=== PATIENT | female | born 1945 | race Caucasian/White ===

== ENCOUNTER 2016-04-23 20:00 | Observation (INO) | payer OTHER ==
[~2016-04-23] VITALS: Ht 157.5 cm; Wt 63.6 kg
[~2016-04-23 20:00] MED LIST: ASPEC81 PO; DENO60SO SQ; LEVO25TA5 PO; LEVO50TA PO; LPT20 PO; NTRGSL/4 UT; PANT1TAB48 PO; QUET-205 PO; QUET1TAB32 PO; TPRSR25 PO; TRAV0.00 OPB; VENL150C PO
[2016-04-23 20:39] LABS: HEMATOCRIT 37.1 % (37-47); MEAN CELL VOLUME 87.9 fL (80-100); MEAN CORPUSCULAR HEMOGLOBIN 29.9 pg (25-34); MEAN PLATELET VOLUME 12.5 fL (7.4-10.4); PLATELET COUNT 166 K/uL (130-400); RED BLOOD COUNT 4.22 M/uL (4.2-5.4); WHITE BLOOD COUNT 10.56 K/uL (4.8-10.8)
--- NOTE | 2016-04-23 20:42 | DIAGNOSTIC IMAGING REPORT ---
CHEST ONE VIEW PORTABLE CLINICAL HISTORY: AMS dyspnea COMPARISON STUDY: 05/25/2015 FINDINGS: Mild stable cardia megaly. Stable air-filled esophagus with mild distention. Stable atelectatic change versus scarring left base. Prior left shoulder arthroplasty. IMPRESSION: Chronic and postoperative change. No acute process. Electronically signed by: Srinivasan Mike M.D. 04/23/2016 8:41 PM Dictated Date/Time: 04/23/2016 8:40 PM
[2016-04-23 20:43] LABS: URINE APPEARANCE CLOUDY (CLEAR); URINE BILIRUBIN NEG (NEG); URINE COLOR YELLOW; URINE EPITHELIAL CELL AUTO 0-5 /lpf (0-5); URINE NITRITE NEG (NEG); UROBILINOGEN NEG (NEG); ZZUR CULT IF INDIC CLEAN CATCH NO
--- NOTE | 2016-04-23 20:48 | EMERGENCY ROOM VISIT NOTE ---
History Report prepared by Tom: Jessica Hayes Under the Supervision of: Dr. Basilio Henson M.D. First contact with patient: 20:02 Stated Complaint: confusion History of Present Illness The patient is a 70 year old female who presents to the Emergency Room with complaints of an episode of confusion occurring STAMP MOUNTER. The patient estimates that it was around 6pm when her symptoms occurred. She is unsure how long symptoms lasted. She just suddenly became unsure of where she was or what she was doing. She remembers wondering what she should be doing next. She was confused about who was nearby. The patient states that this episode was unwitnessed by anyone, although, her sister was waiting for her downstairs. She reports having some nausea earlier today which is not unusual for her. She denies chest pain, abdominal pain, diarrhea, vomiting, swelling in her legs, rash, back pain, headache, and any alcohol consumption. She denies falling to the ground or hitting her head. The patient was brought to the ED by ambulance. She was at her PCP earlier today for a well visit and denies any recent changes in her medications. Source of History: patient Onset: STAMP MOUNTER Position: other (global) Quality: other (confusion) Timing: other (episode) Modifying Factors (Relieving): other (time) Associated Symptoms: + nausea, No abdominal pain, No back pain, No chest pain, No diarrhea, No headache, No rash, No vomiting Review of Systems See HPI for pertinent positives & negatives. A total of 10 systems reviewed and were otherwise negative. Past Medical & Surgical Medical Problems: (1) Amnesia, global, transient (2) Asthma (3) COPD (chronic obstructive pulmonary disease) (4) Fit denture (5) Genital herpes simplex (6) GERD (gastroesophageal reflux disease) (7) hiatal hernia repair (8) Hysterectomy (9) SVT (supraventricular tachycardia) Family History Cancer Diabetes mellitus Heart disease Hypertension Lung disease Social History Smoking Status: Never Smoker Alcohol Use: none Marital Status: single Housing Status: lives alone Occupation Status: disabled Current/Historical Medications Scheduled Aspirin (Aspirin EC Low Dose), 81 MG PO DAILY Atorvastatin (Atorvastatin Calcium), 20 MG PO PM Denosumab (Prolia), 60 MG SQ [id number] Levothyroxine Sodium (Synthroid), 50 MCG PO 5XWK Levothyroxine Sodium (Levothyroxine Sodium), 25 TAB PO 2XWK Metoprolol Succinate (Metoprolol Succinate ER), 25 MG PO QAM Pantoprazole (Protonix), 40 MG PO BID Quetiapine Fumarate (Seroquel), 300 MG PO HS Venlafaxine Hcl (Effexor Xr), 150 MG PO QAM Venlafaxine Hcl (Effexor Xr), 37.5 MG PO QAM Scheduled PRN Nitroglycerin (Nitrostat), 0.4 MG UT UD PRN for Chest Pain Allergies Coded Allergies: Latex (Unverified Allergy, Mild, OTHER, 04/23/16) Physical Exam Vital Signs Date Time Temp Pulse Resp B/P Pulse Ox O2 Delivery O2 Flow Rate FiO2 04/23/16 22:42 87 18 137/89 96 Room Air 04/23/16 20:56 73 18 116/72 98 Room Air 04/23/16 20:19 80 04/23/16 20:06 36.7 81 18 120/91 96 Room Air Physical Exam GENERAL: Patient is well appearing and in no acute distress. HEENT: No acute trauma, normocephalic atraumatic, mucous membranes moist, no nasal congestion, no scleral icterus. NECK: No stridor, no adenopathy, no meningismus, trachea is midline. LUNGS: No dyspnea. Clear to auscultation and equal bilaterally. No wheeze, no rhonchi. HEART: Regular rate and rhythm. No murmurs, rubs, gallops appreciated. ABDOMEN: Soft, nontender, bowel sounds positive, no masses appreciated, no peritonitis. BACK: No midline tenderness, no CVA tenderness EXTREMITIES: Normal motion all extremities, no cyanosis, no edema. NEUROLOGIC: Alert and oriented, no acute motor or sensory deficits, no focal weakness, cranial nerves grossly intact. SKIN: No rash, no jaundice, no diaphoresis. Medical Decision & Procedures ER Provider Diagnostic Interpretation: Radiology results and stated below per my review and radiologist interpretation: HEAD CT NONCONTRAST CT DOSE: 537.48 mGy.cm HISTORY: Mental status change AMS TECHNIQUE: Multiaxial CT images of the head were performed without the use of intravenous contrast. Comparison: 03/20/2014 Findings: The paranasal sinuses and mastoid air cells are clear. The calvarium and skull base are intact. The ventricles and sulci are within normal limits. There is no mass, hematoma, midline shift, or acute infarct. Impression: No acute intracranial abnormality. Electronically signed by: Srinivasan Mike M.D. 04/23/2016 8:48 PM Dictated Date/Time: 04/23/2016 8:48 PM CHEST ONE VIEW PORTABLE CLINICAL HISTORY: AMS dyspnea COMPARISON STUDY: 05/25/2015 FINDINGS: Mild stable cardia megaly. Stable air-filled esophagus with mild distention. Stable atelectatic change versus scarring left base. Prior left shoulder arthroplasty. IMPRESSION: Chronic and postoperative change. No acute process. Electronically signed by: Srinivasan Mike M.D. 04/23/2016 8:41 PM Dictated Date/Time: 04/23/2016 8:40 PM Laboratory Results 04/23/16 20:28 Red Blood Count 4.22, Mean Corpuscular Volume 87.9, Mean Corpuscular Hemoglobin 29.9, Mean Corpuscular Hemoglobin Concent 34.0, Mean Platelet Volume 12.5, Neutrophils (%) (Auto) 81.7, Lymphocytes (%) (Auto) 10.8, Monocytes (%) (Auto) 6.5, Eosinophils (%) (Auto) 0.7, Basophils (%) (Auto) 0.2, Neutrophils # (Auto) 8.63, Lymphocytes # (Auto) 1.14, Monocytes # (Auto) 0.69, Eosinophils # (Auto) 0.07, Basophils # (Auto) 0.02 04/23/16 20:28 Test 04/23/16 20:28 White Blood Count 10.56 K/uL (4.8-10.8) Red Blood Count 4.22 M/uL (4.2-5.4) Hemoglobin 12.6 g/dL (12.0-16.0) Hematocrit 37.1 % (37-47) Mean Corpuscular Volume 87.9 fL (80-100) Mean Corpuscular Hemoglobin 29.9 pg (25-34) Mean Corpuscular Hemoglobin Concent 34.0 g/dl (32-36) Platelet Count 166 K/uL (130-400) Mean Platelet Volume 12.5 fL (7.4-10.4) Neutrophils (%) (Auto) 81.7 % Lymphocytes (%) (Auto) 10.8 % Monocytes (%) (Auto) 6.5 % Eosinophils (%) (Auto) 0.7 % Basophils (%) (Auto) 0.2 % Neutrophils # (Auto) 8.63 K/uL (1.4-6.5) Lymphocytes # (Auto) 1.14 K/uL (1.2-3.4) Monocytes # (Auto) 0.69 K/uL (0.11-0.59) Eosinophils # (Auto) 0.07 K/uL (0-0.5) Basophils # (Auto) 0.02 K/uL (0-0.2) RDW Standard Deviation 45.2 fL (36.4-46.3) RDW Coefficient of Variation 14.0 % (11.5-14.5) Immature Granulocyte % (Auto) 0.1 % Immature Granulocyte # (Auto) 0.01 K/uL (0.00-0.02) Activated Partial Thromboplast Time 29.6 SECONDS (21.0-31.0) Partial Thromboplastin Ratio 1.1 Urine Color YELLOW Urine Appearance CLOUDY (CLEAR) Urine pH 5.0 (4.5-7.5) Urine Specific [place] 1.020 (1.000-1.030) Urine Protein NEG (NEG) Urine Glucose (UA) NEG (NEG) Urine Ketones TRACE (NEG) Urine Occult Blood NEG (NEG) Urine Nitrite NEG (NEG) Urine Bilirubin NEG (NEG) Urine Urobilinogen NEG (NEG) Urine Leukocyte Esterase NEG (NEG) Urine WBC (Auto) 1-5 /hpf (0-5) Urine RBC (Auto) 0-4 /hpf (0-4) Urine Hyaline Casts (Auto) 0 /lpf (0-5) Urine Epithelial Cells (Auto) 0-5 /lpf (0-5) Urine Bacteria (Auto) NEG (NEG) Urine Crystals URIC ACID (NONE PRSENT) Anion Gap 9.0 mmol/L (3-11) Est Creatinine Clear Calc Drug Dose 41.7 ml/min Estimated GFR () 58.9 Estimated GFR (Non- 50.8 BUN/Creatinine Ratio 24.7 (10-20) Calcium Level 9.0 mg/dl (8.5-10.1) Magnesium Level 2.1 mg/dl (1.8-2.4) Total Bilirubin 0.4 mg/dl (0.2-1) Direct Bilirubin < 0.1 mg/dl (0-0.2) Aspartate Amino Transf (AST/SGOT) 22 U/L (15-37) Alanine Aminotransferase (ALT/SGPT) 28 U/L (12-78) Alkaline Phosphatase 48 U/L (45-117) Troponin I < 0.015 ng/ml (0-0.045) Total Protein 7.1 gm/dl (6.4-8.2) Albumin 3.8 gm/dl (3.4-5.0) Lipase 156 U/L (73-393) Thyroid Stimulating Hormone (TSH) 1.080 uIu/ml (0.300-4.500) Medications Administered Medications (Trade) Dose Ordered Sig/Brent Route Start Time Stop Time Status Last Admin Dose Admin Lidocaine HCl (Viscous Lidocaine 2% Soln) 20 ml STK-MED ONCE .ROUTE 04/23/16 22:27 04/23/16 22:29 DC 04/23/16 22:40 20 ML Al Hydroxide/Mg Hydroxide (Maalox Susp) 30 ml STK-MED ONCE .ROUTE 04/23/16 22:27 04/23/16 22:29 DC 04/23/16 22:40 30 ML ECG Indication: altered mental status Rate (beats per minute): 66 Rhythm: normal sinus Findings: no acute ischemic change, no ectopy Change: Repeat ECG performed in the ED reveals NSR 69 no ectopy no ischemia. ED Course 2001: The patient was evaluated in room C11B. A complete history and physical exam was performed. 2212: The patient is complaining of chest pressure. A repeat ECG was ordered. 2213: GI Cocktail 24 ml PO 2222: I reassessed the patient at this time. She is feeling better and resting comfortably. I discussed the results and treatment plan with the patient. I answered all pertaining questions that she had. She expressed understanding and verbalized agreement. 2224: I spoke with Dr. Yao. We discussed the patients results and treatment plan. The patient will be evaluated by the [facility] for further management. Medical Decision Differential: Vaso-vagal, Intracerebral Event, Neurologic, Infectious, Volume Deficiency, Hypoglycemia, Electrolyte Abnormality, Cardiac Source, Toxicologic, amongst other pathologies entertained. 70 yr old female arrives for evaluation of altered mental status. Patient is somewhat vague but it appears there was an episode of confusion/loss of memory lasting possibly a half hour? She notes that she does remember being dizzy and diaphoretic after this. She is stable and in no distress now. Work-up benign. We were discussing going home when patient noted chest pressure. Repeat EKG unremarkable and symptoms gone shortly there-after. Was given GI Cocktail as she notes she has some reflux issues. With transient AMS and chest pressure in high risk patient who lives alone seems reasonable obs in hospital. Consults Time Called: 2220 Consulting Physician: Dr. Yao Returned Call: [phone] Yao. We discussed the patients results and treatment plan. The patient will be evaluated by the [facility] for further management. Impression Primary Impression: Chest pain Additional Impression: Altered mental status Scribe Attestation The scribe's documentation has been prepared under my direction and personally reviewed by me in its entirety. I confirm that the note above accurately reflects all work, treatment, procedures, and medical decision making performed by me. Departure Information Dispostion Being Evaluated By Hospitalist Referrals Yuko Casas M.D. (PCP) Problem Qualifiers Primary Impression: Chest pain Chest pain type: precordial pain Qualified Codes: R07.2 - Precordial pain Additional Impression: Altered mental status Altered mental status type: transient alteration of awareness Qualified Codes : R40.4 - Transient alteration of awareness
[2016-04-23 20:49] LABS: MANUAL MICROSCOPIC REQUIRED? NO; REVIEW REQ? YES
[2016-04-23 20:59] LABS: ALT/SGPT 28 U/L (12-78); BLOOD UREA NITROGEN 27 mg/dl (7-18); BUN/CREATININE RATIO 24.7 (10-20); CARBON DIOXIDE 26 mmol/L (21-32); CHLORIDE 106 mmol/L (98-107); GLUCOSE 108 mg/dl (70-99); SODIUM 141 mmol/L (136-145)
[2016-04-23 21:03] LABS: ALKALINE PHOSPHATASE 48 U/L (45-117); AST/SGOT 22 U/L (15-37)
[2016-04-23 21:05] LABS: BASO % 0.2 %; BASO ABS # 0.02 K/uL (0-0.2); COMPLETE YES; EOS % 0.7 %; IG% 0.1 %; LYMPH % 10.8 %; LYMPH ABS # 1.14 K/uL (1.2-3.4); MONO % 6.5 %; NEUT % 81.7 %
--- NOTE | 2016-04-23 21:14 | DIAGNOSTIC IMAGING REPORT ---
HEAD CT NONCONTRAST CT DOSE: 537.48 mGy.cm HISTORY: Mental status change AMS TECHNIQUE: Multiaxial CT images of the head were performed without the use of intravenous contrast. Comparison: 03/20/2014 Findings: The paranasal sinuses and mastoid air cells are clear. The calvarium and skull base are intact. The ventricles and sulci are within normal limits. There is no mass, hematoma, midline shift, or acute infarct. Impression: No acute intracranial abnormality. Electronically signed by: Srinivasan Mike M.D. 04/23/2016 8:48 PM Dictated Date/Time: 04/23/2016 8:48 PM
[2016-04-23] MEDS ORDERED: GI COCKTAIL PO STA (22:13)
[2016-04-23] MEDS ORDERED: ALUMINUM/MAGNESIUM SUSP 30 ML UDC ONE (22:27)
[2016-04-23] MEDS ORDERED: LIDOCAINE HCL 2% VISC SOLN 20 ML UDC ONE (22:27)
[2016-04-23 23:05] LABS: PARTIAL THROMBOPLASTIN RATIO 1.1
[2016-04-23] MEDS ORDERED: VENL1CAP92 PO (23:05)
[2016-04-23] MEDS ORDERED: QUET1TAB37 PO (23:05)
[2016-04-23] MEDS ORDERED: EFF/375 PO (23:05)
[2016-04-23 23:39] LABS: MAGNESIUM 2.1 mg/dl (1.8-2.4)
[2016-04-23] MEDS ORDERED: SODIUM CHLORIDE 0.45% 1000ML 1,000 ML IV ONE (23:45)
[2016-04-24] MEDS ORDERED: NITROGLYCERIN 0.4 MG SL PER TAB CHARGE SL PRN
[2016-04-24] MEDS ORDERED: ACETAMINOPHEN 325 MG TAB PO PRN
[2016-04-24] MEDS ORDERED: IV FLUIDS COMPLETED PRN (00:15)
--- NOTE | 2016-04-24 03:50 | HISTORY & PHYSICAL EXAMINATION ---
DATE OF ADMISSION: 04/23/2016 PATIENT'S PRIMARY CARE DOCTOR: Dr. Casas Hx obtained form px and records. CHIEF COMPLAINT: Confusion. HISTORY OF PRESENT ILLNESS: Medical history is significant for non-occlusive CAD, PSVT as per records, mood disorder, schizophrenia, COPD, past tobacco abuse, GERD/Mcintyre's dse sp surgery hypothyroidism, Recent confinement last in September 2014 for chest pain, possible non-ST elevation LA, nonocclusive CAD on cath. Last night, the patient got into her apartment elevator, felt fuzzy, does not remember subsequent events, transient confusion. No chest pain, no shortness of breath, no syncope. May have happened before. Denies bladder discomfort. No fever, no chills. No recent change in home meds. At the ER, patient had chest pain described as reflux symptoms resolved by GI cocktail. Patient is currently comfortable. admits to occasional choking w meals. MEDICAL HISTORY: As above. EGD July 2015 shows esophageal stenosis sp dilatation, Mcintyre's disease SURGERIES: She has had hysterectomy, tubal ligation, rotator cuff surgery HOME MEDICATIONS: Include; Prolia, Synthroid, levothyroxine, Nitrostat, Protonix, Seroquel, Effexor. ASA ALLERGIES: TO LATEX. FAMILY HISTORY: Hypertension, blood cancer, breast cancer, COPD and depression. PERSONAL AND SOCIAL HISTORY: past tobacco abuse, no chronic intake of alcoholic beverages. lives alone REVIEW OF SYSTEMS: As per HPI. All other ROS negative. PHYSICAL EXAMINATION: VITAL SIGNS: Blood pressure 120/91, pulse rate 80 RR 18, 36.6, T 37 O2 sats 98 on room air. GENERAL: Noted to be slightly anxious and restless, in no respiratory distress. occ. circuitous answers SKIN: Normal color. HEENT: [place] palpebral conjunctivae. Dry mucosa. NECK: No JVD. supple CHEST: Clear to auscultation. HEART: Regular rate and rhythm. ABDOMEN: Soft. EXTREMITIES: No edema, no tenderness. NEUROLOGIC: No gross focality. LABORATORIES: Hemoglobin was 12.6, hematocrit 37, white cell count 10, platelets 200 Sodium 141, potassium 4, chloride 101, CO2 26, BUN 27, creatinine 1.1, glucose 108. Troponin normal. Chest x-ray showed cardiomegaly, air-filled esophagus with mild distention. CT of head; no acute pathology. EKG; 65, NSR no ischemia UA showed trace ketones, WC 1-5. ASSESSMENT AND PLAN: 1. Transient confusion, vs transient global amnesia poss from mild dehydration as evidenced by mild ketonuria rule out TIA, seizures. 2. Chest pain from reflux as per px description resolved w/ GI cocktail given at the ER 3. hx non-occlusive CAD as per records 4. xh PSVT as per records 5. Mood disorder/schizophrenia as per records stable on medications as per px. 6. Chronic obstructive pulmonary disease, past tobacco abuse pulmo status at baseline 7. hx GERD sp surgery Occasional choking, prob esophageal dysfunction. PLAN: Observation. PCU. IVF MRI of head, EEG for transient amnesia craig Neurology consult. transient amnesia Further eval/management as per Neurology. PT/OT evaluation. Swallow eval RE episodic choking DVT prophylaxis, Lovenox subQ. Full code. MTDD
[2016-04-24 03:58] VITALS: BP 122/88; PULSE 80; TEMP 36.8; Ht 157.5 cm; Wt 63.6 kg
[2016-04-24 04:54] LABS: BASO % 0.3 %; BASO ABS # 0.02 K/uL (0-0.2); COMPLETE YES; EOS % 2.1 %; HEMATOCRIT 34.9 % (37-47); IG% 0.2 %; LYMPH % 32.6 %; LYMPH ABS # 2.13 K/uL (1.2-3.4); MEAN CELL VOLUME 84.7 fL (80-100); MEAN CORPUSCULAR HEMOGLOBIN 28.9 pg (25-34); MEAN CORPUSCULAR HGB CONC 34.1 g/dl (32-36); NEUT % 53.8 %; PLATELET COUNT 157 K/uL (130-400); RED BLOOD COUNT 4.12 M/uL (4.2-5.4); WHITE BLOOD COUNT 6.54 K/uL (4.8-10.8)
[2016-04-24 05:09] LABS: BLOOD UREA NITROGEN 25 mg/dl (7-18); BUN/CREATININE RATIO 30.3 (10-20); CALCIUM 8.8 mg/dl (8.5-10.1); CARBON DIOXIDE 26 mmol/L (21-32); CHLORIDE 109 mmol/L (98-107); CREATININE 0.83 mg/dl (0.60-1.20); GLUCOSE 89 mg/dl (70-99); POTASSIUM 3.7 mmol/L (3.5-5.1); SODIUM 143 mmol/L (136-145)
[2016-04-24] MEDS ORDERED: LEVOTHYROXINE 50 MCG TAB PO SCH (06:30)
--- NOTE | 2016-04-24 06:46 | DIAGNOSTIC IMAGING REPORT ---
MRI OF THE BRAIN WITHOUT CONTRAST CLINICAL HISTORY: Confusion and transient amnesia. COMPARISON STUDY: Head CT dated 04/23/2016 FINDINGS: Sagittal T1, axial diffusion, proton density and T2 weighted axial, coronal FLAIR, and axial T1-weighted images were acquired. No intra or extra-axial mass lesions are visualized Axial diffusion-weighted images reveal no evidence of acute or subacute infarction. There is no evidence of ventricular dilatation. Proton density T2-weighted and FLAIR images reveal foci of increased T2 signal within the white matter, subjacent to the insular cortices right greater than left, likely on a small vessel basis. There are no abnormal flow voids. IMPRESSION: 1. No acute intracranial findings 2. No evidence of acute or subacute infarction 3. No evidence of intracranial mass on this noncontrast study Electronically signed by: Efrain Cheung M.D. 04/24/2016 6:45 AM Dictated Date/Time: 04/24/2016 6:42 AM
[2016-04-24 08:22] VITALS: BP 130/90; PULSE 72; TEMP 36.8; O2SAT 98
[2016-04-24] MEDS ORDERED: INFLUENZA VIRUS QUAD VACCINE 0.5 ML SYR IM. ONE (08:30)
[2016-04-24] MEDS ORDERED: INFLUENZA ADMINISTRATION CHARGE ONE (08:30)
[2016-04-24] MEDS ORDERED: VENLAFAXINE HCL XR 150 MG CAPXR PO SCH (09:00)
[2016-04-24] MEDS ORDERED: PANTOprazole SOD 40 MG TAB PO SCH (09:00)
[2016-04-24] MEDS ORDERED: METOPROLOL SUCC 25MG EXT REL TAB PO SCH (09:00)
[2016-04-24] MEDS ORDERED: VENLAFAXINE HCL XR 37.5 MG CAPXR PO SCH (09:00)
[2016-04-24] MEDS ORDERED: ASPIRIN 81 MG ECTAB PO SCH (09:00)
[2016-04-24] MEDS ORDERED: ENOXAPARIN 40 MG/0.4 ML SYR SC SCH (09:00)
[2016-04-24] MEDS ORDERED: ALUMINUM/MAGNESIUM SUSP 30 ML UDC PO PRN (13:15)
--- NOTE | 2016-04-24 13:38 | ELECTROENCEPHALOGRAPH REPORT ---
CLINICAL DIAGNOSIS: Transient amnesia, question seizure. EEG DIAGNOSIS: Essentially normal during wakefulness and brief duration drowsiness. DESCRIPTION OF TRACING: This EEG was done as a bedside recording and is of good technical quality. A simultaneous video analysis of patient movement and behavior was also obtained. Photic stimulation was performed. Episodic drowsiness is recorded, but fully sustained drowsiness and light sleep were not seen. Under these conditions, there is evidence for normal appearing background rhythm in the alpha range of up to 10 Hz of maximum frequency and 30 microvolts of maximum amplitude. This is maximum posterior head regions and bilaterally symmetrical. Polymorphic mid frequency theta activity modest voltage is seen over all head regions without clear focal or regional predominance. Anterior head region maximum bilaterally symmetrical low voltage fast activity in the beta range is present. Photic stimulation provokes some modest driving response without a photomyogenic or photoparoxysmal component. Episodic drowsiness is seen during which the background rhythm disappears and is replaced by more rhythmic theta delta activity, but this is never sustained and fully developed sleep spindles and K complexes are not present. At no time during the waking or brief duration drowsy tracing is there evidence for potentially activity in the form of polyspike or spike wave bursts, focal sharp waves or focal spikes. INTERPRETATION: This EEG is essentially normal during wakefulness without evidence for focal or generalized encephalopathy and without evidence for potentially epileptogenic activity. MTDD
[2016-04-24 15:16] VITALS: O2SAT 98
[2016-04-24 15:43] VITALS: BP 122/84; PULSE 69; TEMP 36.5; O2SAT 98
--- NOTE | 2016-04-24 16:02 | Neurology Consultation ---
Neurology Consultation Date of Consultation: Apr 24, 2016. Attending Physician: Karolina Cotton MD Primary Care Physician: Yuko Casas M.D. Reason for Consultation: confusion transient amnesia History of Present Illness Source: patient Holli is a 70 year old female who has a PMH SVT, GERD, COPD, anxiety, depression. She states she was getting ready to walk to the [employer] with her sister that lives in the same department building as she does. She got on the elevator and things just didn't look right. She got off the elevator and after a few minutes realized she was going to meet her sister and they walked over to [employer]. Her sister said she sounded like she was drink. This went on for several minutes and then she was back to her baseline. She states this has happened many times in the past but it always resolves. She had no one sided numbness, weakness, tingling, CP, SOB, abdominal pain, N, V, vision changes. Past Medical/Surgical History Medical Problems: (1) Altered mental status Status: Acute (2) Chest pain Status: Acute (3) Epigastric abdominal pain Status: Acute (4) Hives Status: Acute Social History Smoking Status: Never smoker Marital Status: single Housing Status: lives alone Occupation Status: disabled Allergies Coded Allergies: Latex (Unverified Allergy, Mild, OTHER, 04/23/16) Current Inpatient Medications Current Inpatient Medications Medications (Trade) Dose Ordered Sig/Brent Route Start Time Stop Time Status Last Admin Dose Admin Enoxaparin Sodium (Lovenox Inj) 40 mg Q24H SC 04/24/16 09:00 05/24/16 08:59 04/24/16 09:55 40 MG Acetaminophen (Tylenol Tab) 650 mg Q4H PRN PO 04/24/16 00:00 05/24/16 00:00 Nitroglycerin (Nitrostat Tab) 0.4 mg UD PRN SL 04/24/16 00:00 05/24/16 00:00 Aspirin (Ecotrin Tab) 81 mg DAILY PO 04/24/16 09:00 05/24/16 08:59 04/24/16 09:24 81 MG Atorvastatin Calcium (Lipitor Tab) 20 mg PM PO 04/24/16 21:00 05/24/16 20:59 04/24/16 01:54 20 MG Levothyroxine Sodium (Synthroid Tab) 25 mcg SuSa@0630 PO 04/28/16 06:30 05/28/16 06:29 Levothyroxine Sodium (Synthroid Tab) 50 mcg MoTuWeThFr@0630 PO 04/24/16 06:30 05/24/16 06:29 04/24/16 05:50 50 MCG Metoprolol Succinate (Toprol Xl Tab) 25 mg QAM PO 04/24/16 09:00 05/24/16 08:59 04/24/16 09:24 25 MG Pantoprazole Sodium (Protonix Tab) 40 mg BID PO 04/24/16 09:00 05/24/16 08:59 04/24/16 09:23 40 MG Quetiapine Fumarate (seroQUEL TAB) 300 mg HS PO 04/24/16 21:00 05/24/16 20:59 04/24/16 01:54 300 MG Venlafaxine HCl (effeXOR EXTENDED REL CAP) 37.5 mg QAM PO 04/24/16 09:00 05/24/16 08:59 04/24/16 09:24 37.5 MG Venlafaxine HCl (effeXOR EXTENDED REL CAP) 150 mg QAM PO 04/24/16 09:00 05/24/16 08:59 04/24/16 09:24 150 MG Miscellaneous (Iv Fluids Completed) 1 ea PRN PRN N/A 04/24/16 00:15 04/24/17 00:14 Al Hydroxide/Mg Hydroxide (Maalox Susp) 15 ml Q6H PRN PO 04/24/16 13:15 05/24/16 13:14 Review of Systems Integumentary: No bleeding, No color change, No itch, No new/changing skin lesions, No problem reported, No rash Physical Exam Vital Signs (Past 24 Hrs): Date Time Temp Pulse Resp B/P Pulse Ox O2 Delivery O2 Flow Rate FiO2 04/24/16 15:16 72 18 130/90 98 04/24/16 12:00 Room Air 04/24/16 08:22 36.8 72 18 130/90 98 Room Air 04/24/16 08:00 Room Air 04/24/16 07:29 70 04/24/16 04:50 79 04/24/16 03:58 36.8 80 20 122/88 Room Air 04/24/16 00:32 89 18 133/81 98 Room Air 04/23/16 22:42 87 18 137/89 96 Room Air 04/23/16 20:56 73 18 116/72 98 Room Air 04/23/16 20:19 80 04/23/16 20:06 36.7 81 18 120/91 96 Room Air Physical Exam: Constitutional: appearance nourished, thin pale Ears, Nose, Mouth and Throat: mucous membranes moist, no injection and skin normal, eyes normal Cardiovascular: normal S-1 and S-2 and regular rate and rhythm Respiratory: clear to auscultation (CTA) and no rales, rhonchi or wheeze Musculoskeletal: no peripheral edema and good distal pulses Skin: no stigmata of neurocutaneous disease noted and normal and intact Eyes: extraocular muscles intact (EOMI) and pupils equal, round and reactive to light (PERRL), good vascular pulsations, disc flat NEUROLOGIC EXAMINATION: Mental status: Alert and interactive Oriented to full date and location Oriented to person Speech fluent with no evidence of aphasia Cranial Nerves smile and eye brow raise symmetric Reflexes: Deep tendon reflexes were symmetrical and graded 2/5. Plantar responses were flexor. Sensory: no sensory deficits Coordination: Romberg absent Gait/Stance: Posture normal. Gait normal: with steady with steps, base, turning, heel and toe walking and tandem gait. Motor: Negative for pronator drift of out stretched arms with eyes closed. Strength: Normal - 5/5 all extremities Laboratory Results Past 24 Hours: 04/24/16 04:44 Red Blood Count 4.12, Mean Corpuscular Volume 84.7, Mean Corpuscular Hemoglobin 28.9, Mean Corpuscular Hemoglobin Concent 34.1, Mean Platelet Volume 12.0, Neutrophils (%) (Auto) 53.8, Lymphocytes (%) (Auto) 32.6, Monocytes (%) (Auto) 11.0, Eosinophils (%) (Auto) 2.1, Basophils (%) (Auto) 0.3, Neutrophils # (Auto ) 3.52, Lymphocytes # (Auto) 2.13, Monocytes # (Auto) 0.72, Eosinophils # (Auto ) 0.14, Basophils # (Auto) 0.02 04/24/16 04:44 Test 04/23/16 20:28 04/24/16 04:44 Activated Partial Thromboplast Time 29.6 SECONDS (21.0-31.0) Partial Thromboplastin Ratio 1.1 Urine Color YELLOW Urine Appearance CLOUDY (CLEAR) Urine pH 5.0 (4.5-7.5) Urine Specific [place] 1.020 (1.000-1.030) Urine Protein NEG (NEG) Urine Glucose (UA) NEG (NEG) Urine Ketones TRACE (NEG) Urine Occult Blood NEG (NEG) Urine Nitrite NEG (NEG) Urine Bilirubin NEG (NEG) Urine Urobilinogen NEG (NEG) Urine Leukocyte Esterase NEG (NEG) Urine WBC (Auto) 1-5 /hpf (0-5) Urine RBC (Auto) 0-4 /hpf (0-4) Urine Hyaline Casts (Auto) 0 /lpf (0-5) Urine Epithelial Cells (Auto) 0-5 /lpf (0-5) Urine Bacteria (Auto) NEG (NEG) Urine Crystals URIC ACID (NONE PRSENT) Magnesium Level 2.1 mg/dl (1.8-2.4) Total Bilirubin 0.4 mg/dl (0.2-1) Direct Bilirubin < 0.1 mg/dl (0-0.2) Aspartate Amino Transf (AST/SGOT) 22 U/L (15-37) Alanine Aminotransferase (ALT/SGPT) 28 U/L (12-78) Alkaline Phosphatase 48 U/L (45-117) Total Protein 7.1 gm/dl (6.4-8.2) Albumin 3.8 gm/dl (3.4-5.0) Lipase 156 U/L (73-393) Thyroid Stimulating Hormone (TSH) 1.080 uIu/ml (0.300-4.500) White Blood Count 6.54 K/uL (4.8-10.8) Red Blood Count 4.12 M/uL (4.2-5.4) Hemoglobin 11.9 g/dL (12.0-16.0) Hematocrit 34.9 % (37-47) Mean Corpuscular Volume 84.7 fL (80-100) Mean Corpuscular Hemoglobin 28.9 pg (25-34) Mean Corpuscular Hemoglobin Concent 34.1 g/dl (32-36) Platelet Count 157 K/uL (130-400) Mean Platelet Volume 12.0 fL (7.4-10.4) Neutrophils (%) (Auto) 53.8 % Lymphocytes (%) (Auto) 32.6 % Monocytes (%) (Auto) 11.0 % Eosinophils (%) (Auto) 2.1 % Basophils (%) (Auto) 0.3 % Neutrophils # (Auto) 3.52 K/uL (1.4-6.5) Lymphocytes # (Auto) 2.13 K/uL (1.2-3.4) Monocytes # (Auto) 0.72 K/uL (0.11-0.59) Eosinophils # (Auto) 0.14 K/uL (0-0.5) Basophils # (Auto) 0.02 K/uL (0-0.2) RDW Standard Deviation 42.6 fL (36.4-46.3) RDW Coefficient of Variation 13.8 % (11.5-14.5) Immature Granulocyte % (Auto) 0.2 % Immature Granulocyte # (Auto) 0.01 K/uL (0.00-0.02) Prothrombin Time 11.0 SECONDS (9.0-12.0) Prothromb Time International Ratio 1.0 (0.9-1.1) Anion Gap 8.0 mmol/L (3-11) Est Creatinine Clear Calc Drug Dose 55.3 ml/min Estimated GFR () 82.8 Estimated GFR (Non- 71.4 BUN/Creatinine Ratio 30.3 (10-20) Calcium Level 8.8 mg/dl (8.5-10.1) Troponin I < 0.015 ng/ml (0-0.045) Imaging EEG -This EEG is essentially normal during wakefulness without evidence for focal or generalized encephalopathy and without evidence for potentially epileptogenic activity MRI brain with and without- No acute intracranial findings No evidence of acute or subacute infarction No evidence of intracranial mass on this noncontrast study CXR- Mild stable cardia megaly. Stable air-filled esophagus with mild distention. Stable atelectatic change versus scarring left base. Prior left shoulder arthroplasty. Impression 70 year old female with transient confusion -now back to baseline Plan 1. EEG no seizure activity 2. MRI with and without brain -no stroke or other acute symptoms 3. patient back to baseline 4. if symptoms continue would recommend out patient EEG 5. ok from neurology stand point to discharge neurology in 3-4 weeks Flavia Coker PAC schedule I have seen and discussed above patient with Dr Jerardo Madrid, neurology Patient seen and examined and above reviewed with Flavia Knutson and Dr French very brief period of amnesia with no sequelae on exxam mri and with negative eeg History suggests that she may have these occasionally and we may need to get outpatient eeg monitoring but for now would clear for discharge and follow up outpatient as needed if symptoms recur Jerardo Madrid MD
--- NOTE | 2016-04-24 16:11 | Discharge Instructions ---
Discharge Instructions Admission Reason for Admission: Confusion Discharge Discharge Diagnosis / Problem: Confusion Discharge Goals Goal(s): Improve disease control Activity Recommendations Activity Limitations: resume your previous activity . Instructions / Follow-Up Instructions / Follow-Up Please keep your scheduled follow up appointment with mental health this . Please follow up with Family Medicine Dr. Casas on May 01 at 10:50am. Current Hospital Diet Patient's current hospital diet: AHA Diet (Heart Healthy) Discharge Diet Recommended Diet: AHA Diet (Heart Healthy) Pending Studies Studies pending at discharge: no Medical Emergencies . Who to Call and When: Medical Emergencies: If at any time you feel your situation is an emergency, please call 911 immediately. . Non-Emergent Contact Non-Emergency issues call your: Primary Care Provider . . "Provider Documentation" section prepared by Karolina Suazo. VTE Core Measure Inpt VTE Proph given/why not?: Enoxaparin (Lovenox)SQ
[2016-04-24 16:14] VITALS: BP 122/84; PULSE 69; TEMP 36.5; O2SAT 98
[2016-04-24] MEDS ORDERED: QUETIAPINE FUMARATE 300 MG TAB PO SCH (21:00)
[2016-04-24] MEDS ORDERED: ATORVASTATIN 20 MG TAB PO SCH (21:00)
--- NOTE | 2016-04-24 21:34 | Discharge Summary ---
Discharge Summary Date of Service Apr 24, 2016. Discharge Summary Admission Date: Apr 23, 2016 at 23:26 Discharge Date: Apr 24, 2016 Discharge Disposition: Home Principal Diagnosis: Transient confusion Procedures: CT head No acute intracranial abnormality. MRI brain 1. No acute intracranial findings 2. No evidence of acute or subacute infarction 3. No evidence of intracranial mass on this noncontrast study EEG This EEG is essentially normal during wakefulness without evidence for focal or generalized encephalopathy and without evidence for potentially epileptogenic activity. Consultations: Neurology Medication Reconciliation Continued Medications: Aspirin (Aspirin EC Low Dose) 81 Mg Ectab 81 MG PO DAILY, #100 Atorvastatin (Atorvastatin Calcium) 20 Mg Tab 20 MG PO PM, #30 TAB Denosumab (Prolia) 60 Mg/Ml Ingrid 60 MG SQ [id number] Levothyroxine Sodium (Synthroid) 50 Mcg Tab 50 MCG PO 5XWK take daily saturday - saturday Levothyroxine Sodium (Levothyroxine Sodium) 25 Mcg Tab 25 TAB PO 2XWK, 3 Refills take on daily on saturdays and sundays Metoprolol Succinate (Metoprolol Succinate ER) 25 Mg Tabcr 25 MG PO QAM, #30 Nitroglycerin (Nitrostat) 0.4 Mg Tab 0.4 MG UT UD PRN for Chest Pain, BTL Pantoprazole (Protonix) 40 Mg Tab 40 MG PO BID, TAB TAKE ONE TWICE DAILY,30 MINUTES BEFORE A MEAL. DO NOT CRUSH OR CHEW. Quetiapine Fumarate (Seroquel) 300 Mg Tab 300 MG PO HS, TAB Venlafaxine Hcl (Effexor Xr) 150 Mg Cap 150 MG PO QAM, 2 Refills Venlafaxine Hcl (Effexor Xr) 37.5 Mg Cap 37.5 MG PO QAM Admission Information HPI (per Admitting provider): Medical history is significant for non-occlusive CAD, PSVT as per records, mood disorder, schizophrenia, COPD, past tobacco abuse, GERD/Mcintyre's dse sp surgery hypothyroidism, Recent confinement last in September 2014 for chest pain, possible non-ST elevation [place], nonocclusive CAD on cath. Last night, the patient got into her apartment elevator, felt fuzzy, does not remember subsequent events, transient confusion. No chest pain, no shortness of breath, no syncope. May have happened before. Denies bladder discomfort. No fever, no chills. No recent change in home meds. At the ER, patient had chest pain described as reflux symptoms resolved by GI cocktail. Patient is currently comfortable. admits to occasional choking w meals. Physical Exam (per Admitting): VITAL SIGNS: Blood pressure 120/91, pulse rate 80 RR 18, 36.6, T 37 O2 sats 98 on room air. GENERAL: Noted to be slightly anxious and restless, in no respiratory distress. occ. circuitous answers SKIN: Normal color. HEENT: [place] palpebral conjunctivae. Dry mucosa. NECK: No JVD. supple CHEST: Clear to auscultation. HEART: Regular rate and rhythm. ABDOMEN: Soft. EXTREMITIES: No edema, no tenderness. NEUROLOGIC: No gross focality. Hospital Course Patient was admitted to telemetry for episode of transient confusion. No events were noted on telemetry. CT head, MRI brain and EEG were all unremarkable. Neurology was consulted and did not recommend any further workup at this time. If symptoms recur, then patient may need outpatient EEG monitoring. Vitals, labs and EKG's were all normal as well. No changes were made to patient's medications. Patient deemed stable for discharge with Family Medicine and Psychiatry follow up. PE on discharge: General- awake; alert; NAD Eyes- EOMI; no scleral icterus Neck- no stridor; trachea midline Lungs- CTA bilaterally; no wheezes/crackles Heart- RRR; no m/r/g Abdomen- soft; NTND; nBS Back- no gross abnormalities Extremities- no c/c/e; no deformity Neuro- no gross focal deficits Skin- no appreciable rash or bruise . Total time spent on discharge = This includes examination of the patient, discharge planning, medication reconciliation, and communication with other providers. Discharge Instructions Discharge Instructions Admission Reason for Admission: Confusion Discharge Discharge Diagnosis / Problem: Confusion Discharge Goals Goal(s): Improve disease control Activity Recommendations Activity Limitations: resume your previous activity . Instructions / Follow-Up Instructions / Follow-Up Please keep your scheduled follow up appointment with mental health this . Please follow up with Family Medicine Dr. Casas on May 01 at 10:50am. Current Hospital Diet Patient's current hospital diet: AHA Diet (Heart Healthy) Discharge Diet Recommended Diet: AHA Diet (Heart Healthy) Pending Studies Studies pending at discharge: no Medical Emergencies . Who to Call and When: Medical Emergencies: If at any time you feel your situation is an emergency, please call 911 immediately. . Non-Emergent Contact Non-Emergency issues call your: Primary Care Provider . . "Provider Documentation" section prepared by Karolina Suazo. VTE Core Measure Inpt VTE Proph given/why not?: Enoxaparin (Lovenox)SQ Additional Copies To Yuko Casas M.D.
[2016-04-28] MEDS ORDERED: LEVOTHYROXINE 25 MCG TAB PO SCH (06:30)
== END 2016-04-24 16:28 | disposition home or self-care (01) ==
LOC: ENRESERVDT → ENRESERVTM → EDBD 20:00 → C.EDC 20:01 → C.EDINP 23:26 → C.MED 04-24 15:20
PROVIDERS: ADMIT Internal Medicine; ATTEND Internal Medicine
DX: R40.4 Transient alteration of awareness (principal); R07.2 Precordial pain; E86.0 Dehydration; J44.9 Chronic obstructive pulmonary disease, unspecified; I25.10 Atherosclerotic heart disease of native coronary artery without angina pectoris; F20.9 Schizophrenia, unspecified; K21.9 Gastro-esophageal reflux disease without esophagitis; Z83.3 Family history of diabetes mellitus; Z82.49 Family history of ischemic heart disease and other diseases of the circulatory system; Z83.6 Family history of other diseases of the respiratory system; Z79.82 Long term (current) use of aspirin; Z79.899 Other long term (current) drug therapy; Z80.3 Family history of malignant neoplasm of breast

== ENCOUNTER 2016-06-19 15:33 | Emergency (ER) | payer OTHER ==
[~2016-06-19] VITALS: Ht 157.5 cm; Wt 63.0 kg
[~2016-06-19 15:33] MED LIST changes: -QUET-205 PO; -QUET1TAB32 PO; +QUET1TAB37 PO; -TRAV0.00 OPB; +VENL1CAP92 PO
[2016-06-19 15:35] VITALS: TEMP 36.5; Ht 157.5 cm; Wt 63.0 kg
[2016-06-19] MEDS ORDERED: DIPHTHERIA/TETANUS/PERTUSSIS 0.5 ML SYR/VIAL IM. ONE (15:45)
--- NOTE | 2016-06-19 15:46 | EMERGENCY ROOM VISIT NOTE ---
ED Visit Note First contact with patient: 15:36 CHIEF COMPLAINT: Finger laceration HISTORY OF PRESENT ILLNESS: This 70-year-old female patient presents to the emergency department ambulatory after cutting the right first finger on a metal shelf at home approximately one hour ago. The bleeding has stopped. Denies weakness or numbness of the finger. The patient has full range of motion of the fingers. The patient denies any pain. The patient denies any other injuries. The patient's tetanus shot is not up to date. REVIEW OF SYSTEMS: A 6 system review of systems was completed with positives and pertinent negatives listed in the HPI. ALLERGIES: Latex MEDICATIONS: See nursing notes PMH: Hypertension, hyperlipidemia, hypothyroidism SOCIAL HISTORY: The patient lives locally PHYSICAL EXAM: Vital Signs: Reviewed Nurse's notes, vital signs stable. GENERAL : This is a 70-year-old female, in no acute distress, well developed, well nourished. SKIN: There is a 1 cm long laceration on the palmar aspect of the right first finger. The edges do not significantly gape apart with traction. There is no foreign material in the wound and it looks clean. There is no bleeding. No deep structures such as tendons, bones, or nerves are seen in the base of the wound. Extension and flexion of the finger is full and strong. Full range of motion of the wrist and other fingers. Capillary refill less than 2 seconds. Normal sensation to light and sharp touch. EMERGENCY DEPARTMENT COURSE: I examined the patient. The laceration was quite small but did bleed persistently. Therefore, the plan was to suture the wound. Using sterile technique the wound was cleaned with Betadine. 2 ml of 1% buffered lidocaine was used to infiltrate the wound to anesthetize the patient. The area was sterilely draped. Once the patient was numb, the wound was copiously irrigated under pressure with sterile saline. The wound was explored and there were no deep structures such as tendons, bone, or ligaments present. The laceration was repaired using 3 simple interrupted 5-0 nylon sutures. The patient tolerated the procedure well. The bleeding stopped. The area was cleaned with sterile saline and dressed with bacitracin ointment and bandage. The patient was given a tetanus booster. The patient was discharged home in good condition. DIAGNOSIS: Finger laceration DISCHARGE INSTRUCTIONS & TREATMENT: Keep wound clean and dry. Do not allow any crusting or dried blood to accumulate on sutures. If this occurs, use a 1:1 solution of hydrogen peroxide/water on a Q-tip to clean the wound. Use an antibiotic ointment for 3-4 days, then let wound dry. Suture removal in 7-10 days. Return sooner for any signs of infection (increasing redness, swelling, drainage). Ice and elevate for swelling and pain. Keep covered when in sun until sutures removed then SPF 50 or higher for one year. Vitamin E oil if desired two weeks after suture removal for reduction of scar. Problem List Medical Problems: (1) Asthma Status: Chronic (2) COPD (chronic obstructive pulmonary disease) Status: Chronic (3) Fit denture Status: Chronic (4) Genital herpes simplex Status: Chronic (5) GERD (gastroesophageal reflux disease) Status: Chronic (6) hiatal hernia repair Status: Resolved (7) Hysterectomy Status: Chronic (8) SVT (supraventricular tachycardia) Status: Resolved Current/Historical Medications Scheduled Aspirin (Aspirin Ec), 81 MG PO DAILY Atorvastatin (Lipitor), 20 MG PO QPM Denosumab (Prolia), 60 MG SQ [id number] Levothyroxine Sodium (Synthroid), 50 MCG PO 5XWK Levothyroxine Sodium (Levothyroxine Sodium), 25 TAB PO 2XWK Metoprolol Succinate (Toprol Xl), 25 MG PO QAM Pantoprazole (Protonix), 40 MG PO BID Quetiapine Fumarate (Seroquel), 300 MG PO HS Venlafaxine Hcl (Effexor Xr), 150 MG PO QAM Scheduled PRN Nitroglycerin (Nitrostat), 0.4 MG UT UD PRN for Chest Pain Allergies Coded Allergies: Latex (Unverified Allergy, Mild, OTHER, 06/19/16) Vital Signs Date Time Temp Pulse Resp B/P Pulse Ox O2 Delivery O2 Flow Rate FiO2 06/19/16 16:53 86 16 104/66 96 Room Air 06/19/16 15:35 36.5 73 16 119/77 95 Room Air Medications Administered Medications (Trade) Dose Ordered Sig/Brent Route Start Time Stop Time Status Last Admin Dose Admin Diphtheria/ Pertussis/Tetanus Vacc (Adacel Inj) 0.5 ml ONCE ONCE IM. 06/19/16 15:45 06/19/16 15:46 DC 06/19/16 15:56 0.5 ML Departure Information Impression Primary Impression: Laceration Dispostion Home / Self-Care Condition GOOD Referrals No Doctor, Assigned (PCP) Patient Instructions ED Laceration All, [facility] Additional Instructions Keep wound clean and dry. Do not allow any crusting or dried blood to accumulate on sutures. If this occurs, use a 1:1 solution of hydrogen peroxide/ water on a Q-tip to clean the wound. Use an antibiotic ointment for 3-4 days, then let wound dry. Suture removal in 7-10 days. Return sooner for any signs of infection (increasing redness, swelling, drainage). Ice and elevate for swelling and pain. Keep covered when in sun until sutures removed then SPF 50 or higher for one year. Vitamin E oil if desired two weeks after suture removal for reduction of scar.
[2016-06-19] MEDS ORDERED: METO25TA3 PO (16:09)
[2016-06-19] MEDS ORDERED: ASPI81TA28 PO (16:09)
[2016-06-19] MEDS ORDERED: ATOR-22 PO (16:09)
[2016-06-19] MEDS ORDERED: XYLOCAINE 1%/SOD BICARB 20 ML VIAL INFIL ONE (16:15)
[2016-06-19 16:53] VITALS: BP 104/66; PULSE 86; O2SAT 96
--- NOTE | 2016-06-20 19:52 | EMERGENCY ROOM VISIT NOTE ---
ED Visit Note First contact with patient: 15:36 I have personally evaluated and examined this patient. I agree with assessment and plan of Ava Rg PA-C.
== END 2016-06-19 16:57 | disposition home or self-care (01) ==
LOC: C.EDB 15:36 → C.EDD 16:57
DX: S61.210A Laceration without foreign body of right index finger without damage to nail, initial encounter (principal); I10 Essential (primary) hypertension; E03.9 Hypothyroidism, unspecified; E78.5 Hyperlipidemia, unspecified; K21.9 Gastro-esophageal reflux disease without esophagitis; J45.909 Unspecified asthma, uncomplicated; J44.9 Chronic obstructive pulmonary disease, unspecified; Z23 Encounter for immunization; Z79.82 Long term (current) use of aspirin; Z79.899 Other long term (current) drug therapy; W26.8XXA Contact with other sharp object(s), not elsewhere classified, initial encounter

== ENCOUNTER 2017-02-02 20:15 | Emergency (ER) | payer OTHER ==
[~2017-02-02] VITALS: Ht 157.5 cm; Wt 63.6 kg
[~2017-02-02 20:15] MED LIST changes: -ASPEC81 PO; +ASPI81TA28 PO; +ATOR-22 PO; -LPT20 PO; +METO25TA3 PO; -TPRSR25 PO; -VENL1CAP92 PO
[2017-02-02 20:21] VITALS: O2SAT 97; Ht 157.5 cm; Wt 63.6 kg
[2017-02-02] MEDS ORDERED: GABA-112 PO ×2 (20:41)
[2017-02-02 21:06] LABS: HEMATOCRIT 36.5 % (37-47); MEAN CELL VOLUME 87.1 fL (80-100); MEAN CORPUSCULAR HEMOGLOBIN 28.9 pg (25-34); MEAN CORPUSCULAR HGB CONC 33.2 g/dl (32-36); MEAN PLATELET VOLUME 13.1 fL (7.4-10.4); PLATELET COUNT 167 K/uL (130-400); RED BLOOD COUNT 4.19 M/uL (4.2-5.4); WHITE BLOOD COUNT 6.43 K/uL (4.8-10.8)
[2017-02-02 21:15] LABS: BUN/CREATININE RATIO 20.7 (10-20); CALCIUM 9.2 mg/dl (8.5-10.1); CREATININE 0.99 mg/dl (0.60-1.20); POTASSIUM 4.1 mmol/L (3.5-5.1)
--- NOTE | 2017-02-02 21:15 | EMERGENCY ROOM VISIT NOTE ---
History Report prepared by Tom: Louie Osborn Under the Supervision of: Dr. Smitha Mcgee D.O. First contact with patient: 20:34 Chief Complaint: STROKE SYMPTOMS Stated Complaint: SLURRED SPEECH Nursing Triage Summary: slurred speech. 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 She notes having speech issues for several weeks to possibly a year or so, though she is unsure for how long. She reports having some confusion from time to time. She states that her sister thought her speech was getting worse this afternoon, which prompted her ED visit today. She reports other family members telling her that her speech has been abnormal. She states that her speech has been "funny," describing that the first few letters of a word are not coming out correctly. She states that EMS could understand her and she is currently speaking without issues. She notes being on Seroquel, which may have been causing similar symptoms of abnormal speech. She was started on Gabapentin three weeks ago by her PCP, which she reports has helped with her leg pain and sleep. She denies abdominal pain, headache, blurry vision, or new leg pain. 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 Review of Systems See HPI for pertinent positives & negatives. A total of 10 systems reviewed and were otherwise negative. Past Medical & Surgical Medical Problems: (1) Amnesia, global, transient (2) Asthma (3) COPD (chronic obstructive pulmonary disease) (4) Fit denture (5) Genital herpes simplex (6) GERD (gastroesophageal reflux disease) (7) hiatal hernia repair (8) Hysterectomy (9) SVT (supraventricular tachycardia) Family History Cancer Diabetes mellitus Heart disease Hypertension Lung disease Social History Smoking Status: Never Smoker Alcohol Use: none Marital Status: single Housing Status: lives alone Occupation Status: disabled Current/Historical Medications Scheduled Aspirin (Aspirin Ec), 81 MG PO Q2D Atorvastatin (Lipitor), 20 MG PO QPM Denosumab (Prolia), 60 MG SQ [id number] Gabapentin (Neurontin), 100 MG PO BID17 Gabapentin (Neurontin), 200 MG PO HS Levothyroxine Sodium (Synthroid), 50 MCG PO 5XWK Levothyroxine Sodium (Levothyroxine Sodium), 25 TAB PO 2XWK Metoprolol Succinate (Toprol Xl), 25 MG PO QAM Pantoprazole (Protonix), 40 MG PO BID Quetiapine Fumarate (Seroquel), 300 MG PO HS Venlafaxine Hcl (Effexor Xr), 150 MG PO QAM Scheduled PRN Nitroglycerin (Nitrostat), 0.4 MG UT UD PRN for Chest Pain Allergies Coded Allergies: Amoxicillin (Unverified Allergy, Severe, HIVES, 02/02/17) Latex (Unverified Allergy, Mild, RASH, 02/02/17) Physical Exam Vital Signs Date Time Temp Pulse Resp B/P (MAP) Pulse Ox O2 Delivery O2 Flow Rate FiO2 02/02/17 22:06 36.6 75 18 105/70 96 Room Air 02/02/17 21:17 74 02/02/17 20:21 36.8 69 18 102/72 97 Room Air 02/02/17 20:21 36.8 69 18 102/72 97 Room Air 02/02/17 20:21 97 Room Air Physical Exam HEENT: Head - normocephalic and atraumatic. Pupils are equal, round, and reactive to light. Extraocular eye muscles are intact and sclera are anicteric. Ears - bilaterally patent canals with noninjected tympanic membranes and no evidence of hemotympanum. Nose - moist nasal mucosa without discharge. Mouth - moist buccal mucosa. Oropharynx is nonerythematous and there is no tonsillar exudate or edema noted. Neck: Supple; no JVD, nuchal rigidity, cervical lymphadenopathy, or auscultated bruits. Heart: Regular rate and rhythm. There is a normal S1 and S2 with no murmurs, clicks, or gallops appreciated. Lungs: Clear to auscultation bilaterally with no wheezes, rales, or rhonchi. Abdomen: Soft, completely nontender, nondistended, with good bowel sounds. There are no palpable pulsatile masses or hepatosplenomegaly. There is no guarding, rigidity, or rebound noted. Extremities: No evidence of cyanosis, clubbing, or edema. There are easily palpable peripheral pulses. Neuro:The patient is awake and alert, oriented to day, time, and place. Muscle strength is 5/5 in all 4 extremities. The patient has equal embroidery assistant strength and equal pedal push and pull. There are no cerebellar signs. Cranial nerves II- XII are intact. Medical Decision & Procedures ER Provider Diagnostic Interpretation: Radiology results as stated below per my review and the radiologist's interpretation: HEAD WITHOUT CONTRAST (CT) CLINICAL HISTORY: 71 years-old Female with slurred speech. Acute strokelike symptoms with slurred speech. TECHNIQUE: Multiple axial CT images of the head were obtained without contrast. A dose lowering technique was utilized adhering to the principles of ALARA. CT DOSE: 537.48 mGy.cm COMPARISON: CT head 04/23/2016, brain MRI 04/24/2016. FINDINGS: No acute intracranial hemorrhage, midline shift, intracranial mass, hydrocephalus, territorial ischemia or abnormal extra-axial collection. There is mild brain atrophy with minimal chronic microvascular ischemic changes. The calvarium is intact. The paranasal sinuses, mastoid air cells, and middle ear cavities are clear. Prior bilateral cataract repair. IMPRESSION: No acute intracranial abnormality. The above report was generated using voice recognition software. It may contain grammatical, syntax or spelling errors. Electronically signed by: Luis Carlos Oliva M.D. 02/02/2017 9:21 PM Dictated Date/Time: 02/02/2017 9:18 PM Laboratory Results 02/02/17 20:27 02/02/17 20:27 Test 02/02/17 20:27 Red Blood Count 4.19 M/uL (4.2-5.4) Mean Corpuscular Volume 87.1 fL (80-100) Mean Corpuscular Hemoglobin 28.9 pg (25-34) Mean Corpuscular Hemoglobin Concent 33.2 g/dl (32-36) RDW Standard Deviation 43.8 fL (36.4-46.3) RDW Coefficient of Variation 13.9 % (11.5-14.5) Mean Platelet Volume 13.1 fL (7.4-10.4) Anion Gap 7.0 mmol/L (3-11) Est Creatinine Clear Calc Drug Dose 45.7 ml/min Estimated GFR () 66.4 Estimated GFR (Non- 57.3 BUN/Creatinine Ratio 20.7 (10-20) Calcium Level 9.2 mg/dl (8.5-10.1) Total Bilirubin 0.3 mg/dl (0.2-1) Aspartate Amino Transf (AST/SGOT) 26 U/L (15-37) Alanine Aminotransferase (ALT/SGPT) 22 U/L (12-78) Alkaline Phosphatase 50 U/L (45-117) Total Protein 7.0 gm/dl (6.4-8.2) Albumin 3.9 gm/dl (3.4-5.0) Globulin 3.1 gm/dl (2.5-4.0) Albumin/Globulin Ratio 1.3 (0.9-2) Laboratory results per my review. ECG Indication: other (slurred speech) Rate (beats per minute): 67 Rhythm: normal sinus Findings: no acute ischemic change, no ectopy ED Course 2036: Patient was evaluated in room A10. A complete history and physical examination was performed. IV lock was established. Labs were drawn as above. The patient went for CT scan of the brain as described above. 2202: I reassessed the patient at this time. She is feeling better and resting comfortably. She had no return of her slurred speech. I discussed the results and treatment plan with the patient. I answered all pertaining questions that she had. She expressed understanding and verbalized agreement. The patient will be discharged home. Medical Decision The patient is a 71 year old female who presents to the ED with slurred speech. Differential diagnosis includes TIA, CVA, and medication side effects. Lab results show WBC normal; stable H&H; BUN 20; Creatine 0.9; Glucose 60; LFTS normal. This is a 71-year-old female patient has had intermittent episodes of slurred speech over the past couple of years. She explains that she had been told in the past that she has slurred speech but didn't really recognize until tonight. Once EMS arrived, her speech seemed to be normal. Her speech is normal here in the emergency department. The patient has no other TIA symptoms or neurological deficits. I've asked to follow up closely with her PCP if these episodes persist as her medications may need to be adjusted. Medication Reconcilliation Current Medication List: was personally reviewed by me Blood Pressure Screening Patient's blood pressure: Normal blood pressure Impression Primary Impression: Slurred speech Scribe Attestation The scribe's documentation has been prepared under my direction and personally reviewed by me in its entirety. I confirm that the note above accurately reflects all work, treatment, procedures, and medical decision making performed by me. Departure Information Dispostion Home / Self-Care Referrals Yuko Casas M.D. (PCP) Forms HOME CARE DOCUMENTATION FORM, IMPORTANT VISIT INFORMATION Patient Instructions My [facility] Additional Instructions You may be having a reaction to your meds. Pay close attention to your speech. If the problem continues, follow up with your PCP.
[2017-02-02 21:18] LABS: ALB/GLOB RATIO 1.3 (0.9-2)
--- NOTE | 2017-02-02 21:22 | DIAGNOSTIC IMAGING REPORT ---
HEAD WITHOUT CONTRAST (CT) CLINICAL HISTORY: 71 years-old Female with slurred speech. Acute strokelike symptoms with slurred speech. TECHNIQUE: Multiple axial CT images of the head were obtained without contrast. A dose lowering technique was utilized adhering to the principles of ALARA. CT DOSE: 537.48 mGy.cm COMPARISON: CT head 04/23/2016, brain MRI 04/24/2016. FINDINGS: No acute intracranial hemorrhage, midline shift, intracranial mass, hydrocephalus, territorial ischemia or abnormal extra-axial collection. There is mild brain atrophy with minimal chronic microvascular ischemic changes. The calvarium is intact. The paranasal sinuses, mastoid air cells, and middle ear cavities are clear. Prior bilateral cataract repair. IMPRESSION: No acute intracranial abnormality. The above report was generated using voice recognition software. It may contain grammatical, syntax or spelling errors. Electronically signed by: Luis Carlos Oliva M.D. 02/02/2017 9:21 PM Dictated Date/Time: 02/02/2017 9:18 PM
[2017-02-02 22:06] VITALS: BP 105/70; PULSE 75; TEMP 36.6; O2SAT 96
== END 2017-02-02 22:28 | disposition home or self-care (01) ==
LOC: EDBD 20:15 → C.EDA 20:19
DX: R47.81 Slurred speech (principal); J44.9 Chronic obstructive pulmonary disease, unspecified; K21.9 Gastro-esophageal reflux disease without esophagitis; Z79.82 Long term (current) use of aspirin; Z90.710 Acquired absence of both cervix and uterus; Z80.9 Family history of malignant neoplasm, unspecified; Z83.3 Family history of diabetes mellitus; Z82.49 Family history of ischemic heart disease and other diseases of the circulatory system

== ENCOUNTER 2017-09-30 18:04 | Inpatient (IN) | payer OTHER ==
[~2017-09-30] VITALS: Ht 160 cm; Wt 64.4 kg
[~2017-09-30 18:04] MED LIST changes: +GABA-112 PO; -METO25TA3 PO; +METO25TA4 PO; -PANT1TAB48 PO; -QUET1TAB37 PO; -VENL150C PO; +VENL150C71 PO
[2017-09-30 18:29] LABS: BASO % 0.5 %; BASO ABS # 0.03 K/uL (0-0.2); EOS % 4.4 %; EOS ABS # 0.27 K/uL (0-0.5); HEMATOCRIT 39.5 % (37-47); HEMOGLOBIN 13.3 g/dL (12.0-16.0); IG# 0.01 K/uL (0.00-0.02); LYMPH % 29.7 %; LYMPH ABS # 1.81 K/uL (1.2-3.4); MEAN CELL VOLUME 84.8 fL (80-100); MEAN CORPUSCULAR HEMOGLOBIN 28.5 pg (25-34); MEAN CORPUSCULAR HGB CONC 33.7 g/dl (32-36); MEAN PLATELET VOLUME 12.6 fL (7.4-10.4); MONO ABS # 0.67 K/uL (0.11-0.59); NEUT % 54.2 %; PLATELET COUNT 152 K/uL (130-400); RED CELL DISTRIBUTION WIDTH CV 14.5 % (11.5-14.5); RED CELL DISTRIBUTION WIDTH SD 44.9 fL (36.4-46.3); WHITE BLOOD COUNT 6.09 K/uL (4.8-10.8)
[2017-09-30] MEDS ORDERED: PANT1TAB3 PO (18:36)
[2017-09-30 18:50] LABS: ALKALINE PHOSPHATASE 49 U/L (45-117); ALT/SGPT 20 U/L (12-78); AST/SGOT 27 U/L (15-37); BLOOD UREA NITROGEN 14 mg/dl (7-18); CALCIUM 9.2 mg/dl (8.5-10.1); CARBON DIOXIDE 27 mmol/L (21-32); CKMB 2.3 ng/ml (0.5-3.6); CREATININE 1.05 mg/dl (0.60-1.20); GLUCOSE 82 mg/dl (70-99); LIPASE 150 U/L (73-393); SODIUM 137 mmol/L (136-145); TOTAL PROTEIN 7.8 gm/dl (6.4-8.2)
--- NOTE | 2017-09-30 19:01 | DIAGNOSTIC IMAGING REPORT ---
SINGLE VIEW CHEST CLINICAL HISTORY: Atypical chest pain. FINDINGS: An AP, portable, upright chest radiograph is compared to study dated 04/23/2016. Correlation is made with chest CT dated 09/08/2014. The examination is degraded by portable technique and patient rotation. The heart is mildly enlarged and there is atherosclerotic calcification of the thoracic aorta. The pulmonary vasculature is noncongested. There is elevation of the left hemidiaphragm with associated atelectasis. No airspace consolidation or large pleural effusion is identified. No pneumothorax is seen. The skeletal structures are osteopenic. A left shoulder arthroplasty is in place. The bony thorax is grossly intact. IMPRESSION: No acute cardiopulmonary abnormality. Electronically signed by: Wood Chance M.D. 09/30/2017 6:59 PM Dictated Date/Time: 09/30/2017 6:58 PM
--- NOTE | 2017-09-30 19:23 | DIAGNOSTIC IMAGING REPORT ---
ULTRASOUND RIGHT UPPER QUADRANT ABDOMEN CLINICAL HISTORY: Atypical chest pain. COMPARISON STUDY: Abdominal CT dated 09/16/2014. Abdominal ultrasound dated 04/26/2015. TECHNIQUE: Real-time, grayscale, and color flow sonography of the right upper quadrant of the abdomen was performed. Images are reviewed in the transverse and longitudinal planes. FINDINGS: Liver: The liver is top normal in size and normal in echotexture. There is no intrahepatic biliary ductal dilatation. The main portal vein is patent. Gallbladder: A 6 mm mobile gallstone is identified. The gallbladder is otherwise normal in appearance. There is no gallbladder wall thickening or pericholecystic fluid. A sonographic Gilmore's sign is reportedly absent. The common bile duct measures up to 0.4 cm in diameter. Pancreas: Not well visualized due to overlying bowel gas. Right kidney: Survey images of the right kidney demonstrate normal size and echotexture. There is no hydronephrosis. Ascites: None. IMPRESSION: Cholelithiasis without sonographic evidence of acute cholecystitis. Electronically signed by: Wood Chance M.D. 09/30/2017 7:21 PM Dictated Date/Time: 09/30/2017 7:19 PM
[2017-09-30] MEDS ORDERED: OPTIRAY 320 IV PRN (20:00)
[2017-09-30] MEDS ORDERED: RANI150T85 PO (20:15)
[2017-09-30] MEDS ORDERED: GABA-1218 PO (20:15)
[2017-09-30] MEDS ORDERED: CLR10 PO (20:15)
--- NOTE | 2017-09-30 20:17 | EMERGENCY ROOM VISIT NOTE ---
History Report prepared by Tom: Jacinda Stokes Under the Supervision of: Dr. Jerardo Perez M.D. First contact with patient: 18:07 Stated Complaint: ABDOMINAL/CHEST PAIN History of Present Illness The patient is a 72 year old female who presents to the Emergency Room with complaints of intermittent chest and upper abdominal pain that started about 2- 3 days ago. The patient states she currently is not experiencing pain or nausea , but when she does have pain, she rates it a 4 out of 10. She also notes she has had arm pain, but she does not think it is associated with her abdominal or chest pain. The patient also complains of severe nausea when she eats and drinks , regardless of what kind of food or drink, and she claims that has experienced similar episodes in the past. The patient reports she has taken her regular medications today, including an antibiotic she has been on since she had her a few teeth removed a week ago. She reports that she has not taken any medication to alleviate her nausea or pain. The patient denies any LOC, headache, fevers, chills, diaphoresis, visual changes, neck pain, breathing difficulties, vomiting , back pain, melena, hematochezia, urinary symptoms, numbness, weakness, lymphadenopathy, rash, or other complaints. The patient notes she has a history of a hysterectomy, a wrap surgery, a hiatal hernia, and gallstones. She denies having had a cholecystectomy. Source of History: patient Onset: 2-3 days ago Position: chest, abdomen Symptom Intensity: 4/10 Quality: other (pain) Timing: intermittent Associated Symptoms: + nausea Note: additional symptoms: arm pain Review of Systems See HPI for pertinent positives and negatives. A total of ten systems were reviewed and were otherwise negative. Past Medical & Surgical Medical Problems: (1) Acute coronary syndrome (2) Acute paranoia (3) Acute paranoia (4) Amnesia, global, transient (5) Anxiety (6) Anxiety (7) Anxiety (8) Anxiety (9) Anxiety (10) Asthma (11) Back strain (12) Chest pain (13) Cholelithiasis (14) Constipation (15) COPD (chronic obstructive pulmonary disease) (16) Depression (17) Fit denture (18) Gallstone (19) Gallstone (20) Genital herpes simplex (21) GERD (gastroesophageal reflux disease) (22) Groin pain (23) hiatal hernia repair (24) Hypokalemia (25) Hysterectomy (26) Ileus (27) Orthostasis (28) Orthostatic hypotension (29) Palpitations (30) Pill esophagitis (31) Status post cardiac catheterization (32) SVT (supraventricular tachycardia) (33) Tachycardia (34) Vertigo (35) Vertigo Surgical Problems: (1) S/P hysterectomy Social History Problems: (1) Headache Family History Cancer Diabetes mellitus Heart disease Hypertension Lung disease Social History Smoking Status: Never Smoker Alcohol Use: none Marital Status: single Housing Status: lives alone Occupation Status: disabled Current/Historical Medications Scheduled Aspirin (Aspirin Ec), 81 MG PO Q2D Atorvastatin (Lipitor), 20 MG PO QPM Bisacodyl (Dulcolax), 2 TAB PO UD Denosumab (Prolia), 60 MG SQ [id number] Docusate Sodium (Colace), 1 CAP PO BID Gabapentin (Neurontin), 200 MG PO BID Gabapentin (Neurontin), 300 MG PO TID Levothyroxine Sodium (Synthroid), 50 MCG PO 5XWK Levothyroxine Sodium (Levothyroxine Sodium), 25 MCG PO 2XWK Metoprolol Succinate (Toprol Xl), 25 MG PO QAM Pantoprazole (Protonix), 40 MG PO BID Quetiapine Fumarate (Seroquel), 300 MG PO HS Ranitidine (Zantac), 150 MG PO BID Venlafaxine Hcl (Effexor Xr), 150 MG PO QAM Scheduled PRN Loratadine (Claritin), 10 MG PO DAILY PRN for Allergy Symptoms Nitroglycerin (Nitrostat), 0.4 MG UT UD PRN for Chest Pain Allergies Coded Allergies: Amoxicillin (Unverified Allergy, Severe, HIVES, 02/02/17) Latex (Unverified Allergy, Mild, RASH, 02/02/17) Physical Exam Vital Signs Date Time Temp Pulse Resp B/P (MAP) Pulse Ox O2 Delivery O2 Flow Rate FiO2 10/01/17 00:14 66 138/81 98 Room Air 09/30/17 22:22 68 20 117/85 97 Room Air 09/30/17 20:16 64 09/30/17 20:07 73 16 116/81 99 Room Air 09/30/17 18:38 Room Air 09/30/17 18:12 37.0 68 18 103/74 95 Room Air Physical Exam GENERAL: Awake, alert, well-appearing, in no distress HENT: Normocephalic, atraumatic. Oropharynx unremarkable. EYES: Normal conjunctiva. Sclera non-icteric. NECK: Supple. No nuchal rigidity. FROM. No masses. RESPIRATORY: Clear to auscultation. No wheezes. No rales. Normal respiratory effort. CARDIAC: Normal rate. Normal rhythm. No murmurs. No rubs. Extremities warm and well perfused. Pulses equal. No JVD. GI: Soft, mildly-distended. No tenderness to palpation. No rebound or guarding. No masses. RECTAL: Deferred. MUSCULOSKELETAL: Atraumatic. Chest examination reveals no tenderness. The back is symmetrical on inspection without obvious abnormality. There is no CVA tenderness to palpation. No joint edema. LOWER EXTREMITIES: Calves are equal size bilaterally and non-tender. No edema. No discoloration. NEURO: Normal sensorium. No sensory or motor deficits noted. SKIN: No rash or jaundice noted. Medical Decision & Procedures ER Provider Diagnostic Interpretation: Radiology results as stated below per my review and radiologist interpretation: SINGLE VIEW CHEST CLINICAL HISTORY: Atypical chest pain. FINDINGS: An AP, portable, upright chest radiograph is compared to study dated 04/23/2016. Correlation is made with chest CT dated 09/08/2014. The examination is degraded by portable technique and patient rotation. The heart is mildly enlarged and there is atherosclerotic calcification of the thoracic aorta. The pulmonary vasculature is noncongested. There is elevation of the left hemidiaphragm with associated atelectasis. No airspace consolidation or large pleural effusion is identified. No pneumothorax is seen. The skeletal structures are osteopenic. A left shoulder arthroplasty is in place. The bony thorax is grossly intact. IMPRESSION: No acute cardiopulmonary abnormality. Electronically signed by: Wood Chance M.D. 09/30/2017 6:59 PM Dictated Date/Time: 09/30/2017 6:58 PM ULTRASOUND RIGHT UPPER QUADRANT ABDOMEN CLINICAL HISTORY: Atypical chest pain. COMPARISON STUDY: Abdominal CT dated 09/16/2014. Abdominal ultrasound dated 04/26/2015. TECHNIQUE: Real-time, grayscale, and color flow sonography of the right upper quadrant of the abdomen was performed. Images are reviewed in the transverse and longitudinal planes. FINDINGS: Liver: The liver is top normal in size and normal in echotexture. There is no intrahepatic biliary ductal dilatation. The main portal vein is patent. Gallbladder: A 6 mm mobile gallstone is identified. The gallbladder is otherwise normal in appearance. There is no gallbladder wall thickening or pericholecystic fluid. A sonographic Gilmore's sign is reportedly absent. The common bile duct measures up to 0.4 cm in diameter. Pancreas: Not well visualized due to overlying bowel gas. Right kidney: Survey images of the right kidney demonstrate normal size and echotexture. There is no hydronephrosis. Ascites: None. IMPRESSION: Cholelithiasis without sonographic evidence of acute cholecystitis. Electronically signed by: Wood Chance M.D. 09/30/2017 7:21 PM Dictated Date/Time: 09/30/2017 7:19 PM ABDOMEN AND PELVIS CT WITH IV AND ORAL CONTRAST CT DOSE: 333.67 mGy.cm HISTORY: upper abd pain TECHNIQUE: Multiaxial CT images of the abdomen and pelvis were performed following the use of intravenous and oral contrast. A dose lowering technique was utilized adhering to the principles of ALARA. COMPARISON STUDY: Abdominal ultrasound 09/30/2017. Abdomen and pelvis CT 09/16/2014. FINDINGS: There is again noted a moderate hiatus hernia and persistent elevation of the left hemidiaphragm. This remains unchanged. Trace right pleural effusion. No pneumoperitoneum. No pneumatosis. No suspicious lytic or blastic osseous lesions. The liver, gallbladder, spleen, and adrenal glands are unremarkable. Normal right kidney. Focal scarring within the left kidney. No hydronephrosis. There appears to be pancreas divisum. No retroperitoneal lymphadenopathy. The bladder is not well-distended but appears unremarkable. The uterus is surgically absent. Mild pelvic floor collapse. Large amount well-formed stool seen throughout the transverse colon. The remaining colon demonstrates a moderate amount of well-formed stool. The transverse colon is distended up to 6.6 cm. Multiple distended gas and fluid-filled loops of small bowel. A few of the distal ileal loops are decompressed. However, there is no clear transition point to suggest an obstruction. Therefore, these findings favor an ileus. A distal partial small bowel obstruction could also have a similar appearance but is considered less likely given the mildly distended colon. Normal appendix. IMPRESSION: 1. Multiple dilated loops of large and small bowel seen throughout the abdomen. There are few decompressed distal ileal loops. However, there is no clear transition point to suggest a definite obstruction. A partial small bowel obstruction could have a similar appearance but is considered less likely. These findings favor an ileus. 2. Moderate to large amount of well-formed stool seen throughout the colon. 3. Normal appendix. 4. Moderate hiatus hernia. 5. Trace right pleural effusion. Electronically signed by: Sunil Reyes M.D. 09/30/2017 10:58 PM Dictated Date/Time: 09/30/2017 10:48 PM Laboratory Results 09/30/17 17:55 Red Blood Count 4.66, Mean Corpuscular Volume 84.8, Mean Corpuscular Hemoglobin 28.5, Mean Corpuscular Hemoglobin Concent 33.7, Mean Platelet Volume 12.6, Neutrophils (%) (Auto) 54.2, Lymphocytes (%) (Auto) 29.7, Monocytes (%) (Auto) 11.0, Eosinophils (%) (Auto) 4.4, Basophils (%) (Auto) 0.5, Neutrophils # (Auto ) 3.30, Lymphocytes # (Auto) 1.81, Monocytes # (Auto) 0.67, Eosinophils # (Auto ) 0.27, Basophils # (Auto) 0.03 09/30/17 17:55 Test 09/30/17 17:55 09/30/17 18:20 White Blood Count 6.09 K/uL (4.8-10.8) Red Blood Count 4.66 M/uL (4.2-5.4) Hemoglobin 13.3 g/dL (12.0-16.0) Hematocrit 39.5 % (37-47) Mean Corpuscular Volume 84.8 fL (80-100) Mean Corpuscular Hemoglobin 28.5 pg (25-34) Mean Corpuscular Hemoglobin Concent 33.7 g/dl (32-36) Platelet Count 152 K/uL (130-400) Mean Platelet Volume 12.6 fL (7.4-10.4) Neutrophils (%) (Auto) 54.2 % Lymphocytes (%) (Auto) 29.7 % Monocytes (%) (Auto) 11.0 % Eosinophils (%) (Auto) 4.4 % Basophils (%) (Auto) 0.5 % Neutrophils # (Auto) 3.30 K/uL (1.4-6.5) Lymphocytes # (Auto) 1.81 K/uL (1.2-3.4) Monocytes # (Auto) 0.67 K/uL (0.11-0.59) Eosinophils # (Auto) 0.27 K/uL (0-0.5) Basophils # (Auto) 0.03 K/uL (0-0.2) RDW Standard Deviation 44.9 fL (36.4-46.3) RDW Coefficient of Variation 14.5 % (11.5-14.5) Immature Granulocyte % (Auto) 0.2 % Immature Granulocyte # (Auto) 0.01 K/uL (0.00-0.02) Anion Gap 6.0 mmol/L (3-11) Est Creatinine Clear Calc Drug Dose 43.2 ml/min Estimated GFR () 61.4 Estimated GFR (Non- 53.0 BUN/Creatinine Ratio 13.2 (10-20) Calcium Level 9.2 mg/dl (8.5-10.1) Total Bilirubin 0.6 mg/dl (0.2-1) Direct Bilirubin 0.2 mg/dl (0-0.2) Aspartate Amino Transf (AST/SGOT) 27 U/L (15-37) Alanine Aminotransferase (ALT/SGPT) 20 U/L (12-78) Alkaline Phosphatase 49 U/L (45-117) Total Creatine Kinase 106 U/L (26-192) Creatine Kinase MB 2.3 ng/ml (0.5-3.6) Creatine Kinase MB Ratio 2.2 (0-3.0) Troponin I < 0.015 ng/ml (0-0.045) Total Protein 7.8 gm/dl (6.4-8.2) Albumin 4.0 gm/dl (3.4-5.0) Amylase Level 54 U/L (25-115) Lipase 150 U/L (73-393) Urine Color YELLOW Urine Appearance CLEAR (CLEAR) Urine pH 5.5 (4.5-7.5) Urine Specific [place] 1.011 (1.000-1.030) Urine Protein NEG (NEG) Urine Glucose (UA) NEG (NEG) Urine Ketones NEG (NEG) Urine Occult Blood NEG (NEG) Urine Nitrite NEG (NEG) Urine Bilirubin NEG (NEG) Urine Urobilinogen NEG (NEG) Urine Leukocyte Esterase NEG (NEG) Laboratory results reviewed by me Medications Administered Medications (Trade) Dose Ordered Sig/Brent Route Start Time Stop Time Status Last Admin Dose Admin Sodium Chloride 1,000 ml @ 125 mls/hr Q8H STAT IV 10/01/17 00:27 10/01/17 01:59 DC 10/01/17 01:24 125 MLS/HR ECG Per My Interpretation Indication: abdominal pain, chest pain Rate (beats per minute): 65 Rhythm: normal sinus Findings: other (no ST elevations, no ST depressions, no PACs, no PVCs) ED Course 1810: The patient was evaluated in room C9. A complete history and physical exam was performed. 1933: I checked on the patient and updated her on her results. The patient reports no pain and is preparing for a CT. 0027: Sodium Chloride 1000 ml @ 125 mls/hr IV, Zofran Inj 4mg IV 0032: Upon reexamination, the patient was stable. I discussed the test results and treatment plan with Dr. Nichols. The patient will be evaluated for further management. Medical Decision Prior records/ancillary studies reviewed. Triage Nursing notes reviewed and agree them. The patient's history was concerning for abdominal pain. Differential diagnosis: Etiologies such as biliary pathology, obstruction, PUD, UTI, pancreatitis, mesenteric ischemia, aortic pathology, infections, inflammatory bowel disease, appendicitis, diverticulitis, cardiac sources, renal colic, as well as others were entertained. Physical examination findings: As above. ER treatment provided: Patient declined analgesia Saline hydration Zofran On reassessment the patient is doing relatively well. Diagnostics interpreted by me: ECG: Normal sinus. No ischemia. The labs revealed an unremarkable CBC, chemistry panel, cardiac markers and lipase. LFTs negative. Urinalysis negative. Imaging studies: Ultrasound imaging revealed a large gallstone. No signs of acute cholecystitis. CT scan of the abdomen pelvis reveals an ileus versus early partial bowel obstruction. The patient has what likely appears to be a moderate ileus. She is symptomatic. Given the findings I discussed further management in the hospital. Patient was in agreement. Consultation: A consultation was placed with the hospitalist. The case was discussed and diagnostics were reviewed. The patient was evaluated in the ER for further treatment. Medication Reconcilliation Current Medication List: was personally reviewed by me Blood Pressure Screening Patient's blood pressure: Normal blood pressure Blood pressure disposition: Did not require urgent referral Consults Time Called: 29 Consulting Physician: Dr. Magdalena Fernandez Returned Call: 31 Discussed the patient's case. The patient will be evaluated for further treatment and disposition. Impression Primary Impression: Ileus Additional Impression: Nausea Scribe Attestation The scribe's documentation has been prepared under my direction and personally reviewed by me in its entirety. I confirm that the note above accurately reflects all work, treatment, procedures, and medical decision making performed by me. Departure Information Dispostion Being Evaluated By Hospitalist Prescriptions Bisacodyl (DULCOLAX) 5 Mg Tab 2 TAB PO UD for 1 Day, #2 TAB Prov: Chandrakant Nichols MD 10/01/17 Docusate Sodium (COLACE) 100 Mg Cap 1 CAP PO BID for 15 Days, #30 CAP Prov: Chandrakant Nichols MD 10/01/17 Referrals Yuko Casas M.D. (PCP) Problem Qualifiers
[2017-09-30] MEDS ORDERED: GABA-112 PO (20:41)
--- NOTE | 2017-09-30 22:59 | DIAGNOSTIC IMAGING REPORT ---
ABDOMEN AND PELVIS CT WITH IV AND ORAL CONTRAST CT DOSE: 333.67 mGy.cm HISTORY: upper abd pain TECHNIQUE: Multiaxial CT images of the abdomen and pelvis were performed following the use of intravenous and oral contrast. A dose lowering technique was utilized adhering to the principles of ALARA. COMPARISON STUDY: Abdominal ultrasound 09/30/2017. Abdomen and pelvis CT 09/16/2014. FINDINGS: There is again noted a moderate hiatus hernia and persistent elevation of the left hemidiaphragm. This remains unchanged. Trace right pleural effusion. No pneumoperitoneum. No pneumatosis. No suspicious lytic or blastic osseous lesions. The liver, gallbladder, spleen, and adrenal glands are unremarkable. Normal right kidney. Focal scarring within the left kidney. No hydronephrosis. There appears to be pancreas divisum. No retroperitoneal lymphadenopathy. The bladder is not well-distended but appears unremarkable. The uterus is surgically absent. Mild pelvic floor collapse. Large amount well-formed stool seen throughout the transverse colon. The remaining colon demonstrates a moderate amount of well-formed stool. The transverse colon is distended up to 6.6 cm. Multiple distended gas and fluid-filled loops of small bowel. A few of the distal ileal loops are decompressed. However, there is no clear transition point to suggest an obstruction. Therefore, these findings favor an ileus. A distal partial small bowel obstruction could also have a similar appearance but is considered less likely given the mildly distended colon. Normal appendix. IMPRESSION: 1. Multiple dilated loops of large and small bowel seen throughout the abdomen. There are few decompressed distal ileal loops. However, there is no clear transition point to suggest a definite obstruction. A partial small bowel obstruction could have a similar appearance but is considered less likely. These findings favor an ileus. 2. Moderate to large amount of well-formed stool seen throughout the colon. 3. Normal appendix. 4. Moderate hiatus hernia. 5. Trace right pleural effusion. Electronically signed by: Sunil Reyes M.D. 09/30/2017 10:58 PM Dictated Date/Time: 09/30/2017 10:48 PM
[2017-09-30] MEDS ORDERED: QUET1TAB37 PO (23:05)
[2017-10-01] VITALS (7 sets, daily range): BP systolic 107–136; BP diastolic 63–88; PULSE 16–80; TEMP 36.4–36.8; O2SAT 94–97; Ht 160 cm; Wt 64.4 kg
[2017-10-01] MEDS ORDERED: ONDANSETRON INJ 2 MG/ML 2 ML VIAL IV STA (00:27)
[2017-10-01] MEDS ORDERED: SODIUM CHLORIDE 0.9% 1000ML 1,000 ML IV STA (00:27)
[2017-10-01] MEDS ORDERED: LACTULOSE SYRUP 20 GM/30 ML UDC PO STA (01:17)
[2017-10-01] MEDS ORDERED: BISA-16 PO (01:27)
[2017-10-01] MEDS ORDERED: DOCU-94 PO (01:27)
[2017-10-01] MEDS ORDERED: NITROGLYCERIN 0.4 MG SL PER TAB CHARGE UT PRN (01:30)
[2017-10-01] MEDS ORDERED: ONDANSETRON INJ 2 MG/ML 2 ML VIAL IV PRN (01:30)
[2017-10-01] MEDS ORDERED: LORATADINE 10 MG TAB PO PRN (01:30)
[2017-10-01] MEDS ORDERED: ALUMINUM/MAGNESIUM/SIMETH (MAALOX MAX) 30 ML UDC PO PRN (01:30)
[2017-10-01] MEDS ORDERED: BISACODYL 10 MG SUPP PR STA (01:32)
[2017-10-01] MEDS ORDERED: SOAP SUDS ENEMA PR STA (01:32)
[2017-10-01] MEDS ORDERED: POLYETHYLENE (MIRALAX) 17 GM PACK PO PRN (01:45)
[2017-10-01] MEDS: D5W AND NSS 1,000 ML IV SCH ×3 (02:03→23:25)
[2017-10-01] MEDS ORDERED: IV FLUIDS COMPLETED PRN (02:15)
[2017-10-01] MEDS: LEVOTHYROXINE 50 MCG TAB PO SCH (05:26)
[2017-10-01 07:32] LABS: CALCIUM 8.7 mg/dl (8.5-10.1); CREATININE 0.9 mg/dl (0.60-1.20); PHOSPHORUS 1.9 mg/dl (2.5-4.9); POTASSIUM 3.8 mmol/L (3.5-5.1)
--- NOTE | 2017-10-01 07:39 | HISTORY & PHYSICAL EXAMINATION ---
DATE OF ADMISSION: 10/01/2017 CHIEF COMPLAINT: Nausea. HISTORY OF PRESENT ILLNESS: This is 72-year-old female with past medical history significant for GERD; herpes simplex type 2 infection; bipolar; congenital hiatus hernia status post surgery; obsessive-compulsive disorder; senile osteoporosis; schizoaffective schizophrenia;oesophageal spasm; history of AK; hypothyroidism; hyperlipidemia; history of open angle glaucoma of both eyes; chronic kidney disease stage III; COPD mild; history of SVT; dry skin, dermatitis; presents with nausea. She states this has been going on for last 3 days. She is not able to eat anything because of the nausea . she does have chronic abdominal pain since last 2 years. She also complains of on and off few seconds of lower chest discomfort. Constipated . Today, she has small bowel movement after several days after taking Dulcolax. Normal bladder movements. Denies any fever, chills. Has some dry cough, runny nose, no headaches, no blurred vision, no dizziness, no headache, no sore throat .. Currently resting comfortably and hemodynamically stable. ALLERGIES: MORPHINE AND LATEX. PAST MEDICAL HISTORY: As mentioned above. PAST SURGICAL HISTORY: Colonoscopy with biopsy, EGD with biopsy, laparoscopic oesophagus gastric fundoplasty, ligation of oviducts, cataract surgery, repair of paraesophageal hernia, shoulder surgery, total abdominal hysterectomy with salpingo-oophorectomy. MEDICATIONS: The patient is on Zantac 150 mg p.o. b.i.d., Neurontin 100 mg b.i.d. and Neurontin 300 mg t.i.d., Toprol-XL 25 mg p.o. daily, vitamin D 5000 units p.o. daily, Prolia 60 mg as directed, Claritin 10 mg p.o. daily, levothyroxine 25 mg p.o. daily on Mondays.and50 mcg daily, Protonix 40 mg p.o. b.i.d., aspirin 81 mg p.o. daily, Lipitor 20 mg p.o. daily, nitroglycerin 0.4 mg sublingual p.r.n., Colace 100 mg p.o. b.i.d., Seroquel 300 mg p.o. daily, Dulcolax 10 mg p.o. daily. p.r.n., Effexor XR 150 mg p.o. daily. FAMILY HISTORY: Significant for father had CLL, CHF, stroke, hypertension, lung emphysema. Mother has thyroid disorder, breast cancer. Sister has breast cancer, diabetes. SOCIAL HISTORY: Former smoker, quit in 1983 apparently smoked 3 pack for about 20 years. No alcohol use, no drug use. , lives alone. REVIEW OF SYMPTOMS: As per HPI. Rest of review of symptoms negative. PHYSICAL EXAMINATION: GENERAL: Patient is of moderate build, not in distress. VITAL SIGNS: Temperature 37, pulse 56, respiratory rate 20, blood pressure 117/85, oxygen 97% room air. HEENT: No pallor, no icterus. Pupils equal, round, reactive. No pallor. NECK: No JVD, no neck masses, no carotid bruits. CARDIOVASCULAR: S1, S2, regular rate and rhythm, no murmur, no rub, no gallop. RESPIRATORY SYSTEM: Normal Ap diameter. No wheezing, no crackles. ABDOMEN: Soft, slightly distended, sluggish bowel sounds. Mild abdominal discomfort. No guarding, no rigidity. CENTRAL NERVOUS SYSTEM: Cranial nerves II-XII grossly intact. Nonfocal. EXTREMITIES: No edema, no erythema. LABORATORIES: Sodium 137, potassium 4, chloride 104, bicarbonate 27, BUN 14, creatinine 1.05. Serum glucose 82, calcium 9.2, total bilirubin 0.6, direct bilirubin 0.2, AST 27, ALT 20, alkaline phosphatase 49, total creatine kinase 106, CK-MB 2.3, troponin less than 0.015. Amylase 54, lipase 150. WBC 6.09, hemoglobin 13.3, hematocrit 39.5, platelets 152. Urinalysis negative. Gallbladder ultrasound shows cholelithiasis without evidence of acute cholecystitis. Chest x-ray: No acute cardiopulmonary findings. CT of the abdomen and pelvis shows multiple dilated loops of large and small bowel seen throughout the abdomen. There are few decompressed distal ileal loops, however there is no clear transition point. A partial small-bowel obstruction could have similar appearance, but considered less likely. These findings favors ileus.Moderate to large amount of well-formed stool is seen throughout the colon, normal appendix, moderate hiatus hernia, trace left pleural effusion. EKG shows normal sinus rhythm, rate of 65, no acute ST changes seen. ASSESSMENT AND PLAN: This 72-year-old female presents with nausea, abdominal pain, and found to have ileus. 1. Ileus vs possible partial bowel obstruction, history of abdominal surgeries in the past, possibly also from constipation. We will keep her nothing by mouth, IV fluids, IV antiemetics. Consult surgery in morning. 2. Constipation. We will do lactulose and Dulcolax now and also soap suds enema in morning and monitor .Patient had a large bowel movement after going to floor. will get KUB in am 3. Cholelithiasis. No cholecystitis in imaging studies.Will monitor 4. GERD Zantac and Protonix. 5. History of coronary artery disease The patient is on aspirin, metoprolol XL, statin. Troponin and EKG negative. We will monitor. 5. History of bipolar, obsessive compulsive disorder. Schizoaffective disorder. Continue home medications of Effexor XR and Seroquel. 6. Hypertension, in Toprol XL. We will monitor the blood pressure 7. Hypothyroidism. Continue Synthroid 8. Hyperlipidemia. Continue statin. 9. Deep venous thrombosis prophylaxis, Lovenox. DISPOSITION: Admit to medical floor. Expect discharge home and follow with family doctor. Level 1 full code. MTDD
[2017-10-01] MEDS: ENOXAPARIN 40 MG/0.4 ML SYR SQ SCH (09:00)
--- NOTE | 2017-10-01 09:08 | DIAGNOSTIC IMAGING REPORT ---
KUB CLINICAL HISTORY: Ileus. Constipation. FINDINGS: 2 AP supine abdominal radiographs are correlated with abdominal CT dated 09/30/2017. There is no radiographic evidence of bowel obstruction. The stomach is distended and filled with both stool and enteric contrast. Excreted IV contrast fills the bladder. No evidence of intraperitoneal free air is seen on these supine images. Pelvic phleboliths are observed. The skeletal structures are osteopenic. The bony pelvis appears intact. IMPRESSION: 1. There is no radiographic evidence of bowel obstruction. 2. The colon is distended and filled with both stool and enteric contrast. Electronically signed by: Wood Chance M.D. 10/01/2017 9:06 AM Dictated Date/Time: 10/01/2017 9:04 AM
[2017-10-01] MEDS: METOPROLOL SUCC 25MG EXT REL TAB PO SCH (09:25)
[2017-10-01] MEDS: RANITIDINE HCL 150 MG TAB PO SCH ×2 (09:26→20:28)
[2017-10-01] MEDS: GABAPENTIN 300 MG CAP PO SCH ×3 (09:26→20:27)
[2017-10-01] MEDS: VENLAFAXINE HCL XR 150 MG CAPXR PO SCH (09:26)
[2017-10-01] MEDS: ASPIRIN 81 MG ECTAB PO SCH (09:27)
[2017-10-01] MEDS: GABAPENTIN 100 MG CAP PO SCH ×2 (09:27→13:48)
[2017-10-01] MEDS: PANTOprazole SOD 40 MG TAB PO SCH ×2 (09:27→20:28)
--- NOTE | 2017-10-01 10:58 | Surgery Consultation ---
Consultation Date of Consultation: Oct 01, 2017. Attending Physician: Jerardo Nichole M.D. Reason for Consultation: Ileus vs partial SBO History of Present Illness Holli is a 72 year-old female who presented to emergency room with complaint of nausea for the past few days and inability to eat due to the nausea. Associated upper abdominal pain and chest pain. States she has chronic constipation and takes laxatives in order to have bowel movements. Bowel movements are not regular and usually has bowel movement every few days. Last bowel movement was Saturday after taking Dulcolax. No blood in stools or black/ tarry stools. She denies of any fever, chills, vomiting, shortness of breath, difficulty breathing, difficulty urinating, diarrhea. She had a CT scan of abdomen and pelvis which showed moderate formed stool in transverse colon with some colonic distention up to 6.6 cm. No true evidence of small bowel obstruction or transition point which favored Ileus. Labs showed no leukocytosis. Vitals stable. She was admitted to medical/surgical floor and started on Lactulose and soap suds enema. She has had bowel movements since coming up from the ER and after enema administration. She currently is not having any abdominal pain and is feeling much better. She also underwent abdominal ultrasound in the emergency room which showed a 6 mm gallstone however no evidence of cholecystitis. Past Medical/Surgical History Past Medical History: 1. GERD 2. herpes simplex type 2 infection 3. bipolar Disorder 4. congenital hiatus hernia status post surgery 5. obsessive-compulsive disorder 6. senile osteoporosis 7. schizoaffective schizophrenia 8. oesophageal spasm 9. NM 10. hypothyroidism 11. hyperlipidemia 12. open angle glaucoma of both eyes 13. chronic kidney disease stage III 14. COPD mild 15. SVT Past Surgical History: Hiatal hernia repair Shoulder replacement Hysterectomy Family History Cancer Diabetes mellitus Heart disease Hypertension Lung disease Social History Smoking Status: Never Smoker Marital Status: single Housing Status: lives alone Occupation Status: disabled Allergies Coded Allergies: Amoxicillin (Unverified Allergy, Severe, HIVES, 02/02/17) Latex (Unverified Allergy, Mild, RASH, 02/02/17) Home Medications Scheduled Aspirin (Aspirin Ec), 81 MG PO Q2D Atorvastatin (Lipitor), 20 MG PO QPM Bisacodyl (Dulcolax), 2 TAB PO UD Denosumab (Prolia), 60 MG SQ [id number] Docusate Sodium (Colace), 1 CAP PO BID Gabapentin (Neurontin), 200 MG PO BID Gabapentin (Neurontin), 300 MG PO TID Levothyroxine Sodium (Synthroid), 50 MCG PO 5XWK Levothyroxine Sodium (Levothyroxine Sodium), 25 MCG PO 2XWK Metoprolol Succinate (Toprol Xl), 25 MG PO QAM Pantoprazole (Protonix), 40 MG PO BID Quetiapine Fumarate (Seroquel), 300 MG PO HS Ranitidine (Zantac), 150 MG PO BID Venlafaxine Hcl (Effexor Xr), 150 MG PO QAM Scheduled PRN Loratadine (Claritin), 10 MG PO DAILY PRN for Allergy Symptoms Nitroglycerin (Nitrostat), 0.4 MG UT UD PRN for Chest Pain Current Inpatient Medications Current Inpatient Medications Medications (Trade) Dose Ordered Sig/Brent Route Start Time Stop Time Status Last Admin Dose Admin Ioversol (Optiray 320) 111 ml UD PRN IV 09/30/17 20:00 10/04/17 19:59 Enoxaparin Sodium (Lovenox Inj) 40 mg Q24H SQ 10/01/17 09:00 10/31/17 08:59 Acetaminophen (Tylenol Tab) 650 mg Q4H PRN PO 10/01/17 01:30 10/31/17 01:29 Al Hydrox/Mg Hydrox/Simethicone (Maalox Max Susp) 15 ml Q4H PRN PO 10/01/17 01:30 10/31/17 01:29 Polyethylene (Miralax Powder Packet) 17 gm DAILY PRN PO 10/01/17 01:45 10/31/17 01:44 Ondansetron HCl (Zofran Inj) 4 mg Q6H PRN IV 10/01/17 01:30 10/31/17 01:29 Aspirin (Ecotrin Tab) 81 mg Q2D PO 10/01/17 09:00 10/31/17 08:59 10/01/17 09:27 81 MG Atorvastatin Calcium (Lipitor Tab) 20 mg QPM PO 10/01/17 21:00 10/31/17 20:59 Gabapentin (Neurontin Cap) 200 mg 0900,1400 PO 10/01/17 09:00 10/31/17 08:59 10/01/17 09:27 200 MG Gabapentin (Neurontin Cap) 300 mg TID PO 10/01/17 09:00 10/31/17 08:59 10/01/17 09:26 300 MG Levothyroxine Sodium (Synthroid Tab) 25 mcg SuSa@0600 PO 10/05/17 06:00 11/04/17 05:59 Levothyroxine Sodium (Synthroid Tab) 50 mcg MoTuWeThFr@0600 PO 10/01/17 06:00 10/31/17 05:59 10/01/17 05:26 50 MCG Loratadine (Claritin Tab) 10 mg DAILY PRN PO 10/01/17 01:30 10/31/17 01:29 Metoprolol Succinate (Toprol Xl Tab) 25 mg QAM PO 10/01/17 09:00 10/31/17 08:59 10/01/17 09:25 25 MG Nitroglycerin (Nitrostat Tab) 0.4 mg UD PRN UT 10/01/17 01:30 10/31/17 01:29 Pantoprazole Sodium (Protonix Tab) 40 mg BID PO 10/01/17 09:00 10/31/17 08:59 10/01/17 09:27 40 MG Quetiapine Fumarate (seroQUEL TAB) 300 mg HS PO 10/01/17 21:00 10/31/17 20:59 Ranitidine HCl (zANTac TAB) 150 mg BID PO 10/01/17 09:00 10/31/17 08:59 10/01/17 09:26 150 MG Venlafaxine HCl (effeXOR EXTENDED REL CAP) 150 mg QAM PO 10/01/17 09:00 10/31/17 08:59 10/01/17 09:26 150 MG Dextrose/Sodium Chloride 1,000 ml @ 100 mls/hr Q10H IV 10/01/17 02:00 10/31/17 01:59 10/01/17 02:03 100 MLS/HR Miscellaneous (Iv Fluids Completed) 1 ea PRN PRN N/A 10/01/17 02:15 10/01/18 02:14 Review of Systems Constitutional: No fever, No chills, No sweats Respiratory: No cough, No shortness of breath Cardiovascular: + chest pain Abdomen: + pain, + nausea, + constipation, No vomiting, No diarrhea, No GI bleeding Genitourinary - Female: No dysuria Hematologic / Lymphatic: No abnormal bleeding/bruising Integumentary: No rash Physical Exam Date Time Temp Pulse Resp B/P (MAP) Pulse Ox O2 Delivery O2 Flow Rate FiO2 10/01/17 08:26 97 Room Air 10/01/17 08:10 97 Room Air 10/01/17 07:30 36.8 62 16 111/72 (85) 97 Room Air 10/01/17 01:45 36.4 80 18 136/88 Room Air 10/01/17 01:38 37.0 66 20 138/81 98 10/01/17 00:14 66 138/81 98 Room Air 09/30/17 22:22 68 20 117/85 97 Room Air 09/30/17 20:16 64 09/30/17 20:07 73 16 116/81 99 Room Air 09/30/17 18:38 Room Air 09/30/17 18:12 37.0 68 18 103/74 95 Room Air General Appearance: WD/WN, no apparent distress, + thin Head: normocephalic, atraumatic Eyes: sclerae normal ENT: hearing grossly normal Respiratory/Chest: no respiratory distress, no accessory muscle use Abdomen/GI: non tender, soft, no organomegaly, no pulsatile mass Neurologic/Psych: alert, normal mood/affect, oriented x 3 Skin: normal color, warm/dry, no rash Laboratory Results Last 24 Hours Test 09/30/17 17:55 09/30/17 18:20 10/01/17 02:14 10/01/17 06:52 White Blood Count 6.09 K/uL Red Blood Count 4.66 M/uL Hemoglobin 13.3 g/dL Hematocrit 39.5 % Mean Corpuscular Volume 84.8 fL Mean Corpuscular Hemoglobin 28.5 pg Mean Corpuscular Hemoglobin Concent 33.7 g/dl Platelet Count 152 K/uL Mean Platelet Volume 12.6 fL Neutrophils (%) (Auto) 54.2 % Lymphocytes (%) (Auto) 29.7 % Monocytes (%) (Auto) 11.0 % Eosinophils (%) (Auto) 4.4 % Basophils (%) (Auto) 0.5 % Neutrophils # (Auto) 3.30 K/uL Lymphocytes # (Auto) 1.81 K/uL Monocytes # (Auto) 0.67 K/uL Eosinophils # (Auto) 0.27 K/uL Basophils # (Auto) 0.03 K/uL RDW Standard Deviation 44.9 fL RDW Coefficient of Variation 14.5 % Immature Granulocyte % (Auto) 0.2 % Immature Granulocyte # (Auto) 0.01 K/uL Sodium Level 137 mmol/L 138 mmol/L Potassium Level 4.0 mmol/L 3.8 mmol/L Chloride Level 104 mmol/L 106 mmol/L Carbon Dioxide Level 27 mmol/L 28 mmol/L Anion Gap 6.0 mmol/L 4.0 mmol/L Blood Urea Nitrogen 14 mg/dl 14 mg/dl Creatinine 1.05 mg/dl 0.90 mg/dl Est Creatinine Clear Calc Drug Dose 43.2 ml/min 51.0 ml/min Estimated GFR () 61.4 74.0 Estimated GFR (Non- 53.0 63.9 BUN/Creatinine Ratio 13.2 15.4 Random Glucose 82 mg/dl 94 mg/dl Calcium Level 9.2 mg/dl 8.7 mg/dl Total Bilirubin 0.6 mg/dl Direct Bilirubin 0.2 mg/dl Aspartate Amino Transf (AST/SGOT) 27 U/L Alanine Aminotransferase (ALT/SGPT) 20 U/L Alkaline Phosphatase 49 U/L Total Creatine Kinase 106 U/L Creatine Kinase MB 2.3 ng/ml Creatine Kinase MB Ratio 2.2 Troponin I < 0.015 ng/ml Total Protein 7.8 gm/dl Albumin 4.0 gm/dl Amylase Level 54 U/L Lipase 150 U/L Urine Color YELLOW Urine Appearance CLEAR Urine pH 5.5 Urine Specific [place] 1.011 Urine Protein NEG Urine Glucose (UA) NEG Urine Ketones NEG Urine Occult Blood NEG Urine Nitrite NEG Urine Bilirubin NEG Urine Urobilinogen NEG Urine Leukocyte Esterase NEG Prothrombin Time 10.5 SECONDS Prothromb Time International Ratio 1.0 Phosphorus Level 1.9 mg/dl Magnesium Level 2.2 mg/dl ABDOMEN AND PELVIS CT WITH IV AND ORAL CONTRAST CT DOSE: 333.67 mGy.cm HISTORY: upper abd pain TECHNIQUE: Multiaxial CT images of the abdomen and pelvis were performed following the use of intravenous and oral contrast. A dose lowering technique was utilized adhering to the principles of ALA. COMPARISON STUDY: Abdominal ultrasound 09/30/2017. Abdomen and pelvis CT 09/16/2014. FINDINGS: There is again noted a moderate hiatus hernia and persistent elevation of the left hemidiaphragm. This remains unchanged. Trace right pleural effusion. No pneumoperitoneum. No pneumatosis. No suspicious lytic or blastic osseous lesions. The liver, gallbladder, spleen, and adrenal glands are unremarkable. Normal right kidney. Focal scarring within the left kidney. No hydronephrosis. There appears to be pancreas divisum. No retroperitoneal lymphadenopathy. The bladder is not well-distended but appears unremarkable. The uterus is surgically absent. Mild pelvic floor collapse. Large amount well-formed stool seen throughout the transverse colon. The remaining colon demonstrates a moderate amount of well-formed stool. The transverse colon is distended up to 6.6 cm. Multiple distended gas and fluid-filled loops of small bowel. A few of the distal ileal loops are decompressed. However, there is no clear transition point to suggest an obstruction. Therefore, these findings favor an ileus. A distal partial small bowel obstruction could also have a similar appearance but is considered less likely given the mildly distended colon. Normal appendix. IMPRESSION: 1. Multiple dilated loops of large and small bowel seen throughout the abdomen. There are few decompressed distal ileal loops. However, there is no clear transition point to suggest a definite obstruction. A partial small bowel obstruction could have a similar appearance but is considered less likely. These findings favor an ileus. 2. Moderate to large amount of well-formed stool seen throughout the colon. 3. Normal appendix. 4. Moderate hiatus hernia. 5. Trace right pleural effusion. ULTRASOUND RIGHT UPPER QUADRANT ABDOMEN CLINICAL HISTORY: Atypical chest pain. COMPARISON STUDY: Abdominal CT dated 09/16/2014. Abdominal ultrasound dated 04/26/2015. TECHNIQUE: Real-time, grayscale, and color flow sonography of the right upper quadrant of the abdomen was performed. Images are reviewed in the transverse and longitudinal planes. FINDINGS: Liver: The liver is top normal in size and normal in echotexture. There is no intrahepatic biliary ductal dilatation. The main portal vein is patent. Gallbladder: A 6 mm mobile gallstone is identified. The gallbladder is otherwise normal in appearance. There is no gallbladder wall thickening or pericholecystic fluid. A sonographic Gilmore's sign is reportedly absent. The common bile duct measures up to 0.4 cm in diameter. Pancreas: Not well visualized due to overlying bowel gas. Right kidney: Survey images of the right kidney demonstrate normal size and echotexture. There is no hydronephrosis. Ascites: None. IMPRESSION: Cholelithiasis without sonographic evidence of acute cholecystitis. Assessment & Plan Chronic Constipation, large stool burden in Colon with mild Colonic distention with associated nausea favoring Ileus - vitals stable, afebrile, no leukocytosis - CT scan showing no evidence of transition point for SBO - KUB this am showing no evidence of SBO, moderate stool and contrast in colon - + bowel function, no abdominal pain or distention Asymptomatic Cholelithiasis -small 6 mm gallstone seen on US Plan: May start on full liquids and advance as tolerated Continue good bowel regimen as there is still moderate colonic stool burden - May require daily Miralax on top of Colace BID and Dulcolax for home regimen - Recommend high fiber diet (even fiber supplement), avoid foods that constipate, daily walking and exercise Avoid narcotics No surgical intervention. In regards to cholelithiasis, patient currently asymptomatic and there is no indication for cholecystectomy at this time. She may follow up with us as an outpatient if she were to start to have any symptoms or if nausea persists. Our services signing off, please call with questions or concerns Dr. Robin has seen and examined patient, agrees with above
[2017-10-01] MEDS ORDERED: BISACODYL 5 MG TABEC PO SCH (12:00)
[2017-10-01] MEDS: DOCUSATE SODIUM 100 MG CAP PO SCH (20:26)
[2017-10-01] MEDS: QUETIAPINE FUMARATE 300 MG TAB PO SCH (20:27)
[2017-10-01] MEDS: ATORVASTATIN 20 MG TAB PO SCH (20:27)
--- NOTE | 2017-10-01 20:27 | Progress Note ---
Medicine Progress Note Date & Time of Visit: Oct 01, 2017 at 17:10 . Subjective CC: Follow-up visit for abdominal pain. HPI: Abdominal pain improved. No N/V. Passing some liquid stools. ROS: General- no fever, no chills Resp- no cough; no shortness of breath Cardiac- no chest pain, no edema GI- as noted above in HPI - no dysuria, no difficulty voiding . Objective Last 8 Hrs Date Time Temp Pulse Resp B/P (MAP) Pulse Ox O2 Delivery O2 Flow Rate FiO2 10/01/17 15:12 97 Room Air 10/01/17 15:04 36.6 63 17 123/74 (90) Room Air Physical Exam: General- no distress Lungs- clear to auscultation; no respiratory distress Cardiovascular- RRR; no murmur or gallop appreciated; no JVD; no pretibial edema Abdomen- + bowel sounds, slightly distended, soft, nontender Extremities- no cyanosis; no calf tenderness Neuro- alert, oriented Skin- warm & dry . Laboratory Results: Last 24 Hours Test 10/01/17 02:14 10/01/17 06:52 Prothrombin Time 10.5 SECONDS Prothromb Time International Ratio 1.0 Sodium Level 138 mmol/L Potassium Level 3.8 mmol/L Chloride Level 106 mmol/L Carbon Dioxide Level 28 mmol/L Anion Gap 4.0 mmol/L Blood Urea Nitrogen 14 mg/dl Creatinine 0.90 mg/dl Est Creatinine Clear Calc Drug Dose 51.0 ml/min Estimated GFR () 74.0 Estimated GFR (Non- 63.9 BUN/Creatinine Ratio 15.4 Random Glucose 94 mg/dl Calcium Level 8.7 mg/dl Phosphorus Level 1.9 mg/dl Magnesium Level 2.2 mg/dl Assessment & Plan ABDOMINAL PAIN CT demonstrated extensive colonic stool without evidence of obstruction. KUB today shows persistent distention of colon with stool. Continue bowel regimen. CHOLELITHIASIS Ultrasound demonstrated cholelithiasis without evidence of obstruction or cholecystitis. Seen in consultation by General Surgery. No need for surgical intervention. CAD No anginal symptoms. Continue aspirin, metoprolol, statin. GERD Continue ranitidine and pantoprazole. HYPOTHYROIDISM Continue levothyroxine. VTE PROPHYLAXIS SQ enoxaparin. Ambulate. DISPOSITION Expected discharge to home. Internal Medicine follow-up with Dr. Yuko Mainali. . Current Inpatient Medications: Current Inpatient Medications Medications (Trade) Dose Ordered Sig/Brent Route Start Time Stop Time Status Last Admin Dose Admin Ioversol (Optiray 320) 111 ml UD PRN IV 09/30/17 20:00 10/04/17 19:59 Enoxaparin Sodium (Lovenox Inj) 40 mg Q24H SQ 10/01/17 09:00 10/31/17 08:59 Acetaminophen (Tylenol Tab) 650 mg Q4H PRN PO 10/01/17 01:30 10/31/17 01:29 Al Hydrox/Mg Hydrox/Simethicone (Maalox Max Susp) 15 ml Q4H PRN PO 10/01/17 01:30 10/31/17 01:29 Ondansetron HCl (Zofran Inj) 4 mg Q6H PRN IV 10/01/17 01:30 10/31/17 01:29 Aspirin (Ecotrin Tab) 81 mg Q2D PO 10/01/17 09:00 10/31/17 08:59 10/01/17 09:27 81 MG Atorvastatin Calcium (Lipitor Tab) 20 mg QPM PO 10/01/17 21:00 10/31/17 20:59 Gabapentin (Neurontin Cap) 200 mg 0900,1400 PO 10/01/17 09:00 10/31/17 08:59 10/01/17 13:48 200 MG Gabapentin (Neurontin Cap) 300 mg TID PO 10/01/17 09:00 10/31/17 08:59 10/01/17 13:48 300 MG Levothyroxine Sodium (Synthroid Tab) 25 mcg SuSa@0600 PO 10/05/17 06:00 11/04/17 05:59 Levothyroxine Sodium (Synthroid Tab) 50 mcg MoTuWeThFr@0600 PO 10/01/17 06:00 10/31/17 05:59 10/01/17 05:26 50 MCG Loratadine (Claritin Tab) 10 mg DAILY PRN PO 10/01/17 01:30 10/31/17 01:29 Metoprolol Succinate (Toprol Xl Tab) 25 mg QAM PO 10/01/17 09:00 10/31/17 08:59 10/01/17 09:25 25 MG Nitroglycerin (Nitrostat Tab) 0.4 mg UD PRN UT 10/01/17 01:30 10/31/17 01:29 Pantoprazole Sodium (Protonix Tab) 40 mg BID PO 10/01/17 09:00 10/31/17 08:59 10/01/17 09:27 40 MG Quetiapine Fumarate (seroQUEL TAB) 300 mg HS PO 10/01/17 21:00 10/31/17 20:59 Ranitidine HCl (zANTac TAB) 150 mg BID PO 10/01/17 09:00 10/31/17 08:59 10/01/17 09:26 150 MG Venlafaxine HCl (effeXOR EXTENDED REL CAP) 150 mg QAM PO 10/01/17 09:00 10/31/17 08:59 10/01/17 09:26 150 MG Dextrose/Sodium Chloride 1,000 ml @ 100 mls/hr Q10H IV 10/01/17 02:00 10/31/17 01:59 10/01/17 12:11 100 MLS/HR Miscellaneous (Iv Fluids Completed) 1 ea PRN PRN N/A 10/01/17 02:15 10/01/18 02:14 Polyethylene (Miralax Powder Packet) 17 gm DAILY PO 10/02/17 09:00 10/31/17 01:44 Docusate Sodium (coLACE CAP) 100 mg BID PO 10/01/17 21:00 10/31/17 20:59
[2017-10-02] VITALS (8 sets, daily range): BP systolic 89–124; BP diastolic 57–76; PULSE 70–83; TEMP 36.4–36.6; O2SAT 94–96
[2017-10-02] MEDS: LEVOTHYROXINE 50 MCG TAB PO SCH (05:15)
[2017-10-02 06:02] LABS: BASO % 0.5 %; BASO ABS # 0.02 K/uL (0-0.2); EOS % 4.7 %; HEMATOCRIT 35.6 % (37-47); HEMOGLOBIN 11.7 g/dL (12.0-16.0); LYMPH % 42.4 %; LYMPH ABS # 1.82 K/uL (1.2-3.4); MEAN CELL VOLUME 85.8 fL (80-100); MEAN CORPUSCULAR HEMOGLOBIN 28.2 pg (25-34); MEAN CORPUSCULAR HGB CONC 32.9 g/dl (32-36); MEAN PLATELET VOLUME 12.3 fL (7.4-10.4); MONO % 14.2 %; MONO ABS # 0.61 K/uL (0.11-0.59); NEUT % 38.2 %; NEUT ABS # 1.64 K/uL (1.4-6.5); PLATELET COUNT 132 K/uL (130-400); RED CELL DISTRIBUTION WIDTH CV 14.7 % (11.5-14.5); RED CELL DISTRIBUTION WIDTH SD 46.2 fL (36.4-46.3); WHITE BLOOD COUNT 4.29 K/uL (4.8-10.8)
[2017-10-02 06:49] LABS: CALCIUM 8.2 mg/dl (8.5-10.1); CREATININE 0.78 mg/dl (0.60-1.20)
[2017-10-02] MEDS: METOPROLOL SUCC 25MG EXT REL TAB PO SCH (08:43)
[2017-10-02] MEDS: RANITIDINE HCL 150 MG TAB PO SCH ×2 (08:44→21:01)
[2017-10-02] MEDS: GABAPENTIN 100 MG CAP PO SCH ×2 (08:44→13:57)
[2017-10-02] MEDS: VENLAFAXINE HCL XR 150 MG CAPXR PO SCH (08:44)
[2017-10-02] MEDS: PANTOprazole SOD 40 MG TAB PO SCH ×2 (08:44→21:00)
[2017-10-02] MEDS: GABAPENTIN 300 MG CAP PO SCH ×3 (08:45→21:02)
[2017-10-02] MEDS: ENOXAPARIN 40 MG/0.4 ML SYR SQ SCH (08:48)
[2017-10-02] MEDS: DOCUSATE SODIUM 100 MG CAP PO SCH ×2 (08:50→21:00)
[2017-10-02] MEDS ORDERED: POLYETHYLENE (MIRALAX) 17 GM PACK PO SCH (09:00)
[2017-10-02] MEDS: D5W AND NSS 1,000 ML IV SCH (09:39)
[2017-10-02] MEDS ORDERED: POLYETHYLENE (MIRALAX) 17 GM PACK PO ONE ×2 (14:00→16:00)
[2017-10-02] MEDS ORDERED: BISACODYL 5 MG TABEC PO ONE (18:30)
[2017-10-02] MEDS: ATORVASTATIN 20 MG TAB PO SCH (21:00)
[2017-10-02] MEDS: QUETIAPINE FUMARATE 300 MG TAB PO SCH (21:01)
--- NOTE | 2017-10-02 21:47 | Progress Note ---
Medicine Progress Note Date & Time of Visit: Oct 02, 2017 at 12:05 . Subjective CC: Follow-up visit for abdominal pain. HPI: Abdominal pain improved. No N/V. Passed some liquid stools yesterday, but none today.. ROS: General- no fever, no chills Resp- no cough; no shortness of breath Cardiac- no chest pain, no edema GI- as noted above in HPI - no dysuria, no difficulty voiding . Objective Last 8 Hrs Date Time Temp Pulse Resp B/P (MAP) Pulse Ox O2 Delivery O2 Flow Rate FiO2 10/02/17 15:58 95 Room Air 10/02/17 15:10 36.4 70 18 124/76 (92) 95 Room Air Physical Exam: General- no distress Lungs- clear to auscultation; no respiratory distress Cardiovascular- RRR; no murmur or gallop appreciated; no JVD; no pretibial edema Abdomen- + bowel sounds, moderately distended, soft, nontender Extremities- no cyanosis; no calf tenderness Neuro- alert, oriented Skin- warm & dry . Laboratory Results: Last 24 Hours Test 10/02/17 05:19 White Blood Count 4.29 K/uL Red Blood Count 4.15 M/uL Hemoglobin 11.7 g/dL Hematocrit 35.6 % Mean Corpuscular Volume 85.8 fL Mean Corpuscular Hemoglobin 28.2 pg Mean Corpuscular Hemoglobin Concent 32.9 g/dl Platelet Count 132 K/uL Mean Platelet Volume 12.3 fL Neutrophils (%) (Auto) 38.2 % Lymphocytes (%) (Auto) 42.4 % Monocytes (%) (Auto) 14.2 % Eosinophils (%) (Auto) 4.7 % Basophils (%) (Auto) 0.5 % Neutrophils # (Auto) 1.64 K/uL Lymphocytes # (Auto) 1.82 K/uL Monocytes # (Auto) 0.61 K/uL Eosinophils # (Auto) 0.20 K/uL Basophils # (Auto) 0.02 K/uL RDW Standard Deviation 46.2 fL RDW Coefficient of Variation 14.7 % Immature Granulocyte % (Auto) 0.0 % Immature Granulocyte # (Auto) 0.00 K/uL Sodium Level 143 mmol/L Potassium Level 4.0 mmol/L Chloride Level 112 mmol/L Carbon Dioxide Level 25 mmol/L Anion Gap 6.0 mmol/L Blood Urea Nitrogen 8 mg/dl Creatinine 0.78 mg/dl Est Creatinine Clear Calc Drug Dose 58.9 ml/min Estimated GFR () 88.0 Estimated GFR (Non- 76.0 BUN/Creatinine Ratio 10.9 Random Glucose 89 mg/dl Calcium Level 8.2 mg/dl Magnesium Level 2.2 mg/dl Thyroid Stimulating Hormone (TSH) 2.430 uIu/ml Assessment & Plan ABDOMINAL PAIN CT demonstrated extensive colonic stool without evidence of obstruction. KUB 10/01 showed persistent distention of colon with stool. Continue bowel regimen. CHOLELITHIASIS Ultrasound demonstrated cholelithiasis without evidence of obstruction or cholecystitis. Seen in consultation by General Surgery. No need for surgical intervention. CAD No anginal symptoms. Continue aspirin, metoprolol, statin. GERD Continue ranitidine and pantoprazole. HYPOTHYROIDISM Continue levothyroxine. VTE PROPHYLAXIS SQ enoxaparin. Ambulate. DISPOSITION Expected discharge to home. Internal Medicine follow-up with Dr. Yuko Casas. . Current Inpatient Medications: Current Inpatient Medications Medications (Trade) Dose Ordered Sig/Brent Route Start Time Stop Time Status Last Admin Dose Admin Ioversol (Optiray 320) 111 ml UD PRN IV 09/30/17 20:00 10/04/17 19:59 Enoxaparin Sodium (Lovenox Inj) 40 mg Q24H SQ 10/01/17 09:00 10/31/17 08:59 Acetaminophen (Tylenol Tab) 650 mg Q4H PRN PO 10/01/17 01:30 10/31/17 01:29 Al Hydrox/Mg Hydrox/Simethicone (Maalox Max Susp) 15 ml Q4H PRN PO 10/01/17 01:30 10/31/17 01:29 Ondansetron HCl (Zofran Inj) 4 mg Q6H PRN IV 10/01/17 01:30 10/31/17 01:29 Aspirin (Ecotrin Tab) 81 mg Q2D PO 10/01/17 09:00 10/31/17 08:59 10/01/17 09:27 81 MG Atorvastatin Calcium (Lipitor Tab) 20 mg QPM PO 10/01/17 21:00 10/31/17 20:59 10/02/17 21:00 20 MG Gabapentin (Neurontin Cap) 200 mg 0900,1400 PO 10/01/17 09:00 10/31/17 08:59 10/02/17 13:57 200 MG Gabapentin (Neurontin Cap) 300 mg TID PO 10/01/17 09:00 10/31/17 08:59 10/02/17 21:02 300 MG Levothyroxine Sodium (Synthroid Tab) 25 mcg SuSa@0600 PO 10/05/17 06:00 11/04/17 05:59 Levothyroxine Sodium (Synthroid Tab) 50 mcg MoTuWeThFr@0600 PO 10/01/17 06:00 10/31/17 05:59 10/02/17 05:15 50 MCG Loratadine (Claritin Tab) 10 mg DAILY PRN PO 10/01/17 01:30 10/31/17 01:29 Metoprolol Succinate (Toprol Xl Tab) 25 mg QAM PO 10/01/17 09:00 10/31/17 08:59 10/02/17 08:43 25 MG Nitroglycerin (Nitrostat Tab) 0.4 mg UD PRN UT 10/01/17 01:30 10/31/17 01:29 Pantoprazole Sodium (Protonix Tab) 40 mg BID PO 10/01/17 09:00 10/31/17 08:59 10/02/17 21:00 40 MG Quetiapine Fumarate (seroQUEL TAB) 300 mg HS PO 10/01/17 21:00 10/31/17 20:59 10/02/17 21:01 300 MG Ranitidine HCl (zANTac TAB) 150 mg BID PO 10/01/17 09:00 10/31/17 08:59 10/02/17 21:01 150 MG Venlafaxine HCl (effeXOR EXTENDED REL CAP) 150 mg QAM PO 10/01/17 09:00 10/31/17 08:59 10/02/17 08:44 150 MG Miscellaneous (Iv Fluids Completed) 1 ea PRN PRN N/A 10/01/17 02:15 10/01/18 02:14 Polyethylene (Miralax Powder Packet) 17 gm DAILY PO 10/02/17 09:00 10/31/17 01:44 10/02/17 08:44 17 GM Docusate Sodium (coLACE CAP) 100 mg BID PO 10/01/17 21:00 10/31/17 20:59 10/02/17 21:00 100 MG
[2017-10-02] MEDS: ACETAMINOPHEN 325 MG TAB PO PRN (23:22)
[2017-10-03] MEDS: LEVOTHYROXINE 50 MCG TAB PO SCH (05:45)
[2017-10-03] MEDS: POLYETHYLENE (MIRALAX) 17 GM PACK PO SCH (06:19)
[2017-10-03 07:10] VITALS: BP 118/76; PULSE 59; TEMP 36.6; O2SAT 98
[2017-10-03 07:39] VITALS: O2SAT 98
[2017-10-03 08:37] VITALS: BP 115/66; PULSE 81
[2017-10-03] MEDS: METOPROLOL SUCC 25MG EXT REL TAB PO SCH (08:39)
[2017-10-03] MEDS: ASPIRIN 81 MG ECTAB PO SCH (08:39)
[2017-10-03] MEDS: RANITIDINE HCL 150 MG TAB PO SCH ×2 (08:39→21:39)
[2017-10-03] MEDS: VENLAFAXINE HCL XR 150 MG CAPXR PO SCH (08:39)
[2017-10-03] MEDS: GABAPENTIN 300 MG CAP PO SCH ×3 (08:39→21:38)
[2017-10-03] MEDS: PANTOprazole SOD 40 MG TAB PO SCH ×2 (08:39→21:39)
[2017-10-03] MEDS: GABAPENTIN 100 MG CAP PO SCH ×2 (08:39→13:32)
[2017-10-03] MEDS: ENOXAPARIN 40 MG/0.4 ML SYR SQ SCH (08:40)
[2017-10-03] MEDS: DOCUSATE SODIUM 100 MG CAP PO SCH ×2 (08:59→21:38)
[2017-10-03] MEDS ORDERED: BISACODYL 5 MG TABEC PO ONE (09:00)
[2017-10-03] MEDS ORDERED: SOAP SUDS ENEMA PR ONE (14:00)
[2017-10-03 15:09] VITALS: BP 120/79; PULSE 61; TEMP 36.5; O2SAT 93
[2017-10-03] MEDS: ATORVASTATIN 20 MG TAB PO SCH (21:38)
[2017-10-03] MEDS: QUETIAPINE FUMARATE 300 MG TAB PO SCH (21:39)
[2017-10-03 23:05] VITALS: BP 116/77; PULSE 61; TEMP 36.6; O2SAT 93
--- NOTE | 2017-10-03 23:45 | Progress Note ---
Medicine Progress Note Date & Time of Visit: Oct 03, 2017 at ~ 1215 . Subjective CC: Follow-up visit for abdominal pain. HPI: Crampy lower abdominal pain. No nausea or vomiting. Passing loose stools, but no significant amount of formed stool. ROS: General- no fever, no chills Resp- no cough; no shortness of breath Cardiac- no chest pain, no edema GI- as noted above in HPI - no dysuria, no difficulty voiding . Objective Last 8 Hrs Date Time Temp Pulse Resp B/P (MAP) Pulse Ox O2 Delivery O2 Flow Rate FiO2 10/03/17 23:05 36.6 61 18 116/77 (90) 93 Room Air 10/03/17 15:50 Room Air Physical Exam: General- no distress Lungs- clear to auscultation; no respiratory distress Cardiovascular- RRR; no murmur or gallop appreciated; no JVD; no pretibial edema Abdomen- + bowel sounds, moderately distended, soft, lower abdominal tenderness without rebound Extremities- no cyanosis; no calf tenderness Neuro- alert, oriented Skin- warm & dry . Assessment & Plan ABDOMINAL PAIN CT demonstrated extensive colonic stool without evidence of obstruction. KUB 10/01 showed persistent distention of colon with stool. Continue bowel regimen. Soap suds enema today. CHOLELITHIASIS Ultrasound demonstrated cholelithiasis without evidence of obstruction or cholecystitis. Seen in consultation by General Surgery. No need for surgical intervention. CAD No anginal symptoms. Continue aspirin, metoprolol, statin. GERD Continue ranitidine and pantoprazole. HYPOTHYROIDISM Continue levothyroxine. VTE PROPHYLAXIS SQ enoxaparin. Ambulate. DISPOSITION Expected discharge to home. Internal Medicine follow-up with Dr. Yuko Casas. . Current Inpatient Medications: Current Inpatient Medications Medications (Trade) Dose Ordered Sig/Brent Route Start Time Stop Time Status Last Admin Dose Admin Ioversol (Optiray 320) 111 ml UD PRN IV 09/30/17 20:00 10/04/17 19:59 Enoxaparin Sodium (Lovenox Inj) 40 mg Q24H SQ 10/01/17 09:00 10/31/17 08:59 Acetaminophen (Tylenol Tab) 650 mg Q4H PRN PO 10/01/17 01:30 10/31/17 01:29 10/02/17 23:22 650 MG Al Hydrox/Mg Hydrox/Simethicone (Maalox Max Susp) 15 ml Q4H PRN PO 10/01/17 01:30 10/31/17 01:29 Ondansetron HCl (Zofran Inj) 4 mg Q6H PRN IV 10/01/17 01:30 10/31/17 01:29 Aspirin (Ecotrin Tab) 81 mg Q2D PO 10/01/17 09:00 10/31/17 08:59 10/03/17 08:39 81 MG Atorvastatin Calcium (Lipitor Tab) 20 mg QPM PO 10/01/17 21:00 10/31/17 20:59 10/03/17 21:38 20 MG Gabapentin (Neurontin Cap) 200 mg 0900,1400 PO 10/01/17 09:00 10/31/17 08:59 10/03/17 13:32 200 MG Gabapentin (Neurontin Cap) 300 mg TID PO 10/01/17 09:00 10/31/17 08:59 10/03/17 21:38 300 MG Levothyroxine Sodium (Synthroid Tab) 25 mcg SuSa@0600 PO 10/05/17 06:00 11/04/17 05:59 Levothyroxine Sodium (Synthroid Tab) 50 mcg MoTuWeThFr@0600 PO 10/01/17 06:00 10/31/17 05:59 10/03/17 05:45 50 MCG Loratadine (Claritin Tab) 10 mg DAILY PRN PO 10/01/17 01:30 10/31/17 01:29 Metoprolol Succinate (Toprol Xl Tab) 25 mg QAM PO 10/01/17 09:00 10/31/17 08:59 10/03/17 08:39 25 MG Nitroglycerin (Nitrostat Tab) 0.4 mg UD PRN UT 10/01/17 01:30 10/31/17 01:29 Pantoprazole Sodium (Protonix Tab) 40 mg BID PO 10/01/17 09:00 10/31/17 08:59 10/03/17 21:39 40 MG Quetiapine Fumarate (seroQUEL TAB) 300 mg HS PO 10/01/17 21:00 10/31/17 20:59 10/03/17 21:39 300 MG Ranitidine HCl (zANTac TAB) 150 mg BID PO 10/01/17 09:00 10/31/17 08:59 10/03/17 21:39 150 MG Venlafaxine HCl (effeXOR EXTENDED REL CAP) 150 mg QAM PO 10/01/17 09:00 10/31/17 08:59 10/03/17 08:39 150 MG Miscellaneous (Iv Fluids Completed) 1 ea PRN PRN N/A 10/01/17 02:15 10/01/18 02:14 Docusate Sodium (coLACE CAP) 100 mg BID PO 10/01/17 21:00 10/31/17 20:59 10/03/17 21:38 100 MG Polyethylene (Miralax Powder Packet) 17 gm DAILY@0700 PO 10/03/17 07:00 10/31/17 01:44 10/03/17 06:19 17 GM
[2017-10-04] MEDS: POLYETHYLENE (MIRALAX) 17 GM PACK PO SCH (05:52)
[2017-10-04] MEDS: LEVOTHYROXINE 50 MCG TAB PO SCH (05:52)
[2017-10-04 06:58] LABS: BASO % 0.4 %; BASO ABS # 0.02 K/uL (0-0.2); EOS % 5.2 %; EOS ABS # 0.26 K/uL (0-0.5); HEMOGLOBIN 12.2 g/dL (12.0-16.0); IG# 0.01 K/uL (0.00-0.02); LYMPH % 32.7 %; LYMPH ABS # 1.64 K/uL (1.2-3.4); MEAN CELL VOLUME 84.3 fL (80-100); MEAN CORPUSCULAR HEMOGLOBIN 28.6 pg (25-34); MEAN CORPUSCULAR HGB CONC 33.9 g/dl (32-36); MEAN PLATELET VOLUME 11.9 fL (7.4-10.4); MONO % 12.7 %; MONO ABS # 0.64 K/uL (0.11-0.59); NEUT % 48.8 %; NEUT ABS # 2.45 K/uL (1.4-6.5); PLATELET COUNT 142 K/uL (130-400); RED CELL DISTRIBUTION WIDTH CV 14.5 % (11.5-14.5); WHITE BLOOD COUNT 5.02 K/uL (4.8-10.8)
[2017-10-04 07:27] LABS: CALCIUM 8.7 mg/dl (8.5-10.1); CREATININE 0.85 mg/dl (0.60-1.20); POTASSIUM 3.7 mmol/L (3.5-5.1)
[2017-10-04 07:49] VITALS: BP 97/53; PULSE 78; O2SAT 96
[2017-10-04 08:00] VITALS: O2SAT 96
[2017-10-04] MEDS: METOPROLOL SUCC 25MG EXT REL TAB PO SCH (08:10)
[2017-10-04] MEDS: GABAPENTIN 100 MG CAP PO SCH ×2 (08:11→13:59)
[2017-10-04] MEDS: GABAPENTIN 300 MG CAP PO SCH ×3 (08:11→20:52)
[2017-10-04] MEDS: VENLAFAXINE HCL XR 150 MG CAPXR PO SCH (08:12)
[2017-10-04] MEDS: PANTOprazole SOD 40 MG TAB PO SCH ×2 (08:12→20:52)
[2017-10-04] MEDS: RANITIDINE HCL 150 MG TAB PO SCH ×2 (08:12→20:51)
[2017-10-04] MEDS: DOCUSATE SODIUM 100 MG CAP PO SCH ×2 (08:13→20:50)
[2017-10-04] MEDS: ENOXAPARIN 40 MG/0.4 ML SYR SQ SCH (08:13)
[2017-10-04] MEDS ORDERED: METOPROLOL SUCC 25MG EXT REL TAB PO ONE (10:33)
[2017-10-04] MEDS ORDERED: POLYETHYLENE (MIRALAX) 17 GM PACK PO SCH (11:00)
[2017-10-04 11:16] VITALS: BP 115/71; PULSE 101; O2SAT 96
[2017-10-04] MEDS: ACETAMINOPHEN 325 MG TAB PO PRN (11:22)
[2017-10-04] MEDS ORDERED: BISACODYL 5 MG TABEC PO ONE (13:30)
[2017-10-04 15:12] VITALS: BP 111/63; PULSE 68; TEMP 36.6; O2SAT 96
[2017-10-04 15:45] VITALS: O2SAT 96
--- NOTE | 2017-10-04 20:36 | Progress Note ---
Medicine Progress Note Date & Time of Visit: Oct 04, 2017 at 10:20 . Subjective CC: Follow-up visit for abdominal pain. HPI: Still has crampy lower abdominal pain. No nausea or vomiting. Passing loose stools, but no significant amount of formed stool. ROS: General- no fever, no chills Resp- no cough; no shortness of breath Cardiac- no chest pain, no edema GI- as noted above in HPI - no dysuria . Objective Last 8 Hrs Date Time Temp Pulse Resp B/P (MAP) Pulse Ox O2 Delivery O2 Flow Rate FiO2 10/04/17 15:45 96 Room Air 10/04/17 15:12 36.6 68 16 111/63 (79) 96 Physical Exam: General- no distress Lungs- clear to auscultation; no respiratory distress Cardiovascular- RRR; no murmur or gallop appreciated; no JVD; no pretibial edema Abdomen- + bowel sounds, moderately distended, soft, mild-moderate lower abdominal tenderness without rebound Extremities- no cyanosis; no calf tenderness Neuro- alert, oriented Skin- warm & dry . Laboratory Results: Last 24 Hours Test 10/04/17 06:47 White Blood Count 5.02 K/uL Red Blood Count 4.27 M/uL Hemoglobin 12.2 g/dL Hematocrit 36.0 % Mean Corpuscular Volume 84.3 fL Mean Corpuscular Hemoglobin 28.6 pg Mean Corpuscular Hemoglobin Concent 33.9 g/dl Platelet Count 142 K/uL Mean Platelet Volume 11.9 fL Neutrophils (%) (Auto) 48.8 % Lymphocytes (%) (Auto) 32.7 % Monocytes (%) (Auto) 12.7 % Eosinophils (%) (Auto) 5.2 % Basophils (%) (Auto) 0.4 % Neutrophils # (Auto) 2.45 K/uL Lymphocytes # (Auto) 1.64 K/uL Monocytes # (Auto) 0.64 K/uL Eosinophils # (Auto) 0.26 K/uL Basophils # (Auto) 0.02 K/uL RDW Standard Deviation 44.0 fL RDW Coefficient of Variation 14.5 % Immature Granulocyte % (Auto) 0.2 % Immature Granulocyte # (Auto) 0.01 K/uL Sodium Level 138 mmol/L Potassium Level 3.7 mmol/L Chloride Level 107 mmol/L Carbon Dioxide Level 26 mmol/L Anion Gap 5.0 mmol/L Blood Urea Nitrogen 7 mg/dl Creatinine 0.85 mg/dl Est Creatinine Clear Calc Drug Dose 54.0 ml/min Estimated GFR () 79.3 Estimated GFR (Non- 68.5 BUN/Creatinine Ratio 7.9 Random Glucose 85 mg/dl Calcium Level 8.7 mg/dl Magnesium Level 2.0 mg/dl Assessment & Plan ABDOMINAL PAIN CT demonstrated extensive colonic stool without evidence of obstruction. KUB 10/01 showed persistent distention of colon with stool. Getting some results with bowel regimen, but probably still has a large amount of residual stool. Continue bowel regimen- MiraLax + Dulcolax today. CHOLELITHIASIS Ultrasound demonstrated cholelithiasis without evidence of obstruction or cholecystitis. Seen in consultation by General Surgery. No need for surgical intervention. CAD No anginal symptoms. Continue aspirin, metoprolol, statin. GERD Continue ranitidine and pantoprazole. HYPOTHYROIDISM Continue levothyroxine. VTE PROPHYLAXIS SQ enoxaparin. Ambulate. DISPOSITION Expected discharge to home. Internal Medicine follow-up with Dr. Yuko Casas. . Current Inpatient Medications: Current Inpatient Medications Medications (Trade) Dose Ordered Sig/Brent Route Start Time Stop Time Status Last Admin Dose Admin Enoxaparin Sodium (Lovenox Inj) 40 mg Q24H SQ 10/01/17 09:00 10/31/17 08:59 Acetaminophen (Tylenol Tab) 650 mg Q4H PRN PO 10/01/17 01:30 10/31/17 01:29 10/04/17 11:22 650 MG Al Hydrox/Mg Hydrox/Simethicone (Maalox Max Susp) 15 ml Q4H PRN PO 10/01/17 01:30 10/31/17 01:29 Ondansetron HCl (Zofran Inj) 4 mg Q6H PRN IV 10/01/17 01:30 10/31/17 01:29 Aspirin (Ecotrin Tab) 81 mg Q2D PO 10/01/17 09:00 10/31/17 08:59 10/03/17 08:39 81 MG Atorvastatin Calcium (Lipitor Tab) 20 mg QPM PO 10/01/17 21:00 10/31/17 20:59 10/03/17 21:38 20 MG Gabapentin (Neurontin Cap) 200 mg 0900,1400 PO 10/01/17 09:00 10/31/17 08:59 10/04/17 13:59 200 MG Gabapentin (Neurontin Cap) 300 mg TID PO 10/01/17 09:00 10/31/17 08:59 10/04/17 13:59 300 MG Levothyroxine Sodium (Synthroid Tab) 25 mcg SuSa@0600 PO 10/05/17 06:00 11/04/17 05:59 Levothyroxine Sodium (Synthroid Tab) 50 mcg MoTuWeThFr@0600 PO 10/01/17 06:00 10/31/17 05:59 10/04/17 05:52 50 MCG Loratadine (Claritin Tab) 10 mg DAILY PRN PO 10/01/17 01:30 10/31/17 01:29 Nitroglycerin (Nitrostat Tab) 0.4 mg UD PRN UT 10/01/17 01:30 10/31/17 01:29 Pantoprazole Sodium (Protonix Tab) 40 mg BID PO 10/01/17 09:00 10/31/17 08:59 10/04/17 08:12 40 MG Quetiapine Fumarate (seroQUEL TAB) 300 mg HS PO 10/01/17 21:00 10/31/17 20:59 10/03/17 21:39 300 MG Ranitidine HCl (zANTac TAB) 150 mg BID PO 10/01/17 09:00 10/31/17 08:59 10/04/17 08:12 150 MG Venlafaxine HCl (effeXOR EXTENDED REL CAP) 150 mg QAM PO 10/01/17 09:00 10/31/17 08:59 10/04/17 08:12 150 MG Miscellaneous (Iv Fluids Completed) 1 ea PRN PRN N/A 10/01/17 02:15 10/01/18 02:14 Docusate Sodium (coLACE CAP) 100 mg BID PO 10/01/17 21:00 10/31/17 20:59 10/03/17 21:38 100 MG Polyethylene (Miralax Powder Packet) 17 gm DAILY@0700 PO 10/03/17 07:00 10/31/17 01:44 10/04/17 05:52 17 GM Metoprolol Succinate (Toprol Xl Tab) 12.5 mg DAILY PO 10/05/17 09:00 11/04/17 08:59
[2017-10-04] MEDS: ATORVASTATIN 20 MG TAB PO SCH (20:52)
[2017-10-04] MEDS: QUETIAPINE FUMARATE 300 MG TAB PO SCH (20:52)
[2017-10-04 22:59] VITALS: BP 122/73; PULSE 96; TEMP 36.5; O2SAT 91
[2017-10-05] MEDS ORDERED: LEVOTHYROXINE 25 MCG TAB PO SCH (06:00)
[2017-10-05] MEDS: POLYETHYLENE (MIRALAX) 17 GM PACK PO SCH ×8 (06:04→07:27)
[2017-10-05 07:22] VITALS: BP 100/61; PULSE 96; TEMP 36.6; O2SAT 91
[2017-10-05] MEDS: DOCUSATE SODIUM 100 MG CAP PO SCH (08:53)
[2017-10-05] MEDS: GABAPENTIN 100 MG CAP PO SCH ×2 (09:00→13:23)
[2017-10-05] MEDS ORDERED: BISACODYL 5 MG TABEC PO ONE (09:00)
[2017-10-05] MEDS ORDERED: METOPROLOL SUCC 25MG EXT REL TAB PO SCH (09:00)
[2017-10-05] MEDS: ENOXAPARIN 40 MG/0.4 ML SYR SQ SCH (09:00)
[2017-10-05] MEDS: PANTOprazole SOD 40 MG TAB PO SCH (09:02)
[2017-10-05] MEDS: GABAPENTIN 300 MG CAP PO SCH ×2 (09:02→13:23)
[2017-10-05] MEDS: ASPIRIN 81 MG ECTAB PO SCH (09:02)
[2017-10-05] MEDS: RANITIDINE HCL 150 MG TAB PO SCH (09:03)
[2017-10-05] MEDS: VENLAFAXINE HCL XR 150 MG CAPXR PO SCH (09:04)
[2017-10-05] MEDS ORDERED: SOD PHOSPHATE/SOD BIPHOSPHATE ENEMA 132 ML BTL PR ONE (13:00)
[2017-10-05 15:09] VITALS: BP 116/78; PULSE 69; TEMP 36.8; O2SAT 99
[2017-10-05 15:30] VITALS: O2SAT 99
--- NOTE | 2017-10-05 16:34 | Progress Note ---
Medicine Progress Note Date & Time of Visit: Oct 05, 2017 at 16:34 . Subjective Seen a few times throughout the day. Multiple bowel movements with bowel regimen- loose with small amount of stool. Less distended. No nausea or vomiting. Had an episode of epigastric discomfort in the morning without EKG changes. Anxious to go home. . Objective Last 8 Hrs Date Time Temp Pulse Resp B/P (MAP) Pulse Ox O2 Delivery O2 Flow Rate FiO2 10/05/17 15:09 36.8 69 20 116/78 (91) 99 Room Air Physical Exam: General- no distress Lungs- clear to auscultation; no respiratory distress Cardiovascular- RRR; no murmur or gallop appreciated; no JVD; no pretibial edema Abdomen- + bowel sounds, less distended, soft, nontender Extremities- no cyanosis; no calf tenderness Neuro- alert, oriented Skin- warm & dry . Assessment & Plan ABDOMINAL PAIN CT demonstrated extensive colonic stool without evidence of obstruction. KUB 10/01 showed persistent distention of colon with stool. Constipation treated with MiraLax, Dulcolax tablets, enemas with multiple BM's. Patient has had problems with constipation for many years. Sounds like she overutilizes laxatives at times (e.g., 3-4 Dulcolax tabs). Regular bowel regimen discussed. Try Senokot-S BID with MiraLax PRN. Has not had a colonoscopy for several years- to discuss with PCP. CHOLELITHIASIS Ultrasound demonstrated cholelithiasis without evidence of obstruction or cholecystitis. Seen in consultation by General Surgery. No need for surgical intervention. CAD No anginal symptoms. Continue aspirin, metoprolol, statin. GERD Continue ranitidine and pantoprazole. HYPOTHYROIDISM Continue levothyroxine. VTE PROPHYLAXIS SQ enoxaparin. Ambulate. DISPOSITION Discharged to home. Internal Medicine follow-up with Dr. Yuko Casas. . Current Inpatient Medications: Current Inpatient Medications Medications (Trade) Dose Ordered Sig/Brent Route Start Time Stop Time Status Last Admin Dose Admin Enoxaparin Sodium (Lovenox Inj) 40 mg Q24H SQ 10/01/17 09:00 10/31/17 08:59 Acetaminophen (Tylenol Tab) 650 mg Q4H PRN PO 10/01/17 01:30 10/31/17 01:29 10/04/17 11:22 650 MG Al Hydrox/Mg Hydrox/Simethicone (Maalox Max Susp) 15 ml Q4H PRN PO 10/01/17 01:30 10/31/17 01:29 Ondansetron HCl (Zofran Inj) 4 mg Q6H PRN IV 10/01/17 01:30 10/31/17 01:29 Aspirin (Ecotrin Tab) 81 mg Q2D PO 10/01/17 09:00 10/31/17 08:59 10/05/17 09:02 81 MG Atorvastatin Calcium (Lipitor Tab) 20 mg QPM PO 10/01/17 21:00 10/31/17 20:59 10/04/17 20:52 20 MG Gabapentin (Neurontin Cap) 300 mg TID PO 10/01/17 09:00 10/31/17 08:59 10/05/17 13:23 300 MG Levothyroxine Sodium (Synthroid Tab) 25 mcg SuSa@0600 PO 10/05/17 06:00 11/04/17 05:59 10/05/17 06:04 25 MCG Levothyroxine Sodium (Synthroid Tab) 50 mcg MoTuWeThFr@0600 PO 10/01/17 06:00 10/31/17 05:59 10/04/17 05:52 50 MCG Loratadine (Claritin Tab) 10 mg DAILY PRN PO 10/01/17 01:30 10/31/17 01:29 Nitroglycerin (Nitrostat Tab) 0.4 mg UD PRN UT 10/01/17 01:30 10/31/17 01:29 Pantoprazole Sodium (Protonix Tab) 40 mg BID PO 10/01/17 09:00 10/31/17 08:59 10/05/17 09:02 40 MG Quetiapine Fumarate (seroQUEL TAB) 300 mg HS PO 10/01/17 21:00 10/31/17 20:59 10/04/17 20:52 300 MG Ranitidine HCl (zANTac TAB) 150 mg BID PO 10/01/17 09:00 10/31/17 08:59 10/05/17 09:03 150 MG Venlafaxine HCl (effeXOR EXTENDED REL CAP) 150 mg QAM PO 10/01/17 09:00 10/31/17 08:59 10/05/17 09:04 150 MG Miscellaneous (Iv Fluids Completed) 1 ea PRN PRN N/A 10/01/17 02:15 10/01/18 02:14 Docusate Sodium (coLACE CAP) 100 mg BID PO 10/01/17 21:00 10/31/17 20:59 10/05/17 08:53 100 MG Polyethylene (Miralax Powder Packet) 17 gm DAILY@0700 PO 10/03/17 07:00 10/31/17 01:44 10/04/17 05:52 17 GM Metoprolol Succinate (Toprol Xl Tab) 12.5 mg DAILY PO 10/05/17 09:00 11/04/17 08:59 10/05/17 09:03 12.5 MG
--- NOTE | 2017-10-05 16:44 | Discharge Instructions ---
Discharge Instructions Date of Service Oct 05, 2017. Admission Reason for Admission: Abdominal Pain Discharge Discharge Diagnosis / Problem: constipation, gallstones Discharge Goals Goal(s): Decrease discomfort, Improve disease control Activity Recommendations Activity Limitations: resume your previous activity . Instructions / Follow-Up Instructions / Follow-Up APPOINTMENTS: INTERNAL MEDICINE Dr. Yuko Casas. Office will call you with appointment. OTHER INSTRUCTIONS: Nonprescription medications that you can try for constipation: Senokot-S start with 2 pills twice a day reduce dose to 1 pill twice a day if you are going too often Miralax twice a day as instructed if you have not gone for 2-3 days Dulcolax tablets 2 pills after a meal if you have not gone for 4 days magnesium citrate drink a whole bottle if you haven't gone after [address] Casas to schedule a colonoscopy for you. You may need a longer prep than usual if you are still having problems with constipation. Seek medical attention if you have: * temperature above 101 * chest pain or trouble breathing * abdominal pain, nausea, vomiting * diarrhea, dark stools or bloody stools * severe / prolonged constipation * any unanswered questions or concerns Call 911 if symptoms are severe. Call if you have any questions or problems. My cell # is [phone]. You can also reach a [facility] hospitalist on duty at [facility] 24 hours a day by calling [phone]. Please take good care of yourself. Jerardo Nichole . Current Hospital Diet Patient's current hospital diet: AHA Diet (Heart Healthy) Discharge Diet Recommended Diet: AHA Diet (Heart Healthy) Procedures Procedures Performed: ultrasound gallbladder CT scan of abdomen and pelvis Pending Studies Studies pending at discharge: no Medical Emergencies . Who to Call and When: Medical Emergencies: If at any time you feel your situation is an emergency, please call 911 immediately. . Non-Emergent Contact Non-Emergency issues call your: Primary Care Provider, Hospital Doctor . . "Provider Documentation" section prepared by Jerardo Nichole. .
[2017-10-05 16:59] VITALS: BP 116/78; PULSE 69; TEMP 36.8; O2SAT 99
--- NOTE | 2017-10-07 06:53 | Discharge Summary ---
Discharge Summary Date of Service Oct 07, 2017. Discharge Summary Admission Date: Oct 03, 2017 at 12:05 Discharge Date: Oct 05, 2017 Discharge Disposition: Home Principal Diagnosis: abdominal pain . Secondary Diagnoses/Problems: Chronic and Resolved Medical Problems: (1) Anxiety Status: Chronic (2) Asthma Status: Chronic (3) Cholelithiasis Status: Chronic (4) CKD (chronic kidney disease), stage III Status: Chronic (5) COPD (chronic obstructive pulmonary disease) Status: Chronic (6) Depression Status: Chronic (8) GERD (gastroesophageal reflux disease) Status: Chronic (9) History of paroxysmal supraventricular tachycardia Status: Chronic Surgical Problems: (1) History of repair of hiatal hernia Status: Chronic (3) Status post cardiac catheterization Permanent Comment: mild disease - 30% mid LAD Status: Chronic (4) Status post hysterectomy Status: Chronic . Procedures: US gallbladder CT abdomen and pelvis . Consultations: General Surgery . Pending Studies/Follow-Up: Please arrange for colonoscopy if overdue. . Medication Reconciliation Continued Medications: Aspirin (Aspirin Ec) 81 Mg Tab 81 MG PO Q2D Atorvastatin (Lipitor) 20 Mg Tab 20 MG PO QPM, TAB Denosumab (Prolia) 60 Mg/Ml Ingrid 60 MG SQ [id number] Docusate Sodium (Colace) 100 Mg Cap 1 CAP PO BID for 15 Days, #30 CAP Gabapentin (Neurontin) 300 Mg Cap 300 MG PO TID, CAP Levothyroxine Sodium (Synthroid) 50 Mcg Tab 50 MCG PO 5XWK TAKE 50 MCG EVERY SATURDAY,SATURDAY,SATURDAY,SATURDAY AND SATURDAY 30 MINUTES BEFORE BREAKFAST OR ANY OTHER MEDICATIONS Levothyroxine Sodium (Levothyroxine Sodium) 25 Mcg Tab 25 MCG PO 2XWK TAKE 25 MCG EVERY SATURDAY AND SATURDAY 3O MINUTES BEFORE BREAKFAST OR ANY OTHER MEDICATIONS Loratadine (Claritin) 10 Mg Tab 10 MG PO DAILY PRN for Allergy Symptoms, TAB Metoprolol Succinate (Toprol Xl) 25 Mg Tabcr 25 MG PO QAM, TAB Nitroglycerin (Nitrostat) 0.4 Mg Tab 0.4 MG UT UD PRN for Chest Pain, BTL PLACE ONE TABLET UNDER THE TONGUE EVERY 5 MINUTES FOR UP TO 3 DOSES OVER 15 MINUTES IF NEEDED FOR CHEST PAIN Pantoprazole (Protonix) 40 Mg Tab 40 MG PO BID, TAB TAKE THIS MEDICATION TWICE DAILY 30 MINUTES BEFORE A MEAL Quetiapine Fumarate (Seroquel) 300 Mg Tab 300 MG PO HS, TAB Ranitidine (Zantac) 150 Mg Tab 150 MG PO BID, TAB Venlafaxine Hcl (Effexor Xr) 150 Mg Cap 150 MG PO QAM Admission Information HPI (per Admitting provider): This is 72-year-old female with past medical history significant for GERD; herpes simplex type 2 infection; bipolar; congenital hiatus hernia status post surgery; obsessive-compulsive disorder; senile osteoporosis; schizoaffective schizophrenia;oesophageal spasm; history of PR; hypothyroidism; hyperlipidemia; history of open angle glaucoma of both eyes; chronic kidney disease stage III; COPD mild; history of SVT; dry skin, dermatitis; presents with nausea. She states this has been going on for last 3 days. She is not able to eat anything because of the nausea . she does have chronic abdominal pain since last 2 years. She also complains of on and off few seconds of lower chest discomfort. Constipated . Today, she has small bowel movement after several days after taking Dulcolax. Normal bladder movements. Denies any fever, chills. Has some dry cough, runny nose, no headaches, no blurred vision, no dizziness, no headache, no sore throat .. Currently resting comfortably and hemodynamically stable. . Physical Exam (per Admitting): GENERAL: Patient is of moderate build, not in distress. VITAL SIGNS: Temperature 37, pulse 56, respiratory rate 20, blood pressure 117/85, oxygen 97% room air. HEENT: No pallor, no icterus. Pupils equal, round, reactive. No pallor. NECK: No JVD, no neck masses, no carotid bruits. CARDIOVASCULAR: S1, S2, regular rate and rhythm, no murmur, no rub, no gallop. RESPIRATORY SYSTEM: Normal Ap diameter. No wheezing, no crackles. ABDOMEN: Soft, slightly distended, sluggish bowel sounds. Mild abdominal discomfort. No guarding, no rigidity. CENTRAL NERVOUS SYSTEM: Cranial nerves II-XII grossly intact. Nonfocal. EXTREMITIES: No edema, no erythema. . Hospital Course ABDOMINAL PAIN CT demonstrated extensive colonic stool without evidence of obstruction. KUB 10/01 showed persistent distention of colon with stool. Constipation treated with MiraLax, Dulcolax tablets, enemas with multiple BM's. Patient has had problems with constipation for many years. Sounds like she overutilizes laxatives at times (e.g., 3-4 Dulcolax tabs). Regular bowel regimen discussed. Try Senokot-S BID with MiraLax PRN. Has not had a colonoscopy for several years- to discuss with PCP. CHOLELITHIASIS Ultrasound demonstrated cholelithiasis without evidence of obstruction or cholecystitis. Seen in consultation by General Surgery. No need for surgical intervention. CAD No anginal symptoms. Continue aspirin, metoprolol, statin. GERD Continue ranitidine and pantoprazole. HYPOTHYROIDISM Continue levothyroxine. VTE PROPHYLAXIS SQ enoxaparin. Ambulate. DISPOSITION Discharged to home. Internal Medicine follow-up with Dr. Yuko Casas. . Total time spent on discharge = 35 min. This includes examination of the patient, discharge planning, medication reconciliation, and communication with other providers. . Discharge Instructions Discharge Instructions Date of Service Oct 05, 2017. Admission Reason for Admission: Abdominal Pain Discharge Discharge Diagnosis / Problem: constipation, gallstones Discharge Goals Goal(s): Decrease discomfort, Improve disease control Activity Recommendations Activity Limitations: resume your previous activity . Instructions / Follow-Up Instructions / Follow-Up APPOINTMENTS: INTERNAL MEDICINE Dr. Yuko Casas. Office will call you with appointment. OTHER INSTRUCTIONS: Nonprescription medications that you can try for constipation: Senokot-S start with 2 pills twice a day reduce dose to 1 pill twice a day if you are going too often Miralax twice a day as instructed if you have not gone for 2-3 days Dulcolax tablets 2 pills after a meal if you have not gone for 4 days magnesium citrate drink a whole bottle if you haven't gone after [address] Casas to schedule a colonoscopy for you. You may need a longer prep than usual if you are still having problems with constipation. Seek medical attention if you have: * temperature above 101 * chest pain or trouble breathing * abdominal pain, nausea, vomiting * diarrhea, dark stools or bloody stools * severe / prolonged constipation * any unanswered questions or concerns Call [phone] if symptoms are severe. Call if you have any questions or problems. My cell # is [phone]. You can also reach a [facility] hospitalist on duty at [facility] 24 hours a day by calling [phone]. Please take good care of yourself. Jerardo Nichole . Current Hospital Diet Patient's current hospital diet: AHA Diet (Heart Healthy) Discharge Diet Recommended Diet: AHA Diet (Heart Healthy) Procedures Procedures Performed: ultrasound gallbladder CT scan of abdomen and pelvis Pending Studies Studies pending at discharge: no Medical Emergencies . Who to Call and When: Medical Emergencies: If at any time you feel your situation is an emergency, please call 911 immediately. . Non-Emergent Contact Non-Emergency issues call your: Primary Care Provider, Hospital Doctor . . "Provider Documentation" section prepared by Jerardo Nichole. . .
== END 2017-10-05 18:10 | disposition home or self-care (01) | DRG 446 ==
LOC: EDBD 18:04 → C.EDC 18:05 → C.MSN 10-01 01:25 → ENRESERV 10-01 01:34 → OBSVTOIN 10-03 12:05
PROVIDERS: ADMIT Internal Medicine; ATTEND Hospitalist
DX: K80.20 Calculus of gallbladder without cholecystitis without obstruction (principal); K59.09 Other constipation; R10.9 Unspecified abdominal pain; I25.10 Atherosclerotic heart disease of native coronary artery without angina pectoris; K21.9 Gastro-esophageal reflux disease without esophagitis; E03.9 Hypothyroidism, unspecified; J44.9 Chronic obstructive pulmonary disease, unspecified; E78.5 Hyperlipidemia, unspecified; I25.2 Old myocardial infarction; I13.10 Hypertensive heart and chronic kidney disease without heart failure, with stage 1 through stage 4 chronic kidney disease, or unspecified chronic kidney disease; N18.3 Chronic kidney disease, stage 3 (moderate); H40.10X0 Unspecified open-angle glaucoma, stage unspecified; F25.9 Schizoaffective disorder, unspecified; F31.9 Bipolar disorder, unspecified; F42.9 Obsessive-compulsive disorder, unspecified; F41.9 Anxiety disorder, unspecified; M81.0 Age-related osteoporosis without current pathological fracture; Z51.81 Encounter for therapeutic drug level monitoring; Z79.899 Other long term (current) drug therapy; Z79.82 Long term (current) use of aspirin; Z87.738 Personal history of other specified (corrected) congenital malformations of digestive system; Z87.891 Personal history of nicotine dependence; Z88.0 Allergy status to penicillin; Z91.040 Latex allergy status; Z88.5 Allergy status to narcotic agent; Z83.3 Family history of diabetes mellitus; Z82.49 Family history of ischemic heart disease and other diseases of the circulatory system; Z82.3 Family history of stroke; Z80.3 Family history of malignant neoplasm of breast; Z83.49 Family history of other endocrine, nutritional and metabolic diseases; Z82.5 Family history of asthma and other chronic lower respiratory diseases; Z80.7 Family history of other malignant neoplasms of lymphoid, hematopoietic and related tissues

== ENCOUNTER 2019-03-18 21:41 | Observation (INO) ==
[2019-03-18 22:05] LABS: Basophils # (auto) 0.02 K/uL (0-0.2); Basophils % (auto) 0.5 %; Eosinophils # (auto) 0.15 K/uL (0-0.5); Eosinophils % (auto) 3.9 %; Hematocrit (blood only) 34.8 % (37-47); Hemoglobin 11.6 g/dL (12.0-16.0); Lymphocytes # (auto) 1.24 K/uL (1.2-3.4); Lymphocytes % (auto) 32.2 %; Mean Corpuscular Hemoglobin 28.4 pg (25-34); Mean Corpuscular Hgb Conc 33.3 g/dL (32-36); Mean Corpuscular Volume 85.1 fL (80-100); Mean Platelet Volume 12.3 fL (7.4-10.4); Monocytes # (auto) 0.81 K/uL (0.11-0.59); Neutrophils # (auto) 1.63 K/uL (1.4-6.5); Neutrophils % (auto) 42.4 %; Platelet Count 143 K/uL (130-400); RDW Coefficient of Variation 14.3 % (11.5-14.5); RDW Standard Deviation 44.3 fL (36.4-46.3); Red Blood Count 4.09 M/uL (4.2-5.4); White Blood Count 3.85 K/uL (4.8-10.8)
[2019-03-18 22:15] LABS: Alanine Aminotransferase 14 U/L (12-78); Albumin Level 3.5 gm/dl (3.4-5.0); Aspartate Aminotransferase 18 U/L (15-37); BUN Creatinine Ratio 15.9 (10-20); Blood Urea Nitrogen 16 mg/dl (7-18); Calcium 9.4 mg/dl (8.5-10.1); Carbon Dioxide 25 mmol/L (21-32); Chloride 108 mmol/L (98-107); Creatinine Clr Calc Pharmacy 42.3 ml/min; Est GFR (Non-African American) 55.2; Glucose 98 mg/dl (70-99); Lipase 113 U/L (73-393); Potassium 3.8 mmol/L (3.5-5.1); Sodium 138 mmol/L (136-145)
[2019-03-18 22:19] LABS: Alkaline Phosphatase 47 U/L (45-117); Bilirubin,Total 0.5 mg/dl (0.2-1); Globulin 3.5 gm/dl (2.5-4.0); Troponin I < 0.015 ng/ml (0-0.045)
--- NOTE | 2019-03-18 22:40 | XRay Report ---
XR chest 1V portable CLINICAL HISTORY: Atypical chest pain COMPARISON STUDY: 12/25/2018 FINDINGS: The heart is mildly enlarged. There are gas-filled bowel loops beneath a mildly elevated le ft hemidiaphragm. There is right-sided colonic interposition. There is no failure. There is no lobar consolidation. There are linear areas of scar/atelectatic changes at the left lung base. There are ol d right-sided rib fractures. There is a left shoulder arthroplasty.[There are no significant pleural effusions. IMPRESSION: No active disease in the chest. ACT 112: Negative or not required by law. Electronically signed by: Efrain Cheung M.D. 03/18/2019 10:39 PM
[2019-03-18 23:36] LABS: Magnesium 2.1 mg/dl (1.8-2.4)
[2019-03-18 23:42] LABS: D Dimer 250 ug/L FEU (0-500); Partial Thromboplastin Time 28.3 Seconds (21.0-31.0)
[2019-03-19] MEDS ORDERED: guaiFENesin 600 MG TABCR PO STA (00:03)
[2019-03-19] MEDS ORDERED: KETOROLAC TROMETHAMINE 15 MG/ML VIAL IV STA (00:04)
[2019-03-19] MEDS ORDERED: ALBUT/IPRATROP 3MG/0.5MG NEB 3 ML VIAL NEB STA (00:19)
--- NOTE | 2019-03-19 00:20 | History & Physical Report ---
Date of Service March 19, 2019 Assessment & Plan (1) Atypical chest pain: Multifactorial : Viral bronchitis Uncontrolled GERD (hx Mcintyre's esophagus as per records) given burning component hx nonocclusive CAD as per records PSVT, no recurrence after ER visit from last month mood disorder/schizoaffective disorder as per records, stable hypothyroidism, euthyroid as of last month's TSH chronic anemia, hemoglobin at baseline past tobacco abuse OBS PCU Supportive measures for viral bronchitis Antacids as needed, continue home PPI, add H2 nohemy if symptoms unresponsive to PRN antacids DVT prophylaxis. Lovenox subcu Full code History of Present Illness Chief Complaint: Chest pain Primary Care Provider: Yuko Casas MD History obtained from patient and records. Medical history significant for nonocclusive CAD, PSVT, COPD as per records, hx GERD/Mcintyre's esophagus as per records, mood disorder/schizoaffective disorder as per records, hypothyroidism, chronic anemia(baseline hemoglobin of 11), past tobacco abuse Recent ER visit last month for PSVT, resolved with adenosine. Outpatient [facility] 2 weeks ago. 2D echo showed LVH, EF of 70%. No significant valvular heart disease. Toprol increased to 25 mg daily. Outpatient EPS consultation recommended. 3 days history of dry sticky cough symptoms. Appetite not so good. Substernal pain nonradiating with coughing. Some burning component as well. Possible sick contacts. No fever, no chills. No chest pain relief with nitro intake at home. 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 Allergies Allergy/AdvReac Type Severity Reaction Status Date / Time amoxicillin Allergy Severe HIVES Unverified 03/18/19 22:25 latex Allergy Mild RASH Unverified 03/18/19 22:25 Home Medications Home Medications Medication Instructions Recorded Confirmed Type atorvastatin [Lipitor] 20 mg PO PM 03/19/18 03/18/19 History cholecalciferol (vitamin D3) 5,000 unit PO DAILY 03/19/18 03/18/19 History [Vitamin D3] denosumab 60 mg SUBCUT DIRECTED 03/19/18 03/18/19 History gabapentin 300 mg PO BID 03/19/18 03/18/19 History levothyroxine 25 mcg PO 2XWK 03/19/18 03/18/19 History levothyroxine 50 mcg PO 5XWK 03/19/18 03/18/19 History metoprolol succinate 25 mg PO QAM 03/19/18 03/18/19 History nitroglycerin 0.4 mg SUBLINGUAL DAILY PRN 03/19/18 03/18/19 History ondansetron HCl [Zofran] 4 mg PO UD PRN 03/19/18 03/18/19 History pantoprazole 40 mg PO BID 03/19/18 03/18/19 History quetiapine 300 mg PO HS 03/19/18 03/18/19 History venlafaxine 150 mg PO QAM 03/19/18 03/18/19 History Past Med/Surg History Medical History Anxiety (Chronic) Cholelithiasis (Chronic) CKD (chronic kidney disease), stage III (Chronic) COPD (chronic obstructive pulmonary disease) (Chronic) Depression (Chronic) GERD (gastroesophageal reflux disease) (Chronic) History of paroxysmal supraventricular tachycardia (Chronic) Surgical History History of repair of hiatal hernia (Chronic) Status post cardiac catheterization (Chronic) "mild disease - 30% mid LAD" Status post hysterectomy (Chronic) Family History Other Cancer Diabetes Heart disease Hypertension Lung disease Social History Preferred Language: Vietnamese Beliefs That Will Affect Care: None Current Living Situation: Alone current occupational status: retired Feels Safe at Home: Yes Safety Concerns: Feels Safe At This Time Smoking Status: Former smoker Hx Alcohol Use: No Hx Substance Use: No Review of Systems Review of Systems: As per HPI, all 10 systems reviewed, all other ROS negative Physical Exam Physical Exam: GENERAL: Slightly uncomfortable, tremulous, no respiratory distress SKIN: Pallor , warm HEENT: Pale palpebral conjunctivae, no ptosis, dry buccal mucosa NECK : Supple, no tenderness CHEST : Decreased breath sounds , no tenderness HEART : RRR, no obvious murmurs ABDOMEN: Soft, nontender EXTREMITIES : No LE swelling/tenderness, no other conspicuous deformities noted NEUROLOGIC : Coherent, no facial asymmetry, tremulous, no other gross focality Results & Data Vital Signs (Past 12 Hours) Vital Signs Temp Pulse Resp BP Pulse Ox 03/18/19 23:00 66 18 114/76 95 03/18/19 21:59 98 03/18/19 21:48 36.9 C 80 18 118/70 96 Laboratory Results Laboratory Results WBC 3.85 K/uL (4.8-10.8) L 03/18/19 21:52 RBC 4.09 M/uL (4.2-5.4) L 03/18/19 21:52 Hgb 11.6 g/dL (12.0-16.0) L 03/18/19 21:52 Hct 34.8 % (37-47) L 03/18/19 21:52 MCV 85.1 fL (80-100) 03/18/19 21:52 MCH 28.4 pg (25-34) 03/18/19 21:52 MCHC 33.3 g/dL (32-36) 03/18/19 21:52 RDW Std Deviation 44.3 fL (36.4-46.3) 03/18/19 21:52 RDW Coeff of Ximena 14.3 % (11.5-14.5) 03/18/19 21:52 Plt Count 143 K/uL (130-400) 03/18/19 21:52 MPV 12.3 fL (7.4-10.4) H 03/18/19 21:52 Immature Gran % (Auto) 0.0 % 03/18/19 21:52 Neut % (Auto) 42.4 % 03/18/19 21:52 Lymph % (Auto) 32.2 % 03/18/19 21:52 [place] % (Auto) 21.0 % 03/18/19 21:52 Eos % (Auto) 3.9 % 03/18/19 21:52 Baso % (Auto) 0.5 % 03/18/19 21:52 Immature Gran # (Auto) 0.00 K/uL (0.00-0.02) 03/18/19 21:52 Neut # (Auto) 1.63 K/uL (1.4-6.5) 03/18/19 21:52 Lymph # (Auto) 1.24 K/uL (1.2-3.4) 03/18/19 21:52 [place] # (Auto) 0.81 K/uL (0.11-0.59) H 03/18/19 21:52 Eos # (Auto) 0.15 K/uL (0-0.5) 03/18/19 21:52 Baso # (Auto) 0.02 K/uL (0-0.2) 03/18/19 21:52 APTT 28.3 Seconds (21.0-31.0) 03/18/19 21:52 PTT Ratio 1.0 03/18/19 21:52 D-Dimer 250 ug/L FEU (0-500) 03/18/19 21:52 Sodium 138 mmol/L (136-145) 03/18/19 21:52 Potassium 3.8 mmol/L (3.5-5.1) 03/18/19 21:52 Chloride 108 mmol/L (98-107) H 03/18/19 21:52 Carbon Dioxide 25 mmol/L (21-32) 03/18/19 21:52 Anion Gap 5.0 (3-11) 03/18/19 21:52 BUN 16 mg/dl (7-18) 03/18/19 21:52 Creatinine 1.01 mg/dl (0.6-1.2) 03/18/19 21:52 Est Cr Clr Drug Dosing 42.3 ml/min 03/18/19 21:52 Est GFR ( Amer) 64.0 03/18/19 21:52 Est GFR (Non-Af Amer) 55.2 03/18/19 21:52 BUN/Creatinine Ratio 15.9 (10-20) 03/18/19 21:52 Glucose 98 mg/dl (70-99) 03/18/19 21:52 Calcium 9.4 mg/dl (8.5-10.1) 03/18/19 21:52 Magnesium 2.1 mg/dl (1.8-2.4) 03/18/19 21:52 Total Bilirubin 0.5 mg/dl (0.2-1) 03/18/19 21:52 AST 18 U/L (15-37) 03/18/19 21:52 ALT 14 U/L (12-78) 03/18/19 21:52 Alkaline Phosphatase 47 U/L (45-117) 03/18/19 21:52 Troponin I < 0.015 ng/ml (0-0.045) 03/18/19 21:52 Total Protein 7.0 gm/dl (6.4-8.2) 03/18/19 21:52 Albumin 3.5 gm/dl (3.4-5.0) 03/18/19 21:52 Globulin 3.5 gm/dl (2.5-4.0) 03/18/19 21:52 Albumin/Globulin Ratio 1.0 (0.9-2) 03/18/19 21:52 Lipase 113 U/L (73-393) 03/18/19 21:52 Diagnostic Findings Chest x-ray : No active disease EKG as per my interpretation : Rate 65, NSR, normal axis, no ischemia
[2019-03-19 01:05] LABS: Influenza A virus by PCR Neg for Influ A (Neg); Influenza B virus by PCR Neg for Influ B (Neg)
[2019-03-19] MEDS ORDERED: KETOROLAC TROMETHAMINE 15 MG/ML VIAL IV PRN (01:19)
[2019-03-19] MEDS ORDERED: PROMETHAZINE HCL 12.5 MG in SODIUM CHLORIDE 0.9% 50 ML IV PRN (01:19)
[2019-03-19] MEDS ORDERED: ACETAMINOPHEN 325 MG TAB PO PRN (01:19)
[2019-03-19] MEDS ORDERED: IBUPROFEN 200 MG TAB PO PRN (01:19)
[2019-03-19] MEDS ORDERED: LACTATED RINGER'S 1,000 ML IV ONE (01:19)
[2019-03-19] MEDS ORDERED: TRAMADOL HCL 50 MG TABLET PO PRN (01:19)
[2019-03-19] MEDS ORDERED: MoRPHine SULFATE 4 MG/ML 1 ML CARP\\VIAL IV PRN (01:19)
--- NOTE | 2019-03-19 01:54 | Emergency Department Note ---
Entered by Salma Paredes acting as a scribe for Thanh Glass MD History of Present Illness General Chief complaint: Chest Pain Stated complaint: CHEST PAIN Time Seen by Provider: 03/18/19 21:51 Source: patient Mode of arrival: ambulatory Limitations: no limitations History of Present Illness Location: chest Radiation: non-radiation Pain Consistency: + constant Quality: + other ("tightness and pressure") Exacerbated By: + movement Associated symptoms: + cough and + other (+upper abdominal pain); no diaphoresis, no fever/chills and no shortness of breath Treatments prior to arrival: none The patient is a 73 year old female who presents to the ED with complaints of chest pain. She is unsure when the pain started, but states she has experienced this type of chest pain in the past. She does state that she has been having the chest pain on and off all day. She was brought to the ED via EMS. She states the pain is located in the middle of her chest. This evening, her pain worsened, so she came to the ED. She describes her pain as feeling like "tightne ss and pressure". Movement worsens her pain. The pain does not radiate anywhere. She denies any shortness of breath or diaphoresis. She does admit to a cough and some upper abdominal pain. She states EMS told her she had a low-grade temp but she is not febrile in the ED. She denies any history of previous heart attacks but does have a history of SVT. She took a nitroglycerin at home which did not seem to help her symptoms. Home Medications Home Medications Medication Instructions Recorded Confirmed Type atorvastatin [Lipitor] 20 mg PO PM 03/19/18 03/18/19 History cholecalciferol (vitamin D3) 5,000 unit PO DAILY 03/19/18 03/18/19 History [Vitamin D3] denosumab 60 mg SUBCUT DIRECTED 03/19/18 03/18/19 History gabapentin 300 mg PO BID 03/19/18 03/18/19 History levothyroxine 25 mcg PO 2XWK 03/19/18 03/18/19 History levothyroxine 50 mcg PO 5XWK 03/19/18 03/18/19 History metoprolol succinate 25 mg PO QAM 03/19/18 03/18/19 History nitroglycerin 0.4 mg SUBLINGUAL DAILY PRN 03/19/18 03/18/19 History ondansetron HCl [Zofran] 4 mg PO UD PRN 03/19/18 03/18/19 History pantoprazole 40 mg PO BID 03/19/18 03/18/19 History quetiapine 300 mg PO HS 03/19/18 03/18/19 History venlafaxine 150 mg PO QAM 03/19/18 03/18/19 History Allergies Allergy/AdvReac Type Severity Reaction Status Date / Time amoxicillin Allergy Severe HIVES Unverified 03/18/19 22:25 latex Allergy Mild RASH Unverified 03/18/19 22:25 Past Med/Surg History Medical History Anxiety (Chronic) Cholelithiasis (Chronic) CKD (chronic kidney disease), stage III (Chronic) COPD (chronic obstructive pulmonary disease) (Chronic) Depression (Chronic) GERD (gastroesophageal reflux disease) (Chronic) History of paroxysmal supraventricular tachycardia (Chronic) Surgical History History of repair of hiatal hernia (Chronic) Status post cardiac catheterization (Chronic) "mild disease - 30% mid LAD" Status post hysterectomy (Chronic) Family History Other Cancer Diabetes Heart disease Hypertension Lung disease Social History Preferred Language: Montenegrin Beliefs That Will Affect Care: None Current Living Situation: Alone current occupational status: retired Feels Safe at Home: Yes Safety Concerns: Feels Safe At This Time Smoking Status: Former smoker Hx Alcohol Use: No Hx Substance Use: No Review of Systems See HPI for pertinent positives & negatives. and A total of 10 systems reviewed and were otherwise negative Physical Exam Vital Signs Vital Signs - 24 hr 03/18/19 21:48 03/18/19 21:59 03/18/19 23:00 Temperature 36.9 C Temperature Source Oral Pulse Rate 80 66 Respiratory Rate 18 18 Blood Pressure 118/70 114/76 Blood Pressure Mean 86 88 Pulse Oximetry 96 98 95 Oxygen Delivery Method Room Air Room Air Sepsis Recent Fever Within 48 Hours Yes Sepsis New/Unexplained Change in Mental Status No Sepsis Action Taken by Nursing No Action Required Constitutional: Vital signs reviewed. Eyes: Pupils are equal round reactive to light. Conjunctiva are noninjected. ENT: Pharynx is clear without erythema or exudate. Mucous membranes are moist. Neck supple without meningeal signs. Respiratory: Clear to auscultation bilaterally. Breath sounds are equal [place]. Cardiovascular: Regular rate and rhythm. No rubs or gallops. GI: Soft, nondistended and nontender. Bowel sounds are present. Musculoskeletal: No peripheral edema. No lower extremity tenderness. Integumentary: No cyanosis. Neurological: The patient is awake and alert. No focal deficits. Psychiatric: Normal affect. Course Course 2152: The patient was evaluated in room C9 and a complete history and physical were performed. 2229: I reevaluated the patient. She had some sharp right sided chest pain that went away. She denies any abdominal tenderness. She is agreeable with hospitalization. 2258: [facility] The patient will be further evaluated. Consultations Consultation #1: I [facility] The patient will be further evaluated. Time: 22:59 Administered Medications Lactated Ringer's (Lr) 1,000 mls @ 75 mls/hr IV .[id number] ONE Stop: 03/19/19 14:38 Last Admin: 03/19/19 01:39 Dose: 75 mls/hr Documented by: [id number] Discontinued Medications Albuterol (Duoneb) 3 ml NEB NOW STA Stop: 03/19/19 00:20 Last Admin: 03/19/19 00:33 Dose: 3 ml Documented by: [id number] Guaifenesin (Mucinex) 600 mg PO Q12 STA Stop: 03/19/19 00:04 Last Admin: 03/19/19 00:30 Dose: 600 mg Documented by: [id number] Ketorolac Tromethamine (Toradol) 15 mg IV NOW STA Stop: 03/19/19 00:05 Last Admin: 03/19/19 00:30 Dose: 15 mg Documented by: [id number] Medical Decision Making Differential Diagnosis The differential diagnoses considered include unstable angina, [place], gallstones, pancreatitis, pleurisy. Medical Records Attestation: I reviewed the patient's medical records. I did perform a limited focused review of portions of the patient's old chart on the electronic medical record. The patient was here on February 24 for palpitations and tachycardia. She had a workup and was discharged home for non- sustained SVT. Home Medications Current Medication List: was personally reviewed by me Laboratory Data Attestation: I reviewed the patient's lab results. Result diagrams: 03/18/19 21:52 03/18/19 21:52 Lab Results 03/18/19 03/18/19 03/18/19 Range/Units 21:52 21:52 21:52 WBC 3.85 L (4.8-10.8) K/uL RBC 4.09 L (4.2-5.4) M/uL Hgb 11.6 L (12.0-16.0) g/dL Hct 34.8 L (37-47) % MCV 85.1 (80-100) fL MCH 28.4 (25-34) pg MCHC 33.3 (32-36) g/dL RDW Std Deviation 44.3 (36.4-46.3) fL RDW Coeff of Ximena 14.3 (11.5-14.5) % Plt Count 143 (130-400) K/uL MPV 12.3 H (7.4-10.4) fL Immature Gran % (Auto) 0.0 % Neut % (Auto) 42.4 % Lymph % (Auto) 32.2 % [place] % (Auto) 21.0 % Eos % (Auto) 3.9 % Baso % (Auto) 0.5 % Immature Gran # (Auto) 0.00 (0.00-0.02) K/uL Neut # (Auto) 1.63 (1.4-6.5) K/uL Lymph # (Auto) 1.24 (1.2-3.4) K/uL [place] # (Auto) 0.81 H (0.11-0.59) K/uL Eos # (Auto) 0.15 (0-0.5) K/uL Baso # (Auto) 0.02 (0-0.2) K/uL APTT 28.3 (21.0-31.0) Seconds PTT Ratio 1.0 D-Dimer 250 (0-500) ug/L FEU Sodium 138 (136-145) mmol/L Potassium 3.8 (3.5-5.1) mmol/L Chloride 108 H (98-107) mmol/L Carbon Dioxide 25 (21-32) mmol/L Anion Gap 5.0 (3-11) BUN 16 (7-18) mg/dl Creatinine 1.01 (0.6-1.2) mg/dl Est Cr Clr Drug Dosing 42.3 ml/min Est GFR ( Amer) 64.0 Est GFR (Non-Af Amer) 55.2 BUN/Creatinine Ratio 15.9 (10-20) Glucose 98 (70-99) mg/dl Calcium 9.4 (8.5-10.1) mg/dl Magnesium 2.1 (1.8-2.4) mg/dl Total Bilirubin 0.5 (0.2-1) mg/dl AST 18 (15-37) U/L ALT 14 (12-78) U/L Alkaline Phosphatase 47 (45-117) U/L Troponin I < 0.015 (0-0.045) ng/ml Total Protein 7.0 (6.4-8.2) gm/dl Albumin 3.5 (3.4-5.0) gm/dl Globulin 3.5 (2.5-4.0) gm/dl Albumin/Globulin Ratio 1.0 (0.9-2) Lipase 113 (73-393) U/L 03/18/19 Range/Units 23:59 WBC (4.8-10.8) K/uL RBC (4.2-5.4) M/uL Hgb (12.0-16.0) g/dL Hct (37-47) % MCV (80-100) fL MCH (25-34) pg MCHC (32-36) g/dL RDW Std Deviation (36.4-46.3) fL RDW Coeff of Ximena (11.5-14.5) % Plt Count (130-400) K/uL MPV (7.4-10.4) fL Immature Gran % (Auto) % Neut % (Auto) % Lymph % (Auto) % [place] % (Auto) % Eos % (Auto) % Baso % (Auto) % Immature Gran # (Auto) (0.00-0.02) K/uL Neut # (Auto) (1.4-6.5) K/uL Lymph # (Auto) (1.2-3.4) K/uL [place] # (Auto) (0.11-0.59) K/uL Eos # (Auto) (0-0.5) K/uL Baso # (Auto) (0-0.2) K/uL APTT (21.0-31.0) Seconds PTT Ratio D-Dimer (0-500) ug/L FEU Sodium (136-145) mmol/L Potassium (3.5-5.1) mmol/L Chloride (98-107) mmol/L Carbon Dioxide (21-32) mmol/L Anion Gap (3-11) BUN (7-18) mg/dl Creatinine (0.6-1.2) mg/dl Est Cr Clr Drug Dosing ml/min Est GFR ( Amer) Est GFR (Non-Af Amer) BUN/Creatinine Ratio (10-20) Glucose (70-99) mg/dl Calcium (8.5-10.1) mg/dl Magnesium (1.8-2.4) mg/dl Total Bilirubin (0.2-1) mg/dl AST (15-37) U/L ALT (12-78) U/L Alkaline Phosphatase (45-117) U/L Troponin I < 0.015 (0-0.045) ng/ml Total Protein (6.4-8.2) gm/dl Albumin (3.4-5.0) gm/dl Globulin (2.5-4.0) gm/dl Albumin/Globulin Ratio (0.9-2) Lipase (73-393) U/L Imaging Data Radiologist's Impression: Radiology results as stated below per my review and the radiologist's interpretation: XR chest 1V portable CLINICAL HISTORY: Atypical chest pain COMPARISON STUDY: 12/25/2018 FINDINGS: The heart is mildly enlarged. There are gas-filled bowel loops beneath a mildly elevated left hemidiaphragm. There is right-sided colonic interposition. There is no failure. There is no lobar consolidation. There are linear areas of scar/atelectatic changes at the left lung base. There are old right-sided rib fractures. There is a left shoulder arthroplasty. There are no significant pleural effusions. IMPRESSION: No active disease in the chest. ACT 112: Negative or not required by law. Electronically signed by: Efrain Cheung M.D. 03/18/2019 10:39 PM ECG Data Attestation: I personally reviewed and interpreted this ECG as follows: Indication: + chest pain Rate (beats per minute): 66 Rhythm: + normal sinus ECG Intervals/blocks: + Normal QRS ECG ST segments: no ST elevation ECG Findings: no PVCs Blood Pressure Blood Pressure Findings: Normal blood pressure Blood Pressure Disposition: did not require urgent referral MDM Narrative I did evaluate the patient as noted above. Patient is presenting with intermittent chest pain all day. She states currently she has no chest pain. She describes it as a pressure and tightness. IV access was established. The patient was placed on a continuous environmental monitoring technician. I did order and personally review the patient's 12-lead EKG as described above. She has no acute ischemic changes on her twelve-lead EKG. I did order and personally reviewed the images of the patient's chest x-ray as described above. Her chest x-ray is unremarkable. I did order and review the patient's blood work as noted in the electronic medical record. She has leukopenia and anemia. Her electrolytes are unremarkable. Troponin is negative. I did reassess the patient. She did have some brief chest pain to the right side which has now gone away. I did recommend we hospitalize her for further care and evaluation and repeat cardiac biomarkers. She was agreeable. I did discuss case with the hospitalist and case maker. Impression & Plan Acute chest pain, Leukopenia, Anemia Discharge Plan Visit Data *Final* Discharge Date/Time: 03/19/19 00:39 Chief Complaint: Chest Pain Stated Complaint: CHEST PAIN ED Provider: Thanh Glass Discharge Problem: Acute chest pain, Leukopenia, Anemia Patient Disposition: Admitted As Inpatient Discharge Instructions Interventions: ED Discharge Assessment Last Done: 03/19/19 00:39 Discharge Problem: Leukopenia Qualifiers: Leukopenia type: unspecified Qualified Code(s): D72.819 - Decreased white blood cell count, unspecified Anemia Qualifiers: Anemia type: unspecified type Qualified Code(s): D64.9 - Anemia, unspecified The scribe's documentation has been prepared under my direction and personally reviewed by me in its entirety. I confirm that the note above accurately reflects all work, treatment, procedures, and medical decision making performed by me.
[2019-03-19] MEDS: PANTOprazole 40 MG TAB PO SCH ×2 (02:21→07:33)
[2019-03-19] MEDS: CALCIUM CARBONATE 500 MG CHEWABLE TAB PO PRN ×2 (04:18→08:00)
[2019-03-19 06:09] LABS: Mean Corpuscular Hgb Conc 33.1 g/dL (32-36)
[2019-03-19 06:30] LABS: Hematocrit (blood only) 34.7 % (37-47); Hemoglobin 11.5 g/dL (12.0-16.0); Mean Corpuscular Hemoglobin 28.4 pg (25-34); Mean Corpuscular Volume 85.7 fL (80-100); RDW Coefficient of Variation 14.3 % (11.5-14.5); RDW Standard Deviation 44.9 fL (36.4-46.3); Red Blood Count 4.05 M/uL (4.2-5.4); White Blood Count 4.04 K/uL (4.8-10.8)
[2019-03-19] MEDS ORDERED: LEVOTHYROXINE SODIUM 50 MCG TABLET PO SCH (06:30)
[2019-03-19 06:34] LABS: Basophils # (auto) 0.02 K/uL (0-0.2); Basophils % (auto) 0.5 %; Eosinophils # (auto) 0.16 K/uL (0-0.5); Lymphocytes # (auto) 1.52 K/uL (1.2-3.4); Lymphocytes % (auto) 37.6 %; Mean Platelet Volume 12.6 fL (7.4-10.4); Monocytes # (auto) 0.67 K/uL (0.11-0.59); Monocytes % (auto) 16.6 %; Neutrophils # (auto) 1.67 K/uL (1.4-6.5); Neutrophils % (auto) 41.3 %; Platelet Count 151 K/uL (130-400); Platelet Estimate Normal (Normal)
[2019-03-19 06:41] LABS: BUN Creatinine Ratio 20.4 (10-20); Blood Urea Nitrogen 19 mg/dl (7-18); Calcium 9.7 mg/dl (8.5-10.1); Carbon Dioxide 27 mmol/L (21-32); Chloride 107 mmol/L (98-107); Creatinine Clr Calc Pharmacy 47.8 ml/min; Est GFR (African American) 72.5; Est GFR (Non-African American) 62.6; Glucose 81 mg/dl (70-99); Potassium 4.1 mmol/L (3.5-5.1); Sodium 138 mmol/L (136-145)
[2019-03-19 06:47] LABS: Troponin I < 0.015 ng/ml (0-0.045)
[2019-03-19] MEDS ORDERED: XOPENEX/ATROVENT 1.25mg/0.5MG NEB COMBO NEB SCH (07:00)
[2019-03-19] MEDS: IPRATROPIUM BROMIDE NEB SOLN 0.02% 2.5 ML VIAL INH SCH ×2 (07:01→14:24)
[2019-03-19] MEDS: LEVALBUTEROL 1.25MG/0.5ML NEB INH SCH ×2 (07:01→14:23)
--- NOTE | 2019-03-19 08:30 | Cardiology Consultation ---
Date of Consultation March 19, 2019 Assessment & Plan (1) Atypical chest pain: (2) PSVT (paroxysmal supraventricular tachycardia): (3) Bronchitis: (4) GERD (gastroesophageal reflux disease): 73-year-old female admitted with atypical chest discomfort with concomitant bronchitis gastroesophageal reflux disease. Symptoms improved since admission. No recurrent supraventricular tachycardia per monitoring tech. Evaluation for acute coronary syndrome unremarkable including normal ECG and undetectable cardiac enzymes. Prior coronary angiography demonstrating minimal nonobstructive CAD in the past. Recommend limited resting 2D transthoracic echocardiogram to assess wall motion exclude presence of pericardial effusion. Continue outpatient cardiovascular medications as previously ordered. Further recommendations pending results of echocardiogram. Thank you for allowing to participate in the care of your patient. History of Present Illness Reason for Consultation: Chest pain Requesting Physician: Dr. Sweet Attending Physician: Liana Sweet, DO History of Present Illness 73-year-old female with history of paroxysmal supraventricular tachycardia, type II end STEMI secondary to PSVT, and mild nonobstructive coronary disease per catheterization 2014. Patient recently evaluated in the emergency department February 24, 2019 secondary to paroxysmal supraventricular tachycardia. She was treated with 6 mg of IV adenosine by EMS. Patient discha rged from the ER. She followed up with cardiology 03/05/2019 feeling well from a cardiovascular perspective. During that visit, metoprolol titrated to 25 mg daily. Patient reports cough and heartburn over the past 4 to 5 days. Due to chest burning and discomfort, she came to the emergency department for further evaluation. ECG without ischemic changes. Cardiac enzymes are undetectable. Chest burning worse when lying supine and improved when sitting upright. Tolerated a.m. meal and medications. No recurrent supraventricular tachycardia on telemetry. Symptoms controlled currently. Notes cough with yellow sputum production. Denies fever or chills. Possible sick contacts noted. No orthopnea, PND, lower extremity edema, claudication. Denies lightheadedness, dizziness, syncope, or near syncope. 2D echocardiogram report 02/26/2019: The LV wall thickness is moderately increased (concentric). The left ventricular wall motion is normal. The qualitative LV ejection fraction is >70% (hyperdynamic). There is no significant valvular heart disease. Allergies Allergy/AdvReac Type Severity Reaction Status Date / Time amoxicillin Allergy Severe HIVES Unverified 03/18/19 22:25 latex Allergy Mild RASH Unverified 03/18/19 22:25 Home Medications Home Medications Medication Instructions Recorded Confirmed Type atorvastatin [Lipitor] 20 mg PO PM 03/19/18 03/18/19 History cholecalciferol (vitamin D3) 5,000 unit PO DAILY 03/19/18 03/18/19 History [Vitamin D3] denosumab 60 mg SUBCUT DIRECTED 03/19/18 03/18/19 History gabapentin 300 mg PO BID 03/19/18 03/18/19 History levothyroxine 25 mcg PO 2XWK 03/19/18 03/18/19 History levothyroxine 50 mcg PO 5XWK 03/19/18 03/18/19 History metoprolol succinate 25 mg PO QAM 03/19/18 03/18/19 History nitroglycerin 0.4 mg SUBLINGUAL DAILY PRN 03/19/18 03/18/19 History ondansetron HCl [Zofran] 4 mg PO UD PRN 03/19/18 03/18/19 History pantoprazole 40 mg PO BID 03/19/18 03/18/19 History quetiapine 300 mg PO HS 03/19/18 03/18/19 History venlafaxine 150 mg PO QAM 03/19/18 03/18/19 History Patient History Medical History Anxiety (Chronic) Cholelithiasis (Chronic) CKD (chronic kidney disease), stage III (Chronic) COPD (chronic obstructive pulmonary disease) (Chronic) Depression (Chronic) GERD (gastroesophageal reflux disease) (Chronic) History of paroxysmal supraventricular tachycardia (Chronic) Surgical History History of repair of hiatal hernia (Chronic) Status post cardiac catheterization (Chronic) "mild disease - 30% mid LAD" Status post hysterectomy (Chronic) Family History Other Cancer Diabetes Heart disease Hypertension Lung disease Social History Preferred Language: Polish Beliefs That Will Affect Care: None Current Living Situation: Alone current occupational status: retired Feels Safe at Home: Yes Safety Concerns: Feels Safe At This Time Smoking Status: Former smoker Hx Alcohol Use: No Hx Substance Use: No Review of Systems Review of Systems: All systems reviewed & are unremarkable except as noted in HPI & below Physical Exam Constitutional: average body habitus; no acute distress Respiratory: no respiratory distress and no labored breathing Auscultation: + rhonchi; no rales and no wheezes Cardiovascular: Rate/Rhythm: regular rate Heart Sounds: normal S1 and normal S2; no gallop, no murmur and no cardiac rub Palpation: normal PMI Vessels: no JVD Extremities: no edema Gastrointestinal (Abdomen): Inspection/Auscultation: abdomen normal to inspection and normal bowel sounds; abdomen not distended Percussion/Palpation: abdomen soft; abdomen nontender, no guarding and abdomen not rigid Musculoskeletal: no cyanosis or clubbing, extremities motor strength 5/5 Skin: no rashes, warm and dry Neurologic: moves all extremities; no focal motor deficits Speech / Cognition: normal speech Motor/Sensory: no tremor Psychiatric: A+Ox3, euthymic affect Results & Data Vital Signs (Past 12 Hours) Vital Signs Temp Pulse Pulse Resp BP BP BP 03/19/19 07:46 36.5 C 74 19 159/90 H 03/19/19 07:02 78 16 03/19/19 03:43 36.7 C 69 22 132/81 03/19/19 00:49 36.5 C 99 H 18 132/79 03/19/19 00:33 77 18 03/18/19 23:00 66 18 114/76 03/18/19 21:59 03/18/19 21:48 36.9 C 80 18 118/70 Pulse Ox 03/19/19 07:46 99 03/19/19 07:02 97 03/19/19 03:43 97 03/19/19 00:49 96 03/19/19 00:33 96 03/18/19 23:00 95 03/18/19 21:59 98 03/18/19 21:48 96
[2019-03-19] MEDS ORDERED: PANTOprazole 40 MG TAB PO SCH (09:00)
[2019-03-19] MEDS ORDERED: ENOXAPARIN INJ 30 MG/0.3 ML SYR SQ SCH (09:00)
[2019-03-19] MEDS ORDERED: VENLAFAXINE HCL XR 150 MG CAPXR PO SCH (09:00)
[2019-03-19] MEDS ORDERED: GABAPENTIN 300 MG CAP PO SCH (09:00)
[2019-03-19] MEDS ORDERED: METOPROLOL SUCC 25MG EXT REL TAB PO SCH (09:00)
--- NOTE | 2019-03-19 15:42 | Discharge Summary ---
Date of Service March 19, 2019 Admission HPI Per Admitting Provider History obtained from patient and records. Medical history significant for nonocclusive CAD, PSVT, COPD as per records, hx GERD/Mcintyre's esophagus as per records, mood disorder/schizoaffective disorder as per records, hypothyroidism, chronic anemia(baseline hemoglobin of 11), past tobacco abuse Recent ER visit last month for PSVT, resolved with adenosine. Outpatient [facility] 2 weeks ago. 2D echo showed LVH, EF of 70%. No significant valvular heart disease. Toprol increased to 25 mg daily. Outpatient EPS consultation recommended. 3 days history of dry sticky cough symptoms. Appetite not so good. Substernal pain nonradiating with coughing. Some burning component as well. Possible sick contacts. No fever, no chills. No chest pain relief with nitro intake at home. 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 Admission Exam Per Admitting Provider GENERAL: Slightly uncomfortable, tremulous, no respiratory distress SKIN: Pallor , warm HEENT: Pale palpebral conjunctivae, no ptosis, dry buccal mucosa NECK : Supple, no tenderness CHEST : Decreased breath sounds , no tenderness HEART : RRR, no obvious murmurs ABDOMEN: Soft, nontender EXTREMITIES : No LE swelling/tenderness, no other conspicuous deformities noted NEUROLOGIC : Coherent, no facial asymmetry, tremulous, no other gross focality Principal Diagnosis atypical chest pain GERD Mcintyre's esophagus Discharge Data Allergies Allergy/AdvReac Type Severity Reaction Status Date / Time amoxicillin Allergy Severe HIVES Unverified 03/18/19 22:25 latex Allergy Mild RASH Unverified 03/18/19 22:25 Consultations 03/18/19 22:58 ED Decision to Admit Stat 03/19/19 08:16 Consult Cardiology Routine Hospital Course (1) Atypical chest pain: (2) PSVT (paroxysmal supraventricular tachycardia): (3) Bronchitis: (4) GERD (gastroesophageal reflux disease): (5) Mcintyre esophagus: 73-year-old female with a medical history significant for nonocclusive CAD and paroxysmal SVT as well as Mcintyre's esophagus presented with worsening centralized chest pain for several hours. She had bronchitis symptoms ongoing recently, also. There was a burning component described with the chest pain and she was given lactated Ringer's, an albuterol nebulizer, guaifenesin and 15 mg of Toradol IV, which significantly improved her pain and congestion symptoms in the ER. An EKG revealed normal sinus rhythm with a rate of 66 and no evidence of ST changes. The patient was admitted to the hospitalist service and serial cardiac enzymes were trended and negative overnight. She was monitored on telemetry with no evidence of arrhythmias. Cardiology was consulted and felt this was not consistent with acute coronary syndrome in the setting of a normal EKG and undetectable cardiac enzymes. A 2D transthoracic echocardiogram was recommended to assess wall motion and exclude the presence of pericardial effusion. The echocardiogram revealed a normal functioning LV with no evidence of valvulopathy or effusion. At time of discharge she was reporting improvement in her symptoms with some persistent heartburn. She reported that she had been out of her Pepcid medicine which she used as a breakthrough in conjunction with Protonix twice daily. She was out of this medication for the past week as her current pharmacy did not carry it. This was thought to be the trigger for her current chest pain which was not thought cardiac in nature. Additional Pepcid was sent to another pharmacy and recommendation was given to her to follow-up with GI regarding her breakthrough esophageal reflux symptoms, which have reportedly worsened in previous months. As she also presented with bronchitis symptoms, she was improved with the medications administered in the ER and reported no persistent URI symptoms. At time of discharge she was hemodynamically stable and afebrile and tolerating p.o. She was oxygenating well on room air and physical exam was unremarkable. She was sent home in stable condition with close primary care follow-up recommended. Total Time Total Time Spent Total Time Spent (In Minutes): 60 Total Time Includes: Examination of the Patient, Discharge Planning, Medication Reconciliation, Communication With Other Providers and Other Discharge Plan Discharge Items Patient Disposition: Home - Self-Care Reason For Visit: CHEST PAIN Discharge Diagnosis: atypical chest pain GERD Mcintyre's esophagus Activity: Resume your previous activity Non-emergency contact: Primary Care Provider Call non-emergency contact if: you have any medication questions, your symptoms worsen, your pain is not controlled, your pain is worsening, your pain is unusual for you, your pain is concerning for you and you have a fever Follow-up/Referrals: Yuko Casas MD [Primary Care Provider] - Diet: Heart Healthy Addtl Attending Provider Instructions: Please continue all medications as instructed on discharge list below. Remember, the pepcid you are being given is for breakthrough heartburn, and should only be taken if you need it. Please follow-up with your primary care provider within one week to discuss your chronic chest pain issues and your worsening acid reflux issues. 03/24/2019 11:00 AM Yuko Casas MD General Internal Medicine [facility] It was a pleasure taking care of you! Please call if you have any questions or problems. You can reach a [facility] hospitalist on duty at [facility] 24 hours a day by calling [phone]. Take care of yourself. Liana Sweet DO [facility] Hospitalist Pending Studies at Discharge: No Stand-Alone Forms: [facility], Smoking Cessation Medications and DC Order Prescriptions: New famotidine [Pepcid] 20 mg tablet 20 mg PO Q12H PRN (Reason: heartburn) 30 Days Qty: 60 RF: 0 Continued atorvastatin [Lipitor] 20 mg Tablet 20 mg PO PM RF: 0 levothyroxine 25 mcg Tablet 25 mcg PO 2XWK RF: 0 gabapentin 300 mg Capsule 300 mg PO BID RF: 0 denosumab 60 mg/mL Syringe 60 mg subcut DIRECTED RF: 0 quetiapine 300 mg Tablet 300 mg PO HS RF: 0 ondansetron HCl [Zofran] 4 mg Tablet 4 mg PO UD PRN (Reason: Nausea) RF: 0 pantoprazole 40 mg Tablet,Delayed Release (Dr/Ec) 40 mg PO BID RF: 0 nitroglycerin 0.4 mg Tablet, Sublingual 0.4 mg Sublingual DAILY PRN (Reason: Chest Pain) RF: 0 metoprolol succinate 25 mg Tablet Extended Release 24 Hr 25 mg PO QAM RF: 0 venlafaxine 150 mg Tablet Extended Release 24hr 150 mg PO QAM RF: 0 cholecalciferol (vitamin D3) [Vitamin D3] 5,000 unit Tablet 5,000 unit PO DAILY RF: 0 levothyroxine 50 mcg Capsule 50 mcg PO 5XWK RF: 0 Discharge Orders: Discharge Order (Routine); Ordered 03/19/19 Ordered By: Liana Sweet Admission Data Admit Date/Time: 03/19/19 00:22 Attending Provider: Liana Sweet Admit Provider: Bertram Yao Primary Care Provider: Yuko Casas Other Providers: Bertram Yao ; Thanh Quinteros Other Interventions: Discharge Summary Assessment (RN) Last Done: 03/19/19 17:52 DC Date/Time DO NOT enter until pt leaves facility: 03/19/19 17:45
[2019-03-19] MEDS ORDERED: FAMOTIDINE 20 MG in SYRINGE 3 ML IV ONE (15:45)
--- NOTE | 2019-03-19 16:49 | Electrocardiogram Report ---
Test Reason : Blood Pressure : / mmHG Vent. Rate : 066 BPM Atrial Rate : 066 BPM P-R Int : 184 ms QRS Dur : 082 ms QT Int : 380 ms P-R-T Axes : 028 -03 039 degrees QTc Int : 398 ms Normal sinus rhythm Normal ECG When compared with ECG of 24-FEB-2019 19:58, No significant change was found Confirmed by Juanjo Leiva ([id number]) on 03/19/2019 4:49:18 PM Referred By: REFERRED SELF Confirmed By:Juanjo Leiva
[2019-03-19] MEDS ORDERED: QUETIAPINE FUMARATE 300 MG TABLET PO SCH (21:00)
[2019-03-19] MEDS ORDERED: ATORVASTATIN 20 MG TAB PO SCH (21:00)
[2019-03-21] MEDS ORDERED: LEVOTHYROXINE SODIUM 25 MCG TABLET PO SCH (06:30)
== END 2019-03-19 17:45 | disposition home or self-care (01) ==
LOC: ED 21:41 → 2S 21:41

== ENCOUNTER 2020-04-26 17:19 | Inpatient (IN) ==
[2020-04-26] MEDS ORDERED: ADENOSINE IV SOLN 3 MG/ML 2 ML VIAL IV ONE (17:37)
--- NOTE | 2020-04-26 17:56 | Emergency Department Note ---
Impression & Plan Hypotension, SVT (supraventricular tachycardia), Acute dehydration, Dizziness ED Provider Note .NAME: MATIAS MORELOS AGE: 74 SEX: F : 1945 ARRIVES VIA: Ambulance INFORMANT: [Patient] ED PROVIDER(S): [Wood Iglesias MD] CHIEF COMPLAINT: Cardiac assessment HISTORY OF PRESENT ILLNESS: The patient is a 74-year-old female presents to the ED with palpitations and dizziness. She was brought by EMS. The patient states that she does occasionally get chest pain and abdominal pain but has not had either today. No shortness of breath. She woke up at 2 PM today, around 4 hours ago and noticed some dizziness and some palpitations. She tried to get her blood pressure but it would not read. She spoke with her sister who felt that she deserved a hospital evaluation. The patient has had SVT before, she is on beta-nohemy therapy. The patient denies any recent cough or congestion. No fever. No urinary complaints. She has had a somewhat decreased appetite as of late but thinks she is keeping up well enough on her fluids. REVIEW OF SYSTEMS: See HPI for pertinent positives and negatives. A total of ten systems were reviewed and were otherwise negative. PMHx/PSHx: See Below SOCIAL HISTORY: See Below. PHYSICAL EXAM: GENERAL: Patient is in mild distress. HEENT: No acute trauma, normocephalic atraumatic, mucous membranes moist, no nasal congestion, no scleral icterus. NECK: No stridor, no adenopathy, no meningismus, trachea is midline. LUNGS: Clear to auscultation bilaterally, no wheeze, no rhonchi, breath sounds equal. HEART: Markedly tachycardic, rhythm seems regular, no murmurs. ABDOMEN: Soft, nontender, bowel sounds positive, no hernias, no peritonitis. EXTREMITIES: No cyanosis or edema, full range of motion of all the joints wit hout pain or difficulty, no signs for acute trauma. NEUROLOGIC: Oriented x 3, no acute motor or sensory deficits, no focal weakness. SKIN: No rash, no jaundice, no diaphoresis. DIFFERENTIAL DIAGNOSIS: Infection, dehydration, metabolic abnormality, hypo/hyperglycemia, electrolyte disturbance, anemia, SVT, atrial fibrillation or atrial flutter, LA, hypoxia, cardiac sources, intracerebral event, toxicologic issues, stroke, TIA, as well as other pathologies. EMERGENCY DEPARTMENT COURSE/PROCEDURES: ECG: Indication was tachycardia. The ECG shows what appears to be SVT with a rate of 153. There is no ST elevation, there is no ST depression. There is some nonspecific ST change. No PVCs. The QTc is 443. Repeat ECG: Indication was tachycardia. The ECG shows a normal sinus rhythm with a rate of 99. There is no ST elevation, no PVCs. The QTc is 418. Compared to the ECG from earlier today, normal sinus rhythm is now present. Continuous Cardiac Monitoring: An order was placed for continuous cardiac monitoring. The monitor shows a rate of 85 with normal sinus rhythm. Critical Care Note: I have personally spent 38 minutes of critical care time in the direct management of this patient. This includes bedside care, interpretation of diagnostic studies, and testing, discussion with consultants, patient, and family members, and other required patient management activities. This 38 minutes is in excess of all separately billable procedures. Chemical cardioversion: This procedure was performed by me. The patient was given 6 mg of IV adenosine as a bolus followed by a rapid bolus of IV saline, this medication it did break the SVT into a normal sinus rhythm. The patient tolerated the procedure well. There were no complications. MEDICAL DECISION MAKING: There was no leukocytosis or concerning anemia. There was a normal platelet count. Creatinine was somewhat high at 1.4, no concerning electrolyte abnormality in need of emergent correction. No liver enzyme elevation. The patient appeared to be in a euthyroid state. Urinalysis did not show infection or hematuria. Chest film showed some chronic findings, no CHF. ECG initially showed an SVT without ischemia. Repeat ECG after treatment showed a normal sinus rhythm. Cardiac enzyme testing x1 is not consistent with acute cardiac injury. I was called emergently to the patient's room. Patient received IV adenosine rapidly followed by a saline bolus. This did convert from an SVT into a normal sinus rhythm. She did well. The patient received 2 L of IV saline during her ER stay, despite the fluid, she remains borderline hypotensive. Given the SVT, the hypotension, the persistent hypotension despite IV fluids, I do think a hospital stay is warranted. Patient may be somewhat overmedicated. Certainly, there is a component of dehydration present. I spoke to the patient, I talked to case management. The on-call hospitalist has been consulted. Past Med/Surg History Medical History Anxiety Cholelithiasis CKD (chronic kidney disease), stage III COPD (chronic obstructive pulmonary disease) Depression GERD (gastroesophageal reflux disease) History of paroxysmal supraventricular tachycardia Surgical History History of repair of hiatal hernia Status post cardiac catheterization "mild disease - 30% mid LAD" Status post hysterectomy Family History Other Cancer Diabetes Heart disease Hypertension Lung disease Social History Smoking Status: Never smoker Hx Alcohol Use: No Hx Substance Use: No Preferred Language: [place] Beliefs That Will Affect Care: None Current Living Situation: Alone current occupational status: retired Feels Safe at Home: Yes Assistive Devices: Denture - Upper and Glasses Allergies Allergies Allergy/AdvReac Type Severity Reaction Status Date / Time amoxicillin Allergy Severe HIVES Verified 11/06/19 18:06 latex Allergy Mild RASH Verified 11/06/19 18:06 Home Meds Home Medications Medication Instructions Recorded Confirmed atorvastatin [Lipitor] 20 mg PO QPM 03/19/18 11/06/19 cholecalciferol (vitamin D3) 5,000 unit PO DAILY 03/19/18 11/06/19 [Vitamin D3] levothyroxine 25 mcg PO 2XWK 03/19/18 11/06/19 levothyroxine 50 mcg PO QAM 03/19/18 11/06/19 metoprolol succinate 25 mg PO QAM 03/19/18 11/06/19 nitroglycerin 0.4 mg SUBLINGUAL DIRECTED PRN 03/19/18 11/06/19 pantoprazole 40 mg PO BID 03/19/18 11/06/19 quetiapine 300 mg PO HS 03/19/18 11/06/19 venlafaxine 150 mg PO QAM 03/19/18 11/06/19 gabapentin 100 mg PO QAM 06/30/19 11/06/19 gabapentin 200 mg PO HS 06/30/19 11/06/19 acyclovir 400 mg PO UD 11/06/19 11/06/19 albuterol sulfate 2 inh INHALATION Q4 PRN 11/06/19 11/06/19 azelastine 1 spray INTRANASAL BID 11/06/19 11/06/19 carbamide peroxide [Debrox] 5 drp OTIC (EAR) .TIDUD 11/06/19 11/06/19 cetirizine 5 mg PO DAILY 11/06/19 11/06/19 clobetasol 1 applic TOPICAL UD PRN 11/06/19 11/06/19 cyanocobalamin (vitamin B-12) 500 mcg PO DAILY 11/06/19 11/06/19 [Vitamin B-12] denosumab 60 mg SUBCUT .[id number] 11/06/19 11/06/19 famotidine 20 mg PO HS 11/06/19 11/06/19 sennosides [senna] 17.2 mg PO BID 11/06/19 11/06/19 Results & Data (ED) Vital Signs Vital Signs - 24 hr 04/26/20 17:28 04/26/20 17:29 04/26/20 17:35 Temperature 36.5 C Temperature Source Oral Pulse Rate 155 H 155 H 149 H Pulse Rate from SpO2 Sensor Pulse Rhythm Irregular Pulse Strength Bounding Respiratory Rate 23 22 21 Respiratory Effort / Characteristics Non-Labored Respiratory Depth Normal Respiratory Pattern Regular Blood Pressure 66/48 L 66/46 L Blood Pressure Mean 54 52 Blood Pressure Position Lying Pulse Oximetry 98 Oxygen Delivery Method Room Air Room Air Room Air Sepsis Recent Fever Within 48 Hours No Sepsis New/Unexplained Change in Mental Status No Sepsis Action Taken by Nursing Physician Notified 04/26/20 17:38 04/26/20 17:40 04/26/20 17:47 Temperature Temperature Source Pulse Rate 147 H 144 H 101 H Pulse Rate from SpO2 Sensor Pulse Rhythm Pulse Strength Respiratory Rate 17 23 Respiratory Effort / Characteristics Respiratory Depth Respiratory Pattern Blood Pressure 90/72 L 84/68 L Blood Pressure Mean 78 73 Blood Pressure Position Pulse Oximetry Oxygen Delivery Method Room Air Room Air Room Air Sepsis Recent Fever Within 48 Hours Sepsis New/Unexplained Change in Mental Status Sepsis Action Taken by Nursing 04/26/20 17:50 04/26/20 18:00 04/26/20 18:10 Temperature Temperature Source Pulse Rate 96 H 94 H 94 H Pulse Rate from SpO2 Sensor 96 H 95 H 94 H Pulse Rhythm Pulse Strength Respiratory Rate 18 13 18 Respiratory Effort / Characteristics Respiratory Depth Respiratory Pattern Blood Pressure Blood Pressure Mean Blood Pressure Position Pulse Oximetry 95 96 96 Oxygen Delivery Method Room Air Room Air Room Air Sepsis Recent Fever Within 48 Hours Sepsis New/Unexplained Change in Mental Status Sepsis Action Taken by Nursing 04/26/20 18:20 04/26/20 18:23 04/26/20 18:30 Temperature Temperature Source Pulse Rate 90 91 H 90 Pulse Rate from SpO2 Sensor 91 H 91 H 90 Pulse Rhythm Pulse Strength Respiratory Rate 19 15 22 Respiratory Effort / Characteristics Respiratory Depth Respiratory Pattern Blood Pressure 89/64 L Blood Pressure Mean 72 Blood Pressure Position Pulse Oximetry 94 94 96 Oxygen Delivery Method Room Air Room Air Room Air Sepsis Recent Fever Within 48 Hours Sepsis New/Unexplained Change in Mental Status Sepsis Action Taken by Long Term Medications Current Medication List: was personally reviewed by me Laboratory Data Attestation: I reviewed the patient's lab results. Result diagrams: 04/26/20 17:37 04/26/20 17:37 Lab Results 04/26/20 04/26/20 04/26/20 Range/Units 17:37 17:37 19:13 WBC 8.91 (4.8-10.8) K/uL RBC 4.82 (4.2-5.4) M/uL Hgb 13.6 (12.0-16.0) g/dL Hct 40.6 (37-47) % MCV 84.2 (80-100) fL MCH 28.2 (25-34) pg MCHC 33.5 (32-36) g/dL RDW Std Deviation 44.4 (36.4-46.3) fL RDW Coeff of Ximena 14.4 (11.5-14.5) % Plt Count 201 (130-400) K/uL MPV 13.6 H (7.4-10.4) fL Immature Gran % (Auto) 0.2 % Neut % (Auto) 58.3 % Lymph % (Auto) 25.8 % [place] % (Auto) 13.1 % Eos % (Auto) 2.4 % Baso % (Auto) 0.2 % Neut # (Auto) 5.19 (1.4-6.5) K/uL Lymph # (Auto) 2.30 (1.2-3.4) K/uL [place] # (Auto) 1.17 H (0.11-0.59) K/uL Eos # (Auto) 0.21 (0-0.5) K/uL Baso # (Auto) 0.02 (0-0.2) K/uL Immature Gran # (Auto) 0.02 (0.00-0.02) K/uL Sodium 138 (136-145) mmol/L Potassium 4.6 (3.5-5.1) mmol/L Chloride 108 H (98-107) mmol/L Carbon Dioxide 23 (21-32) mmol/L Anion Gap 7.0 (3-11) BUN 20 H (7-18) mg/dl Creatinine 1.44 H (0.6-1.2) mg/dl Est Cr Clr Drug Dosing 33.3 ml/min Est GFR ( Amer) 41.4 Est GFR (Non-Af Amer) 35.7 BUN/Creatinine Ratio 13.7 (10-20) Glucose 139 H (70-99) mg/dl Calcium 9.6 (8.5-10.1) mg/dl Magnesium 2.2 (1.8-2.4) mg/dl Total Bilirubin 0.5 (0.2-1) mg/dl AST 20 (15-37) U/L ALT 18 (12-78) U/L Alkaline Phosphatase 69 (45-117) U/L Troponin I < 0.015 (0-0.045) ng/ml Total Protein 6.9 (6.4-8.2) gm/dl Albumin 3.6 (3.4-5.0) gm/dl Globulin 3.3 (2.5-4.0) gm/dl Albumin/Globulin Ratio 1.1 (0.9-2) TSH 3.880 (0.300-4.500) uIu/ml Urine Color Yellow Urine Appearance Clear (Clear) Urine pH 6.0 (4.5-7.5) Ur Specific [place] 1.009 (1.000-1.030) Urine Protein Negative (Negative) Urine Glucose (UA) Negative (Negative) Urine Ketones Negative (Negative) Urine Blood Negative (Negative) Urine Nitrite Negative (Negative) Urine Bilirubin Negative (Negative) Urine Urobilinogen Negative (Negative) Ur Leukocyte Esterase Negative (Negative) Administered Medications Discontinued Medications Adenosine (Adenosine Iv Soln 3 Mg/Ml 2 Ml Vial) Confirm Administered Dose 6 mg IV .[employer] ONE Stop: 04/26/20 17:38 Last Admin: 04/26/20 17:41 Dose: 6 mg Documented by: [id number] Sodium Chloride (Nss 1000ml) 1,000 mls @ 999 mls/hr IV .Q1H1M NITESH Stop: 04/26/20 19:00 Last Infusion: 04/26/20 18:32 Dose: 0 mls/hr Documented by: [id number] Admin: 04/26/20 17:30 Dose: 999 mls/hr Documented by: [id number] Sodium Chloride (Nss 1000ml) 500 mls @ 999 mls/hr IV .Q31M ONE Stop: 04/26/20 19:09 Last Admin: 04/26/20 18:45 Dose: 999 mls/hr Documented by: [id number] Imaging Data Radiologist's Impression: XR chest 1V portable CLINICAL HISTORY: weakness ATYPICAL CHEST PAIN COMPARISON STUDY: 06/30/2019 FINDINGS: The cardiac and mediastinal contours remain stable. There is gaseous distention of the colon. There is gaseous distention of the esophagus. There is no failure. There is no focal pulmonary consolidation. There are old right-sided rib deformities. There is stable left basilar atelectasis/scarring. There is a left shoulder prosthesis.[ IMPRESSION: 1. No active disease in the chest 2. Distended esophagus. Clinical correlation in regards to achalasia or distal esophageal obstruction is recommended Discharge Plan Visit Data Chief Complaint: Cardiac Assessment Stated Complaint: afib RVR ED Provider: Wood Iglesias Discharge Problem: Hypotension, SVT (supraventricular tachycardia), Acute dehydration, Dizziness Patient Disposition: Admitted As Inpatient Condition: Fair Forms Stand Alone Forms: [facility] Prescriptions Prescriptions: No Action atorvastatin [Lipitor] 20 mg Tablet 20 mg PO QPM RF: 0 levothyroxine 25 mcg Tablet 25 mcg PO 2XWK RF: 0 quetiapine 300 mg Tablet 300 mg PO HS RF: 0 pantoprazole 40 mg Tablet,Delayed Release (Dr/Ec) 40 mg PO BID RF: 0 nitroglycerin 0.4 mg Tablet, Sublingual 0.4 mg Sublingual DIRECTED PRN (Reason: Chest Pain) RF: 0 metoprolol succinate 25 mg Tablet Extended Release 24 Hr 25 mg PO QAM RF: 0 venlafaxine 150 mg Tablet Extended Release 24hr 150 mg PO QAM RF: 0 cholecalciferol (vitamin D3) [Vitamin D3] 5,000 unit Tablet 5,000 unit PO DAILY RF: 0 levothyroxine 50 mcg Capsule 50 mcg PO QAM RF: 0 gabapentin 100 mg capsule 100 mg PO QAM RF: 0 gabapentin 100 mg capsule 200 mg PO HS RF: 0 sennosides [senna] 8.6 mg Tablet 17.2 mg PO BID RF: 0 cetirizine 5 mg Tablet 5 mg PO DAILY RF: 0 acyclovir 400 mg tablet 400 mg PO UD RF: 0 famotidine 20 mg Tablet 20 mg PO HS RF: 0 cyanocobalamin (vitamin B-12) [Vitamin B-12] 500 mcg Tablet 500 mcg PO DAILY RF: 0 carbamide peroxide [Debrox] 6.5 % Drops 5 drp OTIC (EAR) .TIDUD RF: 0 clobetasol 0.05 % ointment 1 applic TOPICAL UD PRN (Reason: BREAKOUTS) RF: 0 azelastine 137 mcg (0.1 %) aerosol,spray 1 spray INTRANASAL BID RF: 0 albuterol sulfate 90 mcg/actuation Hfa Aerosol Inhaler 2 inh INHALATION Q4 PRN (Reason: Shortness Of Breath Or Wheezing) RF: 0 denosumab 60 mg/mL Syringe 60 mg SUBCUT .[id number] RF: 0 Referrals Referrals: Yuko Casas MD [Primary Care Provider] - Discharge Problem: Hypotension Qualifiers: Hypotension type: unspecified hypotension type Qualified Code(s): I95.9 - Hypotension, unspecified
[2020-04-26] MEDS ORDERED: SODIUM CHLORIDE 0.9% 1000ML 1,000 ML IV SCH (18:00)
[2020-04-26 18:01] LABS: Basophils # (auto) 0.02 K/uL (0-0.2); Basophils % (auto) 0.2 %; Eosinophils # (auto) 0.21 K/uL (0-0.5); Eosinophils % (auto) 2.4 %; Hematocrit (blood only) 40.6 % (37-47); Hemoglobin 13.6 g/dL (12.0-16.0); Immature Granulocytes # (auto) 0.02 K/uL (0.00-0.02); Immature Granulocytes % (auto) 0.2 %; Lymphocytes % (auto) 25.8 %; Mean Corpuscular Hemoglobin 28.2 pg (25-34); Mean Corpuscular Hgb Conc 33.5 g/dL (32-36); Mean Corpuscular Volume 84.2 fL (80-100); Mean Platelet Volume 13.6 fL (7.4-10.4); Monocytes # (auto) 1.17 K/uL (0.11-0.59); Monocytes % (auto) 13.1 %; Neutrophils # (auto) 5.19 K/uL (1.4-6.5); Neutrophils % (auto) 58.3 %; Platelet Count 201 K/uL (130-400); RDW Coefficient of Variation 14.4 % (11.5-14.5); RDW Standard Deviation 44.4 fL (36.4-46.3); Red Blood Count 4.82 M/uL (4.2-5.4); White Blood Count 8.91 K/uL (4.8-10.8)
--- NOTE | 2020-04-26 18:03 | XRay Report ---
XR chest 1V portable CLINICAL HISTORY: weakness ATYPICAL CHEST PAIN COMPARISON STUDY: 06/30/2019 FINDINGS: The cardiac and mediastinal contours remain stable. There is gaseous distention of the colo n. There is gaseous distention of the esophagus. There is no failure. There is no focal pulmonary con solidation. There are old right-sided rib deformities. There is stable left basilar atelectasis/scarr ing. There is a left shoulder prosthesis.[ IMPRESSION: 1. No active disease in the chest 2. Distended esophagus. Clinical correlation in regards to achalasia or distal esophageal obstruction is recommended ACT 112: Negative or not required by law. Electronically signed by: Efrain Cheung M.D. 04/26/2020 6:02 PM
[2020-04-26 18:23] LABS: Alanine Aminotransferase 18 U/L (12-78); Albumin Level 3.6 gm/dl (3.4-5.0); Aspartate Aminotransferase 20 U/L (15-37); BUN Creatinine Ratio 13.7 (10-20); Blood Urea Nitrogen 20 mg/dl (7-18); Calcium 9.6 mg/dl (8.5-10.1); Carbon Dioxide 23 mmol/L (21-32); Chloride 108 mmol/L (98-107); Creatinine Clr Calc Pharmacy 33.3 ml/min; Est GFR (African American) 41.4; Est GFR (Non-African American) 35.7; Glucose 139 mg/dl (70-99); Magnesium 2.2 mg/dl (1.8-2.4); Potassium 4.6 mmol/L (3.5-5.1); Sodium 138 mmol/L (136-145)
[2020-04-26 18:34] LABS: Albumin Globulin Ratio 1.1 (0.9-2); Alkaline Phosphatase 69 U/L (45-117); Bilirubin,Total 0.5 mg/dl (0.2-1); Globulin 3.3 gm/dl (2.5-4.0); Total Protein 6.9 gm/dl (6.4-8.2); Troponin I < 0.015 ng/ml (0-0.045)
[2020-04-26] MEDS ORDERED: SODIUM CHLORIDE 0.9% 1000ML 500 ML IV ONE ×2 (18:39→19:30)
[2020-04-26 19:21] LABS: Appearance Urine Clear (Clear); Bilirubin Urine Negative (Negative); Blood Urine Negative (Negative); Color Urine Yellow; Glucose Urine UA Negative (Negative); Ketones Urine Negative (Negative); Leukocyte Esterase Urine Negative (Negative); Nitrite Urine Negative (Negative); Protein Urine Negative (Negative); Specific Gravity Urine 1.009 (1.000-1.030); Urobilinogen Urine Negative (Negative)
[2020-04-26] MEDS ORDERED: ONDANSETRON INJ 2 MG/ML 2 ML VIAL IV PRN (21:53)
[2020-04-26] MEDS ORDERED: ACETAMINOPHEN 325 MG TAB PO PRN (21:53)
[2020-04-26] MEDS ORDERED: CLOBETASOL PROPIONATE 0.05% OINT 15 GM TUBE EXT PRN (21:53)
[2020-04-26] MEDS ORDERED: SENNA 8.6 MG TAB PO PRN (21:53)
[2020-04-26] MEDS ORDERED: ALBUTEROL HFA 8 GM INHALER INH PRN (21:53)
[2020-04-26] MEDS ORDERED: FAMOTIDINE 20 MG TAB PO PRN (21:53)
[2020-04-26] MEDS ORDERED: NITROGLYCERIN SL 0.4 MG/TAB TAB SL PRN ×2 (21:53)
[2020-04-26] MEDS: SODIUM CHLORIDE 0.9% 1000ML 1,000 ML IV SCH (22:00)
--- NOTE | 2020-04-27 00:32 | History and Physical Report ---
DATE OF ADMISSION: 04/26/2020 CHIEF COMPLAINT: SVT and hypotension. HISTORY OF PRESENT ILLNESS: This is a 74-year-old female with past medical history significant for hypothyroidism, hyperlipidemia, history of diaphragmatic hernia, COPD, chronic rhinitis, history of atherosclerosis of extremities, CAD, hypertension, GERD, Mcintyre's esophagus, esophageal spasm, chronic kidney disease stage III, senile osteoporosis, degenerative disc disease, atopic dermatitis, primary open angle glaucoma of both eyes, mild anemia, thrombocytopenia, history of herpes simplex type 2 infection, bipolar disorder, obsessive compulsive disorder, schizoaffective, schizophrenia, history of SVT, recurrent falls. The patient lives in an apartment building and sister lives in the same apartment building. She walks sometimes without support and sometimes with walker. Today, after she woke up from sleep around 2:00 p.m., she was very dizzy and she checked her blood pressure, and Could not read the blood pressure. She called her sister and was advised her to come to the ER. In the ER when she came in, her systolic blood pressure was in 60s and she was in SVT and heart rate in 150s. The patient was given fluid bolus and given adenosine and she converted to sinus rhythm. After receiving 2 L of fluids, her systolic blood pressure was in the 90s. Currently, her blood pressure is improved to 120s. She is sitting and eating dinner. She says except for dizziness, she did not felt anything else. Currently dizziness resolved. No palpitations, no chest pain, no shortness of breath, no cough, no fever, no chills. She was nauseous the other day, but currently she has no nausea. She had abdominal pain a couple of days ago, but no abdominal pain now. She is somewhat constipated. Denies any blood in the stool or black stools. Normal bladder movements. No headache, no earache, no runny nose, no sore throat. Appetite is okay. No swelling in the legs, no rash. Currently resting comfortably and hemodynamically stable. ALLERGIES: AMOXICILLIN, LATEX. PAST MEDICAL HISTORY: As mentioned above. PAST SURGICAL HISTORY: Colonoscopy, dilatation and curettage, EGDs, EGD with biopsy, esophagogastric fundoplasty, ligation of oviducts, cataract surgery, repair of paraesophageal hernia, shoulder surgery, total abdominal hysterectomy with removal of tubes. MEDICATIONS: The patient is on acyclovir 400 mg as directed, albuterol 2 puffs inhalation every 4 hours p.r.n., Lipitor 20 mg p.o. p.m., azelastine 1 spray intranasal b.i.d., betamethasone topical b.i.d., vitamin D 5000 units p.o. daily, vitamin B12 500 mcg p.o. daily, famotidine 20 mg p.o. at bedtime p.r.n., gabapentin 100 mg p.o. a.m., gabapentin 200 mg p.o. at bedtime, levothyroxine 25 mcg p.o. daily, metoprolol succinate 25 mg p.o. a.m., nitroglycerin 0.4 mg sublingual p.r.n., Protonix 40 mg p.o. b.i.d., quetiapine 300 mg at bedtime, Senokot 17.2 mg p.o. b.i.d. p.r.n., venlafaxine 150 mg p.o. a.m. FAMILY HISTORY: Significant for mother has breast cancer, thyroid disorder; father had CLL, heart disorder, hypertension, lung disorder; brother has depression; sister has depression; sister has diabetes, hypertension. SOCIAL HISTORY: , lives alone in an apartment building. Former smoker, quit in 1983. Smoked 3 packs a day for 30 years. No alcohol use, no drug use. REVIEW OF SYSTEMS: As per HPI. Rest of the review of systems negative. PHYSICAL EXAMINATION: GENERAL: The patient is of moderate build, not in acute distress. VITAL SIGNS: Temperature 36.5; pulse 81, when she came in it was in 150s, currently 81; respiratory rate 18, blood pressure when she came in was systolic blood pressure of 66/46, but currently 122/83, oxygen 98% on room air. HEENT: Pupils equal, round, and reactive to light. Oral mucosa moist. NECK: No JVD, no neck masses. CARDIOVASCULAR: S1, S2 heard, regular rate and rhythm, no murmur, no gallop. RESPIRATORY SYSTEM: Normal AP diameter. No accessory muscle use. No wheezing, no crackles. ABDOMEN: Soft, bowel sounds present, nontender. No distention. CENTRAL NERVOUS SYSTEM: Cranial nerves II-XII grossly intact, nonfocal. EXTREMITIES: No edema, no erythema. LABORATORY DATA: WBC 8.9, hemoglobin 13.6, hematocrit 40.6, platelets 201. Sodium 138, potassium 4.6, chloride 108, bicarbonate 23, BUN 20, creatinine 1.4, serum glucose 139, calcium 9.6, magnesium 2.2, total bilirubin 0.4, AST 20, ALT 18, alkaline phosphatase 69. Troponin I less than 0.015. TSH 3.8. Urinalysis negative. SARS-CoV-2 negative. IMAGING DATA: Chest x-ray, no acute findings, distended esophagus. Clinical correlation with regards to achalasia with distal esophageal obstruction is recommended. EKG: SVT at a rate of 153, nonspecific ST-T wave abnormalities. Repeat EKG, normal sinus rhythm at a rate of 99, ASSESSMENT AND PLAN: This is a 74-year-old female who presents with supraventricular tachycardia and hypotension. 1. Supraventricular tachycardia, hypotension, dizziness: SVT resolved with adenosine. Currently in normal sinus rhythm. Received 2 liters of fluids and hypotension currently improved. Initial troponin is negative and currently asymptomatic. TSH normal. Will follow the repeat enzymes, echocardiogram. Consult cardiology in the a.m. We will keep n.p.o. until seen by cardiology. 2. history of Mcintyre's esophagus, on Protonix at home.Dilated oesophagus on imaging study. We will keep her n.p.o. and consult GI in the a.m. for further recommendations. 3. History of coronary artery disease: Continue Toprol-XL, statin, currently stable. Follow the echocardiogram. 4.History of supraventricular tachycardia, on Toprol-XL, which will continue. 5. Hypothyroidism: Continue on Synthroid. 6. History of schizoaffective schizophrenia, obsessive compulsive disorder, bipolar disorder: Continue her venlafaxine and Seroquel. 7. History of Herpes Simplex type infection: On acyclovir as needed. 8. History of anemia and thrombocytopenia: Currently labs are stable. 9. History of mild chronic obstructive pulmonary disease, currently stable. We will monitor. Albuterol p.r.n. 10. Hyperlipidemia: On statin. 11. Acute kidney injury on chronic kidney disease stage III: Baseline creatinine around 1.2, now with creatinine 1.4. Getting fluids. We will follow the repeat labs in the a.m. 12. Deep venous thrombosis prophylaxis: Sequential compression devices. DISPOSITION: Monitor in the tele floor. Expect to discharge home and follow with family doctor. Level 1 full code. MTDD
[2020-04-27 05:43] LABS: Mean Corpuscular Hgb Conc 33.4 g/dL (32-36)
[2020-04-27] MEDS: SODIUM CHLORIDE 0.9% 1000ML 1,000 ML IV SCH ×3 (06:08→20:37)
[2020-04-27] MEDS: LEVOTHYROXINE SODIUM 25 MCG TABLET PO SCH (06:08)
[2020-04-27 06:11] LABS: BUN Creatinine Ratio 17.2 (10-20); Basophils # (auto) 0.01 K/uL (0-0.2); Basophils % (auto) 0.2 %; Calcium 8.9 mg/dl (8.5-10.1); Creatinine Clr Calc Pharmacy 36.1 ml/min; Eosinophils # (auto) 0.12 K/uL (0-0.5); Eosinophils % (auto) 2.6 %; Est GFR (African American) 58.6; Est GFR (Non-African American) 50.5; Hemoglobin 11.7 g/dL (12.0-16.0); Lymphocytes # (auto) 1.39 K/uL (1.2-3.4); Lymphocytes % (auto) 29.7 %; Magnesium 2.1 mg/dl (1.8-2.4); Mean Corpuscular Hemoglobin 28.3 pg (25-34); Mean Corpuscular Volume 84.5 fL (80-100); Mean Platelet Volume 12.6 fL (7.4-10.4); Monocytes % (auto) 10.7 %; Neutrophils # (auto) 2.66 K/uL (1.4-6.5); Neutrophils % (auto) 56.8 %; Platelet Count 130 K/uL (130-400); Platelet Estimate Decreased (Normal); Potassium 4.3 mmol/L (3.5-5.1); RBC Morphology Unremarkable; RDW Coefficient of Variation 14.5 % (11.5-14.5); RDW Standard Deviation 44.9 fL (36.4-46.3); Red Blood Count 4.14 M/uL (4.2-5.4); White Blood Count 4.68 K/uL (4.8-10.8)
[2020-04-27 06:22] LABS: Troponin I 0.157 ng/ml (0-0.045)
[2020-04-27] MEDS: GABAPENTIN 100 MG CAP PO SCH (08:26)
[2020-04-27] MEDS: CHOLECALCIFEROL 1,000 UNITS 25 MCG TAB PO SCH (08:26)
[2020-04-27] MEDS: CYANOCOBALAMIN 500 MCG TABLET (VITAMIN B-12) PO SCH (08:26)
[2020-04-27] MEDS: BETAMETHASONE DIP AUG (DIPROLENE) 0.05% CR 15 GM TUBE EXT SCH ×2 (08:26→20:57)
[2020-04-27] MEDS: METOPROLOL SUCC 25MG EXT REL TAB PO SCH (08:27)
[2020-04-27] MEDS: VENLAFAXINE HCL XR 150 MG CAPXR PO SCH (08:27)
[2020-04-27] MEDS: PANTOprazole 40 MG TAB PO SCH ×2 (08:27→20:58)
--- NOTE | 2020-04-27 10:29 | Cardiology Consultation ---
Date of Consultation April 27, 2020 Assessment & Plan (1) PSVT (paroxysmal supraventricular tachycardia): Patient with recurrent paroxysmal supraventricular tachycardia, this time presenting with profound dizziness, hypotension. As previously described, she was first diagnosed with supraventricular tachycardia in 2010. In 2014, she presented with a very similar presentation as this admission with very elevated heart rates noted at time of presentation to EMS, that improved by the time she arrived to the emergency department, and mild troponin elevation. Cardiac catheterization revealed minimal nonobstructive coronary heart disease at that time, 30% mid LAD stenosis for which medical management was recommended. She was treated with adenosine in February,, and again last evening, 04/26/2020. Use of AV benito blockers has been limited due to relative hypotension. At this time, I recommend continued treatment with metoprolol succinate 25 mg daily. Unfortunately, her coexistent treatment with Seroquel are somewhat of a poor candidate for consideration of antiarrhythmic therapy such as sotalol due to concerns of inducing QT prolongation. I also do not anticipate that she would be able to tolerate a significant enough dose to be effective from a blood pressure standpoint. I have the same concerns with regards to treatment with amiodarone and potential QT prolongation. She is not a good candidate for propafenone or flecainide given her underlying diagnosis of mild coronary heart disease. Ablation had previously been discussed at time of outpatient EP consultation in 04/2019. Will plan on repeat outpatient EP evaluation , however, having required 2 doses of adenosine 14 months apart,is perhaps acceptable. (2) Status post cardiac catheterization: Her initial troponin I last evening was undetectable, minimal elevation of 0.157 ng/ml noted at 5:11 this am and she is due for a third measurement at 11 am. As noted, she underwent cardiac catheterization for a very similar presentation and mild troponin elevation in 2014, and I do not think this needs to repeated at present. Resting echocardiogram reviewed this morning reveals normal LV wall motion normal LVEF. She is already on metoprolol and atorvastatin. She is not on aspirin. In review of her outpatient chart reveals that this was discontinued in 2018 due to bruising and mild low platelet count. At this time, EGD is being considered this hospital stay, and I think it would be prudent to hold off on resuming her aspirin to we have the results of this. I do not think her mild troponin elevation is due to an acute intra coronary plaque rupture, but likely due to demand ischemia in the setting of tachycardia and profound hypotension that persisted for 4 hours at least per patient's description. (3) Hypotension: Profound hypotension noted on presentation. This did not immediately improve with conversion back to sinus rhythm, I think there is some degree of volume depletion noted. As noted, her chronic borderline low blood pressure has limited medication treatment with beta-nohemy. Do not think she has For adding a calcium channel nohemy. (4) GERD (gastroesophageal reflux disease): Vague abdominal discomfort noted 2 days prior to hospital stay. She has been seen by GI, and EGD is being considered. Patient is eager to have this performed soon as possible, and I think that if be performed as an inpatient that is reasonable, I think we have a good explanation for her mild troponin elevation. History of Present Illness Attending Physician: Radha Crnae MD History of Present Illness Holli Barbosa is a 74 year old female seen in cardiology consultation per the request of Dr. Nichols for the evaluation of recurrent supraventricular tachycardia. 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 Thanh Quinteros of our practice. The patient states that 2 days ago, she had on and off again abdominal discomfort. She states that she typically does not sleep at night and stays up all night long. She was sleeping during the day yesterday and awoke at 1 PM with severe dizziness that was worse with walking around. She consulted a family member, and called EMS. Initial EKG performed 04/26/2020 at 1729 revealed supraventricular tachycardia at 153 bpm, with mild repolarization changes noted in the high lateral leads I and aVL. Significant hypertension was noted on arrival, with first recorded blood pressure of 66/48 as noted in her vital signs, 04/26/2020 1728 hrs. Patient received IV fluid resuscitation, and subsequently received a dose of IV adenosine 6 mg administered at 1743 with subsequent conversion to sinus rhythm without significant conversion pause. Her blood pressure post adenosine still remain low, with readings of 89/64, 79/64, and ultimately 98/64 as of 1929 last night, and has trended up in the meantime, with most recent measurement this morning at 753 of 115/70. As noted, her subjective symptom was dizziness, she denies having had chest discomfort or subjective palpitations. Per review of her record, her history of paroxysmal supraventricular tachycardia dates back to 2010. In September,, she presented with an episode very similar to what occurred yesterday, with tachycardia, heart rates as high as 190 noted by EMS, mild troponin elevation. She therefore underwent cardiac catheterization during that hospital stay with findings of a 30% mid LAD stenosis, the coronary arteries were otherwise normal per the procedure report. In February,, she presented with recurrent SVT, and converted to sinus rhythm in the emergency room with adenosine. Shortly thereafter, her metoprolol dose was increased from 12.5 to 25 mg daily. Her past medical history is otherwise notable for bipolar 1 disorder, obsessive- compulsive disorder, hypertension stage III chronic kidney disease, dyslipidemia, COPD with past cigarette smoking. Allergies Allergy/AdvReac Type Severity Reaction Status Date / Time amoxicillin Allergy Severe HIVES Verified 04/26/20 20:36 latex Allergy Mild RASH Verified 04/26/20 20:36 Home Medications Medication Instructions Recorded Confirmed Type atorvastatin [Lipitor] 20 mg PO QPM 03/19/18 04/26/20 History cholecalciferol (vitamin D3) 5,000 unit PO DAILY 03/19/18 04/26/20 History [Vitamin D3] levothyroxine 25 mcg PO DAILY 03/19/18 04/26/20 History metoprolol succinate 25 mg PO QAM 03/19/18 04/26/20 History nitroglycerin 0.4 mg SUBLINGUAL DIRECTED PRN 03/19/18 04/26/20 History pantoprazole 40 mg PO BID 03/19/18 04/26/20 History quetiapine 300 mg PO HS 03/19/18 04/26/20 History venlafaxine 150 mg PO QAM 03/19/18 04/26/20 History gabapentin 100 mg PO QAM 06/30/19 04/26/20 History gabapentin 200 mg PO HS 06/30/19 04/26/20 History acyclovir 400 mg PO UD 11/06/19 04/26/20 History albuterol sulfate 2 inh INHALATION Q4 PRN 11/06/19 04/26/20 History azelastine 1 spray INTRANASAL BID 11/06/19 04/26/20 History carbamide peroxide [Debrox] 5 drp OTIC (EAR) .TIDUD 11/06/19 04/26/20 History clobetasol 1 applic TOPICAL UD PRN 11/06/19 04/26/20 History cyanocobalamin (vitamin B-12) 500 mcg PO DAILY 11/06/19 04/26/20 History [Vitamin B-12] famotidine 20 mg PO HS PRN 11/06/19 04/26/20 History sennosides [senna] 17.2 mg PO BID PRN 11/06/19 04/26/20 History betamethasone, augmented 1 applic TOPICAL BID 04/26/20 04/26/20 History [Diprolene (augmented)] Patient History Medical History Anxiety Cholelithiasis CKD (chronic kidney disease), stage III COPD (chronic obstructive pulmonary disease) Depression GERD (gastroesophageal reflux disease) History of paroxysmal supraventricular tachycardia Surgical History History of repair of hiatal hernia Status post cardiac catheterization "mild disease - 30% mid LAD" Status post hysterectomy Family History Other Cancer Diabetes Heart disease Hypertension Lung disease Social History Smoking Status: Former smoker Hx Alcohol Use: No Hx Substance Use: No Preferred Language: Polish Communication Ability: Effective Director Of Scout Work Required: No Beliefs That Will Affect Care: None Current Living Situation: Alone current occupational status: retired Other Information That Helps Us Care for You: No Feels Safe at Home: Yes Safety Concerns: Feels Safe At This Time Assistive Devices: None Review of Systems Review of Systems: All systems reviewed & are unremarkable except as noted in HPI & below Physical Exam Physical Exam: Temp Pulse Resp BP Pulse Ox 36.9 C 61 20 115/70 93 04/27/20 07:53 04/27/20 07:53 04/27/20 07:53 04/27/20 07:53 04/27/20 07:53 Constitutional: WD/WN, vitals as above Respiratory: normal respiratory effort, lungs clear to auscultation Chest (Breasts): normal inspection/palpation of breasts Gastrointestinal (Abdomen): normal bowel sounds, soft, nontender, no hepatosplenomegaly Neurologic: PERRL, EOMI, accommodation nl, no face palsy, no dysarthria Results & Data ([facility]) Vital Signs (Past 12 Hours) Vital Signs Temp Pulse Resp BP Pulse Ox 04/27/20 07:53 36.9 C 61 20 115/70 93 04/27/20 03:43 36.9 C 69 17 110/71 91 Laboratory Results Cardiac Enzymes 04/26/20 04/27/20 Range/Units 17:37 05:11 AST 20 (15-37) U/L Troponin I < 0.015 0.157 H* (0-0.045) ng/ml CBC 04/26/20 04/27/20 Range/Units 17:37 05:11 WBC 8.91 4.68 L (4.8-10.8) K/uL RBC 4.82 4.14 L (4.2-5.4) M/uL Hgb 13.6 11.7 L (12.0-16.0) g/dL Hct 40.6 35.0 L (37-47) % Plt Count 201 130 (130-400) K/uL Neut # (Auto) 5.19 2.66 (1.4-6.5) K/uL Lymph # (Auto) 2.30 1.39 (1.2-3.4) K/uL Dickson # (Auto) 1.17 H 0.50 (0.11-0.59) K/uL Eos # (Auto) 0.21 0.12 (0-0.5) K/uL Baso # (Auto) 0.02 0.01 (0-0.2) K/uL Comprehensive Metabolic Panel 04/26/20 04/27/20 Range/Units 17:37 05:11 Sodium 138 143 (136-145) mmol/L Potassium 4.6 4.3 (3.5-5.1) mmol/L Chloride 108 H 114 H (98-107) mmol/L Carbon Dioxide 23 25 (21-32) mmol/L BUN 20 H 19 H (7-18) mg/dl Creatinine 1.44 H 1.08 (0.6-1.2) mg/dl Glucose 139 H 79 (70-99) mg/dl Calcium 9.6 8.9 (8.5-10.1) mg/dl AST 20 (15-37) U/L ALT 18 (12-78) U/L Alkaline Phosphatase 69 (45-117) U/L Total Protein 6.9 (6.4-8.2) gm/dl Albumin 3.6 (3.4-5.0) gm/dl Intake and Output 04/26/20 04/27/20 04/27/20 22:59 06:59 14:59 Intake Total 2000 / 3000 1000 / 3000 Balance 2000 / 3000 1000 / 3000 Intake: IV 2000 / 3000 1000 / 3000 Nss 1000ML 1,000 ml @ 125 mls/ 2000 / 3000 1000 / 3000 hr IV .Q8H NITESH Rx#:[id number] Oral 0 / 0 0 / 0 Other: # Unmeasured Voids 1 Weight 60.1 kg 61.2 kg Weight Measurement Method [facility] Diagnostic Findings EKG performed 04/26/2020 at 1729 with tracing reviewed independently revealed supraventricular tachycardia at 153 bpm, with mild repolarization changes in the high lateral leads, I, and aVL. EKG performed 04/26/2020 1745, after the administration of adenosine 6 mg, revealed normal sinus rhythm at 99 bpm, with resolution of the previously noted repolarization changes. EKG performed this morning 04/27/2020 7:08 AM: Normal sinus rhythm at 68 bpm, normal EKG. (1) Hypotension Hypotension type: unspecified hypotension type Qualified Code(s): I95.9 - Hypotension, unspecified
--- NOTE | 2020-04-27 11:06 | Gastrointestinal Consultation ---
Date of Consultation April 27, 2020 Assessment & Plan (1) SVT (supraventricular tachycardia): (2) Hypotension: (3) Mcintyre esophagus: (4) GERD (gastroesophageal reflux disease): (5) Esophageal dilatation: Pt is a 74 yo female w hx of GERD, Mcintyre's esophagus s/p Amber fundoplication seen for incidental finding of esophageal dilation on CXR as part as atypical CP workup. She endorses some dysphagia but mostly related to difficulty chewing food properly, but does also have nausea, epigastric abd pain and some weight loss. - Protonix 40mg daily - Keep NPO after midnight, plan for EGD eval by Dr. Lujan tomorrow 04/28 - Noted SVT, hypotension and elevated troponin on admission which is suspected to be due to demand ischemia; seen and evaluated by Cardiology, cleared for EGD procedure Supervising Physician Co-Signing Physician Notes I saw and evaluated the patient. We were consulted due to a abnormal imaging study upon admission for supraventricular tachycardia. Of note the patient does have a history of a Amber fundoplication and does admit to occasional solid food dysphagia. Physical examination No obvious distress, fine tremor noted of the lips Impression: Patient with a history of intermittent solid food dysphagia and a question of fluid retention on chest x-ray. Would suggest that the patient have a clear liquid diet today and be n.p.o. at midnight in preparation for upper endoscopy tomorrow. I wonder if the symptoms are related to her prior fundoplication and we could certainly perform empiric dilation pending the findings tomorrow. Please call with any questions or concerns overnight History of Present Illness Reason for Consultation: Dilation of esophagus Requesting Physician: Dr. Radha Crane Attending Physician: Dr. Sunny Lujan History of Present Illness Pt is a 74 yo female who presented w SVT and hypotension yesterday who is seen today for incidental finding of esophageal dilation seen on CXR for atypical CP workup. She has hx of Mcintyre's esophagus, GERD s/p Amber Fundoplication. Been taking Protonix 40mg daily. Last EGD showed food residue in stomach but GES is normal. She reports trouble w chocking on foods sometimes but related is mostly to difficulty chewing properly. She does have nausea, and sometimes epigastric area tenderness. Reports 10lbs weight loss in last 1-2 years. Denies bowel habit changes. Allergies Allergy/AdvReac Type Severity Reaction Status Date / Time amoxicillin Allergy Severe HIVES Verified 04/26/20 20:36 latex Allergy Mild RASH Verified 04/26/20 20:36 Home Medications Medication Instructions Recorded Confirmed Type atorvastatin [Lipitor] 20 mg PO QPM 03/19/18 04/26/20 History cholecalciferol (vitamin D3) 5,000 unit PO DAILY 03/19/18 04/26/20 History [Vitamin D3] levothyroxine 25 mcg PO DAILY 03/19/18 04/26/20 History metoprolol succinate 25 mg PO QAM 03/19/18 04/26/20 History nitroglycerin 0.4 mg SUBLINGUAL DIRECTED PRN 03/19/18 04/26/20 History pantoprazole 40 mg PO BID 03/19/18 04/26/20 History quetiapine 300 mg PO HS 03/19/18 04/26/20 History venlafaxine 150 mg PO QAM 03/19/18 04/26/20 History gabapentin 100 mg PO QAM 06/30/19 04/26/20 History gabapentin 200 mg PO HS 06/30/19 04/26/20 History acyclovir 400 mg PO UD 11/06/19 04/26/20 History albuterol sulfate 2 inh INHALATION Q4 PRN 11/06/19 04/26/20 History azelastine 1 spray INTRANASAL BID 11/06/19 04/26/20 History carbamide peroxide [Debrox] 5 drp OTIC (EAR) .TIDUD 11/06/19 04/26/20 History clobetasol 1 applic TOPICAL UD PRN 11/06/19 04/26/20 History cyanocobalamin (vitamin B-12) 500 mcg PO DAILY 11/06/19 04/26/20 History [Vitamin B-12] famotidine 20 mg PO HS PRN 11/06/19 04/26/20 History sennosides [senna] 17.2 mg PO BID PRN 11/06/19 04/26/20 History betamethasone, augmented 1 applic TOPICAL BID 04/26/20 04/26/20 History [Diprolene (augmented)] Patient History Medical History (Updated 04/27/20 @ 11:01 by JULIO CESAR Kearns) Anxiety Cholelithiasis CKD (chronic kidney disease), stage III COPD (chronic obstructive pulmonary disease) Depression GERD (gastroesophageal reflux disease) History of paroxysmal supraventricular tachycardia Surgical History History of repair of hiatal hernia Status post cardiac catheterization "mild disease - 30% mid LAD" Status post hysterectomy Family History Other Cancer Diabetes Heart disease Hypertension Lung disease Social History Smoking Status: Former smoker Hx Alcohol Use: No Hx Substance Use: No Preferred Language: Spanish Communication Ability: Effective Landing Gear Mechanic Required: No Beliefs That Will Affect Care: None Current Living Situation: Alone current occupational status: retired Other Information That Helps Us Care for You: No Feels Safe at Home: Yes Safety Concerns: Feels Safe At This Time Assistive Devices: None Review of Systems Review of Systems: All systems reviewed & are unremarkable except as noted in HPI & below Physical Exam Constitutional: WD/WN, vitals as above well groomed, cooperative and comfortable Eyes: PERRL, conjunctivae normal, anicteric sclerae ENMT: external ear and nose normal, oropharynx normal Respiratory: normal respiratory effort, lungs clear to auscultation Cardiovascular: RRR, no murmur, no edema Gastrointestinal (Abdomen): normal bowel sounds, soft, nontender, no hepatosplenomegaly Skin: no rashes, warm and dry no jaundice Psychiatric: A+Ox3, euthymic affect Lymphatic: no lymphedema Results & Data ([facility]) Vital Signs (Past 12 Hours) Vital Signs Temp Pulse Resp BP Pulse Ox 04/27/20 07:53 36.9 C 61 20 115/70 93 04/27/20 03:43 36.9 C 69 17 110/71 91 (1) Hypotension Hypotension type: unspecified hypotension type Qualified Code(s): I95.9 - Hypotension, unspecified
--- NOTE | 2020-04-27 12:04 | Electrocardiogram Report ---
Test Reason : Blood Pressure : / mmHG Vent. Rate : 153 BPM Atrial Rate : 111 BPM P-R Int : 000 ms QRS Dur : 090 ms QT Int : 278 ms P-R-T Axes : 000 -12 094 degrees QTc Int : 443 ms Poor data quality, interpretation may be adversely affected Supraventricular tachycardia Nonspecific ST and T wave abnormality Abnormal ECG When compared with ECG of 30-JUN-2019 21:19, Vent. rate has increased BY 89 BPM T wave amplitude has increased in Inferior leads Inverted T waves have replaced nonspecific T wave abnormality in Lateral leads Confirmed by Shayne Echevarria ([id number]) on 04/27/2020 12:03:44 PM Referred By: REFERRED SELF Confirmed By:Quentin Echevarria
--- NOTE | 2020-04-27 12:05 | Electrocardiogram Report ---
Test Reason : Blood Pressure : / mmHG Vent. Rate : 099 BPM Atrial Rate : 099 BPM P-R Int : 166 ms QRS Dur : 084 ms QT Int : 326 ms P-R-T Axes : 039 013 062 degrees QTc Int : 418 ms Normal sinus rhythm Normal ECG When compared with ECG of 26-APR-2020 17:29, (unconfirmed) Vent. rate has decreased BY 54 BPM Nonspecific T wave abnormality has replaced inverted T waves in Lateral leads Sinus rhythm has replaced SVT Confirmed by Shayne Echevarria ([id number]) on 04/27/2020 12:04:55 PM Referred By: REFERRED SELF Confirmed By:Quentin Echevarria
--- NOTE | 2020-04-27 12:22 | Electrocardiogram Report ---
Test Reason : Blood Pressure : / mmHG Vent. Rate : 068 BPM Atrial Rate : 068 BPM P-R Int : 164 ms QRS Dur : 080 ms QT Int : 382 ms P-R-T Axes : 043 039 077 degrees QTc Int : 406 ms Normal sinus rhythm Nonspecific ST abnormality Abnormal ECG When compared with ECG of 26-APR-2020 17:45, (unconfirmed) No significant change was found Confirmed by Shayne Echevarria ([id number]) on 04/27/2020 12:21:55 PM Referred By: REFERRED SELF Confirmed By:Quentin Echevarria
[2020-04-27] MEDS ORDERED: GABAPENTIN 100 MG CAP PO SCH (21:00)
[2020-04-27] MEDS ORDERED: QUEtiapine FUMARATE 300 MG TABLET PO SCH (21:00)
[2020-04-27] MEDS ORDERED: ATORVASTATIN 20 MG TAB PO SCH (21:00)
[2020-04-28] MEDS: SODIUM CHLORIDE 0.9% 1000ML 1,000 ML IV SCH (04:44)
[2020-04-28] MEDS: LEVOTHYROXINE SODIUM 25 MCG TABLET PO SCH ×2 (05:59→06:02)
--- NOTE | 2020-04-28 08:03 | Anesthesiology Consultation ---
Date of Service April 28, 2020 Assessment & Plan (1) Encounter for pre-operative examination: Chart Review Chart Review: Acceptable Risk for Surgery and Patient NOT seen in Pre Admission Testing covid neg 04/26/20 Consults Requested none History Surgery Operation Date: 04/28/20 16:30 Proposed Procedures p Esophagogastroduodenoscopy Dr Tai Lujan, DO Height/Weight Height: 5 ft 2 in Weight: 60.8 kg Allergies Allergy/AdvReac Type Severity Reaction Status Date / Time amoxicillin Allergy Severe HIVES Verified 04/26/20 20:36 latex Allergy Mild RASH Verified 04/26/20 20:36 Medications Home Medications Medication Instructions Recorded Confirmed Last Taken atorvastatin [Lipitor] 20 mg PO QPM 03/19/18 04/26/20 02/23/19 cholecalciferol (vitamin D3) 5,000 unit PO DAILY 03/19/18 04/26/20 02/24/19 [Vitamin D3] levothyroxine 25 mcg PO DAILY 03/19/18 04/26/20 02/22/19 metoprolol succinate 25 mg PO QAM 03/19/18 04/26/20 02/24/19 nitroglycerin 0.4 mg SUBLINGUAL DIRECTED PRN 03/19/18 04/26/20 Unknown pantoprazole 40 mg PO BID 03/19/18 04/26/20 02/24/19 quetiapine 300 mg PO HS 03/19/18 04/26/20 02/23/19 venlafaxine 150 mg PO QAM 03/19/18 04/26/20 02/24/19 gabapentin 100 mg PO QAM 06/30/19 04/26/20 Unknown gabapentin 200 mg PO HS 06/30/19 04/26/20 Unknown acyclovir 400 mg PO UD 11/06/19 04/26/20 Unknown albuterol sulfate 2 inh INHALATION Q4 PRN 11/06/19 04/26/20 Unknown azelastine 1 spray INTRANASAL BID 11/06/19 04/26/20 Unknown carbamide peroxide [Debrox] 5 drp OTIC (EAR) .TIDUD 11/06/19 04/26/20 Unknown clobetasol 1 applic TOPICAL UD PRN 11/06/19 04/26/20 Unknown cyanocobalamin (vitamin B-12) 500 mcg PO DAILY 11/06/19 04/26/20 Unknown [Vitamin B-12] famotidine 20 mg PO HS PRN 11/06/19 04/26/20 Unknown sennosides [senna] 17.2 mg PO BID PRN 11/06/19 04/26/20 Unknown betamethasone, augmented 1 applic TOPICAL BID 04/26/20 04/26/20 Unknown [Diprolene (augmented)] Active Medications Generic Name Dose Route Start Last Admin Trade Name Valerie PRN Reason Stop Dose Admin Atorvastatin Calcium 20 mg 04/27/20 21:00 04/27/20 20:58 Atorvastatin 20 Mg Tab PO 05/27/20 20:59 20 mg QPM NITESH Administration Betamethasone Dipropion Augmented 1 appln 04/27/20 09:00 04/27/20 20:57 Betamethasone Dip Aug (Diprolene) 0.05% Cr 15 Gm Tube EXT 05/27/20 08:59 1 appln BID NITESH Administration Cyanocobalamin 500 mcg 04/27/20 09:00 04/27/20 08:26 Cyanocobalamin 500 Mcg Tablet (Vitamin B-12) PO 05/27/20 08:59 500 mcg DAILY NITESH Administration Famotidine 20 mg 04/26/20 21:53 04/27/20 08:26 Famotidine 20 Mg Tab PO 05/26/20 21:52 20 mg HS PRN Administration Acid Reflux Gabapentin 100 mg 04/27/20 09:00 04/27/20 08:26 Gabapentin 100 Mg Cap PO 05/27/20 08:59 100 mg QAM NITESH Administration Gabapentin 200 mg 04/27/20 21:00 04/27/20 20:57 Gabapentin 100 Mg Cap PO 05/27/20 20:59 200 mg HS NITESH Administration Sodium Chloride 1,000 mls @ 125 mls/hr 04/26/20 21:53 04/28/20 04:44 Nss 1000ml IV 05/26/20 21:52 125 mls/hr .Q8H NITESH Administration Levothyroxine Sodium 25 mcg 04/27/20 06:30 04/28/20 06:02 Levothyroxine Sodium 25 Mcg Tablet PO 05/27/20 06:29 Not Given DAILYBB NITESH Metoprolol Succinate 25 mg 04/27/20 09:00 04/27/20 08:27 Metoprolol Succ 25mg Ext Rel Tab PO 05/27/20 08:59 25 mg QAM NITESH Administration Miscellaneous 1 ea 04/27/20 08:00 04/27/20 08:25 Azelastine: Order Awaiting Action N/A 05/27/20 07:59 Not Given QS NITESH Pantoprazole Sodium 40 mg 04/27/20 09:00 04/27/20 20:58 Pantoprazole 40 Mg Tab PO 05/27/20 08:59 40 mg BID NITESH Administration Quetiapine Fumarate 300 mg 04/27/20 21:00 04/27/20 20:58 Quetiapine Fumarate 300 Mg Tablet PO 05/27/20 20:59 300 mg HS NITESH Administration Sennosides 17.2 mg 04/26/20 21:53 04/27/20 08:27 Senna 8.6 Mg Tab PO 05/26/20 21:52 17.2 mg BID PRN Administration Constipation Venlafaxine HCl 150 mg 04/27/20 09:00 04/27/20 08:27 Venlafaxine Hcl Xr 150 Mg Capxr PO 05/27/20 08:59 150 mg QAM NITESH Administration Vitamin D 5,000 units 04/27/20 09:00 04/27/20 08:26 Cholecalciferol 1,000 Units 25 Mcg Tab PO 05/27/20 08:59 5,000 units DAILY NITESH Administration Past Medical History Medical History (Updated 04/28/20 @ 08:06 by Td Villa MD) Anxiety Atypical chest pain Mcintyre esophagus Cholelithiasis CKD (chronic kidney disease), stage III COPD (chronic obstructive pulmonary disease) Depression Esophageal dilatation GERD (gastroesophageal reflux disease) History of paroxysmal supraventricular tachycardia SVT (supraventricular tachycardia) (1) PSVT (paroxysmal supraventricular tachycardia): Patient with recurrent paroxysmal supraventricular tachycardia, this time presenting with profound dizziness, hypotension. As previously described, she was first diagnosed with supraventricular tachycardia in 2010. In 2014, she presented with a very similar presentation as this admission with very elevated heart rates noted at time of presentation to EMS, that improved by the time she arrived to the emergency department, and mild troponin elevation. Cardiac catheterization revealed minimal nonobstructive coronary heart disease at that time, 30% mid LAD stenosis for which medical management was recommended. She was treated with adenosine in February,, and again last evening, 04/26/2020. Past Family History Family History Other Cancer Diabetes Heart disease Hypertension Lung disease Past Surgical History Surgical History History of repair of hiatal hernia Status post cardiac catheterization "mild disease - 30% mid LAD" Status post hysterectomy Social History Smoking Status: Former smoker Do You Dip or Chew Tobacco: No Hx Alcohol Use: No Hx Substance Use: No Physical Exam Vital Signs Last Vital Signs Temp 36.5 C 04/28/20 07:31 Pulse 74 04/28/20 08:58 Resp 18 04/28/20 07:31 BP 98/59 L 04/28/20 07:31 Pulse Ox 97 04/28/20 07:31 Testing Laboratory Results 04/27/20 05:11 04/27/20 05:11 Urine Color Yellow 04/26/20 19:13 Urine Appearance Clear (Clear) 04/26/20 19:13 Urine pH 6.0 (4.5-7.5) 04/26/20 19:13 Ur Specific [place] 1.009 (1.000-1.030) 04/26/20 19:13 Urine Protein Negative (Negative) 04/26/20 19:13 Urine Glucose (UA) Negative (Negative) 04/26/20 19:13 Urine Ketones Negative (Negative) 04/26/20 19:13 Urine Nitrite Negative (Negative) 04/26/20 19:13 Ur Leukocyte Esterase Negative (Negative) 04/26/20 19:13 Electrocardiogram Date: 04/28/20 Normal sinus rhythm Normal ECG When compared with ECG of 27-APR-2020 07:08, No significant change was found HR 65 Echocardiogram 04/27/2020: EF 60-65% Mild LVH LV notion normal Grade 2 DD. Other Testing 04/26/2020: XR chest 1V portable CLINICAL HISTORY: weakness ATYPICAL CHEST PAIN COMPARISON STUDY: 06/30/2019 FINDINGS: The cardiac and mediastinal contours remain stable. There is gaseous distention of the colon. There is gaseous distention of the esophagus. There is no failure. There is no focal pulmonary consolidation. There are old right-sided rib deformities. There is stable left basilar atelectasis/scarring. There is a left shoulder prosthesis.[ IMPRESSION: 1. No active disease in the chest 2. Distended esophagus. Clinical correlation in regards to achalasia or distal esophageal obstruction is recommended
[2020-04-28] MEDS ORDERED: PROPOFOL IV EMULSION 10 MG/ML 20 ML VIAL IV ONE (09:04)
[2020-04-28] MEDS ORDERED: LIDOCAINE HCL 2% 2 ML VIAL/AMP(20MG/ML) INFIL ONE (09:04)
[2020-04-28] MEDS ORDERED: KETAMINE 50 MG/5 ML SYRINGE ONE (09:04)
--- NOTE | 2020-04-28 09:16 | History & Physical Bridge Note ---
Date of Service April 28, 2020 History & Physical Bridge Note I have examined the patient, reviewed the History & Physical and in the interval since the performance of the History & Physical I have noted the following changes of clinical significance: no changes noted. We are planning for upper endoscopy today to evaluate an abnormal chest x-ray and a history of intermittent dysphagia. Of note the patient did have a prior fundoplication which likely explains her symptoms. We discussed the risks to include bleeding, infection, perforation, pain, aspiration and need for follow-up studies.
[2020-04-28] MEDS ORDERED: PHENYLEPHRINE 100MCG/ML 5ML SYR ONE (09:46)
--- NOTE | 2020-04-28 10:04 | Cardiology Progress Note ---
Date of Service April 28, 2020 Assessment & Plan (1) PSVT (paroxysmal supraventricular tachycardia): Continue prior to hospital treatment with metoprolol succinate 25 mg daily. Patient stable from a cardiac perspective for sedation/endoscopy. Mild troponin I elevation likely due to myocardial strain in the setting of tachycardia and hours of profound hypotension. She underwent cardiac catheterization for a similar mild troponin elevation in 2014, with minimal coronary heart disease, 30% mid LAD stenosis. Continue current dose of atorvastatin. Of note patient has been off of aspirin since 2018 due to bruising and concern of mild thrombocytopenia. Await EGD results before further considerations with regards to aspirin therapy. Patient tentatively scheduled for outpatient EP follow up visit with Dr Momin on 05/10/20. Treatment with AV benito blockers limited by her longstanding history of relative hypotension. Treatment with antiarrhythmics limited due to concerns of QT prolongation with her other medications including Seroquel. Although ablation is a consideration, ongoing conservative treatment AV the best option given the relative rarity of her episodes, having been hospitalized in 2014, 02/2019, 04/2020. Admission and Anticipated Discharge Date Admission Date: April 26, 2020 Subjective Patient interviewed briefly while sitting in the wheelchair, on her way down to the endoscopy lab. No subjective cardiac complaints. Telemetry reveals sinus rhythm in the range of 67 bpm, with no recurrence of supraventricular tachycardia since ER presentation. Physical Exam Physical Exam: No physical exam was performed Results & Data ([facility]) Vital Signs (Past 12 Hours) Vital Signs Temp Pulse Pulse Resp BP Pulse Ox 04/28/20 09:58 83 20 134/86 96 04/28/20 09:43 89 22 140/92 97 04/28/20 09:04 36.5 C 75 20 153/83 H 98 04/28/20 08:58 74 04/28/20 07:31 36.5 C 67 18 98/59 L 97 04/28/20 03:04 36.4 C L 75 18 101/66 94 04/27/20 23:44 36.7 C 82 18 110/74 96 04/27/20 23:33 74 Laboratory Results Troponin I level less than 0.015--> 0.157--> 0.115 ng/ml Diagnostic Findings EKG performed today 04/28/2020 and reviewed independently revealed normal sinus rhythm at 65 bpm, normal EKG, unchanged compared to previous
[2020-04-28] MEDS: PANTOprazole 40 MG TAB PO SCH (11:41)
[2020-04-28] MEDS: CYANOCOBALAMIN 500 MCG TABLET (VITAMIN B-12) PO SCH (11:41)
[2020-04-28] MEDS: CHOLECALCIFEROL 1,000 UNITS 25 MCG TAB PO SCH (11:41)
[2020-04-28] MEDS: GABAPENTIN 100 MG CAP PO SCH (11:41)
--- NOTE | 2020-04-28 11:41 | Anesthesiology Progress Note ---
Date of Service April 28, 2020 Anesthesia Post Procedure Vital Signs Vital Signs: Temp Pulse Pulse Resp BP Pulse Ox Pulse Ox 04/28/20 11:27 37.0 C 94 H 20 140/85 96 04/28/20 10:13 78 20 134/81 96 04/28/20 09:58 83 20 134/86 96 04/28/20 09:43 89 22 140/92 97 04/28/20 09:04 36.5 C 75 20 153/83 H 98 04/28/20 08:58 74 04/28/20 07:31 36.5 C 67 18 98/59 L 97 04/28/20 03:04 36.4 C L 75 18 101/66 94 04/27/20 23:44 36.7 C 82 18 110/74 96 04/27/20 23:33 74 04/27/20 21:53 96 04/27/20 19:30 36.7 C 81 18 134/77 96 04/27/20 16:04 36.7 C 70 20 122/76 98 Transfer of Care Handoff Completed per policy Notes Mental Status: alert / awake / arousable and participated in evaluation Patient Amnestic to Procedure: Yes Nausea / Vomiting: adequately controlled Pain: adequately controlled Airway Patency, RR, SpO2: stable & adequate BP & HR: stable & adequate Hydration State: stable & adequate Anesthetic Complications: no major complications apparent and Pt Satisfied with anesthetic care
[2020-04-28] MEDS: METOPROLOL SUCC 25MG EXT REL TAB PO SCH (11:42)
[2020-04-28] MEDS: VENLAFAXINE HCL XR 150 MG CAPXR PO SCH (11:42)
[2020-04-28] MEDS: BETAMETHASONE DIP AUG (DIPROLENE) 0.05% CR 15 GM TUBE EXT SCH (11:43)
--- NOTE | 2020-04-28 12:14 | GI REPORT ---
Patient Name: Holli Barbosa Procedure Date: 04/28/2020 9:23 AM Date of : 1945 Admit Type: Inpatient Age: 74 Gender: Female Attending MD: Sunny Lujan DO Procedure: Upper GI endoscopy Providers: Sunny Lujan DO Referring MD: Yuko Casas Indications: Dysphagia Medicines: Monitored Anesthesia Care Complications: No immediate complications. Estimated blood loss: None. Estimated Blood Loss: Estimated blood loss was minimal. Procedure: Pre-Anesthesia Assessment: - Prior to the procedure, a History and Physical was performed, and patient medications, allergies and sensitivities were reviewed. The patient's tolerance of previous anesthesia was reviewed. - The risks and benefits of the procedure and the sedation options and risks were discussed with the patient. All questions were answered and informed consent was obtained. - Patient identification and proposed procedure were verified prior to the procedure by the physician, the nurse and the electronics hardware design engineer. The procedure was verified in the procedure room. - Pre-procedure physical examination revealed no contraindications to sedation. - ASA Grade Assessment: III - A patient with severe systemic disease. - After reviewing the risks and benefits, the patient was deemed in satisfactory condition to undergo the procedure. - The anesthesia plan was to use monitored anesthesia care (MAC). - Immediately prior to administration of medications, the patient was re-assessed for adequacy to receive sedatives. - The physical status of the patient was re-assessed after the procedure. After obtaining informed consent, the endoscope was passed under direct vision. Throughout the procedure, the patient's blood pressure, pulse, and oxygen saturations were monitored continuously. The Scope was introduced through the mouth, and advanced to the third part of duodenum. The upper GI endoscopy was accomplished without difficulty. The patient tolerated the procedure well. Findings: The lumen of the esophagus was moderately dilated. Esophagitis with no bleeding was found. Biopsies were taken with a cold forceps for histology. Estimated blood loss was minimal. Evidence of a Amber fundoplication was found in the cardia. The wrap appeared intact. This was traversed. A guidewire was placed and the scope was withdrawn. Dilation was performed with a Savary dilator with mild resistance at 51 Fr. The dilation site was examined following endoscope reinsertion and showed no change. Estimated blood loss was minimal. A medium-sized hiatal hernia was found. The proximal extent of the gastric folds (end of tubular esophagus) was 34 cm from the incisors. The hiatal narrowing was 40 cm from the incisors. The Z-line was 34 cm from the incisors. Diffuse mild inflammation characterized by congestion (edema), erythema and granularity was found in the entire examined stomach. Biopsies were taken with a cold forceps for histology. Estimated blood loss was minimal. The examined duodenum was normal. Impression: - Dilation in the entire esophagus. - Esophagitis. Biopsied. - A Amber fundoplication was found. The esophagus was Dilated to 51 Fr. - Medium-sized hiatal hernia suggestive of a slipped Amber. - Gastritis. Biopsied. - Normal examined duodenum. Recommendation: - Return patient to [facility] for [facility] care. - Advance diet as tolerated. - Perform a barium swallow using barium in liquid and tablet form at appointment to be scheduled. - If patient's upper GI series shows a slipped Amber she may need follow-up wit surgery to determine if repair is needed - Would suggest use of PPI daily Sunny Lujan D.O. Sunny Lujan, 04/28/2020 12:14:07 PM This report has been signed electronically. Note Initiated On: 04/28/2020 9:23 AM Number of Addenda: 0 I attest to the content of the Intraoperative Record and orders documented therein, exceptions below {[id number]}
--- NOTE | 2020-04-28 12:33 | Discharge Summary ---
Date of Service April 28, 2020 Admission HPI Per Admitting Provider This is a 74-year-old female with past medical history significant for hypothyroidism, hyperlipidemia, history of diaphragmatic hernia, COPD, chronic rhinitis, history of atherosclerosis of extremities, CAD, hypertension, GERD, Mcintyre's esophagus, esophageal spasm, chronic kidney disease stage III, senile osteoporosis, degenerative disc disease, atopic dermatitis, primary open angle glaucoma of both eyes, mild anemia, thrombocytopenia, history of herpes simplex type 2 infection, bipolar disorder, obsessive compulsive disorder, schizoaffective, schizophrenia, history of SVT, recurrent falls. The patient lives in an apartment building and sister lives in the same apartment building. She walks sometimes without support and sometimes with walker. Today, after she woke up from sleep around 2:00 p.m., she was very dizzy and she checked her blood pressure, and Could not read the blood pressure. She called her sister and was advised her to come to the ER. In the ER when she came in, her systolic blood pressure was in 60s and she was in SVT and heart rate in 150s. The patient was given fluid bolus and given adenosine and she converted to sinus rhythm. After receiving 2 L of fluids, her systolic blood pressure was in the 90s. Currently, her blood pressure is improved to 120s. She is sitting and eating dinner. She says except for dizziness, she did not felt anything else. Currently dizziness resolved. No palpitations, no chest pain, no shortness of breath, no cough, no fever, no chills. She was nauseous the other day, but currently she has no nausea. She had abdominal pain a couple of days ago, but no abdominal pain now. She is somewhat constipated. Denies any blood in the stool or black stools. Normal bladder movements. No headache, no earache, no runny nose, no sore throat. Appetite is okay. No swelling in the legs, no rash. Currently resting comfortably and hemodynamically stable. Admission Exam Per Admitting Provider GENERAL: The patient is of moderate build, not in acute distress. VITAL SIGNS: Temperature 36.5; pulse 81, when she came in it was in 150s, currently 81; respiratory rate 18, blood pressure when she came in was systolic blood pressure of 66/46, but currently 122/83, oxygen 98% on room air. HEENT: Pupils equal, round, and reactive to light. Oral mucosa moist. NECK: No JVD, no neck masses. CARDIOVASCULAR: S1, S2 heard, regular rate and rhythm, no murmur, no gallop. RESPIRATORY SYSTEM: Normal AP diameter. No accessory muscle use. No wheezing, no crackles. ABDOMEN: Soft, bowel sounds present, nontender. No distention. CENTRAL NERVOUS SYSTEM: Cranial nerves II-XII grossly intact, nonfocal. EXTREMITIES: No edema, no erythema. Principal Diagnosis SVT Dysphagia Discharge Exam General: A&Ox3 HENT: NCAT, MMM, EOMI Eyes: PERRLA Neck: Supple, normal range of motion CVS: normal rate and rhythm Resp: b/l good breath sounds Abdomen: Soft, ND/NT, +BS Extremities: No c/c/e Neuro: face symmetric, strength grossly equal, no focal deficit Skin: warm and dry, no rashes/lesions/errythema MSK: normal ROM, no joint swelling/erythema Discharge Data Allergies Allergy/AdvReac Type Severity Reaction Status Date / Time amoxicillin Allergy Severe HIVES Verified 04/26/20 20:36 latex Allergy Mild RASH Verified 04/26/20 20:36 Consultations 04/26/20 19:31 ED Decision to Admit Stat 04/26/20 21:53 Consult Case Management - Discharge Planning Routine 04/27/20 08:00 Consult Cardiology Routine Consult Gastroenterology Routine Procedures Performed Operation Date: 04/28/20 16:30 Actual Procedures p EGD Biopsy Debra - Sunny Lujan DO Ordered Studies 04/29/20 08:30 FL GI series Routine Hospital Course (1) SVT (supraventricular tachycardia): Patient is 74-year-old female who was admitted with dizziness/hypotension. She was found to be in SVT and received adenosine. Cardiac enzymes were not concerning. EKG was nonischemic. Cardiology was on board. Continue RET[employer]IER Toprol XL 25 mg daily. Continue with atorvastatin. Patient has been off aspirin since 2019 and cardiology was okay with it given bruising and concern for mild thrombocytopenia. Patient to follow-up with EP visit with Dr Momin on 05/10/20. On day of discharge patient was doing okay. Hemodynamically she was doing fine. Patient was discharged in stable condition. (2) Dysphagia: Patient also endorsed some dysphagia on admission. Patient does have history of Mcintyre's esophagus status post Amber fundoplication. Gastroenterology was consulted. Underwent EGD. Continue diet as tolerated continue with daily PPI. Patient to follow-up with gastroenterology as an outpatient for barium swallow. (3) Hypotension: (4) Dizziness: (5) GERD (gastroesophageal reflux disease): (6) Leukopenia: (7) Anemia: (8) GERD (gastroesophageal reflux disease): (9) CKD (chronic kidney disease), stage III: (10) Depression: (11) Abdominal pain: Total Time Total Time Spent Total Time Spent (In Minutes): 35 Discharge Plan Discharge Items Patient Disposition: Home - Self-Care Reason For Visit: SVT Discharge Diagnosis: SVT Dysphagia Condition on Discharge: Fair Activity: Resume your previous activity Non-emergency contact: Primary Care Provider Call non-emergency contact if: your symptoms worsen Follow-up/Referrals: Yuko Casas MD [Primary Care Provider] - 05/05/20 5:00 pm (Date & Time 05/05/2020 5:00 PM Provider Yuko Casas MD Department General Internal Medicine [facility] ) Diet: Heart Healthy Addtl Attending Provider Instructions: Follow-up with your primary care physician. An appointment has been requested. Follow-up with gastroenterology. An appointment has been requested. Follow-up with your scheduled EP appointment. Pending Studies at Discharge: No Stand-Alone Forms: [facility] [employer], Smoking Cessation Medications and DC Order Prescriptions: Continued betamethasone, augmented [Diprolene (augmented)] 0.05 % ointment 1 applic TOPICAL BID RF: 0 atorvastatin [Lipitor] 20 mg Tablet 20 mg PO QPM RF: 0 levothyroxine 25 mcg Tablet 25 mcg PO DAILY RF: 0 quetiapine 300 mg Tablet 300 mg PO HS RF: 0 pantoprazole 40 mg Tablet,Delayed Release (Dr/Ec) 40 mg PO BID RF: 0 nitroglycerin 0.4 mg Tablet, Sublingual 0.4 mg Sublingual DIRECTED PRN (Reason: Chest Pain) RF: 0 metoprolol succinate 25 mg Tablet Extended Release 24 Hr 25 mg PO QAM RF: 0 venlafaxine 150 mg Tablet Extended Release 24hr 150 mg PO QAM RF: 0 cholecalciferol (vitamin D3) [Vitamin D3] 5,000 unit Tablet 5,000 unit PO DAILY RF: 0 gabapentin 100 mg capsule 100 mg PO QAM RF: 0 gabapentin 100 mg capsule 200 mg PO HS RF: 0 sennosides [senna] 8.6 mg Tablet 17.2 mg PO BID PRN (Reason: Constipation) RF: 0 acyclovir 400 mg tablet 400 mg PO UD RF: 0 famotidine 20 mg Tablet 20 mg PO HS PRN (Reason: Acid Reflux) RF: 0 cyanocobalamin (vitamin B-12) [Vitamin B-12] 500 mcg Tablet 500 mcg PO DAILY RF: 0 carbamide peroxide [Debrox] 6.5 % Drops 5 drp OTIC (EAR) .TIDUD RF: 0 clobetasol 0.05 % ointment 1 applic TOPICAL UD PRN (Reason: BREAKOUTS) RF: 0 azelastine 137 mcg (0.1 %) aerosol,spray 1 spray INTRANASAL BID RF: 0 albuterol sulfate 90 mcg/actuation Hfa Aerosol Inhaler 2 inh INHALATION Q4 PRN (Reason: Shortness Of Breath Or Wheezing) RF: 0 Discharge Orders: Discharge Order (Routine); Ordered 04/28/20 Ordered By: Radha Crane Admission Data Admit Date/Time: 04/26/20 21:07 Attending Provider: Radha Crane Admit Provider: Chandrakant Nichols Primary Care Provider: Yuko Casas Other Providers: Chandrakant Nichols ; Victor Manuel Ohara ; Abdiaziz Mata Other Interventions: Discharge Summary Assessment (RN) Last Done: 04/28/20 10:21
--- NOTE | 2020-04-28 16:51 | Electrocardiogram Report ---
Test Reason : Blood Pressure : / mmHG Vent. Rate : 065 BPM Atrial Rate : 065 BPM P-R Int : 188 ms QRS Dur : 084 ms QT Int : 398 ms P-R-T Axes : 064 038 068 degrees QTc Int : 413 ms Normal sinus rhythm Normal ECG When compared with ECG of 27-APR-2020 07:08, No significant change was found Confirmed by Shayne Echevarria ([id number]) on 04/28/2020 4:51:28 PM Referred By: REFERRED SELF Confirmed By:Quentin Echevarria
== END 2020-04-28 13:48 | disposition home or self-care (01) | DRG 309 ==
LOC: ED 17:19 → 2S 21:07

== ENCOUNTER 2024-06-26 21:45 | Observation (INO) ==
--- NOTE | 2024-06-26 22:01 | Emergency Department Note ---
History of Present Illness General Chief complaint: Chest Pain Stated complaint: CHEST PAIN Time Seen by Provider: 06/26/24 21:48 History of Present Illness This 78-year-old female with a history of SVT presents ER for intermittent chest pain for the past few days. Patient saw her family doctor and was advised to go to the ER today as she is some changes to her EKG. Patient denies radiating pain, dyspnea, abdominal pain, leg pain or swelling, cough, congestion. No injury to the area. Home Medications Medication Instructions Recorded Confirmed Type atorvastatin 20 mg tablet (Lipitor) 20 mg PO QAM 03/19/18 06/26/24 History nitroglycerin 0.4 mg sublingual 0.4 mg sublingual DIRECTED PRN 03/19/18 06/26/24 History tablet Chest Pain pantoprazole 40 mg tablet,delayed 40 mg PO BIDM 03/19/18 06/26/24 History release quetiapine 300 mg tablet 300 mg PO HS 03/19/18 06/26/24 History venlafaxine 150 mg tablet,extended 150 mg PO QAM 03/19/18 06/26/24 History release 24 hr gabapentin 100 mg capsule See Rx Instructions .Route .COMPLEX 06/30/19 06/26/24 History azelastine 137 mcg (0.1 %) nasal 1 spray intranasal BID 11/06/19 06/26/24 History spray famotidine 20 mg tablet 20 mg PO BID Acid Reflux 11/06/19 06/26/24 History ondansetron HCl 4 mg tablet 4 mg PO Q8H PRN Nausea 06/28/21 06/26/24 History docusate sodium 100 mg capsule 100 mg PO BID PRN Constipation 05/20/23 06/26/24 History levothyroxine 50 mcg tablet 50 mcg PO DAILYBB 05/20/23 06/26/24 History albuterol sulfate 90 mcg/actuation 2 puff inhalation Q4H PRN Wheezing 06/26/24 06/26/24 History aerosol inhaler cetirizine 10 mg tablet (Zyrtec) 10 mg PO HS 06/26/24 06/26/24 History cyclosporine 0.05 % eye drops in a 1 drp OPB DIRECTED PRN Dry Eyes 06/26/24 06/26/24 History dropperette (Restasis) Allergies Allergy/AdvReac Type Severity Reaction Status Date / Time amoxicillin Allergy Severe HIVES Verified 06/26/24 22:26 latex Allergy Mild RASH Verified 06/26/24 22:26 Past Med/Surg History Problem List Chest pain (Acute) SVT (supraventricular tachycardia) (Acute) Dysphagia GERD (gastroesophageal reflux disease) Bronchitis PSVT (paroxysmal supraventricular tachycardia) Acute chest pain (Acute) Leukopenia (Acute) Anemia (Acute) GERD (gastroesophageal reflux disease) (Chronic) COPD (chronic obstructive pulmonary disease) (Chronic) Cholelithiasis (Chronic) CKD (chronic kidney disease), stage III (Chronic) Anxiety (Chronic) Depression (Chronic) History of paroxysmal supraventricular tachycardia (Chronic) Constipation Ileus Abdominal pain History of repair of hiatal hernia (Chronic) Status post hysterectomy (Chronic) Status post cardiac catheterization (Chronic) "mild disease - 30% mid LAD" Medical History Encounter for pre-operative examination Esophageal dilatation Dizziness Acute dehydration SVT (supraventricular tachycardia) Hypotension Mcintyre esophagus Atypical chest pain Family History Other Cancer Diabetes Heart disease Hypertension Lung disease Social History Smoking Status: Former smoker Tobacco Type: Cigarettes Do You Dip or Chew Tobacco: No; Hx Alcohol Use: No Hx Substance Use: No Preferred Language: Ug[place] Communication Ability: Effective Swamper Required: No Beliefs That Will Affect Care: None Current Living Situation: Alone, Spouse and Parent current occupational status: retired Feels Safe at Home: Yes Assistive Devices: None Review of Systems A total of 10 systems reviewed and were otherwise negative Physical Exam Vital Signs Vital Signs - 24 hr 06/26/24 21:46 06/26/24 21:55 06/26/24 21:55 Temperature 36.5 C Temperature Source Temporal Artery Scan Pulse Rate 104 H Pulse Rate [Apical] 98 H Respiratory Rate 18 16 Respiratory Effort / Characteristics Non-Labored Spontaneous Blood Pressure 134/95 Blood Pressure [Right Arm] 118/92 Blood Pressure Mean 108 Blood Pressure Mean [Right Arm] 100 Blood Pressure Position Sitting Pulse Oximetry 93 97 Oxygen Delivery Method Room Air Room Air Room Air Sepsis Recent Fever Within 48 Hours No Sepsis New/Unexplained Change in Mental Status No Sepsis Action Taken by Nursing No Action Required 06/26/24 21:55 06/26/24 22:07 06/26/24 22:09 Temperature Temperature Source Pulse Rate 98 H 98 H 93 H Pulse Rate [Apical] Respiratory Rate 16 16 Respiratory Effort / Characteristics Blood Pressure Blood Pressure [Right Arm] Blood Pressure Mean Blood Pressure Mean [Right Arm] Blood Pressure Position Pulse Oximetry 97 97 Oxygen Delivery Method Room Air Room Air Sepsis Recent Fever Within 48 Hours Sepsis New/Unexplained Change in Mental Status Sepsis Action Taken by Nursing VITALS: Vitals are noted on the nurse's note and reviewed by myself. Vital signs stable. GENERAL: Pleasant patient, in no acute distress, nondiaphoretic, well-developed well-nourished. SKIN: Capillary reflex less than 2 seconds. HEENT: Normocephalic. PERRLA. EOMI. Nares patent. Mucous membranes moist. Neck is supple without nuchal rigidity. HEART: Regular rate and rhythm LUNGS: Clear to auscultation bilaterally without wheezes, rales or rhonchi. No retractions or accessory muscle use. ABDOMEN: Positive bowel sounds x 4. Normal tympanic percussion. Soft, nontender, without masses or organomegaly. Gilmore sign negative. No guarding or rebound tenderness. no CVA tenderness MUSCULOSKELETAL: No gross musculoskeletal defects. NEURO: Patient was alert and oriented to person place and time. No focal neurological deficits. Course Administered Medications Discontinued Medications Acetaminophen (Ofirmev) 1,000 mg in 100 mls @ 400 mls/hr IV NOW STA Stop: 06/26/24 22:13 Last Infusion: 06/26/24 23:17 Dose: Infused Documented By: Admin: 06/26/24 22:21 Dose: 400 mls/hr Documented By: DOROTHY Ioversol (Optiray 320 125ml) 119 ml IV ONCE ONE Stop: 06/26/24 23:09 Last Admin: 06/26/24 23:09 Dose: 119 ml Documented By: GEORGIANA Medical Decision Making Medical Records Attestation: I reviewed the patient's medical records. Home Medications Current Medication List: was personally reviewed by wv Laboratory Data Attestation: I reviewed the patient's lab results. 06/26/24 21:56 06/26/24 21:56 Lab Results 06/26/24 Range/Units 21:56 WBC 6.43 (4.8-10.8) K/ul RBC 4.70 (4.20-5.40) M/uL Hgb 13.3 (12.0-16.0) g/dl Hct 39.9 (37.0-47.0) % MCV 84.9 (80.0-100.0) fL MCH 28.3 (25.0-34.0) pg MCHC 33.3 (32.0-36.0) g/dL RDW Std Deviation 43.0 (36.4-46.3) fL RDW Coeff of Ximena 13.8 (11.5-14.5) % Plt Count 155 (130-400) K/uL MPV 13.4 H (9.4-12.4) fL Immature Gran % (Auto) 0.3 % Neut % (Auto) 55.7 % Lymph % (Auto) 28.5 % Blackford % (Auto) 11.2 % Eos % (Auto) 3.7 % Baso % (Auto) 0.6 % Neut # (Auto) 3.58 (1.40-6.50) K/uL Lymph # (Auto) 1.83 (1.20-3.40) K/uL Blackford # (Auto) 0.72 H (0.11-0.59) K/uL Eos # (Auto) 0.24 (0.00-0.50) K/uL Baso # (Auto) 0.04 (0.00-0.20) K/uL Immature Gran # (Auto) 0.02 (0.01-0.20) K/uL Sodium 137 (136-145) mmol/L Potassium 3.9 (3.5-5.1) mmol/L Chloride 103 (98-107) mmol/L Carbon Dioxide 32 (21-32) mmol/L Anion Gap 2 L (3-11) BUN 15 (6-23) mg/dl Creatinine 1.13 (0.6-1.2) mg/dl Est Cr Clr Drug Dosing 34.4 ml/min eGFR 49.80 BUN/Creatinine Ratio 13.3 (10-20) Glucose 88 (70-99(Fasting)) mg/dl Calcium 9.7 (8.6-10.3) mg/dl Total Bilirubin 0.5 (0.2-1.0) mg/dl AST 23 (13-39) U/L ALT 14 (7-52) U/L Alkaline Phosphatase 40 (34-104) U/L Troponin I High Sens 4.7 (0-14) pg/ml Total Protein 7.3 (6.0-8.3) gm/dl Albumin 4.4 (3.4-5.0) gm/dl Globulin 2.9 (2.5-4.0) gm/dl Albumin/Globulin Ratio 1.5 (0.9-2) Lipase 28 (11-82) U/L Imaging Data Attestation: I personally reviewed and interpreted this imaging study as follows: Radiologist's Impression: Chest CTA 06/26/24 21:59 Exam(s): CTA CHEST IV Amt: 119ml opti 320 EXAM: CT Angiography Chest With Intravenous Contrast CLINICAL HISTORY: Chest Pain TECHNIQUE: Axial computed tomographic angiography images of the chest with intravenous contrast. MIPS images were created and reviewed. CTDI is 21. 85 mGy and DLP is 541.64 mGy-cm. Automated exposure control was utilized for the study. A dose lowering technique was utilized adhering to the principles of ALARA. MIP reconstructed images were created and reviewed. COMPARISON: CTA chest 09/08/2014 and chest radiograph 11/25/2022 FINDINGS: Pulmonary arteries: Unremarkable. No pulmonary embolus. Aorta: Mild atherosclerosis. No aneurysm. Lungs: Emphysema is noted. Interseptal thickening could relate to atelectasis and/or pulmonary edema. No mass. Pleural space: Unremarkable. No significant effusion. No pneumothorax. Heart: Unremarkable. No cardiomegaly. No significant pericardial effusion. No evidence of RV dysfunction. Mediastinum: Large hiatal hernia. Bones/joints: There are degenerative changes of the spine. No acute fracture. Soft tissues: Unremarkable. Lymph nodes: Unremarkable. No enlarged lymph nodes. IMPRESSION: 1. No pulmonary embolus. 2. Emphysema is noted. Emphysema is an independent risk factor for lung cancer. Recommend evaluation for low dose lung cancer screening protocol. 2. Interseptal thickening could relate to atelectasis and/or pulmonary edema. 4. Large hiatal hernia. Electronically signed by: Steph Rice MD 06/27/24 01:03 AM [facility] Narrative Prior records/ancillary studies reviewed. Triage Nursing notes reviewed. Additional history obtained from nursing. The patient's history was concerning for chest pain. Differential diagnosis: Etiologies such as cardiac ischemia, aortic dissection, pulmonary embolism, pneumonia, pneumothorax, musculoskeletal, infections, pericarditis, myocarditis, esophageal rupture, gastrointestinal, as well as others were entertained. Physical examination: As above. ER treatment provided: An order was placed for continuous cardiac monitoring. The monitor shows a rate of 60-100 with a sinus rhythm per my interpretation. Tylenol was ordered On reassessment the patient felt better. Diagnostic interpretation by me: The electrocardiogram was negative for pathologic change. Ordered for chest pain EKG: Normal sinus, T wave inversion in aVL, no ST changes, rate of 103. Impression sinus tachycardia independently interpreted by myself I think arrhythmia is unlikely. EKG shows normal sinus rhythm with no interval abnormalities such as QT prolongation or WPW. There are no findings to suggest Brugada syndrome. Cardiac monitoring in the emergency department reveals no tachycardic or bradycardic dysrhythmia. Hypertrophic cardiomyopathy was considered but there are no clear historical elements pointing toward this. EKG is not suggestive. The QRS voltage is not extremely large and there are no suggestive Q waves. The labs Independently Interpreted by myself revealed stable H&H, negative troponin Imaging studies: Imaging was reviewed and read by radiology HEART SCORE: Hx: high/mod/low suspicion: 0 ECG: ST depression/nonspecific changes/normal: 1 Age: Greater than 65/45-64/less than 45: 2 Risk factors: (Hypertension, hyperlipidemia, diabetes, coronary disease, tobacco use, cocaine use): 2 Troponin: Greater than 2 times normal limits/1-2 times normal limits/normal: 0 Total: 5 Consultation: A consultation was placed with the hospitalist. The case was discussed and diagnostics were reviewed. The patient was evaluated in the ER for further treatment. Exam and history seem consistent with chest pain with risk factors for heart disease. Patient was sent in by the family doctor for admission for cardiac workup. By the evaluation outlined above emergent etiologies such as aortic dissection, pulmonary embolism, pneumonia, pneumothorax, infections, pericarditis, myocarditis, gastrointestinal, as well as others were deemed relatively unlikely. The pt informed about the findings as listed above. All questions were answered and pleased with the treatment. The chart was completed utilizing [employer] voice recognition software. Grammatical errors, random word insertions, pronoun errors, and incomplete sentences are an occassional consequence of this system due to software limitations, ambient noise, and hardware issues. Any formal questions or concerns about the content, text, or information contained within the body of this dictation should be directly addressed to the physician executive personal assistant for clarification. Impression & Plan Chest pain Discharge Plan Visit Data Chief Complaint: Chest Pain Stated Complaint: CHEST PAIN ED Provider: Carmen Newton ED Midlevel Provider: Sherin Lares Discharge Problem: Chest pain Patient Disposition: Admitted As Inpatient Condition: Good Forms Stand Alone Forms: My [facility] Prescriptions Prescriptions: No Action atorvastatin [Lipitor] 20 mg Tablet 20 mg PO QAM quetiapine 300 mg Tablet 300 mg PO HS pantoprazole 40 mg Tablet,Delayed Release (Dr/Ec) 40 mg PO BIDM nitroglycerin 0.4 mg Tablet, Sublingual 0.4 mg Sublingual DIRECTED PRN (Reason: Chest Pain) Rx Instructions: PLACE ONE TABLET UNDER THE TONGUE EVERY 5 MINUTES FOR UP TO 3 DOSES OVER 15 MINUTES IF NEEDED FOR CHEST PAIN venlafaxine 150 mg Tablet Extended Release 24hr 150 mg PO QAM gabapentin 100 mg capsule See Rx Instructions .ROUTE .COMPLEX Rx Instructions: TAKES 100 MG QAM, THEN 200 MG QHS. famotidine 20 mg Tablet 20 mg PO BID azelastine 137 mcg (0.1 %) aerosol,spray 1 spray INTRANASAL BID ondansetron HCl 4 mg Tablet 4 mg PO Q8H PRN (Reason: Nausea) levothyroxine 50 mcg tablet 50 mcg PO DAILYBB docusate sodium 100 mg Capsule 100 mg PO BID PRN (Reason: Constipation) cetirizine [Zyrtec] 10 mg Tablet 10 mg PO HS albuterol sulfate 90 mcg/actuation HFA aerosol inhaler 2 puff INHALATION Q4H PRN (Reason: Wheezing) cyclosporine [Restasis] 0.05 % Dropperette 1 drp OPB DIRECTED PRN (Reason: Dry Eyes) Referrals Referrals: Yuko Casas MD [Primary Care Provider] - Discharge Problem: Chest pain Qualifiers: Chest pain type: unspecified Qualified Code(s): R07.9 - Chest pain, unspecified
[2024-06-26] MEDS: ACETAMINOPHEN 1,000 MG/100 ML VIAL IV STA (22:21)
[2024-06-26 22:32] LABS: Albumin Globulin Ratio 1.5 (0.9-2); Albumin Level 4.4 gm/dl (3.4-5.0); BUN Creatinine Ratio 13.3 (10-20); Bilirubin,Total 0.5 mg/dl (0.2-1.0); Calcium 9.7 mg/dl (8.6-10.3); Creatinine Clr Calc Pharmacy 34.4 ml/min; Globulin 2.9 gm/dl (2.5-4.0); Potassium 3.9 mmol/L (3.5-5.1); Total Protein 7.3 gm/dl (6.0-8.3)
[2024-06-26 22:37] LABS: Basophils # (auto) 0.04 K/uL (0.00-0.20); Basophils % (auto) 0.6 %; Eosinophils # (auto) 0.24 K/uL (0.00-0.50); Eosinophils % (auto) 3.7 %; Hematocrit (blood only) 39.9 % (37.0-47.0); Hemoglobin 13.3 g/dl (12.0-16.0); Immature Granulocytes # (auto) 0.02 K/uL (0.01-0.20); Immature Granulocytes % (auto) 0.3 %; Lymphocytes # (auto) 1.83 K/uL (1.20-3.40); Lymphocytes % (auto) 28.5 %; Mean Corpuscular Hemoglobin 28.3 pg (25.0-34.0); Mean Corpuscular Hgb Conc 33.3 g/dL (32.0-36.0); Mean Corpuscular Volume 84.9 fL (80.0-100.0); Mean Platelet Volume 13.4 fL (9.4-12.4); Monocytes # (auto) 0.72 K/uL (0.11-0.59); Monocytes % (auto) 11.2 %; Neutrophils # (auto) 3.58 K/uL (1.40-6.50); Neutrophils % (auto) 55.7 %; Platelet Count 155 K/uL (130-400); RDW Coefficient of Variation 13.8 % (11.5-14.5); White Blood Count 6.43 K/ul (4.8-10.8)
[2024-06-26 22:39] LABS: Troponin I High Sensitivity 4.7 pg/ml (0-14)
[2024-06-26] MEDS: OPTIRAY 320 125ml IV ONE (23:09)
--- NOTE | 2024-06-26 23:45 | Emergency Department Note ---
ED Visit Note I was consulted by the Advanced Practice Provider, Sherin Lares PA-C. I performed a substantive portion of the visit. This includes aspects of: History: Patient is a 78-year-old female presenting with chest pain. She reportedly has been having anterior chest pain on and off for the last few days. She was seen at her primary care provider's office today and reportedly had an abnormal EKG and was referred to the emergency department. No previous stent history. She has a history of hiatal hernia surgical repair. Pain-free on arrival to the emergency department. MDM: - Laboratory workup grossly unremarkable in the emergency department. - EKG image reviewed by myself showed normal sinus rhythm. Rate tachycardic at 103 bpm. QT 326. No acute ischemic changes. However, the patient is noted to have significant artifact at baseline, most notably in V5. - Patient to be admitted to inpatient [facility] service for further evaluation and management for her chest pain. .
--- NOTE | 2024-06-27 01:05 | CT Scan Report ---
Exam(s): CTA CHEST IV Amt: 119ml opti 320 EXAM: CT Angiography Chest With Intravenous Contrast CLINICAL HISTORY: Chest Pain TECHNIQUE: Axial computed tomographic angiography images of the chest with intravenous contrast. MIPS images were created and reviewed. CTDI is 21. 85 mGy and DLP is 541.64 mGy-cm. Automated exposure control was utilized for the study. A dose lowering technique was utilized adhering to the principles of ALARA. MIP reconstructed images were created and reviewed. COMPARISON: CTA chest 09/08/2014 and chest radiograph 11/25/2022 FINDINGS: Pulmonary arteries: Unremarkable. No pulmonary embolus. Aorta: Mild atherosclerosis. No aneurysm. Lungs: Emphysema is noted. Interseptal thickening could relate to atelectasis and/or pulmonary edema. No mass. Pleural space: Unremarkable. No significant effusion. No pneumothorax. Heart: Unremarkable. No cardiomegaly. No significant pericardial effusion. No evidence of RV dysfunction. Mediastinum: Large hiatal hernia. Bones/joints: There are degenerative changes of the spine. No acute fracture. Soft tissues: Unremarkable. Lymph nodes: Unremarkable. No enlarged lymph nodes. IMPRESSION: 1. No pulmonary embolus. 2. Emphysema is noted. Emphysema is an independent risk factor for lung cancer. Recommend evaluation for low dose lung cancer screening protocol. 2. Interseptal thickening could relate to atelectasis and/or pulmonary edema. 4. Large hiatal hernia. Electronically signed by: Steph Rice MD 06/27/24 01:03 AM
--- NOTE | 2024-06-27 01:10 | History & Physical Report ---
Date of Service June 27, 2024 Assessment & Plan (1) Chest pain: Plan: 78-year-old female with past medical history significant for hypothyroidism, dyslipidemia, COPD, diaphragmatic hernia without obstruction, chronic rhinitis, history of arthrosclerosis of bilateral legs, history of CAD, hypertension, orthostatic hypotension, SVT, GERD, Mcintyre's esophagus, CKD stage III, female stress incontinence, senile osteoporosis, degenerative disc disease, primary op en-angle glaucoma both eyes mild stage, anemia, history of thrombocytopenia, history of herpes simplex type II infection, bipolar 1 disorder, obsessive- compulsive disorder, Schizoaffective schizophrenia, paranoid schizophrenia, depression, GERD and generalized anxiety disorder who lives alone at home and ambulates with a walker comes because of chest pain. Patient having chest pain on and off for last few days. Saw PCP on June 22 and because some EKG changes there is a plan for nuclear stress test. But patient again today called PCP office as chest pain recurred and was advised to come to the ER. Patient says the pain comes on and off on its own. Initially the pain was on right side and then moved to the left side and now all over chest. Mild to moderate in severity. Currently pain resolved. Was having some sweating during the episodes. Denies shortness of breath. Denies dizziness. No nausea. No runny nose or sore throat. Feels congested. No fevers. Appetite is okay. Has some abdominal discomfort. Has constipation and uses stool softeners. Micturates okay. Currently resting comfortably and hemodynamically stable. Grandson is in the room. Chest pain On and off Initial EKG and troponin unremarkable CTA chest no PE Mild nonobstructive CAD on left heart catheterization 09/2014 There is a plan for nuclear stress test as outpatient Will monitor in the hospital Keep n.p.o. Serial enzymes and repeat EKG and echo Consult cardiology in a.m. for further recommendation History of nonobstructive CAD On Lipitor Hypothyroidism On Synthyroid CKD stage III Creatinine 1.1 Will follow labs GERD Mcintyre's esophagus On famotidine and Protonix History of SVT Status post ablation History of bipolar 1 disorder History of obsessive-compulsive disorder History of schizoaffective schizophrenia History of paranoid schizophrenia Continue home medications DVT prophylaxis SCDs Disposition Observation med/telemetry Full code. History of Present Illness Chief Complaint: Chest pain Primary Care Provider: Yuko Casas MD 78-year-old female with past medical history significant for hypothyroidism, dyslipidemia, COPD, diaphragmatic hernia without obstruction, chronic rhinitis, history of arthrosclerosis of bilateral legs, history of CAD, hypertension, orthostatic hypotension, SVT, GERD, Mcintyre's esophagus, CKD stage III, female stress incontinence, senile osteoporosis, degenerative disc disease, primary open-angle glaucoma both eyes mild stage, anemia, history of thrombocytopenia, history of herpes simplex type II infection, bipolar 1 disorder, obsessive- compulsive disorder, Schizoaffective schizophrenia, paranoid schizophrenia, depression, GERD and generalized anxiety disorder who lives alone at home and ambulates with a walker comes because of chest pain. Patient having chest pain on and off for last few days. Saw PCP on June 22 and because some EKG changes there is a plan for nuclear stress test. But patient again today called PCP office as chest pain recurred and was advised to come to the ER. Patient says the pain comes on and off on its own. Initially the pain was on right side and then moved to the left side and now all over chest. Mild to moderate in severity. Currently pain resolved. Was having some sweating during the episodes. Denies shortness of breath. Denies dizziness. No nausea. No runny nose or sore throat. Feels congested. No fevers. Appetite is okay. Has some abdominal discomfort. Has constipation and uses stool softeners. Micturates okay. Currently resting comfortably and hemodynamically stable. Grandson is in the room. Past medical history. As mentioned above Past surgical history. Colonoscopy. Dilatation curettage. EGD. EGD with biopsy. Laparoscopic esophagogastric fundoplasty Amber. Esophagoscopy. Ligation of oviducts. Bilateral cataracts. Repair of paraesophageal hernia. Shoulder surgery. Total abdominal hysterectomy with removal of tubes. Social history. Quit smoking 1983. Smoked 3 packs a day for 20 years. No alcohol use. No drug use. Family history. Mother had breast cancer. Thyroid disorder. Father had blood cancer. CHF. Stroke. Hypertension. Emphysema. Sister had breast cancer. History of diabetes. Hypertension. History of depression. Brother had depression. Allergies Allergy/AdvReac Type Severity Reaction Status Date / Time amoxicillin Allergy Severe HIVES Verified 06/26/24 22:26 latex Allergy Mild RASH Verified 06/26/24 22:26 Home Medications Medication Instructions Recorded Confirmed Type atorvastatin 20 mg tablet (Lipitor) 20 mg PO QAM 03/19/18 06/26/24 History nitroglycerin 0.4 mg sublingual 0.4 mg sublingual DIRECTED PRN 03/19/18 06/26/24 History tablet Chest Pain pantoprazole 40 mg tablet,delayed 40 mg PO BIDM 03/19/18 06/26/24 History release quetiapine 300 mg tablet 300 mg PO HS 03/19/18 06/26/24 History venlafaxine 150 mg tablet,extended 150 mg PO QAM 03/19/18 06/26/24 History release 24 hr gabapentin 100 mg capsule See Rx Instructions .Route .COMPLEX 06/30/19 06/26/24 History azelastine 137 mcg (0.1 %) nasal 1 spray intranasal BID 11/06/19 06/26/24 History spray famotidine 20 mg tablet 20 mg PO BID Acid Reflux 11/06/19 06/26/24 History ondansetron HCl 4 mg tablet 4 mg PO Q8H PRN Nausea 06/28/21 06/26/24 History docusate sodium 100 mg capsule 100 mg PO BID PRN Constipation 05/20/23 06/26/24 History levothyroxine 50 mcg tablet 50 mcg PO DAILYBB 05/20/23 06/26/24 History albuterol sulfate 90 mcg/actuation 2 puff inhalation Q4H PRN Wheezing 06/26/24 06/26/24 History aerosol inhaler cetirizine 10 mg tablet (Zyrtec) 10 mg PO HS 06/26/24 06/26/24 History cyclosporine 0.05 % eye drops in a 1 drp OPB DIRECTED PRN Dry Eyes 06/26/24 06/26/24 History dropperette (Restasis) Past Med/Surg History Problem List Chest pain (Acute) SVT (supraventricular tachycardia) (Acute) Dysphagia GERD (gastroesophageal reflux disease) Bronchitis PSVT (paroxysmal supraventricular tachycardia) Acute chest pain (Acute) Leukopenia (Acute) Anemia (Acute) GERD (gastroesophageal reflux disease) (Chronic) COPD (chronic obstructive pulmonary disease) (Chronic) Cholelithiasis (Chronic) CKD (chronic kidney disease), stage III (Chronic) Anxiety (Chronic) Depression (Chronic) History of paroxysmal supraventricular tachycardia (Chronic) Constipation Ileus Abdominal pain History of repair of hiatal hernia (Chronic) Status post hysterectomy (Chronic) Status post cardiac catheterization (Chronic) "mild disease - 30% mid LAD" Medical History Encounter for pre-operative examination Esophageal dilatation Dizziness Acute dehydration SVT (supraventricular tachycardia) Hypotension Mcintyre esophagus Atypical chest pain Family History Other Cancer Diabetes Heart disease Hypertension Lung disease Social History Smoking Status: Never smoker Tobacco Type: Cigarettes Second Hand Exposure: No; Do You Dip or Chew Tobacco: No; Hx Alcohol Use: No Hx Substance Use: No Preferred Language: Estonian Communication Ability: Effective Accounts Payable Specialist Required: No Beliefs That Will Affect Care: None Current Living Situation: Alone current occupational status: retired Other Information That Helps Us Care for You: No Feels Safe at Home: Yes Safety Concerns: Feels Safe At This Time Assistive Devices: Glasses and Walker Assistive Devices Comment: Only uses walker when leaves home. Review of Systems Review of Systems: All systems reviewed & are unremarkable except as noted in HPI & below Physical Exam Physical Exam: General- Not in distress Head- atraumatic Eyes- PERRL. ENT- oropharynx clear Neck- supple, no JVD. Lungs- clear to auscultation no wheezing or crackles Heart- regular rate and rhythm; no murmur, no gallop. Abdomen- normal bowel sounds, soft, nontender, no distension Extremities- no pretibial edema, no erythema seen Neuro- alert, oriented PERRL, no facial palsy; no dysarthria; moves extremities Results & Data Results & Data Vital Signs (Past 12 Hours) Vital Signs Temp Pulse Pulse Resp BP BP Pulse Ox 06/26/24 22:09 93 H 06/26/24 22:07 98 H 16 97 06/26/24 21:55 98 H 16 97 06/26/24 21:55 98 H 16 118/92 97 06/26/24 21:55 06/26/24 21:46 36.5 C 104 H 18 134/95 93 O2 Del Method 06/26/24 22:09 06/26/24 22:07 Room Air 06/26/24 21:55 Room Air 06/26/24 21:55 Room Air 06/26/24 21:55 Room Air 06/26/24 21:46 Room Air Diagnostic Findings Laboratory Results WBC 6.43 K/ul (4.8-10.8) 06/26/24 21:56 RBC 4.70 M/uL (4.20-5.40) 06/26/24 21:56 Hgb 13.3 g/dl (12.0-16.0) 06/26/24 21:56 Hct 39.9 % (37.0-47.0) 06/26/24 21:56 MCV 84.9 fL (80.0-100.0) 06/26/24 21:56 MCH 28.3 pg (25.0-34.0) 06/26/24 21:56 MCHC 33.3 g/dL (32.0-36.0) 06/26/24 21:56 RDW Std Deviation 43.0 fL (36.4-46.3) 06/26/24 21:56 RDW Coeff of Ximena 13.8 % (11.5-14.5) 06/26/24 21:56 Plt Count 155 K/uL (130-400) 06/26/24 21:56 MPV 13.4 fL (9.4-12.4) H 06/26/24 21:56 Immature Gran % (Auto) 0.3 % 06/26/24 21:56 Neut % (Auto) 55.7 % 06/26/24 21:56 Lymph % (Auto) 28.5 % 06/26/24 21:56 [place] % (Auto) 11.2 % 06/26/24 21:56 Eos % (Auto) 3.7 % 06/26/24 21:56 Baso % (Auto) 0.6 % 06/26/24 21:56 Neut # (Auto) 3.58 K/uL (1.40-6.50) 06/26/24 21:56 Lymph # (Auto) 1.83 K/uL (1.20-3.40) 06/26/24 21:56 [place] # (Auto) 0.72 K/uL (0.11-0.59) H 06/26/24 21:56 Eos # (Auto) 0.24 K/uL (0.00-0.50) 06/26/24 21:56 Baso # (Auto) 0.04 K/uL (0.00-0.20) 06/26/24 21:56 Immature Gran # (Auto) 0.02 K/uL (0.01-0.20) 06/26/24 21:56 Sodium 137 mmol/L (136-145) 06/26/24 21:56 Potassium 3.9 mmol/L (3.5-5.1) 06/26/24 21:56 Chloride 103 mmol/L (98-107) 06/26/24 21:56 Carbon Dioxide 32 mmol/L (21-32) 06/26/24 21:56 Anion Gap 2 (3-11) L 06/26/24 21:56 BUN 15 mg/dl (6-23) 06/26/24 21:56 Creatinine 1.13 mg/dl (0.6-1.2) 06/26/24 21:56 Est Cr Clr Drug Dosing 34.4 ml/min 06/26/24 21:56 eGFR 49.80 06/26/24 21:56 BUN/Creatinine Ratio 13.3 (10-20) 06/26/24 21:56 Glucose 88 mg/dl (70-99(Fasting)) 06/26/24 21:56 Calcium 9.7 mg/dl (8.6-10.3) 06/26/24 21:56 Total Bilirubin 0.5 mg/dl (0.2-1.0) 06/26/24 21:56 AST 23 U/L (13-39) 06/26/24 21:56 ALT 14 U/L (7-52) 06/26/24 21:56 Alkaline Phosphatase 40 U/L (34-104) 06/26/24 21:56 Troponin I High Sens 4.7 pg/ml (0-14) 06/26/24 21:56 Total Protein 7.3 gm/dl (6.0-8.3) 06/26/24 21:56 Albumin 4.4 gm/dl (3.4-5.0) 06/26/24 21:56 Globulin 2.9 gm/dl (2.5-4.0) 06/26/24 21:56 Albumin/Globulin Ratio 1.5 (0.9-2) 06/26/24 21:56 Lipase 28 U/L (11-82) 06/26/24 21:56 ECG Additional Comments: ECG. Sinus tachycardia to 103. No significant change was found. Code Status & VTE Plan VTE Prophylaxis Plan VTE Prophylaxis will be ordered: Yes (1) Chest pain Chest pain type: unspecified Qualified Code(s): R07.9 - Chest pain, unspecified
[2024-06-27] MEDS ORDERED: POLYETHYLENE (MIRALAX) 17 GM PACK PO PRN (02:10)
[2024-06-27] MEDS ORDERED: NITROGLYCERIN SL 0.4 MG/TAB TAB SL PRN (02:10)
[2024-06-27] MEDS ORDERED: ALBUTEROL HFA 8 GM INHALER INH PRN (02:10)
[2024-06-27] MEDS ORDERED: DOCUSATE SODIUM 100 MG CAP PO PRN (02:10)
[2024-06-27] MEDS ORDERED: ACETAMINOPHEN 325 MG TAB PO PRN (02:10)
[2024-06-27] MEDS ORDERED: ARTIFICIAL TEARS OPB PRN (02:47)
--- OUTSIDE RECORDS SUMMARY | 2024-06-27 02:57 | External Medical Summary | Summary of Care ---
Author Name Unknown Organization [facility] Address [address] [place] [address] Phone [phone] Care Team Providers Care Case Advocate Name Role Phone Yuko Casas MD Primary Care Provider [phone] Reason for Referral * Evaluate & Treat - Unlimited Visits (Within 10 days (routine)) - Authorized Specialty Diagnoses / Procedures Referred By Mesha garcia Referred To Contact Dermatology Diagnoses Dry skin dermatitis Bertram Hargrove DO [address] [place] [address] Phone: tel: fax: Referral ID Status Reason Start Date Expiration Date Visits Requested Visits Authorized [id number] Authorized Specialty Services Required 06/22/2024 999 [id number] Question Answer Referral Priority Within 10 days (routine) Where should this appointment be scheduled? [facility] Are you referring the patient for Mohs Surgery and have a current positive skin cancer biopsy result? No What is the reason for the patient referral? Rash/Skin Check/Eval of Lesion or Mole * Precert (Within 10 days (routine)) - Authorized Specialty Diagnoses / Procedures Referred By Mesha garcia Referred To Contact Radiology Diagnoses Atypical chest pain Abnormal EKG Procedures NM MYOCARD PERF IMG SPECT MULT STUDIES WITH PHARM INTERV Bertram Hargrove DO [address] [place] [address] Phone: tel: fax: Referral ID Status Reason Start Date Expiration Date V isits Requested Visits Authorized [id number] Authorized Precert 06/22/2024 999 [id number] Reason for Visit * Reason Comments Chest Discomfort Encounter Details Date Type Department Care Team (Latest Contact Info) Description 06/22/2024 2:20 PM EDT Office Visit General Internal Medicine Dave Giraldo [place] [address] [facility] [place] [address] Nicholechristiano Bertram Melissa, [address] [facility] [place] [address] Atypical chest pain*; COPD, group B, by GOLD 2017 classification (HCC); Coronary artery disease involving [place] coronary artery of [place] heart without angina pectoris; Essential (primary) hypertension; Abnormal EKG; Dry skin dermatitis Allergies Active Allergy Reactions Criticality Noted Date Comments Amoxicillin Rash 06/20/2015 Latex Rash 04/05/2009 irritation Other Allergy (See Comments) Rash Low 04/27/2021 1+) reactions to methyldibromo glutaronitrile Fragrance mix Propolis iodopropynyl butylcarbamate methylisothiazoline documented as of this encounter (statuses as of 06/22/2024) Medications venlafaxine XR (EFFEXOR XR) 150 MG CP24 1 Capsule every morning. Active QUEtiapine (SEROQUEL) 300 MG Tablet Take 1 Tablet by mouth at bedtime. 30 Tab 5 07/18/19 16 Active cycloSPORINE 0.05 % Ophthalmic Emulsion (Restasis) Instill into both eyes as needed for Dry eyes. 03/23/19 23 Active Azelastine HCl 0.1 % Nasal Solution (Astelin)Indicatio ns:Chronic rhinitis use 1 spray in each nostril twice daily 30 mL 5 05/03/19 24 Active Albuterol Sulfate HFA 108 (90 Base) MCG/ACT Inhalation Aerosol SolutionIndication s:Wheezing Inhale 2 Puffs by mouth every 4 hours as needed for Wheezing. 54 g 2 10/04/19 24 Active Gabapentin 100 MG Oral Capsule (Neurontin)Indicat ions:DDD (degenerative disc disease), lumbar TAKE ONE CAPSULE BY MOUTH IN THE MORNING AND 2 CAPSULES AT BEDTIME 270 Capsule 3 11/20/19 24 Active Atorvastatin Calcium 20 MG Oral Tablet (Lipitor)Indicatio ns:Dyslipidemia, goal LDL below 100 TAKE 1 TABLET BY MOUTH EVERY MORNING 90 Tablet 3 12/18/19 24 Active ZyrTEC Allergy 10 MG Oral Capsule (Cetirizine HCl) Take 1 Capsule by mouth in the morning. Active Famotidine 20 MG Oral Tablet (Pepcid)Indication s:Gastroesophageal reflux disease without esophagitis TAKE 1 TABLET BY MOUTH TWICE DAILY EVERY MORNING AND BEFORE BEDTIME 180 Tablet 1 01/15/20 24 Active Denosumab 60 MG/ML Subcutaneous Solution Prefilled Syringe (Prolia) Inject 60 mg under the skin once. Active Levothyroxine Sodium 50 MCG Oral Tablet (Levoxyl) TAKE 1 TABLET BY MOUTH EVERY MORNING AT LEAST 30 MINUTES PRIOR TO BREAKFAST OR OTHER MEDICATIONS 90 Tablet 1 02/07/20 24 Active Ondansetron 4 MG Oral Tablet Disintegrating (Zofran) DISSOLVE 1 TABLET UNDER TONGUE EVERY 8 HOURS NEEDED FOR NAUSEA 20 Tablet 1 03/09/19 25 Active Docusate Sodium 100 MG Oral TabletIndications: Other constipation Take 1 Tablet by mouth 2 times a day as needed for Constipation. 180 Tablet 3 04/07/19 25 Active Pantoprazole Sodium 40 MG Oral Tablet Delayed Release (Protonix)Indicati ons:Gastroesophage al reflux disease without esophagitis TAKE 1 TABLET BY MOUTH TWICE DAILY 30 to 60 minutes before breakfast and dinner 180 Tablet 3 05/28/19 25 Active Nitroglycerin 0.4 MG Sublingual Tablet Sublingual (Nitrostat)Indicat ions:Coronary artery disease involving [place] coronary artery of [place] heart without angina pectoris Place 1 Tablet under the tongue every 5 minutes as needed for Pain, Chest. 25 Tablet 06/23/19 25 Active Nitroglycerin 0.4 MG Sublingual Tablet Sublingual (Nitrostat)Indicat ions:Acute ala-PV-lgdbhcslo myocardial infarction (HCC) PLACE 1 TABLET UNDER THE TONGUE NEEDED FOR CHEST PAIN. MAY REPEAT 3 TIMES. IF CHEST PAIN CONTINUES CALL 911 25 Tablet 05/09/19 23 025 Discontin ued(Refil l) Benzonatate 100 MG Oral Capsule (Chang Lopez) Take 1 Capsule by mouth 3 times a day as needed for Cough. Do not cut, crush, or chew. 30 Capsule 01/28/20 24 025 Discontin ued(Patie nt preferenc e/discont inuation) Tobramycin-dexAMET Hasone 0.3-0.1 % Ophthalmic Suspension (Tobradex) 06/09/19 25 025 Discontin ued(End of Procedure ) documented as of this encounter (statuses as of 06/22/2024) Active Problems Problem Noted Date Diagnosed Date Female stress incontinence 06/16/2024 Major depressive disorder, recurrent, moderate 0 04/07/2024 Supraventricular tachycardia, unspecified 2024 Generalized anxiety disorder 04/07/2024 Generalized anxiety disorder 04/07/2024 COPD, group B, by GOLD 2017 classification 02/12 Overview: Per COPD GOLD Classification Paranoid schizophrenia 04/10/2021 Orthostatic hypotension 04/10/2021 Hypertensive kidney disease with stage 3a chronic kidney disease 04/25/2020 Atopic dermatitis 09/22/2019 Chronic rhinitis 03/31/2019 Thrombocytopenia 03/24/2019 Essential (primary) hypertension 03/24/2019 Anemia 04/04/2018 DDD (degenerative disc disease), lumbar 04/04/19 19 Other atherosclerosis of [place] arteries of extremities, bilateral legs 11/14/2017 Coronary artery disease invo lving [place] coronary artery of [place] heart without angina pectoris 11/14/2017 Overview (11/14/2017): Mild 30% lesion mid LAD. NSTEMI at that time more attributted to tachyarrhythmia. 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 03/15/2014 Schizo-affective schizophrenia 09/14/2013 Senile osteoporosis 11/21/2011 Obsessive-compulsive disorder 02/21/2010 Diaphragmatic hernia without obstruction and without gangrene 04/28/2009 Gastroesophageal reflux disease without esophagi tis 06/12/2004 Overview (06/12/2004): currently taking Prilosec, reglan Bipolar I disorder, most recent episode manic Overview (06/12/2004): Bipolar Affective Disorder Manic-Unspecified; no longer receiving tx for this disorder Herpes simplex type 2 infection 08/17/2003 documented as of this encounter (statuses as of 06/22/2024) Resolved Problems Problem Noted Date Diagnosed Date Resolved Date Encounter for examination fo r normal comparison and control in clinical research program 06/03/2018 10/05/2019 Overview (06/20/2020): DO NOT DELETE [employer] II DETECT Study: Project # [id number], Deadener: Kamar Conrad, PhD. SUMMARY: Goal: Establish test characteristics (sensitivity, specificity, PPV, NPV) of a circulating tumor DNA (ctDNA)-based test for cancer. Hypothesis: Circulating tumor DNA (ctDNA) and elevated protein biomarkers (together, the marker panel) can be detected in asymptomatic individuals with early cancer. Specific Aim 1: Determine the prevalence of a positive marker panel test in a prospective clinical cohort of 10,000 asymptomatic women ages 65 to 75 years. Specific Aim 2: Determine the sensitivity, specificity, positive predictive value (PPV) and negative predictive value (NPV) of a marker panel test to identify histologically proven cancers that develop within 5-years of the marker panel evaluation. CONTACTS: During normal business hours, contact study staff at ; after hours Deadener via the [facility] hospital locomotive operator . Please contact study team before resolving/deleting from patients problem list. Study phone number: [phone]. Diagnosis changed due to Research Module. Go to Snapshot for study details. Encounter for examination fo r normal comparison and control in clinical research program 06/03/2018 11/02/2021 Overview (06/20/2020): DO NOT DELETE - [employer] II DETECT Study: Project # [id number], Deadener: Pacheco Kaiser, MS, MPH. SUMMARY: Goal: Establish test characteristics (sensitivity, specificity, PPV, NPV) of a circulating tumor DNA (ctDNA)-based test for cancer. - Hypothesis: Circulating tumor DNA (ctDNA) and elevated protein biomarkers (together, the marker panel) can be detected in asymptomatic individuals with early cancer. - Specific Aim 1: Determine the prevalence of a positive marker panel test in a prospective clinical cohort of 10,000 asymptomatic women ages 65 to 75 years. - Specific Aim 2: Determine the sensitivity, specificity, positive predictive value (PPV) and negative predictive value (NPV) of a marker panel test to identify histologically proven cancers that develop within 5-years of the marker panel evaluation. - CONTACTS: During normal business hours, contact study staff at ; after hours Deadener via the [facility] hospital locomotive operator . - Please contact study team before resolving/deleting from patients problem list. Study phone number: [phone]. Diagnosis changed due to Research Module. Go to Snapshot for study details. Recurrent falls 04/04/2018 07/19/2021 COPD, mild 09/20/2017 02/15/2022 Overview: Per COPD GOLD Classification Dry skin dermatitis 09/20/2017 11/18/19 19 Kidney disease, chronic, sta ge III (GFR 30-59 ml/min) 06/11/2017 01/14/2020 Overview: Per CKD protocol #1 TMJ (sprain of temporomandibular joint) 06/18/2016 02/28/2018 Synovial cyst 11/17/2015 11/17/2015 Esophageal spasm 08/05/2014 07/19/2021 COPD, mild 07/17/2011 08/03/2016 SVT (supraventricular tachycardia) 08/14/2010 07/19/2021 Assessment & Plan (04/21/2021 1:29 PM EST): ZIO patch reviewed by Dr. Lao CONCLUSIONS: Patient had a min HR of 51 bpm, max HR of 119 bpm, and avg HR of 74 bpm. Predominant underlying rhythm was Sinus Rhythm. Isolated SVEs were rare (<1.0%, 155), SVE Couplets were rare (<1.0%, 22), and no SVE Triplets were present. Isolated VEs were rare (<1.0%), and no VE Couplets or VE Triplets were present. Agree with above. No sustained arrhythmias or significant ectopy. Cardiology contacted the patient yesterday the set up of a visit but she had declined an earlier visit and wanted to follow-up with her current scheduled cardiac visit on the of this month. I discussed the results with the patient she was able to report back which she heard. She will follow-up as scheduled. Follow-up examination, naun hernandez other surgery 06/28/2009 03/22/2010 HTN, goal below 140/90 05/26/200909/20 CONGENITAL HIATUS HERNIA - s/p surgery 04/28/2009 10/10/2017 Mendoza's esophagus 01/02/2009 03/22/19 11 Overview (01/12/2009): large hiatal hernia, esophageal mucosal changes suspicious for short term segment barretts esophagus, Barretts esophagus, f/u in 1 yr Formications 03/19/2007 03/22/2010 Osteoporosis 06/12/2004 11/21/2011 Overview (06/12/2004): Osteoporosis Menopause 06/12/2004 03/22/2010 Overview (06/12/2004): surgical Family history of breast can cer in first degree relative 02/13/2018 documented as of this encounter (statuses as of 06/22/2024) Immunizations Name Administration Dates Next Due COVID-19 mRNA, LNP-s, No Pre serve, 2-Dose Series (Moderna) 05/18/2020,04/06/2020 COVID-19 mRNA, LNP-s, No Pre serve, 2-Dose Series (Pfizer) 01/10/2021,05/18/2020,04/06/2020 COVID-19, MRNA-LNP, 24-25, P F, 50 MCG/0.5ML, IM, 12 YRS & ABOVE (Moderna - Spikevax) 12/16/2023 COVID-19, MRNA-LNP, PF, 30 M CG/0.3 mL, 12 YRS AND ABOVE, IM (PFIZER-Comirnaty) 12/07/2022 Covid-19, Mrna, Lnp-s, Pf, B ivalent, 30 Mcg, IM, 12 yrs and above (Pfizer) 01/18/2022 Pneumococcal Conjugate Vacc, 13 Valent (Prevnar) 07/28/2015 Pneumococcal Polysaccharide PPV23 (Pneumovax) 10/19/2010 RSV Vac., Recomb, Adjuvant, PF,0.5 Ml (Arexvy) 12/21/2022 Seasonal Influenza Vac., MDV , IM, 0.5 mL (Fluzone) 11/18/2014,11/25/2013,11/18/2012,11/18,12/06/2010 Seasonal Influenza Virus Vac cine, Unspecified Formulation 12/09/2019,11/17/2018,11/29/2017,11/12,11/17/2015 Seasonal Influenza, High Dos e, Trivalent, PF, IM (Fluzone HD) 12/16/2023 Seasonal Influenza, PF, 6 M & above, IM , (FluLaval or Fluzone) 12/09/2019,11/17/2018,11/29/2017 Seasonal Influenza, Quadriva lent Hd (Fluzone Hd) 11/28/2022,12/11/2021,12/05/2020 Seasonal Influenza, Quadriva lent, No Preserve, IM 11/12/2016,11/17/2015 TD - Tetanus/Diptheria (ADULT) 08/13/2006 TDAP (age 10 and older)(Boostrix) 06/19/2016 TDAP, Age 7 and older, IM (Adacel) 06/19/2016 Varicella Zoster Vaccine Jose Luis lt (Zostavax) 02/07/2012 Zoster Vaccine Recombinant (Shingrix) 08/15/2019 ,04/10/2019 documented as of this encounter Social History Tobacco Use Types Packs/Day Years Used Date Smoking Tobacco: Former Cigarettes 3 20 0 03/04/1963 - 03/04/1983 Smokeless Tobacco: Never Alcohol Use Standard Drinks/Week Comments No 0 (1 standard drink = 0.6 oz pur e alcohol) PHQ-2 Answer Date Recorded PHQ Adult Total Score 0 01/13/2024 Hunger Vital Sign Answer Date Recorded Within the past 12 months, y ou worried that your food would run out before you got the money to buy more. Never true 01/13/20 24 Within the past 12 months, t he food you bought just didn't last and you didn't have money to get more. Never true 01/13/2024 Childcare Answer Date Recorded Do you feel overwhelmed with taking care of a child, family member or friend? No 01/13/2024 Does your family need help f inding childcare? (Household - for ages 0-17 years) Not on file 01/13/2024 Clothing Answer Date Recorded Have you been unable to get clothing when it was really needed? No 01/13/2024 Is your family able to get c lothes or diapers when needed? (Household - for ages 0-17 years) Not on file 01/13/2024 Personal Safety Answer Date Recorded Do you feel unsafe or have concerns for your saf ety? No 01/13/2024 Do you have concerns for you r family's safety? (Household - for ages 0-17 years) Not on file 01/13/2024 Utilities Answer Date Recorded Do you have trouble paying y our heating, water, or electric bill? No 01/13/2024 Is your family able to pay t he heat, water, or electric bill? (Household - for ages 0-17 years) Not on file 01/13/2024 Does your family have access to good internet? (Household - for ages 0-17 years) Not on file 01/13/2024 Employment Status Answer Date Recorded Are you unemployed or without regular income? No 01/13/2024 Does the household have a [email or web address]]lar source of income? (Household - for ages 0-17 years) Not on file 01/13/2024 Social Connections Answer Date Recorded How often do you feel lonely or isolated from th ose around you? Never 01/13/2024 Financial Resource Strain Answer Date R ecorded Do you have any trouble payi ng for your medications, or do you think you might in the future? No 01/13/2024 Does your family have troubl e paying for medicine? (Household - for ages 0-17 years) Not on file 01/13/2024 Transportation Needs Answer Date Record ed Do you have trouble getting a ride to medical visits or work? (Adult - for ages 18 years and over) Not on file 01/13/2024 Does your family have a hard time getting a ride to doctors visits? (Household - for ages 0-17 years) Not on file 01/13/2024 Has lack of transportation k ept you from medical appointments, meetings, work, or from getting things needed for daily living? Check all that apply. No 01/13/2024 Do you (or your family) have trouble finding or paying for a ride (transportation)? (Household - for ages 0-17 years) Not on file 01/13/2024 Housing Stability Answer Date Recorded Do you currently live in a s helter or have no steady place to sleep at night? No 01/13/2024 Do you think you are at risk of becoming homeless? (Adult - for ages 18 years and over) Not on file 01/13/2024 Does your family worry about paying for your home or becoming homeless? (Household - for ages 0-17 years) Not on file 1 03/14/2023 Are you homeless or worried that you might be in the future? No 01/13/2024 Are you (or your family) laci eless or worried that you might be in the future? (Household - for ages 0-17 years) Not on file Food Insecurity Answer Date Recorded Do you need food for this week? No 01/13/2024 Are you able to get enough f ood for your family? (Household - for ages 0-17 years) Not on file 01/13/2024 Does your family need food t his week? (Household - for ages 0-17 years) Not on file 01/13/2024 Do you always have enough fo od for your family? (Household - for ages 0-17 years) Not on file 01/13/2024 Food Insecurity Answer Date Recorded Within the past 12 months, y ou worried that your food would run out before you got the money to buy more. Never true 01/13/20 24 Within the past 12 months, t he food you bought just didn't last and you didn't have money to get more. Never true 01/13/2024 Do you need food for this week? No 01/13/2024 Comments No Sex and Gender Information Value Date Recorded Sex Assigned at Female 07/03/2018 2:21 PM EDT Legal Sex Female 5:10 AM EST Gender Identity Female 07/03/2018 2:21 PM EDT Sexual Orientation Straight 07/03/2018 2: 21 PM EDT documented as of this encounter Last Filed Vital Signs Vital Sign Reading Time Taken Comments Blood Pressure 96/60 06/22/2024 2:08 PM EDT Pulse 106 06/22/2024 2:08 PM EDT Temperature 37 °C (98.6 °F) 06/22/2024 2:08 PM EDT Respiratory Rate 16 06/22/2024 2:08 PM EDT Oxygen Saturation 96% 06/22/2024 2:08 PM EDT Inhaled Oxygen Concentration - - Weight 63.9 kg (140 lb 12.8 oz) 06/22/2024 2:08 PM EDT Height 152.4 cm (5') 06/22/2024 2:08 PM EDT Body Mass Index 27.5 06/22/2024 2:08 PM EDT documented in this encounter Progress Notes * Sandra Mike CMA - 06/22/2024 2:37 PM EDT Patient identified by name and date of . EKG explained and done as ordered. * Bertram Hargrove DO - 06/22/2024 2:11 PM EDT Subjective Holli Barbosa is a 78 year old female. Chief Complaint Patient presents with Chest Discomfort Text in this note was generated using an ambient documentation service. I discussed the use of a device to record and summarize our discussion today. All persons present during the encounter consented to its use. HPI: History of Present Illness The patient presents with chest pain that started approximately two weeks ago. The pain is primarily on the right side but extends across the chest. The patient describes the pain as a sensation of this that increases in intensity. The pain is not obviously associated with activity and can occur while sitting. The patient denies any correlation between the pain and eating or drinking. No relationto deep inspiration The patient also reports experiencing a headache and nausea after taking a previously nitroglycerin tablet The patient has a history of AFib as well as AVNRT. Had ablationin the past. Previously followed with Cardiology a year or so ago. She denies any swelling in her legs or abdomen. No injuries to the chest wall or rib area. Does not note any radiation down either arm or up her jaw. No nausea, vomiting, increased eructation. No change in bowel habits. She did have an echocardiogram done in May 2024 which showed EF 55 60%. No wall motion abnormalities. Right ventricular systolic function normal. Mild LVH. 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 History of MA (myocardial infarction) Acquired hypothyroidism Dyslipidemia, goal LDL below 100 ACEI/ARB contraindicated Primary open angle glaucoma of both eyes, mild stage History of supraventricular tachycardia Other atherosclerosis of [place] arteries of extremities, bilateral legs (HCC) Coronary artery disease involving [place] coronary artery of [place] heart without angina pectoris Anemia DDD (degenerative disc disease), lumbar Thrombocytopenia ([facility]) Essential (primary) hypertension Chronic rhinitis Atopic dermatitis Hypertensive kidney disease with stage 3a chronic kidney disease ([facility]) Paranoid schizophrenia ([facility]) Orthostatic hypotension COPD, group B, by GOLD 2017 classification ([facility]) Major depressive disorder, recurrent, moderate ([facility]) Supraventricular tachycardia, unspecified ([facility]) Generalized anxiety disorder Generalized anxiety disorder Female stress incontinence Current Outpatient Medications Medication Sig Dispense Refill Nitroglycerin 0.4 MG Sublingual Tablet Sublingual (Nitrostat) Place 1 Tablet under the tongue every5 minutes as needed for Pain, Chest. 25 Tablet 0 venlafaxine XR (EFFEXOR XR) 150 MG CP24 1 Capsule every morning. QUEtiapine (SEROQUEL) 300 MG Tablet Take 1 Tablet by mouth at bedtime. 30 Tab 5 cycloSPORINE 0.05 % Ophthalmic Emulsion (Restasis) Instill into both eyes as needed for Dry eyes. Azelastine HCl 0.1 % Nasal Solution (Astelin) use 1 spray in each nostril twice daily 30 mL 5 Albuterol Sulfate HFA 108 (90 Base) MCG/ACT Inhalation Aerosol Solution Inhale 2 Puffs by mouth every 4 hours as needed for Wheezing. 54 g 2 Gabapentin 100 MG Oral Capsule (Neurontin) TAKE ONE CAPSULE BY MOUTH IN THE MORNING AND 2 CAPSULES AT BEDTIME 270 Capsule 3 Atorvastatin Calcium 20 MG Oral Tablet (Lipitor) TAKE 1 TABLET BY MOUTH EVERY MORNING 90 Tablet 3 ZyrTEC Allergy 10 MG Oral Capsule (Cetirizine HCl) Take 1 Capsule by mouth in the morning. Famotidine 20 MG Oral Tablet (Pepcid) TAKE 1 TABLET BY MOUTH TWICE DAILY EVERY MORNING AND BEFORE BEDTIME 180 Tablet 1 Denosumab 60 MG/ML Subcutaneous Solution Prefilled Syringe (Prolia) Inject 60 mg under the skin once. Levothyroxine Sodium 50 MCG Oral Tablet (Levoxyl) TAKE 1 TABLET BY MOUTH EVERY MORNING AT LEAST 30 MINUTES PRIOR TO BREAKFAST OR OTHER MEDICATIONS 90 Tablet 1 Ondansetron 4 MG Oral Tablet Disintegrating (Zofran) DISSOLVE 1 TABLET UNDER TONGUE EVERY 8 HOURS NEEDED FOR NAUSEA 20 Tablet 1 Docusate Sodium 100 MG Oral Tablet Take 1 Tablet by mouth 2 times a day as needed for Constipation.180 Tablet 3 Pantoprazole Sodium 40 MG Oral Tablet Delayed Release (Protonix) TAKE 1 TABLET BY MOUTH TWICE DAILY30 to 60 minutes before breakfast and dinner 180 Tablet 3 No current facility-administered medications for this visit. Past Medical History: Diagnosis Date ACEI/ARB contraindicated 11/17/2015 Hypotension Mendoza's esophagus 01/2009 large hiatal hernia, esophageal mucosal changes suspicious for short term segment barretts esophagus, Barretts esophagus, f/u in 1 yr Bipolar I disorder, most recent episode manic (HCC) 1970s Dr Borden CAD (coronary artery disease) 09/08/2013 NSTMI from SVT Depressive disorder, not elsewhere classified 1974 Dr Lares Esophageal reflux 1968 currently taking Prilosec, reglan Family history of breast cancer in first degree relative Herpes simplex type 2 infection Hyperlipidemia LDL goal < 100 Hypothyroidism 12/08/2013 Osteoporosis 1998 Osteoporosis PSVT (paroxysmal supraventricular tachycardia) (HCC) intermittent with demand NSEMI Short-segment Mendoza's esophagus 07/02/12 Barretts, repeat 3 yrs/UPPER GI ENDOSCOPY DIAGNOSTIC performed by Randy Bauer MD at ENDOSCOPY [facility], biopsies consistent with short segments barretts Past Surgical History: Procedure Laterality Date COLONOSCOPY, DIAGNOSTIC (RECTUM) 03/2003 Colonoscopy DILATION AND CURETTAGE (D&C) mid D&C, non OB X 3 prior to hysterectomy EGD, FLEXIBLE, DIAGNOSTIC 04/11/2009 UPPER GI ENDOSCOPY DIAGNOSTIC performed by FARAZ MCKENZIE at [facility] EGD, FLEXIBLE, DIAGNOSTIC 07/02/2012 Barretts, repeat 3 yrs/UPPER GI ENDOSCOPY DIAGNOSTIC performed by Randy Bauer MD at ENDOSCOPY [facility], biopsies consistent with short segments barretts EGD, FLEXIBLE, DIAGNOSTIC 07/05/2015 Barretts, repeat 3 yrs/ESOPHAGOGASTRODUODENOSCOPY (EGD), FLEXIBLE, TRANSORAL, DIAGNOSTIC performed by Randy Bauer MD at ENDOSCOPY [facility] EGD, FLEXIBLE, DIAGNOSTIC 08/20/2018 Mendoza's esophagitis, retained food, repeat 3 yrs/ESOPHAGOGASTRODUODENOSCOPY (EGD), FLEXIBLE, TRANSORAL, DIAGNOSTIC performed by Randy Bauer MD at ENDOSCOPY [facility] EGD, FLEXIBLE, DIAGNOSTIC 04/28/2020 gastritis, hiatal hernia, normal / [facility] EGD, FLEXIBLE, W/BIOPSY 01/04/09 done large hiatal hernia, esophageal mucosal changes suspicious for short term segment barretts esophagus, Barretts esophagus, f/u in 1 yr EGD, FLEXIBLE, W/BIOPSY 01/29/2011 Mendoza's esophagitis ESOPHAGOGASTRIC FUNDOPLASTY 04/11/2009 LAPAROSCOPIC ESOPHAGOGASTRIC FUNDOPLASTY ELENA performed by FARAZ MCKENZIE at OR [facility] ESOPHAGOSCOPY, FLEXIBLE, DIAGNOSTIC 10/25/2003 Dr. Duron - mendoza's ESOPHAGOSCOPY, FLEXIBLE, DIAGNOSTIC 01/12/2005 INSERT AQUEOUS SHUNT, EXTERNAL APPROACH Left 01/23/2016 iStent performed by Rambo Menendez MD at OR [facility] INSERT AQUEOUS SHUNT, EXTERNAL APPROACH Right 02/09/2016 INSERTION AQUEOUS ANTERIOR DRAINAGE DEVICE W/O EXTRAOCULAR RESERVOIR performed by Rambo Menendez MD at [facility] LIGATE/CUT OVIDUCT(S) 1970 Tubal Ligation,Non Laparoscopic NM THALLIUM STRESS W/SPECT 2007 normal. EF 52% REMOVE CATARACT, INSERT LENS PROSTH Left 01/23/2016 Left EXTRACAPSULAR CATARACT REMOVAL WITH INTRAOCULAR LENS performed by Rambo Menendez MD at OR [facility] REMOVE CATARACT, INSERT LENS PROSTH Right 02/09/2016 Right EXTRACAPSULAR CATARACT REMOVAL WITH INTRAOCULAR LENS performed by Rambo Menendez MD at OR [facility] REPAIR PARAESOPHAGEAL HERNIA 04/11/2009 LAPAROSCOPIC REPAIR PARAESOPHAGEAL HIATUS HERNIA WITH OR WITHOUT FUNDOPLASTY, VAGOTOMY, OR PYLOROPLASTY performed by FARAZ MCKENZIE at [facility] SHOULDER SURGERY PROCEDURE NEC 2005 for OA TOTAL ABD HYSTERECTOMY W/WO REMOVAL OF TUBE(S) 1997 TONNY (Total Abdominal Hysterectomy); large benign tumor as reason for hysterectomy TOTAL ABD HYSTERECTOMY W/WO REMOVAL OF TUBE(S) early 50's TONNY-Bso VASC DUPLEX CAROTID BILAT 08/2006 mild plaque w/o significant stenosis Review of patient's allergies indicates: Allergen Reactions Amoxicillin Rash Latex Rash irritation Other Allergy (See Comments) Rash 1+) reactions to methyldibromo glutaronitrile Fragrance mix Propolis iodopropynyl butylcarbamate methylisothiazoline Family History Problem Relation Name Age of Onset Breast Cancer Mother 50 diagnosed early 50's Thyroid Disorder Mother Cancer Father blood cancer age 50's CLL Heart Disorder Father 80 CHF, stroke Other (Hypertension) Father Lung Disorder Father Emphysema Diabetes Sister Type II dx in early 40's Hypertension Sister Lung Disorder Sister Emphysema and another unspecified lung d/o Thyroid Disorder Sister nodules Mental Disorder Sister Depressive Disorder Breast Cancer Sister 64 double mastectomy Mental Disorder Brother Depressive Disorder Lung Disorder Grandfather (Maternal) Emphysema Hypertension Grandmother (Paternal) Family Status Relation Status Mo Fa Sis Alive Sis Alive Sis (Not Specified) Sis (Not Specified) Sis (Not Specified) Sis (Not Specified) Sis (Not Specified) Sis (Not Specified) Bro Alive Bro at age 20 MVA Bro (Not Specified) MGMA at age 70s MGFA at age 70s PGMA at age 90s PGFA at age 60/70 Suicide from return of bowel cancer Lis at age 35 Overdose with medications. Dx with Bipolar and OCD Social History Socioeconomic History Marital status: Spouse name: Not on file Number of children: 3 Years of education: Not on file Highest education level: Not on file Occupational History Not on file Tobacco Use Smoking status: Former Current packs/day: 0.00 Average packs/day: 3.0 packs/day for 20.0 years (60.0 ttl pk-yrs) Types: Cigarettes Start date: 03/04/1963 Quit date: 03/04/1983 Years since quittin.3 Smokeless tobacco: Never Vaping Use Vaping status: Never Used Substance and Sexual Activity Alcohol use: No Drug use: No Sexual activity: Not Currently control/protection: Surgical Comment: 5 years (asked in August 2003) Other Topics Concern Service Not Asked Blood Transfusions No Caffeine Concern Not Asked Occupational Exposure Not Asked Hobby Hazards Not Asked Sleep Concern Not Asked Stress Concern Not Asked Weight Concern Not Asked Special Diet Not Asked Back Care Not Asked Exercise Not Asked Bike Helmet Not Asked Seat Belt Yes Self-Exams No Social History Narrative Not on file Social Needs Financial Resource Strain: Low Risk (01/13/2024) Financial Resource Strain Do you have any trouble paying for your medications, or do you think you might in the future? (Adult - for ages 18 years and over): No Does your family have trouble paying for medicine? (Household - for ages 0-17 years): Not on file Food Insecurity: No Food Insecurity (01/13/2024) Food Insecurity Worried About Running Out of Food in the Last Year: Never true Ran Out of Food in the Last Year: Never true Do you need food for this week? (Adult - for ages 18 years and over): No Transportation Needs: No Transportation Needs (01/13/2024) Transportation Needs Do you have trouble getting a ride to medical visits or work? (Adult - for ages 18 years and over):Not on file Does your family have a hard time getting a ride to doctors’ visits? (Household - for ages 0-17 years): Not on file Has lack of transportation kept you from medical appointments, meetings, work, or from getting things needed for daily living? Check all that apply. (Adult - for ages 18 years and over): No Do you (or your family) have trouble finding or paying for a ride (transportation)? (Household - for ages 0-17 years): Not on file Social Connections: Socially Integrated (01/13/2024) Social Connections How often do you feel lonely or isolated from those around you? (Adult - for ages 18 years and over): Never Housing Stability: Low Risk (01/13/2024) Housing Stability Do you currently live in a senior living or have no steady place to sleep at night? (Adult - for ages 18 years and over): No Do you think you are at risk of becoming homeless? (Adult - for ages 18 years and over): Not on file Does your family worry about paying for your home or becoming homeless? (Household - for ages 0-17 years): Not on file Are you homeless or worried that you might be in the future? (Adult - for ages 18 years and over): No Are you (or your family) homeless or worried that you might be in the future? (Household - for ages0-17 years): Not on file Review of Systems Constitutional: Negative for chills, fatigue and fever. HENT: Negative for congestion and sore throat. Eyes: Negative for photophobia and itching. Respiratory: Negative for apnea, cough, shortness of breath and wheezing. Cardiovascular: Positive for chest pain. Negative for palpitations and leg swelling. Gastrointestinal: Negative for abdominal distention, abdominal pain, nausea and vomiting. Genitourinary: Negative for dysuria and frequency. Musculoskeletal: Negative for arthralgias and myalgias. Skin: Negative for pallor and rash. Neurological: Negative for dizziness, tremors, weakness, light-headedness, numbness and headaches. Psychiatric/Behavioral: Negative for sleep disturbance. The patient is not nervous/anxious. Objective BP 96/60 (BP Site: Left Arm, BP Position: Sitting, BP Cuff Size: Regular) | Pulse 106 | Temp 98.6 °F (37 °C) (Tympanic) | Resp 16 | Ht 5' (1.524 m) | Wt 140 lb 12.8 oz (63.9 kg) | SpO2 96% | BMI 27.50 kg/m² | BSA 1.64 m² Physical Exam Constitutional: General: She is not in acute distress. Appearance: She is not ill-appearing. HENT: Head: Normocephalic and atraumatic. Right Ear: Tympanic membrane, ear canal and external ear normal. Left Ear: Tympanic membrane, ear canal and external ear normal. Nose: Nose normal. No congestion or rhinorrhea. Mouth/Throat: Mouth: Mucous membranes are moist. Pharynx: Oropharynx is clear. Eyes: Extraocular Movements: Extraocular movements intact. Conjunctiva/sclera: Conjunctivae normal. Pupils: Pupils are equal, round, and reactive to light. Cardiovascular: Rate and Rhythm: Normal rate and regular rhythm. Pulses: Normal pulses. Heart sounds: Normal heart sounds. No murmur heard. No friction rub. No gallop. Pulmonary: Effort: Pulmonary effort is normal. Breath sounds: Normal breath sounds. No wheezing, rhonchi or rales. Comments: There is reproducible tenderness over the sternum. No other palpable Chest: Chest wall: Tenderness present. Abdominal: General: Bowel sounds are normal. There is no distension. Palpations: Abdomen is soft. There is no mass. Tenderness: There is no abdominal tenderness. Musculoskeletal: General: No deformity. Normal range of motion. Cervical back: Normal range of motion and neck supple. Right lower leg: No edema. Left lower leg: No edema. Lymphadenopathy: Cervical: No cervical adenopathy. Skin: General: Skin is warm and dry. Coloration: Skin is not jaundiced. Findings: No rash. Neurological: General: No focal deficit present. Mental Status: She is oriented to person, place, and time. Cranial Nerves: No cranial nerve deficit. Sensory: No sensory deficit. Motor: No weakness. Psychiatric: Mood and Affect: Mood normal. Behavior: Behavior normal. EKG: Reason normal sinus rhythm. Unsure if they are some possible T-wave changes in the septal leads. Previous EKGs as recent as April 2024 were read as normal sinus rhythm without acute changes ASSESSMENT/PLAN: Atypical chest pain (Primary) - EKG; Future; Expected date: 06/22/2024 - EKG - NM MYOCARD PERF IMG SPECT MULT STUDIES WITH PHARM INTERV; Future; Expected date: 06/22/2024 - XR CHEST 2 VIEWS COPD, group B, by GOLD 2017 classification (HCC) Coronary artery disease involving [place] coronary artery of [place] heart without angina pectoris - Nitroglycerin 0.4 MG Sublingual Tablet Sublingual (Nitrostat); Place 1 Tablet under the tongue every 5 minutes as needed for Pain, Chest. Essential (primary) hypertension Abnormal EKG - NM MYOCARD PERF IMG SPECT MULT STUDIES WITH PHARM INTERV; Future; Expected date: 06/22/2024 Dry skin dermatitis - DERMATOLOGY REFERRAL OP Plan: Assessment & Plan Chest pain - Atypical in nature but does have some possible changes on EKG compared to April Intermittent right-sided chest pain, radiating across chest, not exertional. Differential includes musculoskeletal, cardiac, or gastrointestinal causes. EKG shows possible changes, no significant differences. Previous echocardiogram normal. Discussed stress test for cardiac evaluation. - Order chest x-ray today. Will follow-up on results - Schedule nuclear stress test at [facility]. Will do pharmacologic as patient does not feel she would be able to walk on treadmill - continue other medications/management Follow Up: Return if symptoms worsen or fail to improve, for Follow up next routine with PCP as scheduled. | For: Follow up next routine with PCP as scheduled | Check-out note: Follow up pending testresults CXR today Stress Test Maxwell Jaimes I spent a total of 30-39 minutes (exact time 35 mins) on the date of service in preparation, delivery, and documentation of the care provided to Holli Barbosa excluding any time spent in the performance of separately billed services or time spent by another provider/QHP. Bertram Hargrove DO documented in this encounter Nursing Notes * Sandra Mike CMA - 06/22/2024 2:03 PM EDT Patient presents with complaints of non-cardiac, right sided chest pain. She describes the pain as a dull muscle ache under her right breast that comes and goes. She denies any injury or bruising/redness to the area. She states this started about 2 weeks ago. Denies any cardiac symptoms. documented in this encounter Plan of Treatment Upcoming Encounters Date Type Department Care Team (Late st Contact Info) Description 06/30/2024 3:30 PM EDT Office Visit Rheumatology [facility] [address] [place] [phone] Keyonna Rao CRNP [address] [place] [phone] 08/11/2024 9:20 AM EDT Office Visit [facility] [address] [place] [phone] Adwoa Hernandez PA-C [address] [place] [address] [place] [phone] 09/14/2024 2:00 PM EDT Office Visit Otolaryngology [facility] [address] [place] [phone] Jerry Lopez PA-C [address] [place] [phone] 10/12/2024 2:20 PM EDT Office Visit General Internal Medicine [facility] [address] [place] [address] Yuko Casas MD [address] [facility] [place] [phone] Scheduled Orders Name Type Priority Associated Diagnoses Orde r Schedule EKG EKG Routine Atypical chest pain Expected: 06/22/2024 (Approximate), Expires: 07/22/2025 NM MYOCARD PERF IMG SPECT MULT STUDIES WITH PHARM INTERV Cardiology Routine Atypical chest pain Abnormal EKG Expected: 06/22/2024, Expires: 07/22/2025 Scheduled Referrals Name Type Priority Associated Diagnoses Orde r Schedule DERMATOLOGY REFERRAL OP Referral Within 10 days (routine) Dry skin dermatitis Ordered: 06/22/2024 Health Maintenance Due Date Last Done Comments Adult Wellness Visit 11/01/2022 11/01/2021 COVID-19 Vaccine ( season) 2024 12/16/2023, 12/07/2022, 01/18/2022, Additional history exists CKD HGB USE SMARTSET 86706 09/29/202409/29, 03/29/2023, 06/19/2022, Additional history exists CKD PHOS USE SMARTSET 39966 09/29/202409/02, 06/19/2022, 03/17/2021, Additional history exists GFR 10/04/2024 04/06/2024, 09/02, 03/29/2023, Additional history exists Depression Monitoring 01/12/2025 01/13/2024 DXA Scan 02/11/2025 02/11/2023, 02/01, 06/08/2020, Additional history exists TSH 04/06/2025 04/06/2024, 09/02, 03/29/2023, Additional history exists Albumin/Creatinine Ratio 04/07/2025 025, 04/03/2023, 06/19/2022, Additional history exists O2 ASSESSMENT COMPLETED IN PAST YEAR FOR COPD 06/22/2025 06/22/2024 DTap/Tdap Vaccines (3 - Td or Tdap) 06/19/2026 06/19/2016, 06/19/2016, 08/13/2006 Pneumococcal Vaccine: 50+ Years Completed 07/28/2015, 10/19/2010 Zoster Vaccines Completed 08/15/2019, 09/2019, 02/07/2012 Mendoza's Esophagus Surveilance Discontinued 04/28/2020, 08/20/2018, 08/20/2018, Additional history exists VITAMIN D LEVEL ONCE IN A LIFETIME-USE SMARTSET# 35695 Completed 03/29/2023, 07/01/2018, 08/23/2017, Additional history exists Alpha-1 Antitrypsin Completed 09/30/2023 Influenza Vaccine (FLU shot) Completed 12/16/2023, 11/28/2022, 12/11/2021, Additional history exists HPV (Gardasil) Vaccine Aged Out No lo nger eligible based on patient's age to complete this topic Hepatitis B Vaccine Aged Out No longe r eligible based on patient's age to complete this topic MENINGOCOCCAL (MENACTRA/MENVEO) Aged Out No longer eligible based on patient's age to complete this topic Meningitis B Vaccine (Bexsero/Trumemba) Aged Out No longer eligible based on patient's age to complete this topic documented as of this encounter Medical Devices Implanted Type Area Wholesale Buyer Device Identifier Shelf Expiration Date Model / Serial / Lot Alloderm 2x4 Sheet [id number] - [id number] Implanted:Qty : 1 on 04/11/2009 at OR [facility] Tissue - Human N/A: Esophagus [employer] JACQUI 10/02/2010 [id number] / / [id number] Lens Intraoc 21.0 - [id number] - [id number] Implanted:Qty : 1 on 01/23/2016 by Rambo Menendez MD at OR [facility] 08/01/2020 [id number] / [id number] / [id number] Istent Left Implanted:Qty : 1 on 01/23/2016 by Rambo Menendez MD at OR [facility] Left: Eye 08/31/2018 [id number] / [id number] / [id number] Lens Intraoc 20.5 - [id number] - [id number] Implanted:Qty : 1 on 02/09/2016 by Rambo Menendez MD at OR [facility] Right: Eye BAUSCH 08/31/2020 [id number] / [id number] / [id number] Istent Implanted:Qty : 1 on 02/09/2016 by Rambo Menendez MD at OR [facility] Right: Eye 08/31/2018 [id number] / [id number] / [id number] documented as of this encounter Procedures Procedure Name Priority Date/Time Associated Diagnosis Comments XR CHEST 2 VIEWS Routine 06/22/2024 3:05 PM EDT Atypical chest pain documented in this encounter Results * XR CHEST 2 VIEWS (06/22/2024 3:05 PM EDT) Anatomical Region Laterality Modality Chest Computed Radiogr aphy 06/22/2024 3:17 PM EDT Impressions 06/22/2024 3:15 PM EDT IMPRESSION 1. Mild left basal scarring. No lobar pneumonia. 2. Moderate size hiatal hernia with dilated gas-filled esophagus redemonstrated and better assessed on the CT scan of the chest dated 01/31/2024 which could be secondary to a chalasia, dysmotility or reflux. 3. Dilated gas-filled large bowel without significant change. Correlate with patient's symptoms and if required with dedicated abdominal radiographs. 4. Additional findings and details as above. Narrative 06/22/2024 3:15 PM EDT EXAM XR CHEST 2 VIEWS - 06/22/2024 3:05 pm HISTORY chest pain TECHNIQUE Chest two views. COMPARISON 01/28/2024. Correlated to CT scan of the chest dated 01/31/2024. FINDINGS Chronic elevation left hemidiaphragm. A moderate size hiatal hernia with dilated gas-filled esophagus redemonstrated and better assessed on the CT scan of the chest dated 01/31/2024. The heart size is within normal limits. Multilevel degenerative changes are present in the thoracolumbar spine. Exaggeration of the normal thoracic kyphosis. Mild compression deformity 1 of the midthoracic vertebra is without significant change. Dilated gas fill large bowel without significant change. Mild left basal scarring. No lobar pneumonia. Similar position left humeral prosthesis. Old healed right 7th rib fracture. Procedure Note Peter Snow MD - 06/22/2024 EXAM XR CHEST 2 VIEWS - 06/22/2024 3:05 pm HISTORY chest pain TECHNIQUE Chest two views. COMPARISON 01/28/2024. Correlated to CT scan of the chest dated 01/31/2024. FINDINGS Chronic elevation left hemidiaphragm. A moderate size hiatal hernia withdilated gas-filled esophagus redemonstrated and better assessed on the CTscan of the chest dated 01/31/2024. The heart size is within normallimits. Multilevel degenerative changes are present in the thoracolumbarspine. Exaggeration of the normal thoracic kyphosis. Mild compressiondeformity 1 of the midthoracic vertebra is without significant change.Dilated gas fill large bowel without significant change. Mild left basalscarring. No lobar pneumonia. Similar position left humeral prosthesis.Old healed right 7th rib fracture. IMPRESSION IMPRESSION 1. Mild left basal scarring. No lobar pneumonia. 2. Moderate size hiatal hernia with dilated gas-filled esophagusredemonstrated and better assessed on the CT scan of the chest dated104/01/2023 which could be secondary to a chalasia, dysmotility orreflux. 3. Dilated gas-filled large bowel without significant change. Correlatewith patient's symptoms and if required with dedicated abdominalradiographs. 4. Additional findings and details as above. Bertram Hargrove DO RADIOLOGY (RAD GENER AL) Final Result documented in this encounter Visit Diagnoses Diagnosis Atypical chest pain- Primary Other chest pain COPD, group B, by GOLD 2017 classification (HCC) Coronary artery disease involving [place] coronary artery of [place] heart without angina pectoris Essential (primary) hypertension Unspecified essential hypertension Abnormal EKG Nonspecific abnormal electrocardiogram (ECG) (EKG) Dry skin dermatitis Contact dermatitis and other eczema due to other specified agent documented in this encounter Advance Directives * Full Code (Latest Code Status on File) Date Activated Date Inactivated Comments 02/09/2016 10:10 AM 02/09/2016 4:24 PM This order reflects the patients wishes and were consensually agreed upon. * Full Code Date Activated Date Inactivated Comments 01/23/2016 10:16 AM 01/23/2016 4:46 PM This orde r reflects the patients wishes and were consensually agreed upon. * Full Code Date Activated Date Inactivated Comments 04/11/2009 3:38 PM 04/14/2009 6:50 PM This order re flects the patients wishes and were consensually agreed upon. * Full Code Date Activated Date Inactivated Comments 04/11/2009 9:20 AM 04/11/2009 3:38 PM This order ref lects the patients wishes and were consensually agreed upon. Care Teams Case Advocate Relationship Specialty Start Date End Date Yuko Casas MD [address] [place] [address] PCP - General 09/14/08 documented as of this encounter"
--- OUTSIDE RECORDS SUMMARY | 2024-06-27 02:57 | External Medical Summary | Summary of Care ---
Author Name Unknown Organization [facility] Address [address] [place] [address] Phone [phone] Care Team Providers Care Case Checker Name Role Phone Yuko Casas MD Primary Care Provider [phone] Reason for Visit * Reason Onset Date Comments Test Results 06/23/2024 X-ray Encounter Details Date Type Department Care Team (Late st Contact Info) Description 06/23/2024 Telephone General Internal Medicine [facility] [place] [address] [place] [address] Yuko Casas MD [address] [place] [id number] Test Results (X-ray) Allergies Active Allergy Reactions Criticality Noted Date Comments Amoxicillin Rash 06/20/2015 Latex Rash 04/05/2009 irritation Other Allergy (See Comments) Rash Low 04/27/2021 1+) reactions to methyldibromo glutaronitrile Fragrance mix Propolis iodopropynyl butylcarbamate methylisothiazoline documented as of this encounter (statuses as of 06/24/2024) Medications venlafaxine XR (EFFEXOR XR) 150 MG [...] Tablet Sublingual (Nitrostat)Indicat ions:Coronary artery disease involving [place] coronary artery of [place] heart without angina pectoris Place 1 Tablet under the tongue every 5 minutes as needed for Pain, Chest. 25 Tablet 06/23/19 25 Active documented as of this encounter (statuses as of 06/24/2024) Active Problems Problem Noted Date Diagnosed Date [...] legs 11/14/2017 Coronary artery disease invo lving [place] coronary artery of [place] heart without angina pectoris 11/14/2017 Overview (11/14/2017): Mild 30% lesion mid LAD. NSTEMI at that time more attributted to tachyarrhythmia. Hospitalized [facility] History of supraventricular tachycardia 09/21/19 18 ACEI/ARB contraindicated 11/17/2015 Overview (11/17/2015): Hypotension Primary open angle glaucoma of both eyes, mild s tage 11/17/2015 Dyslipidemia, goal LDL below 100 10/01/2014 History of PR (myocardial infarction) 09/20/2014 Acquired hypothyroidism 09/20/2014 Mcintyre's esophagus without dysplasia 03/15/2014 Schizo-affective schizophrenia 09/14/2013 [...] as of this encounter (statuses as of 06/24/2024) Resolved Problems Problem Noted Date Diagnosed Date Resolved Date Encounter for examination fo r normal comparison and control in clinical research program 06/03/2018 10/05/2019 Overview (06/20/2020): DO NOT DELETE Myles Ortiz GREG Study: Project # [id number], [employer]ather: Kamar Conrad, PhD. SUMMARY: Goal: Establish test [...] contact study staff at ; after hours [employer] via the [facility] hospital electric screw driver operator . Please contact study team before resolving/deleting from patients problem list. Study phone number: [phone]. Diagnosis changed due to Research Module. Go to Snapshot for study details. Encounter for examination fo r normal comparison and control in clinical research program 06/03/2018 11/02/2021 Overview (06/20/2020): DO NOT DELETE - Myles [facility] DETECT Study: Project # [id number], [employer]ayer Leather: Pacheco Kaiser, MS, MPH. SUMMARY: Goal: Establish [...] contact study staff at ; after hours [employer] Le[employer] via the [facility] hospital electric screw driver operator . - Please contact study team before resolving/deleting from patients problem list. Study phone number: [phone]. Diagnosis changed due to Research Module. Go to Snapshot for study details. Recurrent falls 04/04/2018 07/19/2021 COPD, mild 09/20/2017 02/15/2022 Overview: Per COPD GOLD Classification Dry skin dermatitis 09/20/2017 11/18/19 Kidney disease, chronic, sta ge III (GFR [...] She will follow-up as scheduled. Follow-up examination, follo wing other surgery 06/28/2009 03/22/2010 HTN, goal below 140/90 05/26/200909/20 CONGENITAL HIATUS HERNIA - s/p surgery 04/28/2009 10/10/2017 Mcintyre's esophagus 01/02/2009 03/22/19 11 Overview (01/12/2009): large hiatal hernia, esophageal mucosal changes suspicious for short term segment barretts esophagus, Barretts esophagus, f/u in 1 yr Formications 03/19/2007 03/22/2010 Osteoporosis 06/12/2004 11/21/2011 Overview (06/12/2004): Osteoporosis Menopause 06/12/2004 03/22/2010 Overview (06/12/2004): surgical Family history of breast can cer in first degree relative 02/13/2018 documented as of this encounter (statuses as of 06/24/2024) Immunizations Name Administration Dates Next Due COVID-19 [...] No 01/13/2024 Does the household have a [facility] source of income? (Household - for ages [...] PM EDT documented as of this encounter Miscellaneous Notes * Telephone Encounter - Sarina Isabel LPN - 06/23/2024 3:45 PM EDT Patient(s) returned call. Informed of message. Verbalized understanding. Transferred to Kim in cardiac testing to make appt. For stress test. * Telephone Encounter - Max Lim OSA - 06/23/2024 3:30 PM EDT Reason for patient's call: Pt wants to discuss test results Caller was transferred to [facility] at the nurse line. * Telephone Encounter - Bertram Hargrove DO - 06/23/2024 2:57 PM EDT Patient's chest x-ray shows known hiatal hernia. She already follows with GI. Does not show any other acute abnormalities Would move forward with stress testing as ordered at visit * Telephone Encounter - Gina Ireland OSA - 06/23/2024 2:06 PM EDT Who is Requesting Test Results: Pt is asking about her xray results Primary Care Provider : Yuko Caass MD Tests Results Requested : Chest X-ray Date of Test : 06/22/24 Location of Test: n/a Ordering Provider: Bertram Hargrove DO Patient has been made aware that the turnaround time for test results are typically as follows: Laboratory results = within 2-3 days ([facility]), 3-5 days (Non-[facility], ie. [facility]) Urine Cultures = within 2-3 days depending on growth within the culture Pathology results (biopsy results/PAP) = 1-2 weeks Radiology results = about 1 week Cologuard results = within 2 weeks from the shipment date COVID testing = about 24 hours documented in this encounter Plan of Treatment Upcoming Encounters Date Type Department Care Team (Late st Contact Info) Description 06/30/2024 3:30 PM EDT Office Visit Rheumatology [facility] [address] [place] [phone] Keyonna Rao CRNP [address] [place] [phone] 07/22/2024 11:45 AM EDT Imaging [facility] 2nd Floor Cardiology, [place] [address] [place] [phone] Gw, Excess Time Radiology [address] [place] [address] 08/11/2024 9:20 AM EDT Office Visit D[facility]at[facility], [place] [place] [address] [facility] [place] [phone] Adwoa Hernandez PA-C [address] [place] [address] [place] [address] 09/14/2024 2:00 PM EDT Office Visit Otolaryngology [facility] [address] [place] [address] Jerry Lopez PA-C [address] [place] [place] [address] 10/12/2024 2:20 PM EDT Office Visit General Internal Medicine [facility] [address] [facility] [address] [place] [address] Yuko Casas MD [address] [facility] [address] [address] [place] [address] Health Maintenance Due Date Last Done Comments Adult Wellness Visit 11/01/2022 11/01/2021 COVID-19 Vaccine ( season) 2024 12/16/2023, 12/07/2022, 01/18/2022, Additional history exists CKD HGB USE SMARTSET 67711 09/29/202409/29, 03/29/2023, 06/19/2022, Additional history exists CKD PHOS USE SMARTSET 47958 09/29/202409/02, 06/19/2022, 03/17/2021, Additional history exists GFR [...] 10/19/2010 Zoster Vaccines Completed 08/15/2019, 09/2019, 02/07/2012 Mcintyre's Esophagus Surveilance Discontinued 04/28/2020, 08/20/2018, 08/20/2018, Additional history exists VITAMIN D LEVEL ONCE IN A LIFETIME-USE SMARTSET# 57501 Completed 03/29/2023, 07/01/2018, 08/23/2017, Additional history exists [...] this encounter Medical Devices Implanted Type Area Content Coordinator Device Identifier Shelf Expiration Date Model / Serial / Lot Alloderm 2x4 Sheet [id number] - [id number] Implanted:Qty : 1 on 04/11/2009 at OR [facility] Tissue - Human N/A: Esophagus [employer] JACQUI 10/02/2010 [id number] / / [id number] Lens Intraoc 21.0 - [id number] - [id number] Implanted:Qty : 1 on 01/23/2016 by Rambo Menendez MD at OR [facility] 08/01/2020 [id number] / [id number] Istent Left Implanted:Qty : 1 on 01/23/2016 by Rambo Menendez MD at OR [facility] Left: Eye 08/31/2018 [id number] / [id number] / [id number] Lens Intraoc 20.5 - [id number] - [id number] Implanted:Qty : 1 on 02/09/2016 by Rambo Menendez MD at OR [facility] Right: Eye [facility] 08/31/2020 [id number] / [id number] Istent Implanted:Qty : 1 on 02/09/2016 by Rambo Menendez MD at OR [facility] Right: Eye 08/31/2018 [id number] / [id number] / [id number] documented as of this encounter Advance Directives * Full Code [...] were consensually agreed upon. Care Teams Case Checker Relationship Specialty Start Date End Date Yuko Casas MD [address] [place] [address] PCP - General 09/14/08 documented as of this encounter
--- OUTSIDE RECORDS SUMMARY | 2024-06-27 02:58 | External Medical Summary | Summary of Care ---
Author Name Unknown Organization [facility] Address [address] [place] [address] Phone [phone] Care Team Providers Care Senior Principal Software Engineer Name Role Phone Yuko Casas MD Primary Care Provider [phone] Reason for Visit * Reason Comments Outpatient Testing Encounter Details Date Type Department Care Team (Late st Contact Info) Description 04/06/2024 12:20 PM EST Laboratory Laboratory [facility] [place] [address] [place] [address] [facility] [address] [place] [address] Tingling in extremities; Dyslipidemia, goal LDL below 100; Essential (primary) hypertension; Acquired hypothyroidism; Encounter for long-term (current) use of medications Allergies Active Allergy Reactions Criticality Noted Date Comments Amoxicillin Rash 06/20/2015 Latex Rash 04/05/2009 irritation Other Allergy (See Comments) Rash Low 04/27/2021 1+) reactions to methyldibromo glutaronitrile Fragrance mix Propolis iodopropynyl butylcarbamate methylisothiazoline documented as of this encounter (statuses as of 04/07/2024) Medications venlafaxine XR (EFFEXOR XR) 150 MG CP24 1 Capsule every morning. Active QUEtiapine (SEROQUEL) 300 MG Tablet Take 1 Tablet by mouth at bedtime. 30 Tab 5 07/18/19 16 Active Cholecalciferol (VITAMIN D-3) 5000 units Tablet Take 1 Tablet by mouth in the morning. Active Cyanocobalamin (B-12) 500 MCG TABS Take by mouth. 03/28/19 19 Active Nitroglycerin 0.4 MG Sublingual Tablet Sublingual (Nitrostat)Indicat ions:Acute epc-VM-sphqkkjhr myocardial infarction (HCC) PLACE 1 TABLET UNDER THE TONGUE NEEDED FOR CHEST PAIN. MAY REPEAT 3 TIMES. IF CHEST PAIN CONTINUES CALL [phone] Tablet 05/09/19 23 Active Additional Information Patient not taking.Reported on 03/16/2024 cycloSPORINE 0.05 % Ophthalmic Emulsion (Restasis) Instill into both eyes as needed for Dry eyes. 03/23/19 23 Active Docusate Sodium 100 MG Oral TabletIndications: Other constipation Take 1 Tablet by mouth 2 times a day as needed for Constipation. 180 Tablet 3 11/29/19 23 Active Azelastine HCl 0.1 % Nasal Solution (Astelin)Indicatio ns:Chronic rhinitis use 1 spray in each nostril twice daily 30 mL 5 05/03/19 24 Active Additional Information Patient not taking.Reported on 03/16/2024 Pantoprazole Sodium 40 MG Oral Tablet Delayed Release (Protonix)Indicati ons:Gastroesophage al reflux disease without esophagitis TAKE 1 TABLET BY MOUTH TWICE DAILY 30 to 60 minutes before breakfast and dinner 180 Tablet 3 06/12/19 24 Active Albuterol Sulfate HFA 108 (90 [...] 60 mg under the skin once. Active Benzonatate 100 MG Oral Capsule (Tessalon Perles) Take 1 Capsule by mouth 3 times a day as needed for Cough. Do not cut, crush, or chew. 30 Capsule 01/28/20 24 Active Levothyroxine Sodium 50 MCG Oral Tablet (Levoxyl) TAKE 1 TABLET BY MOUTH EVERY MORNING AT LEAST 30 MINUTES PRIOR TO BREAKFAST OR OTHER MEDICATIONS 90 Tablet 1 02/07/20 24 Active Ondansetron 4 MG Oral Tablet Disintegrating (Zofran) DISSOLVE 1 TABLET UNDER TONGUE EVERY 8 HOURS NEEDED FOR NAUSEA 20 Tablet 1 03/09/19 25 Active documented as of this encounter (statuses as of 04/07/2024) Active Problems Problem Noted Date Diagnosed Date COPD, group B, by GOLD 2017 classification [...] legs 11/14/2017 Coronary artery disease invo lving [place] coronary artery of [place] heart without angina pectoris 11/14/2017 Overview (11/14/2017): Mild 30% lesion mid LAD. NSTEMI at that time more attributted to tachyarrhythmia. Hospitalized [facility] History of supraventricular tachycardia 09/21/19 18 ACEI/ARB contraindicated 11/17/2015 Overview (11/17/2015): Hypotension Primary open angle glaucoma of both eyes, mild s tage 11/17/2015 Dyslipidemia, goal LDL below 100 10/01/2014 History of DC (myocardial infarction) 09/20/2014 Acquired hypothyroidism 09/20/2014 Mcintyre's [...] as of this encounter (statuses as of 04/07/2024) Resolved Problems Problem Noted Date Diagnosed Date Resolved Date Encounter for examination fo r normal comparison and control in clinical research program 06/03/2018 10/05/2019 Overview (06/20/2020): DO NOT DELETE Myles [facility] DETECT Study: Project # [id number], [employer]: Kamar Conrad, PhD. SUMMARY: Goal: Establish test [...] contact study staff at ; after hours [employer] via the [facility] hospital cold header operator . Please contact study team before resolving/deleting from patients problem list. Study phone number: [phone]. Diagnosis changed due to Research Module. Go to Snapshot for study details. Encounter for examination fo r normal comparison and control in clinical research program 06/03/2018 11/02/2021 Overview (06/20/2020): DO NOT DELETE [employer] DETECT Study: Project # [id number], [employer]: Pacheco Kaiser, MS, MPH. SUMMARY: Goal: Establish [...] contact study staff at ; after hours [employer] via the [facility] cold header operator . - Please contact study team before resolving/deleting from patients problem list. Study phone number: [phone]. Diagnosis changed due to Research Module. Go [...] as of this encounter (statuses as of 04/07/2024) Immunizations Name Administration Dates Next Due COVID-19 [...] older, IM (Adacel) 06/19/2016 Varicella Zoster Vaccine (Adult) 02/07/2012 Zoster Vaccine Recombinant (Shingrix) 08/15/2019 ,04/10/2019 [...] No 01/13/2024 Does the household have a re gular source of income? (Household - for ages [...] ages 0-17 years) Not on file 01/13/2024 Comments No Sex and Gender Information Value Date Recorded Sex Assigned at Female 07/03/2018 2:21 PM EDT Legal Sex Female 5:10 AM EST Gender Identity Female 07/03/2018 2:21 PM EDT Sexual Orientation Straight 07/03/2018 2 :21 PM EDT documented as of this encounter Plan of Treatment Upcoming Encounters Date Type Department Care Team (Late st Contact Info) Description 04/07/2024 2:20 PM EST Office Visit General Internal Medicine [facility] [place] [address] [place] [address] Yuko Casas MD [address] [place] [address] 04/21/2024 12:30 PM EST Office Visit [facility], [facility] [address] [facility] [place] [address] Gina Mckeon CRNP [address] [place] [address] 06/24/2024 2:00 PM EDT Office Visit Rheumatology [facility] [address] [place] [phone] Keyonna Rao [facility] [address] 09/14/2024 2:00 PM EDT Office Visit Otolaryngology [facility] [address] [place] [address] Jerry Lopez PA-C [address] [place] [place] [phone] Pending Results Name Type Priority Associated Diagnoses Date /Time FOLIC ACID Lab Routine Tingling in extremities 04/06/2024 12:19 PM EST VITAMIN B12 Lab Routine Tingling in extremities 04/06/2024 12:19 PM EST LIPID PANEL WITH DIRECT LDL IF TG IS HIGH Lab Routine Dyslipidemia, goal LDL below 100 04/06/2024 12:19 PM EST TSH Lab Routine Acquired hypothyroidism 04/06/2024 12:19 PM EST Health Maintenance Due Date Last Done Comments Adult Wellness Visit 11/01/2022 11/01/2021 Mcintyre's Esophagus Surveilance 04/28/2023 04/28/2020, 08/20/2018, 08/20/2018, Additional history exists COVID-19 Vaccine ( season) 2024 12/16/2023, 12/07/2022, 01/18/2022, Additional history exists Albumin/Creatinine Ratio 04/03/2024 024, 06/19/2022, 03/22/2021, Additional history exists CKD HGB USE SMARTSET 76202 09/29/202409/29, 03/29/2023, 06/19/2022, Additional history exists CKD PHOS USE SMARTSET 98815 09/29/202409/02, 06/19/2022, 03/17/2021, Additional history exists TSH 09/29/2024 09/30/2023, 03/05, 06/19/2022, Additional history exists GFR 10/04/2024 04/06/2024, 09/02, 03/29/2023, Additional history exists O2 ASSESSMENT COMPLETED IN PAST YEAR FOR COPD 01/27/2025 01/28/2024 DXA Scan 02/11/2025 02/11/2023, 02/01, 06/08/2020, Additional history exists DTap/Tdap Vaccines (3 - Td or Tdap) 06/19/2026 06/19/2016, 06/19/2016, 08/13/2006 Pneumococcal Vaccine: 50+ Years Completed 07/28/2015, 10/19/2010 Zoster Vaccines Completed 08/15/2019, 09/2019, 02/07/2012 VITAMIN D LEVEL ONCE IN A LIFETIME-USE SMARTSET# 26783 Completed 03/29/2023, 07/01/2018, 08/23/2017, Additional history exists Alpha-1 Antitrypsin Completed 09/30/2023 Influenza Vaccine (FLU shot) Completed , 11/28/2022, 12/11/2021, Additional history exists HPV (Gardasil) [...] this encounter Medical Devices Implanted Type Area Crystallography Teacher Device Identifier Shelf Expiration Date Model / Serial / Lot Alloderm 2x4 Sheet [id number] - [id number] Implanted:Qty : 1 on 04/11/2009 at [place] [facility] Tissue - Human N/A: Esophagus LIFE CE[employer] JACQUI 10/02/2010 [id number] / / [id number] Lens Intraoc 21.0 - [id number] - [id number] Implanted:Qty : 1 on 01/23/2016 by Rambo Menendez MD at OR [facility] 08/01/2020 [id number] / [id number] Istent Left Implanted:Qty : 1 on 01/23/2016 by Rambo Menendez MD at OR [facility] Left: Eye 08/31/2018 [id number] / [id number] / [id number] Lens Intraoc 20.5 - [id number] - [id number] Implanted:Qty : 1 on 02/09/2016 by Rambo Menendez MD at OR [facility] Right: Eye [facility] [employer] [facility] 08/31/2020 [id number] / [id number] Istent Implanted:Qty : 1 on 02/09/2016 by Rambo Menendez MD at OR [facility] Right: Eye 08/31/2018 [id number] / [id number] / [id number] documented as of this encounter Procedures Procedure Name Priority Date/Time Associated Diagnosis Comments COMPREHENSIVE METABOLIC PANEL Routine 04/06/2024 12:19 PM EST Dyslipidemia, goal LDL below 100 Essential (primary) hypertension MAGNESIUM Routine 04/06/2024 12:19 PM EST Encounter for long-term (current) use of medications documented in this encounter Results * MAGNESIUM (04/06/2024 12:19 PM EST) Magnesium 2.3 1.5 - 2.6 mg/dL 04/06/2024 1:15 PM EST [facility] 56-02 Blood Venous blood specimen / Unknown Venipuncture / Unknown 04/06/2024 12:19 PM EST 04/06/2024 12:19 PM EST Victor Manuel Oliveira [facility] LAB BLOOD ORDERABLES Final R esult [facility] 56 [address] [place] [address] * (ABNORMAL) COMPREHENSIVE METABOLIC PANEL (04/06/2024 12:19 PM EST) BUN 20 6 - 20 mg/dL 04/06/2024 1:15 PM EST [facility] 56 CREATININE 1.1(H) 0.5 - 1.0 mg/dL 04/06/2024 1:15 PM [facility] 56- EGFR 53(L) >=60 mL/min 04/06/2024 1:15 PM [facility] 56- Comment:eGFR is calculated b ased on the CKD-EPI 2020 equation. SODIUM 141 135 - 146 mmol/L 04/06/2024 1:15 PM [facility] 56- POTASSIUM 4.2 3.5 - 5.1 mmol/L 04/06/2024 1:15 PM [facility] 56- CHLORIDE 105 98 - 107 mmol/L 04/06/2024 1:15 PM [facility] 56- CO2 26 22 - 32 mmol/L 04/06/2024 1:15 PM [facility] 56- ANION GAP 10 7 - 15 mmol/L 04/06/2024 1:15 PM [facility] 56- GLUCOSE 89 70 - 120 mg/dL 04/06/2024 1:15 PM [facility] 56- Albumin 4.1 3.8 - 5.0 g/dL 04/06/2024 1:15 PM [facility] 56- AST 25 10 - 35 U/L 04/06/2024 1:15 PM [facility] 56- Alkaline Phosphatase 42 35 - 130 U/L 04/06/2024 1:15 PM [facility] 56- Bilirubin, Total 0.5 <=1.2 mg/dL 04/06/2024 1:15 PM [facility] 56- CALCIUM 9.5 8.4 - 10.2 mg/dL 04/06/2024 1:15 PM [facility] 56- Protein 6.5 6.0 - 8.3 g/dL 04/06/2024 1:15 PM [facility] 56- ALT 13 10 - 35 U/L 04/06/2024 1:15 PM EST [facility] 56- Blood Venous blood specimen / Unknown Venipuncture / Unknown 04/06/2024 12:19 PM EST 04/06/2024 12:19 PM EST Yuko Casas MD LAB BLOOD ORDERABLES Final Res ult [facility] 56- [address] [place] [address] documented in this encounter Visit Diagnoses Diagnosis Tingling in extremities Disturbance of skin sensation Dyslipidemia, goal LDL below 100 Other and unspecified hyperlipidemia Essential (primary) hypertension Unspecified essential hypertension Acquired hypothyroidism Unspecified hypothyroidism Encounter for long-term (current) use of medications Encounter for long-term (current) use of other medications documented in this encounter Advance Directives * [...] and were consensually agreed upon. Care Teams Senior Principal Software Engineer Relationship Specialty Start Date End Date [facility] Casas [facility] [address] [facility] [address] PCP - General 09/14/08 documented as of this encounter
--- OUTSIDE RECORDS SUMMARY | 2024-06-27 02:58 | External Medical Summary ---
Author Name Unknown Address Unknown Organization [id number]:LABORATORY [facility] - [address] [place] [address] Laboratory Report Ordering Provider Test Date Status BIGG GILMORE 04/06/2024 12:19:27 Final Observation Date Value Abnormality Reference (Units ) Status Folic Acid 04/06/2024 12:19:27 10.6 >4.5 (ng/ mL) Final Performing Location LABORATORY [facility] - [address] [place] [address]
--- OUTSIDE RECORDS SUMMARY | 2024-06-27 02:58 | External Medical Summary ---
Author Name Unknown Address Unknown Organization K01:LABORATORY [facility] [place] [place] - [address] [place] [address] Laboratory Report Ordering Provider Test Date Status BIGG GILMORE 04/06/2024 12:19:27 Final Observation Date Value Abnormality Reference (Units ) Status Vitamin B12 04/06/2024 12:19:27 234 [id number] (pg/mL) Final Performing Location LABORATORY [facility] - [address] [place] [address]
--- OUTSIDE RECORDS SUMMARY | 2024-06-27 02:58 | External Medical Summary ---
Author Name Unknown Address Unknown Organization K01:LABORATORY [facility] [place] [address] [place] [address] Laboratory Report Ordering Provider Test Date Status BIGG GILMORE 04/06/2024 12:19:27 Final Observation Date Value Abnormality Reference (Units ) Status TSH 04/06/2024 12:19:27 1.00 0.27-4.20 (uIU/mL) Final Performing Location LABORATORY [facility] - [address] [facility] [address]
--- OUTSIDE RECORDS SUMMARY | 2024-06-27 02:58 | External Medical Summary ---
Author Name Unknown Address Unknown Organization [id number]:[facility]ATORY [facility] [place] - [address] [place] [address] Laboratory Report Ordering Provider Test Date Status BIGG GILMORE 04/07/2024 15:30:15 Final Normal: <30 mg/g creatinine< br/>High: 30-300 mg/g creatinine
Very High: >300 mg/g creatinine
Nephrotic: >2200 mg/g creatinine Observation Date Value Abnormality Reference (Units ) Status Albumin, Urine 04/07/2024 15:30:15 2.00 (mg/dL) Final Creatinine, Urine 04/07/2024 15:30:15 215 (mg/dL) Final Albumin/Creatinine [Mass Ratio] in Urine 04/07/2024 15:30:15 9 <30 (mg/g Creat) Final Performing Location LAB[facility]ATORY [facility] [place] - [address] [place] [address]
--- OUTSIDE RECORDS SUMMARY | 2024-06-27 02:58 | External Medical Summary | Summary of Care ---
Author Name Unknown Organization [facility] Address [address] [place] [address] Phone [phone] Care Team Providers Care Sugar Boiler Name Role Phone Yuko Casas MD Primary Care Provider [phone] Reason for Referral * Precert (Diagnostic Medical) (Within 10 days (routine)) - Authorized Specialty Diagnoses / Procedures Referred By Contac t Referred To Contact Cardiac Studies Diagnoses Hypertensive kidney disease with stage 3a chronic kidney disease (HCC) Supraventricular tachycardia, unspecified (HCC) History of CT (myocardial infarction) Essential (primary) hypertension Procedures ECHO, COMPLETE (2D), TRANS-THORACIC Yuko Casas MD [address], [place] [address] Phone: tel: fax: Referral ID Status Reason Start Date Expiration Date V isits Requested Visits Authorized [id number] Authorized Precert 04/07/2024 999 999 Reason for Visit * Reason Comments Follow Up Pt has sometimes has a pain in lower right abdomen. Abdominal Pain Encounter Details Date Type Department Care Team (Latest Contact Info) Description 04/07/2024 2:20 PM EST Office Visit General Internal Medicine [address] [place] [address] [place] [phone] Yuko Casas MD [address] [facility] [place] [id number] Essential (primary) hypertension*; Dyslipidemia, goal LDL below 100; Bipolar I disorder, most recent episode manic (HCC); Major depressive disorder, recurrent, moderate (HCC); Hypertensive kidney disease with stage 3a chronic kidney disease (HCC); Supraventricular tachycardia, unspecified (HCC); Paranoid schizophrenia (HCC); Primary open angle glaucoma of both eyes, mild stage; History of CT (myocardial infarction); Generalized anxiety disorder; Acquired hypothyroidism; Senile osteoporosis; Other constipation; Orthostatic hypotension; Mcintyre's esophagus without dysplasia; Schizo-affective schizophrenia (HCC) Allergies Active Allergy Reactions Criticality Noted Date Comments Amoxicillin Rash 06/20/2015 Latex Rash 04/05/2009 irritation Other Allergy (See Comments) Rash Low 04/27/2021 1+) reactions to methyldibromo glutaronitrile Fragrance mix Propolis iodopropynyl butylcarbamate methylisothiazoline documented as of this encounter (statuses as of 04/09/2024) Medications venlafaxine XR (EFFEXOR XR) 150 MG CP24 1 Capsule every morning. Active QUEtiapine (SEROQUEL) 300 MG Tablet Take 1 Tablet by mouth at bedtime. 30 Tab 5 07/18/19 16 Active Nitroglycerin 0.4 MG Sublingual Tablet Sublingual (Nitrostat)Indicat ions:Acute [id number]-tggmpavcq myocardial infarction (HCC) PLACE 1 TABLET UNDER THE TONGUE NEEDED FOR CHEST PAIN. MAY REPEAT 3 TIMES. IF CHEST PAIN CONTINUES CALL 911 25 Tablet 05/09/19 23 Active cycloSPORINE 0.05 % Ophthalmic Emulsion (Restasis) Instill into both eyes as needed for Dry eyes. 03/23/19 23 Active Azelastine HCl 0.1 % Nasal Solution (Astelin)Indicatio ns:Chronic rhinitis use 1 spray in each nostril twice daily 30 mL 5 05/03/19 24 Active Pantoprazole Sodium 40 MG Oral Tablet [...] Denosumab 60 MG/ML Subcutaneous Solution Prefilled Syringe (ProlCashSentinel) Inject 60 mg under the skin once. Active Benzonatate 100 MG Oral Capsule (Tessalon Perles) Take 1 Capsule by mouth 3 times a day as needed for Cough. Do not cut, crush, or chew. 30 Capsule 01/28/20 24 Active Additional Information Patient not taking.Reported on 04/07/2024 Levothyroxine Sodium 50 MCG Oral Tablet (Levoxyl) [...] Constipation. 180 Tablet 3 04/07/19 25 Active Cholecalciferol (VITAMIN D-3) 5000 units Tablet Take 1 Tablet by mouth in the morning. 025 Discontin ued(Medic ation List Clean Up) Cyanocobalamin (B-12) 500 MCG TABS Take by mouth. 03/28/19 19 025 Discontin ued(Medic ation List Clean Up) Docusate Sodium 100 MG Oral TabletIndications: Other constipation Take 1 Tablet by mouth 2 times a day as needed for Constipation. 180 Tablet 3 11/29/19 23 025 Discontin ued(Refil l) documented as of this encounter (statuses as of 04/09/2024) Active Problems Problem Noted Date Diagnosed Date Major depressive disorder, recurrent, moderate 0 04/07/2024 [...] legs 11/14/2017 Coronary artery disease invo lving iliamna coronary artery of iliamna heart without angina pectoris 11/14/2017 Overview (11/14/2017): Mild 30% lesion mid LAD. NSTEMI at that time more attributted to tachyarrhythmia. Hospitalized [facility] History of supraventricular tachycardia 09/21/19 18 ACEI/ARB contraindicated 11/17/2015 Overview (11/17/2015): Hypotension Primary open angle glaucoma of both eyes, mild s tage 11/17/2015 Dyslipidemia, goal LDL below 100 10/01/[address] (myocardial infarction) 09/20/2014 Acquired hypothyroidism 09/20/2014 Mcintyre's [...] as of this encounter (statuses as of 04/09/2024) Resolved Problems Problem Noted Date Diagnosed Date Resolved Date Encounter for examination fo r normal comparison and control in clinical research program 06/03/2018 10/05/2019 Overview (06/20/2020): DO NOT DELETE [facility] DETECT Study: Project # [id number], Firearms Model Maker: Kamar Conrad, PhD. SUMMARY: Goal: Establish test [...] contact study staff at ; after hours Firearms Model Maker via the [facility] hospital sheet roller operator . Please contact study team before resolving/deleting from patients problem list. Study phone number: [phone]. Diagnosis changed due to Research Module. Go to Snapshot for study details. Encounter for examination fo r normal comparison and control in clinical research program 06/03/2018 11/02/2021 Overview (06/20/2020): DO NOT DELETE - [facility] DETECT Study: Project # [id number], Firearms Model Maker: Pacheco Kaiser, MS, MPH. SUMMARY: Goal: Establish [...] contact study staff at ; after hours Firearms Model Maker via the [facility] hospital sheet roller operator . - Please contact study team before resolving/deleting from patients problem list. Study phone number: [phone]. Diagnosis changed due to Research Module. Go [...] as of this encounter (statuses as of 04/09/2024) Immunizations Name Administration Dates Next Due COVID-19 [...] 0 [birth year]/04/1963 - 03/04/1983 Smokeless Tobacco: Never Tobacco Cessation:Counseling Given: Not Answered Alcohol Use Standard Drinks/Week Comments No 0 [...] 01/13/2024 Does the household have a re lar source of income? (Household - for ages [...] Sign Reading Time Taken Comments Blood Pressure 90/52 04/07/2024 2:28 PM EST Pulse 85 04/07/2024 2:28 PM EST Temperature 36.8 °C (98.3 °F) 04/07/2024 2:28 PM ES T Respiratory Rate - - Oxygen Saturation 94% 04/07/2024 2:28 PM EST Inhaled Oxygen Concentration - - Weight 62.2 kg (137 lb 1.6 oz) 04/07/2024 2:28 P M EST Height 152.4 cm (5') 04/07/2024 2:28 PM EST Body Mass Index 26.78 04/07/2024 2:28 PM EST documented in this encounter Progress Notes * Yuko Casas MD - 04/07/2024 2:46 PM EST Images from the original note were not included. Subjective Holli Barbosa is a 78 year old female that presents for Follow Up (Pt has sometimes has a pain in lower right abdomen.) and Abdominal Pain 78 YOF with PMH of intermittent PSVT one episode with demand NSTMI large hiatal hernia s/p fundoplication , barett's esophagus, s/p left shoulder replacement, depression, hyperlipidemia presents History of Present Illness The patient, with a history of back pain, schizophrenia, bipolar disorder, Mcintyre's esophagus, ankit hiatal hernia, presents with a chief complaint of feeling hot and sweating a lot, then feeling cold. The patient also reports occasional dizziness, increased fluid intake, and urinating three timesa night. The patient has noticed an increase in fluid intake and urination frequency, but denies any pain or discomfort during urination. The patient also reports occasional dizziness, but no falls or accidents. The patient's back pain is managed with gabapentin, and she reports that it is helping.The patient's mental health conditions are managed by psych with medications, and the patient reports doing well overall. The patient's Mcintyre's esophagus and hiatal hernia are managed with Protonixand famotidine, and the patient reports that these medications are effective. She has a history of proximal AFib and AVNRT and underwent ablation by Dr. Momin, been doing well, last seen by Cardiology year ago. Since she has been doing well asking if she can be checked only here and not by Cardiology as has problem with transportation. Last EKG was a year ago Patient Active Problem List Diagnosis Herpes simplex type 2 infection Gastroesophageal reflux disease without esophagitis Bipolar I disorder, most recent episode manic (HCC) Diaphragmatic hernia without obstruction and without gangrene Obsessive-compulsive disorder Senile osteoporosis Schizo-affective schizophrenia (HCC) Mcintyre's esophagus without dysplasia History of CT (myocardial infarction) Acquired hypothyroidism Dyslipidemia, goal LDL below 100 ACEI/ARB contraindicated Primary open angle glaucoma of both eyes, mild stage History of supraventricular tachycardia Other atherosclerosis of iliamna arteries of extremities, bilateral legs (HCC) Coronary artery disease involving iliamna coronary artery of iliamna heart without angina pectoris Anemia DDD (degenerative disc disease), lumbar Thrombocytopenia (HCC) Essential (primary) hypertension Chronic rhinitis Atopic dermatitis Hypertensive kidney disease with stage 3a chronic kidney disease (HCC) Paranoid schizophrenia (HCC) Orthostatic hypotension COPD, group B, by GOLD 2017 classification ([facility]) Objective Vitals: 04/07/24 1428 Temp: 98.3 °F (36.8 °C) Pulse: 85 SpO2: 94% BP: 90/52 BMI: 26.78 Physical Exam VITALS: BP- low HEENT: Hair growth with an area of alopecia on the scalp. CHEST: Equal breath sounds, no crackles or wheezes. CARDIOVASCULAR: Normal heart sounds, regular rhythm, no murmurs. ABDOMEN: Soft, nontender, no swelling. EXTREMITIES: No swelling in the legs. SKIN: Dry skin, particularly on the hands. I have reviewed the following results: Results LABS Cholesterol: Within normal limits (04/06/2024) Kidney function: Stable (04/06/2024) Electrolytes: Within normal limits (04/06/2024) Blood glucose: Within normal limits (04/06/2024) TSH: Within normal limits (04/06/2024) Liver function tests: Within normal limits (04/06/2024) DIAGNOSTIC Endoscopy (2019): Hiatal hernia, stomach irritation, no Mcintyre's esophagus Endoscopy (2020): No Mcintyre's esophagus Endoscopy (2012): Mcintyre's esophagus CMP, Lipid Panel, Hemoglobin A1C, and TSH Assessment and Plan Assessment & Plan Hypertension Low blood pressure with a single episode of dizziness. No falls reported. -Continue current management. -Advise patient to be cautious when getting up to prevent falls. Nocturia Reports waking up three times a night to urinate. -Continue current management. Constipation Reports using Docusate as needed. -Continue Docusate as needed. Chronic Obstructive Pulmonary Disease (COPD) No current cough or shortness of breath reported. -Continue Albuterol as needed. Mcintyre's Esophagus Last two endoscopies did not show Mcintyre's esophagus. -Continue Protonix and Famotidine. -No further endoscopy needed unless symptoms arise. Schizophrenia and Bipolar Disorder Stable on current medication. -Continue current medication as per psychiatrist. Trichotillomania Reports pulling hair out during sleep. -Continue current management. Dry Skin Reports using moisturizer intermittently. -Advise to apply moisturizer daily, possibly multiple times a day. Hyperlipidemia Cholesterol levels are good. -Continue Atorvastatin. Cardiac Health Last saw doll maker in 2022. -Order EKG in office. -Order echocardiogram at [facility]. General Health Maintenance -Collect urine sample today for annual kidney function test. -Order blood work for 6 months from now. -Schedule follow-up appointment in 6 months. Essential (primary) hypertension (Primary) - ECHO, COMPLETE (2D), TRANS-THORACIC; Future; Expected date: 04/07/2024 Dyslipidemia, goal LDL below 100 - COMPREHENSIVE METABOLIC PANEL; Future; Expected date: 10/05/2024 - LIPID PANEL WITH DIRECT LDL IF TG IS HIGH; Future; Expected date: 10/05/2024 Bipolar I disorder, most recent episode manic (HCC) Major depressive disorder, recurrent, moderate (HCC) Hypertensive kidney disease with stage 3a chronic kidney disease (HCC) - CBC; Future; Expected date: 10/05/2024 - ALBUMIN / CREATININE RATIO, URINE; Future; Expected date: 04/07/2024 - ECHO, COMPLETE (2D), TRANS-THORACIC; Future; Expected date: 04/07/2024 - ALBUMIN / CREATININE RATIO, URINE Supraventricular tachycardia, unspecified (HCC) - ECHO, COMPLETE (2D), TRANS-THORACIC; Future; Expected date: 04/07/2024 - EKG; Future; Expected date: 04/07/2024 Paranoid schizophrenia (HCC) Primary open angle glaucoma of both eyes, mild stage History of CT (myocardial infarction) - ECHO, COMPLETE (2D), TRANS-THORACIC; Future; Expected date: 04/07/2024 - EKG; Future; Expected date: 04/07/2024 Generalized anxiety disorder Acquired hypothyroidism - TSH; Future; Expected date: 10/05/2024 Senile osteoporosis Other constipation - Docusate Sodium 100 MG Oral Tablet; Take 1 Tablet by mouth 2 times a day as needed for Constipation. Orthostatic hypotension Mcintyre's esophagus without dysplasia Schizo-affective schizophrenia (HCC) Wrap-Up Time: I spent a total of 40-54 minutes (exact time 45 mins) on the date of service in preparation, delivery, and documentation of the care provided to Holli Barbosa excluding any time spent in the performance of separately billed services. Text in this note was generated using an ambient documentation service. I discussed the use of a device to record and summarize our discussion today. All persons present during the encounter consented to its use. documented in this encounter Nursing Notes * Johann Taylor CMA - 04/07/2024 2:24 PM EST The patient has been properly identified by confirmation of name and date of . Chief Complaint Patient presents with Follow Up Pt has sometimes has a pain in lower right abdomen. Abdominal Pain documented in this encounter Plan of Treatment Upcoming Encounters Date Type Department Care Team (Late st Contact Info) Description 04/21/2024 12:30 PM EST Office Visit Gastroenterology, [facility] [address] [place] [phone] Gina Mckeon CRNP [address] [facility] [place] [address] 04/27/2024 2:00 PM EST Cardiac Studies Cardiac Studies, [facility] [address] [place] [address] 06/24/2024 2:00 PM EDT Office Visit Rheumatology [facility] [address] [place] [phone] Keyonna Rao CRNP [address] [facility] [place] [address] 09/14/2024 2:00 PM EDT Office Visit Otolaryngology [facility] [address] [place] [address] [address] Jerry Lopez PA-C [address] [place] [address] 10/12/2024 2:20 PM EDT Office Visit General Internal Medicine [facility] Janel Pyle [address] [place], [place] [address] Yuko Casas MD [address] [place] [address] Scheduled Orders Name Type Priority Associated Diagnoses Orde r Schedule COMPREHENSIVE METABOLIC PANEL Lab Routine Dyslipidemia, goal LDL below 100 Expected: 10/05/2024, Expires: 04/07/2025 LIPID PANEL WITH DIRECT LDL IF TG IS HIGH Lab Routine Dyslipidemia, goal LDL below 100 Expected: 10/05/2024, Expires: 04/07/2025 TSH Lab Routine Acquired hypothyroidism Expected: 10/05/2024, Expires: 04/07/2025 CBC Lab Routine Hypertensive kidney disease with stage 3a chronic kidney disease (HCC) Expected: 10/05/2024, Expires: 04/07/2025 ECHO, COMPLETE (2D), TRANS-THORACIC Echocardiology Routine Hypertensive kidney disease with stage 3a chronic kidney disease (HCC) Supraventricular tachycardia, unspecified (HCC) History of CT (myocardial infarction) Essential (primary) hypertension Expected: 04/07/2024, Expires: 05/05/2026 EKG EKG Routine Supraventricular tachycardia, unspecified (HCC) History of CT (myocardial infarction) Expected: 04/07/2024 (Approximate), Expires: 05/05/2025 Health Maintenance Due Date Last Done Comments Adult Wellness Visit 11/01/2022 11/01/2021 COVID-19 Vaccine ( season) 2024 12/16/2023, 12/07/2022, 01/18/2022, Additional history exists CKD HGB USE SMARTSET 09850 09/29/202409/29, 03/29/2023, 06/19/2022, Additional history exists CKD PHOS USE SMARTSET 84708 09/29/202409/02, 06/19/2022, 03/17/2021, Additional history exists GFR 10/04/2024 04/06/2024, 09/02, 03/29/2023, Additional history exists Depression Monitoring 01/12/2025 01/13/2024 DXA Scan 02/11/2025 02/11/2023, 02/01, 06/08/2020, Additional history exists TSH 04/06/2025 04/06/2024, 09/02, 03/29/2023, Additional history exists Albumin/Creatinine Ratio 04/07/2025 025, 04/03/2023, 06/19/2022, Additional history exists O2 ASSESSMENT COMPLETED IN PAST YEAR FOR COPD 04/07/2025 04/07/2024 DTap/Tdap Vaccines (3 - Td or Tdap) 06/19/2026 06/19/2016, 06/19/2016, 08/13/2006 Pneumococcal Vaccine: 50+ Years Completed 07/28/2015, 10/19/2010 Zoster Vaccines Completed 08/15/2019, 09/2019, 02/07/2012 Mcintyre's Esophagus Surveilance Discontinued 04/28/2020, 08/20/2018, 08/20/2018, Additional history exists VITAMIN D LEVEL ONCE IN A LIFETIME-USE SMARTSET# [id number] Completed 03/29/2023, 07/01/2018, 08/23/2017, Additional history exists [...] this encounter Medical Devices Implanted Type Area Computer Engineering Technologist Device Identifier Shelf Expiration Date Model / Serial / Lot Alloderm 2x4 Sheet [id number] - [id number] Implanted:Qty : 1 on 04/11/2009 at [facility] Tissue - Human N/A: Esophagus [employer] JACQUI 10/02/2010 [id number] / / [id number] Lens Intraoc 21.0 - [id number] - [id number] Implanted:Qty : 1 on 01/23/2016 by Rambo Menendez MD at OR [facility] [employer] 08/01/2020 [id number] / [id number] Istent Left Implanted:Qty : 1 on 01/23/2016 by Rambo Menendez MD at OR [facility] Left: Eye 08/31/2018 [id number] / [id number] / [id number] Lens Intraoc 20.5 - [id number] - [id number] Implanted:Qty : 1 on 02/09/2016 by Rambo Menendez MD at OR [facility] Right: Eye [employer] 08/31/2020 [id number] / [id number] Istent Implanted:Qty : 1 on 02/09/2016 by Rambo Menendez MD at OR [facility] Right: Eye 08/31/2018 [id number] / [id number] / [id number] documented as of this encounter Procedures Procedure Name Priority Date/Time Associated Diagnosis Comments ALBUMIN / CREATININE RATIO, URINE Routine 04/07/2024 3:30 PM EST Hypertensive kidney disease with stage 3a chronic kidney disease (HCC) documented in this encounter Results * ALBUMIN / CREATININE RATIO, URINE (04/07/2024 3:30 PM EST) Albumin, Random Urine 2.00 mg/dL 04/08/2024 12:08 AM EST LABORATORY [facility] Creatinine, Random Urine 215 mg/dL 04/08/2024 12:08 AM EST LABORATORY [facility] Albumin / Creatinine Ratio, Urine 9 <30 mg/g Creat 04/08/2024 12:08 AM EST LABORATORY [facility] Urine Urine specimen obtained by clean catch procedure / Unknown Non-blood Collection / Unknown 04/07/2024 3:30 PM EST 04/07/2024 3:33 PM EST Narrative LABORATORY [facility] - 04/08/2024 12:08 AM EST Normal: <30 mg/g creatinine High: 30-300 mg/g creatinine Very High: >300 mg/g creatinine Nephrotic: >2200 mg/g creatinine Yuko Casas MD LAB URINE ORDERABLES Final Res ult LABORATORY [facility] [address] [place] [address] documented in this encounter Visit Diagnoses Diagnosis Essential (primary) hypertension- Primary Unspecified essential hypertension Dyslipidemia, goal LDL below 100 Other and unspecified hyperlipidemia Bipolar I disorder, most recent episode manic (HCC) Bipolar I disorder, most recent episode (or current) manic, unspecified Major depressive disorder, recurrent, moderate (HCC) Major depressive disorder, recurrent episode, moderate Hypertensive kidney disease with stage 3a chronic kidney disease (HCC) Supraventricular tachycardia, unspecified (HCC) Paranoid schizophrenia (HCC) Paranoid schizophrenia, unspecified condition Primary open angle glaucoma of both eyes, mild stage History of CT (myocardial infarction) Old myocardial infarction Generalized anxiety disorder Acquired hypothyroidism Unspecified hypothyroidism Senile osteoporosis Other constipation Orthostatic hypotension Mcintyre's esophagus without dysplasia Mcintyre's esophagus Schizo-affective schizophrenia (HCC) Schizoaffective disorder, unspecified condition documented in this encounter Advance Directives * [...] and were consensually agreed upon. Care Teams Sugar Boiler Relationship Specialty Start Date End Date Yuko Casas MD [address] [place] [address] [place] [id number] PCP - General 09/14/08 documented as of this encounter
--- OUTSIDE RECORDS SUMMARY | 2024-06-27 02:58 | External Medical Summary | Summary of Care ---
Author Name Unknown Organization [facility] Address [address] [place] [address] Phone [phone] Care Team Providers Care Parking Station Attendant Name Role Phone Yuko Casas MD Primary Care Provider [phone] Encounter Details Date Type Department Care Team (Late st Contact Info) Description 03/23/2024 Population Health External Data Unspecified Department Allergies Active Allergy Reactions Criticality Noted Date Comments Amoxicillin Rash 06/20/2015 Latex Rash 04/05/2009 irritation Other Allergy (See Comments) Rash Low 04/27/2021 1+) reactions to methyldibromo glutaronitrile Fragrance mix Propolis iodopropynyl butylcarbamate methylisothiazoline documented as of this encounter (statuses as of 03/23/2024) Medications venlafaxine XR (EFFEXOR XR) 150 MG [...] 0.4 MG Sublingual Tablet Sublingual (Nitrostat)Indicat ions:Acute hpr-GE-hxutpcdta myocardial infarction (HCC) PLACE 1 TABLET UNDER [...] as of this encounter (statuses as of 03/23/2024) Active Problems Problem Noted Date Diagnosed Date [...] legs 11/14/2017 Coronary artery disease invo lving [place] coronary artery of [place] heart without angina pectoris 11/14/2017 Overview (11/14/2017): Mild 30% lesion mid LAD. NSTEMI at that time more attributted to tachyarrhythmia. Hospitalized [facility] History of supraventricular tachycardia 09/21/19 18 ACEI/ARB contraindicated 11/17/2015 Overview (11/17/2015): Hypotension Primary open angle glaucoma of both eyes, mild s tage 11/17/2015 Dyslipidemia, goal LDL below 100 10/01/2014 History of NV (myocardial infarction) 09/20/2014 Acquired hypothyroidism 09/20/2014 Mcintyre's [...] as of this encounter (statuses as of 03/23/2024) Resolved Problems Problem Noted Date Diagnosed Date Resolved Date Encounter for examination fo r normal comparison and control in clinical research program 06/03/2018 10/05/2019 Overview (06/20/2020): DO NOT DELETE [facility] GREG Study: Project # [id number], Keyboard Action Assembler: Kamar Conrad, PhD. SUMMARY: Goal: Establish test [...] contact study staff at ; after hours Keyboard Action Assembler via the [facility] hospital centrex radio operator . Please contact study team before resolving/deleting from patients problem list. Study phone number: [phone]. Diagnosis changed due to Research Module. Go to Snapshot for study details. Encounter for examination fo r normal comparison and control in clinical research program 06/03/2018 11/02/2021 Overview (06/20/2020): DO NOT DELETE - [facility] DETECT Study: Project # [id number], Keyboard Action Assembler: Pacheco Kaiser, MS, MPH. SUMMARY: Goal: Establish [...] contact study staff at ; after hours Keyboard Action Assembler via the [facility] hospital centrex radio operator . - Please contact study team before resolving/deleting from patients problem list. Study phone number: [phone]. Diagnosis changed due to Research Module. Go [...] as of this encounter (statuses as of 03/23/2024) Immunizations Name Administration Dates Next Due COVID-19 [...] Office Visit General Internal Medicine [facility] [address] [place] [address] [place] [address] Yuko Casas MD [address] [place] [address] 04/21/2024 12:30 PM EST Office Visit Gastroenterology, [facility] [address] [address] Gina Mckeon CRNP [address] [address] 06/24/2024 2:00 PM EDT Office Visit Rheumatology [facility] [address] [place] [phone] Keyonna Rao CRNP [address] [facility] [place] [address] 09/14/2024 2:00 PM EDT Office Visit Otolaryngology [facility] [address] [place] [address] Jerry Lopez PA-C [address] [place] [address] Health Maintenance Due Date Last Done Comments Adult Wellness Visit 11/01/2022 11/01/2021 Mcintyre's Esophagus Surveilance 04/28/2023 04/28/2020, 08/20/2018, 08/20/2018, Additional history exists COVID-19 Vaccine ( season) 2024 12/16/2023, 12/07/2022, 01/18/2022, Additional history exists GFR 04/01/2024 09/30/2023, 03/05, 06/19/2022, Additional history exists Albumin/Creatinine Ratio 04/03/2024 024, 06/19/2022, 03/22/2021, Additional history exists CKD HGB USE SMARTSET 13095 09/29/202409/29, 03/29/2023, 06/19/2022, Additional history exists CKD PHOS USE SMARTSET 60699 09/29/202409/02, 06/19/2022, 03/17/2021, Additional history exists TSH 09/29/2024 09/30/2023, 03/05, 06/19/2022, Additional history exists O2 ASSESSMENT COMPLETED IN PAST YEAR FOR COPD 01/27/2025 01/28/2024 DXA Scan 02/11/2025 02/11/2023, 02/01, 06/08/2020, Additional history exists DTap/Tdap Vaccines (3 - Td or Tdap) 06/19/2026 06/19/2016, 06/19/2016, 08/13/2006 Pneumococcal Vaccine: 50+ Years Completed 07/28/2015, 10/19/2010 Zoster Vaccines Completed 08/15/2019, 09/2019, 02/07/2012 VITAMIN D LEVEL ONCE IN A LIFETIME-USE SMARTSET# 15813 Completed 03/29/2023, 07/01/2018, 08/23/2017, Additional history exists [...] this encounter Medical Devices Implanted Type Area Community Mental Health Worker Device Identifier Shelf Expiration Date Model / Serial / Lot Alloderm 2x4 Sheet [id number] - [id number] Implanted:Qty : 1 on 04/11/2009 at OR [facility] Tissue - Human N/A: Esophagus [employer] 10/02/2010 [id number] / / [id number] Lens Intraoc 21.0 - [id number] - [id number] Implanted:Qty : 1 on 01/23/2016 by Rambo Menendez MD at OR [facility] [employer] 08/01/2020 [id number] / [id number] Istent Left Implanted:Qty : 1 on 01/23/2016 by Rambo Menendez MD at OR [facility] Left: Eye 08/31/2018 [id number] / [id number] / [id number] Lens Intraoc 20.5 - [id number] - [id number] Implanted:Qty : 1 on 02/09/2016 by Rambo Menendez MD at OR [facility] Right: Eye [employer] 08/31/2020 [id number] / [id number] Istent Implanted:Qty : 1 on 02/09/2016 by Rambo Menendez MD at OR [facility] Right: Eye 08/31/2018 [id number] / [id number] / [id number] documented as of this encounter Advance Directives [...] and were consensually agreed upon. Care Teams Parking Station Attendant Relationship Specialty Start Date End Date Yuko Casas MD [address] [place] [address] PCP - General 09/14/08 documented as of this encounter
--- OUTSIDE RECORDS SUMMARY | 2024-06-27 02:58 | External Medical Summary | Summary of Care ---
Author Name Unknown Organization [facility] Address [address] [place] [address] Phone [phone] Care Team Providers Care It Security Analyst Name Role Phone Yuko Casas MD Primary Care Provider [phone] Reason for Visit * Reason Comments Follow Up Follow up for hx Bar ret's, hh, GERD and dysphagia. Encounter Details Date Type Department Care Team (Latest Contact Info) Description 04/21/2024 12:30 PM EST Office Visit Gastroenterology, [facility] [address] [place] [address] Gina Mckeon CR[facility] [address] [facility] [address] Gastroesophageal reflux disease with esophagitis without hemorrhage*; History of Elena fundoplication; Dysphagia, unspecified type Allergies Active Allergy Reactions Criticality Noted Date Comments Amoxicillin Rash 06/20/2015 Latex Rash 04/05/2009 irritation Other Allergy (See Comments) Rash Low 04/27/2021 1+) reactions to methyldibromo glutaronitrile Fragrance mix Propolis iodopropynyl butylcarbamate methylisothiazoline documented as of this encounter (statuses as of 04/21/2024) Medications venlafaxine XR (EFFEXOR XR) 150 MG CP24 1 Capsule every morning. Active QUEtiapine (SEROQUEL) 300 MG Tablet Take 1 Tablet by mouth at bedtime. 30 Tab 5 07/18/19 16 Active Nitroglycerin 0.4 MG Sublingual Tablet Sublingual (Nitrostat)Indicat ions:Acute apt-ZS-atumldwgz myocardial infarction (HCC) PLACE 1 TABLET UNDER [...] Denosumab 60 MG/ML Subcutaneous Solution Prefilled Syringe (ProlIdentropy) Inject 60 mg under the skin once. [...] Constipation. 180 Tablet 3 04/07/19 25 Active documented as of this encounter (statuses as of 04/21/2024) Active Problems Problem Noted Date Diagnosed Date [...] legs 11/14/2017 Coronary artery disease invo lving mechoopda coronary artery of mechoopda heart without angina pectoris 11/14/2017 Overview (11/14/2017): Mild 30% lesion mid LAD. NSTEMI at that time more attributted to tachyarrhythmia. Hospitalized [facility] History of supraventricular tachycardia 09/21/19 18 ACEI/ARB contraindicated 11/17/2015 Overview (11/17/2015): Hypotension Primary open angle glaucoma of both eyes, mild s tage 11/17/2015 Dyslipidemia, goal LDL below 100 10/01/2014 History of NC (myocardial infarction) 09/20/2014 Acquired hypothyroidism 09/20/2014 Mendoza's [...] as of this encounter (statuses as of 04/21/2024) Resolved Problems Problem Noted Date Diagnosed Date Resolved Date Encounter for examination fo r normal comparison and control in clinical research program 06/03/2018 10/05/2019 Overview (06/20/2020): DO NOT DELETE [facility] [place] DETECT Study: Project # [id number], Dairy Husbandry Teacher: Kamar Conrad, PhD. SUMMARY: Goal: Establish test [...] contact study staff at ; after hours Dairy Husbandry Teacher via the [facility] hospital spray dry operator . Please contact study team before resolving/deleting from patients problem list. Study phone number: [phone]. Diagnosis changed due to Research Module. Go to Snapshot for study details. Encounter for examination fo r normal comparison and control in clinical research program 06/03/2018 11/02/2021 Overview (06/20/2020): DO NOT DELETE [employer] DETECT Study: Project # [id number], Dairy Husbandry Teacher: Pacheco Kaiser, MS, MPH. SUMMARY: Goal: Establish [...] contact study staff at ; after hours Dairy Husbandry Teacher via the [facility] hospital spray dry operator . - Please contact study team before resolving/deleting from patients problem list. Study phone number: [phone]. Diagnosis changed due to Research Module. Go [...] as of this encounter (statuses as of 04/21/2024) Immunizations Name Administration Dates Next Due COVID-19 [...] Sign Reading Time Taken Comments Blood Pressure 102/64 04/21/2024 12:49 PM EST Pulse - - Temperature -12.7 °C (9.2 °F) 04/21/2024 12:[address] Respiratory Rate - - Oxygen Saturation - - Inhaled Oxygen Concentration - - Weight 62.6 kg (138 lb) 04/21/2024 12:49 PM EST Height - - Body Mass Index 26.95 04/07/2024 2:28 PM EST documented in this encounter Progress Notes * Gina Mckeon CRNP - 04/21/2024 12:30 PM EST Gastroenterology Outpatient Visit 04/21/2024 Referring physician:Janell Palumbo PA-C PCP: Yuko Casas MD Past medical history: GERD status post Elena fundoplication Suggestive of an slipped Elena on EGD 2020 Medium-sized hiatal hernia Dilated esophagus 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 Over the last several weeks patient has been having difficulty with dysphagia. Believes this is due to not having dentures- having problems chewing her food. Dentures should be arriving in a week or 2 per the patient. Last week notes an episode where food got stuck and she "coughed it up". No vomiting. Also having some problems with large pills getting stuck-- started taking them with apple sauce, issues resolved. Has a lot of "phlegm" upon waking-- took an antibiotic recently, believes symptoms improved, however, some foods make phlegm worse. No indigestion or reflux-- takes PPI and H2 nohemy BID. Notes chronic constipation-- currently bowels are moving EOD without straining. Takes colace as needed. No blood in the stools. No abdominal pain. Previous GI workup: Colonoscopy: 03/2009--poor prep. Copious quantities of stool found in the rectum to sigmoid making visualizationdifficult. EGD: 04/2020--dilation in the entire esophagus, esophagitis, Elena fundoplication was found. Esophagus dilated to 51 Fr. Medium-sized hiatal hernia suggestive of a slipped Elena. Gastritis. Normal duodenum. CTAP: 2020-- Significant large bowel stool and gas burden without evidence of bowel obstruction KUB: 11/2020: Diffuse dilation of small and large bowel which may be due to obstruction or ileus. Recommend additional imaging as clinically warranted. Large colonic stool burden in the right lower quadrant. GES: 09/2018: Normal solid gastric emptying study. No gastroparesis. Barium swallow: 12/2020-- test was terminated early due to aspiration during exam. Initial demonstrate esophageal dysmotility and a hiatal hernia which could be paraesophageal. Social history: Tobacco use: None ETOH use: None Drug use: None NSAID use: None Caffeine use: Rare Family Hx: No known family history of inflammatory bowel disease. Paternal GF- CRC Current Outpatient Medications Medication Sig Dispense Refill venlafaxine XR (EFFEXOR XR) 150 MG CP24 1 Capsule every morning. QUEtiapine (SEROQUEL) 300 MG Tablet Take 1 Tablet by mouth at bedtime. 30 Tab 5 cycloSPORINE 0.05 % Ophthalmic Emulsion (Restasis) Instill into both eyes as needed for Dry eyes. Azelastine HCl 0.1 % Nasal Solution (Astelin) use 1 spray in each nostril twice daily 30 mL 5 Pantoprazole Sodium 40 MG Oral Tablet Delayed Release (Protonix) TAKE 1 TABLET BY MOUTH TWICE DAILY30 to 60 minutes before breakfast and dinner 180 Tablet 3 Albuterol Sulfate HFA 108 (90 Base) MCG/ACT [...] Denosumab 60 MG/ML Subcutaneous Solution Prefilled Syringe ([employer]) Inject 60 mg under the skin once. [...] day as needed for Constipation.180 Tablet 3 Nitroglycerin 0.4 MG Sublingual Tablet Sublingual (Nitrostat) PLACE 1 TABLET UNDER THE TONGUE NEEDED FOR CHEST PAIN. MAY REPEAT 3 TIMES. IF CHEST PAIN CONTINUES CALL 911 25 Tablet 0 Benzonatate 100 MG Oral Capsule (Tessalon Perles) Take 1 Capsule by mouth 3 times a day as needed for Cough. Do not cut, crush, or chew. (Patient not taking: Reported on 04/07/2024) 30 Capsule 0 No current facility-administered medications for this visit. Past Medical History: Diagnosis Date ACEI/ARB contraindicated 11/17/2015 Hypotension Mendoza's esophagus 01/2009 large hiatal hernia, esophageal mucosal changes suspicious for short term segment barretts esophagus, Barretts esophagus, f/u in 1 yr Bipolar I disorder, most recent episode manic (HCC) Dr Borden CAD (coronary artery disease) 09/08/2013 [...] performed by Randy Bauer MD at [facility], biopsies consistent with short segments barretts Past Surgical History: Procedure Laterality Date COLONOSCOPY, DIAGNOSTIC (RECTUM) 03/2003 Colonoscopy DILATION AND CURETTAGE (D&C) mid D&C, non OB X 3 prior to hysterectomy EGD, FLEXIBLE, DIAGNOSTIC 04/11/2009 UPPER GI ENDOSCOPY DIAGNOSTIC performed by FARAZ MCKENZIE at [facility] EGD, FLEXIBLE, DIAGNOSTIC 07/02/2012 Barretts, repeat 3 yrs/UPPER GI ENDOSCOPY DIAGNOSTIC performed by Randy Bauer MD at ENDOSCOPY [facility], biopsies consistent with short segments barretts EGD, FLEXIBLE, DIAGNOSTIC 07/05/2015 Barretts, repeat 3 yrs/ESOPHAGOGASTRODUODENOSCOPY (EGD), FLEXIBLE, TRANSORAL, DIAGNOSTIC performed by Randy Bauer MD at ENDOSCOPY [facility] EGD, FLEXIBLE, DIAGNOSTIC 08/20/2018 Mendoza's esophagitis, retained food, repeat 3 yrs/ESOPHAGOGASTRODUODENOSCOPY (EGD), FLEXIBLE, TRANSORAL, DIAGNOSTIC performed by Randy Bauer MD at END[facility]COPY [facility] EGD, FLEXIBLE, DIAGNOSTIC 04/28/2020 gastritis, hiatal hernia, normal bx / [facility] EGD, FLEXIBLE, W/BIOPSY 01/04/09 done large hiatal hernia, esophageal mucosal changes suspicious for short term segment barretts esophagus, Barretts esophagus, f/u in 1 yr EGD, FLEXIBLE, W/BIOPSY 01/29/2011 Mendoza's esophagitis ESOPHAGOGASTRIC FUNDOPLASTY 04/11/2009 LAPAROSCOPIC ESOPHAGOGASTRIC FUNDOPLASTY ELENA performed by FARAZ MCKENZIE at [facility] ESOPHAGOSCOPY, FLEXIBLE, DIAGNOSTIC 10/25/2003 Dr. Duron - mendoza's ESOPHAGOSCOPY, FLEXIBLE, DIAGNOSTIC 01/12/2005 INSERT AQUEOUS SHUNT, EXTERNAL APPROACH Left 01/23/2016 iStent performed by Rambo Menendez MD at [facility] INSERT AQUEOUS SHUNT, EXTERNAL APPROACH Right 02/09/2016 INSERTION AQUEOUS ANTERIOR DRAINAGE DEVICE W/O EXTRAOCULAR RESERVOIR performed by Rambo Menendez MD at [facility] LIGATE/CUT OVIDUCT(S) 1970 Tubal Ligation,Non Laparoscopic NM THALLIUM STRESS W/SPECT 2007 normal. EF 52% REMOVE CATARACT, INSERT LENS PROSTH Left 01/23/2016 Left EXTRACAPSULAR CATARACT REMOVAL WITH INTRAOCULAR LENS performed by Rambo Menendez MD at [facility] REMOVE CATARACT, INSERT LENS PROSTH Right 02/09/2016 Right EXTRACAPSULAR CATARACT REMOVAL WITH INTRAOCULAR LENS performed by Rambo Menendez MD at [facility] REPAIR PARAESOPHAGEAL HERNIA 04/11/2009 LAPAROSCOPIC REPAIR PARAESOPHAGEAL HIATUS HERNIA WITH OR WITHOUT FUNDOPLASTY, VAGOTOMY, OR PYLOROPLASTY performed by FARAZ MCKENZIE at [facility] SHOULDER SURGERY PROCEDURE NEC 2005 for OA TOTAL ABD HYSTERECTOMY W/WO REMOVAL OF TUBE(S) 1997 TONNY (Total Abdominal Hysterectomy); large benign tumor as reason for hysterectomy TOTAL ABD HYSTERECTOMY W/WO REMOVAL OF TUBE(S) early s TONNY-Bso VASC DUPLEX CAROTID BILAT 08/2006 mild plaque w/o significant stenosis Social History Tobacco Use Smoking status: Former Current packs/day: 0.00 Average packs/day: 3.0 packs/day for 20.0 years (60.0 ttl pk-yrs) Types: Cigarettes Start date: 03/04/1963 Quit date: 03/04/1983 Years since quittin.1 Smokeless tobacco: Never Vaping Use Vaping status: Never Used Substance Use Topics Alcohol use: No Drug use: No Review of patient's allergies indicates: Allergen Reactions Amoxicillin Rash Latex Rash irritation Other Allergy (See Comments) Rash 1+) reactions to methyldibromo glutaronitrile Fragrance mix Propolis iodopropynyl butylcarbamate methylisothiazoline Review of Systems: See HPI for pertinent positives. All others negative, other than those noted in HPI. Physical Exam: BP 102/64 | Temp (!) -12.7 °C (9.2 °F) | Wt 62.6 kg (138 lb) | BMI 26.95 kg/m² | BSA 1.63 m² GENERAL: Well developed and well nourished in no acute distress. SKIN: No rashes, ulcers, jaundice or spider angiomata. HEENT: Normocephalic, sclera clear, pharynx normal. NECK: Supple, no lymphadenopathy, no masses or thyroid enlargement. LUNGS: Clear to auscultation bilaterally, no respiratory distress or accessory muscles used. HEART: Regular rate & rhythm, no murmurs and no gallops. ABDOMEN: Normal bowel sounds, soft and nontender, no masses or hepatosplenomegaly. EXTREMITIES: No palmar erythema, no ankle edema, no skin discoloration, no clubbing, no cyanosis. NEURO: No lateralizing findings. Sensory/Motor grossly normal. Lab data/imaging study review: Reviewed via chart. Impression/Plan: This is a(n) 78 year old female who is being evaluated in the office for ongoing care/risk management for the below diagnoses. 1. Gastroesophageal reflux disease with esophagitis without hemorrhage (Primary) 2. History of Elena fundoplication 3. Dysphagia, unspecified type Patient with GERD s/p Elena-- possible slipped elena on prior EGD. Known GERD with possible Mendoza's, no evidence of this on last EGD. Known dilated esophagus. Dysphagia noted. Concerns for aspiration. Discussed repeat EGD with possible need for dilation- patient concerned with invasive procedures and would like to defer at this time. Wants to wait to see if symptoms improve after she gets her dentures. Patient is agreeable to UGI series for further eval. May need speech therapy eval. Continue PPI and H2 nohemy as scheduled. Consider use of Flonase for post nasal drip. The patient agrees to the above plan and will call with additional questions or concerns. ER with all emergencies advised. Follow-up: Return in about 6 weeks (around 06/02/2024). | Check-out note: UGI series ([facility]) I spent a total of Greater than 55 mins (exact time 60 mins) on the date of service in preparation,delivery, and documentation of the care provided to Holli Barbosa excluding any time spent in the performance of separately billed services or time spent by another provider/QHP. JULIO CESAR [facility] Gastroenterology, [facility] This chart was completed in part utilizing [employer] Speech Voice Recognition Software. Grammatical errors, random word insertions, prounoun errors, and incomplete sentences are an occasional consequence of this system due to software limitations, ambient noise, and hardware issues. Any formal questions or concerns about the content, text, or information contained within the body of this dictation should be directly addressed to the provider for clarification. documented in this encounter Nursing Notes * Bee Pathak CMA - 04/21/2024 12:48 PM EST Chief Complaint Patient presents with Follow Up Follow up for hx Sonny's, hh, GERD and dysphagia. documented in this encounter Plan of Treatment Upcoming Encounters Date Type Department Care Team (Late st Contact Info) Description 04/27/2024 2:00 PM EST Cardiac Studies Cardiac Studies, [address] [place] [address] 06/24/2024 2:00 PM EDT Office Visit Rheumatology [facility] [address] [place] [place] [id number] Keyonna Rao CRNP [address] [facility] [place] [address] 09/14/2024 2:00 PM EDT Office Visit Otolaryngology [facility] [address] [place] [address] Jerry Lopez PA-C [address] [place] [address] 10/12/2024 2:20 PM EDT Office Visit General Internal Medicine [facility] [address] [place] [address] Yuko Casas MD [address] [place] [address] Scheduled Orders Name Type Priority Associated Diagnoses Orde r Schedule FLUORO UGI WITH SMALL BOWEL DOUBLE CONTRAST Medical Imaging Routine Gastroesophageal reflux disease with esophagitis without hemorrhage History of Elena fundoplication Dysphagia, unspecified type Ordered: 04/21/2024 Health Maintenance Due Date Last Done Comments Adult Wellness Visit 11/01/2022 11/01/2021 COVID-19 Vaccine ( season) 2024 12/16/2023, 12/07/2022, 01/18/2022, Additional history exists CKD HGB USE SMARTSET 50495 09/29/202409/29, 03/29/2023, 06/19/2022, Additional history exists CKD PHOS USE SMARTSET 99787 09/29/202409/02, 06/19/2022, 03/17/2021, Additional history exists GFR [...] D LEVEL ONCE IN A LIFETIME-USE SMARTSET# [id number] Completed 03/29/2023, 07/01/2018, 08/23/2017, Additional history exists [...] this encounter Medical Devices Implanted Type Area Electrician Yard Device Identifier Shelf Expiration Date Model / Serial / Lot Alloderm 2x4 Sheet [id number] - [id number] Implanted:Qty : 1 on 04/11/2009 at [place] [facility] Tissue - Human N/A: Esophagus [employer] JACQUI 10/02/2010 [id number] / / [id number] Lens Intraoc 21.0 - [id number] - [id number] Implanted:Qty : 1 on 01/23/2016 by Rambo Menendez MD at OR [facility] [employer] 08/01/2020 [id number] / [id number] Istent Left Implanted:Qty : 1 on 01/23/2016 by Rambo Menendez MD at OR [facility] Left: Eye 08/31/2018 [id number] / [id number] / [id number] Lens Intraoc 20.5 - [id number] - [id number] Implanted:Qty : 1 on 02/09/2016 by Rambo Menendze MD at OR [facility] Right: Eye [employer] 08/31/2020 [id number] / [id number] Istent Implanted:Qty : 1 on 02/09/2016 by Rambo Menendez MD at OR [facility] Right: Eye 08/31/2018 [id number] / [id number] / [id number] documented as of this encounter Visit Diagnoses Diagnosis Gastroesophageal reflux disease with esophagitis without hemorrhage- Primary History of Elena fundoplication Dysphagia, unspecified type documented in this encounter Advance Directives * [...] and were consensually agreed upon. Care Teams It Security Analyst Relationship Specialty Start Date End Date Yuko Casas MD [address] [place] [address] PCP - General 09/14/08 documented as of this encounter
--- OUTSIDE RECORDS SUMMARY | 2024-06-27 02:58 | External Medical Summary ---
Author Name Unknown Address Unknown Organization K09:[facility] [place] [address] Laboratory Report Ordering Provider Test Date Status LACI BUSTAMANTE 04/06/2024 12:19:27 Final Observation Date Value Abnormality Reference (Units ) Status Magnesium 04/06/2024 12:19:27 2.3 1.5-2.6 (m g/dL) Final Performing Location [facility] [place] [address]
--- OUTSIDE RECORDS SUMMARY | 2024-06-27 02:58 | External Medical Summary | Summary of Care ---
Author Name Unknown Organization [facility] Address [address] [place] [address] Phone [phone] Care Team Providers Care Dairy Nutrition Specialist Name Role Phone Yuko Casas MD Primary Care Provider [phone] Reason for Visit * Reason Onset Date Comments Information 05/19/2024 Encounter Details Date Type Department Care Team (Late st Contact Info) Description 05/19/2024 Telephone Care Coordination and Integration [address] [place] [address] Keanu Jean, DONIS [address], [place] [id number] Information Allergies Active Allergy Reactions Criticality Noted Date Comments Amoxicillin Rash 06/20/2015 Latex Rash 04/05/2009 irritation Other Allergy (See Comments) Rash Low 04/27/2021 1+) reactions to methyldibromo glutaronitrile Fragrance mix Propolis iodopropynyl butylcarbamate methylisothiazoline documented as of this encounter (statuses as of 05/20/2024) Medications venlafaxine XR (EFFEXOR XR) 150 MG CP24 1 Capsule every morning. Active QUEtiapine (SEROQUEL) 300 MG Tablet Take 1 Tablet by mouth at bedtime. 30 Tab 5 07/18/19 16 Active Nitroglycerin 0.4 MG Sublingual Tablet Sublingual (Nitrostat)Indicat ions:Acute woq-HD-bzbzxzikz myocardial infarction (HCC) PLACE 1 TABLET UNDER [...] once. Active Benzonatate 100 MG Oral Capsule (Tesdionisio Lopez) Take 1 Capsule by mouth 3 [...] as of this encounter (statuses as of 05/20/2024) Active Problems Problem Noted Date Diagnosed Date [...] legs 11/14/2017 Coronary artery disease invo lving kaguyuk coronary artery of kaguyuk heart without angina pectoris 11/14/2017 Overview (11/14/2017): Mild 30% lesion mid LAD. NSTEMI at that time more attributted to tachyarrhythmia. Hospitalized [facility] History of supraventricular tachycardia 09/21/19 18 ACEI/ARB contraindicated 11/17/2015 Overview (11/17/2015): Hypotension Primary open angle glaucoma of both eyes, mild s tage 11/17/2015 Dyslipidemia, goal LDL below 100 10/01/2014 History of [place] (myocardial infarction) 09/20/2014 Acquired hypothyroidism 09/20/2014 Mcintyre's [...] as of this encounter (statuses as of 05/20/2024) Resolved Problems Problem Noted Date Diagnosed Date Resolved Date Encounter for examination fo r normal comparison and control in clinical research program 06/03/2018 10/05/2019 Overview (06/20/2020): DO NOT DELETE [employer] DETECT Study: Project # [id number], Cyber Security: Kamar Conrad, PhD. SUMMARY: Goal: Establish test [...] contact study staff at ; after hours Cyber Security via the [facility] hospital stencil machine operator . Please contact study team before resolving/deleting from patients problem list. Study phone number: [phone]. Diagnosis changed due to Research Module. Go to Snapshot for study details. Encounter for examination fo r normal comparison and control in clinical research program 06/03/2018 11/02/2021 Overview (06/20/2020): DO NOT DELETE - [employer] DETECT Study: Project # [id number], Cyber Security: Pacheco Kaiser, MS, MPH. SUMMARY: Goal: Establish [...] contact study staff at ; after hours Cyber Security via the [facility] hospital stencil machine operator . - Please contact study team before resolving/deleting from patients problem list. Study phone number: [phone]. Diagnosis changed due to Research Module. Go [...] her current scheduled cardiac visit on the 28th of this month. I discussed the results [...] as of this encounter (statuses as of 05/20/2024) Immunizations Name Administration Dates Next Due COVID-19 [...] encounter Miscellaneous Notes * Telephone Encounter - Keanu Jean RN - 05/19/2024 4:12 PM EDT Spoke with patient and relayed that Dr Casas feels the echocardiogram overall looks good. Holli willyleased and had no further questions. documented in this encounter Plan of Treatment Upcoming Encounters Date Type Department Care Team (Late st Contact Info) Description 06/24/2024 2:00 PM EDT Office Visit [facility]umat[facility] [place] [phone] Keyonna Rao CRNP [address] [facility] [place] [address] 09/14/2024 2:00 PM EDT Office Visit [facility]ology [facility] [place] [address] Jerry Lopez PA-C [address] [facility] [place] [address] 10/12/2024 2:20 PM EDT Office Visit General Internal Medicine [facility] [address] [facility] [place] [address] Yuko Casas MD [address] [facility] [place] [address] Health Maintenance Due Date Last Done Comments Adult Wellness Visit 11/01/2022 11/01/2021 COVID-19 Vaccine ( season) 2024 12/16/2023, 12/07/2022, 01/18/2022, Additional history exists CKD HGB USE SMARTSET 20268 09/29/202409/29, 03/29/2023, 06/19/2022, Additional history exists CKD PHOS USE SMARTSET 86831 09/29/202409/02, 06/19/2022, 03/17/2021, Additional history exists GFR [...] D LEVEL ONCE IN A LIFETIME-USE SMARTSET# 48277 Completed 03/29/2023, 07/01/2018, 08/23/2017, Additional history exists [...] this encounter Medical Devices Implanted Type Area Pond Scaler Device Identifier Shelf Expiration Date Model / Serial / Lot Alloderm 2x4 Sheet [id number] - [id number] Implanted:Qty : 1 on 04/11/2009 at [place] [facility] Tissue - Human N/A: Esophagus LIFE CE[employer] JACQUI 10/02/2010 [id number] / / [id number] Lens Intraoc 21.0 - [id number] - [id number] Implanted:Qty : 1 on 01/23/2016 by Rambo Menendez MD at OR [facility] [employer] 08/01/2020 [id number] / [id number] Istent Left Implanted:Qty : 1 on 01/23/2016 by Rambo Menendez MD at OR [facility] Left: Eye 08/31/2018 [id number] / [id number] / [id number] Lens Intraoc 20.5 - [id number] - [id number] Implanted:Qty : 1 on 02/09/2016 by Rambo Menendez MD at OR [facility] Right: Eye [employer] 08/31/2020 [id number] / [id number] Istent Implanted:Qty : 1 on 02/09/2016 by Rambo Menendez MD at OR [facility] Right: Eye 08/31/2018 [id number] / [id number] / [id number] documented as of this encounter Advance Directives [...] and were consensually agreed upon. Care Teams Dairy Nutrition Specialist Relationship Specialty Start Date End Date Yuko Casas MD [address] [place] [address], [place] [address] PCP - General 09/14/08 documented as of this encounter
--- OUTSIDE RECORDS SUMMARY | 2024-06-27 02:58 | External Medical Summary | Summary of Care ---
Author Name Unknown Organization [facility] Address [address] [place] [address] Phone [phone] Care Team Providers Care Ham Stripper Name Role Phone Yuko Casas MD Primary Care Provider Reason for Visit * Reason Comments NEW PATIENT 6 month follow up Encounter Details Date Type Department Care Team (Late st Contact Info) Description 03/16/2024 1:30 PM EST Office Visit Otolaryngology [facility] [address] [place] [address] Jerry Lopez PA-C [address] [place] [address] Bilateral impacted cerumen* Allergies Active Allergy Reactions Criticality Noted Date Comments Amoxicillin Rash 06/20/2015 Latex Rash 04/05/2009 irritation Other Allergy (See Comments) Rash Low 04/27/2021 1+) reactions to methyldibromo glutaronitrile Fragrance mix Propolis iodopropynyl butylcarbamate methylisothiazoline documented as of this encounter (statuses as of 03/16/2024) Medications venlafaxine XR (EFFEXOR XR) 150 MG [...] 0.4 MG Sublingual Tablet Sublingual (Nitrostat)Indicat ions:Acute cvb-BA-hxdwmeixp myocardial infarction (HCC) PLACE 1 TABLET UNDER [...] Active Benzonatate 100 MG Oral Capsule (Tessalon Perlselina) Take 1 Capsule by mouth 3 times [...] as of this encounter (statuses as of 03/16/2024) Active Problems Problem Noted Date Diagnosed Date [...] legs 11/14/2017 Coronary artery disease invo lving [place] coronary artery of [place] heart without angina pectoris 11/14/2017 Overview (11/14/2017): Mild 30% lesion mid LAD. NSTEMI at that time more attributted to tachyarrhythmia. Hospitalized [facility] History of supraventricular tachycardia 09/21/19 18 ACEI/ARB contraindicated 11/17/2015 Overview (11/17/2015): Hypotension Primary open angle glaucoma of both eyes, mild s tage 11/17/2015 Dyslipidemia, goal LDL below 100 10/01/2014 History of [place] (myocardial infarction) 09/20/2014 Acquired hypothyroidism 09/20/2014 Mendoza's [...] as of this encounter (statuses as of 03/16/2024) Resolved Problems Problem Noted Date Diagnosed Date Resolved Date Encounter for examination fo r normal comparison and control in clinical research program 06/03/2018 10/05/2019 Overview (06/20/2020): DO NOT DELETE [employer] DETECT Study: Project # [id number], Electronic Prepress Technician: Kamar Conrad, PhD. SUMMARY: Goal: Establish test [...] contact study staff at ; after hours Electronic Prepress Technician via the [facility] hospital garnett machine operator . Please contact study team before resolving/deleting from patients problem list. Study phone number: [phone]. Diagnosis changed due to Research Module. Go to Snapshot for study details. Encounter for examination fo r normal comparison and control in clinical research program 06/03/2018 11/02/2021 Overview (06/20/2020): DO NOT DELETE - [employer] DETECT Study: Project # [id number], Electronic Prepress Technician: Pacheco Kaiser, MS, MPH. SUMMARY: Goal: Establish [...] contact study staff at ; after hours Electronic Prepress Technician via the [facility] hospital garnett machine operator . - Please contact study team before resolving/deleting from patients problem list. Study phone number: [phone]. Diagnosis changed due to Research Module. Go [...] as of this encounter (statuses as of 03/16/2024) Immunizations Name Administration Dates Next Due COVID-19 [...] Sign Reading Time Taken Comments Blood Pressure - - Pulse - - Temperature 36.1 °C (97 °F) 03/16/2024 1:06 PM EST Respiratory Rate - - Oxygen Saturation - - Inhaled Oxygen Concentration - - Weight 61.9 kg (136 lb 6.4 oz) 03/16/2024 1:06 P M EST Height 152.4 cm (5') 03/16/2024 1:06 PM EST Body Mass Index 26.64 03/16/2024 1:06 PM EST documented in this encounter Progress Notes * Jerry Lopez PA-C - 03/16/2024 1:13 PM EST 03/16/24 HISTORY OF PRESENT ILLNESS This 78 year old YO female is seen in follow up cerumen impaction. Ears are doing well-- muffled at times, cerumen removal helps with this. From last visit: Associated symptoms include bilateral hearing loss and bilateral tinnitus (intermittent and nonpulsatile). She denies bilateral otalgia, bilateral otorrhea, and bilateral aural pressure. 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 History of [place] (myocardial infarction) Acquired hypothyroidism Dyslipidemia, goal LDL below 100 ACEI/ARB contraindicated Primary open angle glaucoma of both eyes, mild stage History of supraventricular tachycardia Other atherosclerosis of t[place] apache arteries of extremities, bilateral legs (HCC) Coronary artery disease involving t[place] apache coronary artery of t[place] apache heart without angina pectoris Anemia DDD (degenerative disc disease), lumbar Thrombocytopenia (HCC) Essential (primary) hypertension Chronic rhinitis Atopic dermatitis Hypertensive kidney disease with stage 3a chronic kidney disease (HCC) Paranoid schizophrenia (HCC) Orthostatic hypotension COPD, group B, by GOLD 2017 classification ([facility]) Past Medical History: Diagnosis Date ACEI/ARB contraindicated [...] performed by Randy Bauer MD at [facility], biopsies consistent with short segments barretts Past Surgical History: Procedure Laterality Date COLONOSCOPY, DIAGNOSTIC (RECTUM) 03/2003 Colonoscopy DILATION AND CURETTAGE (D&C) mid D&C, non OB X 3 prior to hysterectomy EGD, FLEXIBLE, DIAGNOSTIC 04/11/2009 UPPER GI ENDOSCOPY DIAGNOSTIC performed by FARAZ MCKENZIE at [facility] EGD, FLEXIBLE, DIAGNOSTIC 07/02/2012 Barretts, repeat 3 yrs/UPPER GI ENDOSCOPY DIAGNOSTIC performed by Randy Bauer MD at [facility], biopsies consistent with short segments barretts EGD, FLEXIBLE, DIAGNOSTIC 07/05/2015 Barretts, repeat 3 yrs/ESOPHAGOGASTRODUODENOSCOPY (EGD), FLEXIBLE, TRANSORAL, DIAGNOSTIC performed by Randy Bauer MD at [facility]COPY [facility] EGD, FLEXIBLE, DIAGNOSTIC 08/20/2018 Mendoza's esophagitis, retained food, repeat 3 yrs/ESOPHAGOGASTRODUODENOSCOPY (EGD), FLEXIBLE, TRANSORAL, DIAGNOSTIC performed by Randy Bauer MD at [facility]COPY [facility] EGD, FLEXIBLE, DIAGNOSTIC 04/28/2020 gastritis, hiatal hernia, normal bx / [facility] EGD, FLEXIBLE, W/BIOPSY 01/04/09 done large hiatal hernia, esophageal mucosal changes suspicious for short term segment barretts esophagus, Barretts esophagus, f/u in 1 yr EGD, FLEXIBLE, W/BIOPSY 01/29/2011 Mendoza's esophagitis ESOPHAGOGASTRIC FUNDOPLASTY 04/11/2009 LAPAROSCOPIC ESOPHAGOGASTRIC FUNDOPLASTY ELENA performed by FARAZ MCKENZIE at [facility] ESOPHAGOSCOPY, FLEXIBLE, DIAGNOSTIC 10/25/2003 Dr. Duron - mendoza's ESOPHAGOSCOPY, FLEXIBLE, DIAGNOSTIC 01/12/2005 INSERT AQUEOUS SHUNT, EXTERNAL APPROACH Left 01/23/2016 iStent performed by Rambo Menendez MD at [facility] INSERT AQUEOUS SHUNT, EXTERNAL APPROACH Right 02/09/2016 INSERTION AQUEOUS ANTERIOR DRAINAGE DEVICE W/O EXTRAOCULAR RESERVOIR performed by Rambo Menendez MD at [facility] LIGATE/CUT OVIDUCT(S) 1970 Tubal Ligation,Non Laparoscopic NM THALLIUM STRESS W/SPECT 2007 normal. EF 52% REMOVE CATARACT, INSERT LENS PROSTH Left 01/23/2016 Left EXTRACAPSULAR CATARACT REMOVAL WITH INTRAOCULAR LENS performed by Rambo Menendez MD at OR [facility] REMOVE CATARACT, INSERT LENS PROSTH Right 02/09/2016 Right EXTRACAPSULAR CATARACT REMOVAL WITH INTRAOCULAR LENS performed by Rambo Menendez MD at OR [facility] REPAIR PARAESOPHAGEAL HERNIA 04/11/2009 LAPAROSCOPIC REPAIR PARAESOPHAGEAL HIATUS HERNIA WITH OR WITHOUT FUNDOPLASTY, VAGOTOMY, OR PYLOROPLASTY performed by FARAZ MCKENZIE at OR [facility] SHOULDER SURGERY PROCEDURE NEC 2005 for OA TOTAL ABD HYSTERECTOMY W/WO REMOVAL OF TUBE(S) 1997 TONNY (Total Abdominal Hysterectomy); large benign tumor as reason for hysterectomy TOTAL ABD HYSTERECTOMY W/WO REMOVAL OF TUBE(S) early 50's TONNY-Bso VASC DUPLEX CAROTID BILAT 08/2006 mild plaque w/o significant stenosis Medications Current Outpatient Medications Medication Sig Dispense Refill venlafaxine XR (EFFEXOR XR) 150 MG CP24 1 Capsule every morning. QUEtiapine (SEROQUEL) 300 MG Tablet Take 1 Tablet by mouth at bedtime. 30 Tab 5 cycloSPORINE 0.05 % Ophthalmic Emulsion (Restasis) Instill into both eyes as needed for Dry eyes. Docusate Sodium 100 MG Oral Tablet Take [...] Inject 60 mg under the skin once. Benzonatate 100 MG Oral Capsule (Tessalon Perles) Take 1 Capsule by mouth 3 times a day as needed for Cough. Do not cut, crush, or chew. 30 Capsule 0 Levothyroxine Sodium 50 MCG Oral Tablet (Levoxyl) TAKE 1 TABLET BY MOUTH EVERY MORNING AT LEAST 30 MINUTES PRIOR TO BREAKFAST OR OTHER MEDICATIONS 90 Tablet 1 Ondansetron 4 MG Oral Tablet Disintegrating (Zofran) DISSOLVE 1 TABLET UNDER TONGUE EVERY 8 HOURS NEEDED FOR NAUSEA 20 Tablet 1 Cholecalciferol (VITAMIN D-3) 5000 units Tablet Take 1 Tablet by mouth in the morning. (Patient nottaking: Reported on 03/16/2024) Cyanocobalamin (B-12) 500 MCG TABS Take by mouth. (Patient not taking: Reported on 03/16/2024) Nitroglycerin 0.4 MG Sublingual Tablet Sublingual (Nitrostat) PLACE 1 TABLET UNDER THE TONGUE NEEDED FOR CHEST PAIN. MAY REPEAT 3 TIMES. IF CHEST PAIN CONTINUES CALL 911 (Patient not taking: Reported on 03/16/2024) 25 Tablet 0 Azelastine HCl 0.1 % Nasal Solution (Astelin) use 1 spray in each nostril twice daily (Patient not taking: Reported on 03/16/2024) 30 mL 5 No current facility-administered medications for this visit. Allergies Review of patient's allergies indicates: Allergen Reactions Amoxicillin Rash Latex Rash irritation Other Allergy (See Comments) Rash 1+) reactions to methyldibromo glutaronitrile Fragrance mix Propolis iodopropynyl butylcarbamate methylisothiazoline Family History Family History Problem Relation Name Age of [...] Disorder Grandfather (Maternal) Emphysema Hypertension Grandmother (Paternal) Social History Social History Tobacco Use Smoking status: Former Current packs/day: 0.00 Average packs/day: 3.0 packs/day for 20.0 years (60.0 ttl pk-yrs) Types: Cigarettes Start date: 03/04/1963 Quit date: 03/04/1983 Years since quittin.0 Smokeless tobacco: Never Substance Use Topics Alcohol use: No Vaping/E-Cigarette Use Vaping/E-Cigarette Use Never User Vaping/E-Cigarette Substances Vaping/E-Cigarette Devices REVIEW OF SYMPTOMS: Negative for constitutional, eyes, cardiac, pulmonary, hepatic, renal, digestive, hematologic, epileptic, syncopal, musculo-skeletal, mental health, integumentary, hypertensive, lipid, arthritic, diabetic, thyroid, or neurologic disorders (except as listed in the PMH and Problem List). PHYSICAL EXAMINATION: Vital Signs: Filed Vitals: 03/16/24 1306 Temp: 36.1 °C (97 °F) TempSrc: Tympanic Weight: 61.9 kg (136 lb 6.4 oz) Height: 1.524 m (5') General: this is a healthy appearing female who appears her stated age. The patient is alert and appropriately verbally conversant without hoarseness. Face: The face was inspected and no cutaneous masses or lesions were visualized. There was no erythema or edema noted. Lungs: normal respiratory effort Heart: normal rate IN ORDER TO BETTER EXAMINE THE EARS, THE PATIENT WAS EXAMINED USING THE OPERATING MICROSCOPE. FINDINGS ARE NOTED BELOW. Ears: Examination of the ears revealed that the auricles were normally formed with no lesions. The right external auditory canal was impacted with cerumen. It was removed using forceps atraumatically by me. The right TM was WNL. The right middle ear space was WNL. The left external auditory canal was impacted with cerumen. It was removed using suction and forceps atraumatically by me. The left TM was WNL. The left middle ear space was WNL ASSESSMENT: 1. Bilateral impacted cerumen Plan: She does not feel she needs hearing aids at this time therefore defers audiogram. F/U in 6 mo for cerumen removal, sooner PRN Pt verbalized understanding and agrees with plan. Questions/Concerns addressed. Jerry Lopez PA-C [facility] OUTPATIENT SURGERY [facility] [address] [place] [address] 03/16/24 documented in this encounter Nursing Notes * Memo Castillo CMA - 03/16/2024 1:06 PM EST Chief Complaint Patient presents with NEW PATIENT 6 month follow up Holli Barbosa is a 78 year old female who presents today for a 6 month follow up for bilateral impacted cerumen. She states that her ears are doing the same as last visit. She has muffled hearing in both ears. documented in this encounter Plan of Treatment Upcoming Encounters Date Type Department Care Team (Late st Contact Info) Description 04/07/2024 2:20 PM EST Office Visit General Internal Medicine [facility] [place] [address] [facility] [place] [address] Yuko Casas MD [address] [facility] [place] [address] 04/21/2024 12:30 PM EST Office Visit Gastroenterology, [facility] [address] [place] [address] Gina Mckeon CRNP [address] [place] [address] 06/24/2024 2:00 PM EDT Office Visit Rheumatology [facility] [address] [place] [phone] Keyonna Rao CRNP [address] [facility] [place] [address] 09/14/2024 2:00 PM EDT Office Visit Otolaryngology [facility] [address] [place] [address] Jerry Lopez PA-C [address] [place] [address] Health Maintenance Due Date Last Done Comments Adult Wellness Visit 11/01/2022 11/01/2021 Mendoza's Esophagus Surveilance 04/28/2023 04/28/2020, 08/20/2018, 08/20/2018, Additional history exists COVID-19 Vaccine ( season) 2024 12/16/2023, 12/07/2022, 01/18/2022, Additional history exists GFR 04/01/2024 09/30/2023, 03/05, 06/19/2022, Additional history exists Albumin/Creatinine Ratio 04/03/2024 024, 06/19/2022, 03/22/2021, Additional history exists CKD HGB USE SMARTSET 59466 09/29/202409/29, 03/29/2023, 06/19/2022, Additional history exists CKD PHOS USE SMARTSET 43965 09/29/202409/02, 06/19/2022, 03/17/2021, Additional history exists TSH [...] D LEVEL ONCE IN A LIFETIME-USE SMARTSET# 25619 Completed 03/29/2023, 07/01/2018, 08/23/2017, Additional history exists [...] this encounter Medical Devices Implanted Type Area Barrel Polisher Inside Device Identifier Shelf Expiration Date Model / Serial / Lot Alloderm 2x4 Sheet [id number] - [id number] Implanted:Qty : 1 on 04/11/2009 at [facility] Tissue - Human N/A: Esophagus LIFE CELL JACQUI 10/02/2010 [id number] / / [id number] Lens Intraoc 21.0 - [id number] - [id number] Implanted:Qty : 1 on 01/23/2016 by Rambo Menendez MD at OR [facility] [employer] 08/01/2020 [id number] / [id number] / [id number] Istent Left Implanted:Qty : 1 on 01/23/2016 by Rambo Menendez MD at OR [facility] Left: Eye 08/31/2018 [id number] / [id number] / [id number] Lens Intraoc 20.5 - [id number] - [id number] Implanted:Qty : 1 on 02/09/2016 by Rambo Menendez MD at OR [facility] Right: Eye [employer] 08/31/2020 [id number] / [id number] / [id number] Istent Implanted:Qty : 1 on 02/09/2016 by Rambo Menendez MD at OR [facility] Right: Eye 08/31/2018 [id number] / [id number] / [id number] documented as of this encounter Visit Diagnoses Diagnosis Bilateral impacted cerumen- Primary Impacted cerumen documented in this encounter Advance Directives * [...] and were consensually agreed upon. Care Teams Ham Stripper Relationship Specialty Start Date End Date Yuko Casas MD [address] [place] [address] PCP - General 09/14/08 documented as of this encounter
--- OUTSIDE RECORDS SUMMARY | 2024-06-27 02:58 | External Medical Summary ---
Author Name Unknown Address Unknown Organization K01:[facility] [address] [facility] [address] Laboratory Report Ordering Provider Test Date Status AMANDA GILMOREALI 04/06/2024 12:19:27 Final Observation Date Value Abnormality Reference (Units ) Status Triglyceride 04/06/2024 12:19:27 83 <=174 ( mg/dL) Final Triglyceride Reference Range s (mg/dL):
<150 Acceptable
150-174 Borderline high
175-499 High
>=500 Very high Cholesterol 04/06/2024 12:19:27 121 <200 (mg /dL) Final Total Cholesterol Reference Ranges (mg/dL):
<200 Desirable
200-239 Borderline high
>=240 High HDL 04/06/2024 12:19:27 52 >49 (mg/dL ) Final HDL Cholesterol Reference Ra nges (mg/dL):
>=60 High (Desirable)
<50 Low (Undesirable) For Females
<40 Low (Undesirable) For Males NON-HDL CHOLESTEROL 04/06/2024 12:19:27 69 <=159 (mg/dL) Final Non-HDL Cholesterol Referenc e Range (mg/dL):
<100 Target level for high risk ASCVD patient
<130 Optimal for general population
130-159 Near optimal for general population
160-189 Borderline High
190-219 High
>=220 Very High LDL, (calculated) 04/06/2024 12:19:27 52 <= 129 (mg/dL) Final LDL Cholesterol Reference Ra nges (mg/dL):
<70 Target level for high risk ASCVD patient
<100 Optimal for general population
100-129 Near optimal for general population
130-159 Borderline high
160-189 High
>=190 Very high Performing Location [facility] - [address] [facility] [address]
--- OUTSIDE RECORDS SUMMARY | 2024-06-27 02:58 | External Medical Summary | Summary of Care ---
Author Name Unknown Organization [facility] Address [address] [place] [address] Phone [phone] Care Team Providers Care Helicopter Officer Name Role Phone Yuko Pride MD Primary Care Provider [phone] Reason for Visit * Reason Comments eRx-Medication Refill Encounter Details Date Type Department Care Team (Late st Contact Info) Description 05/26/2024 Refill General Internal Medicine [facility] [address] [place] [address] Yuko Pride MD [address] [place] [address] Gastroesophageal reflux disease without esophagitis Allergies Active Allergy Reactions Criticality Noted Date Comments Amoxicillin Rash 06/20/2015 Latex Rash 04/05/2009 irritation Other Allergy (See Comments) Rash Low 04/27/2021 1+) reactions to methyldibromo glutaronitrile Fragrance mix Propolis iodopropynyl butylcarbamate methylisothiazoline documented as of this encounter (statuses as of 05/27/2024) Medications venlafaxine XR (EFFEXOR XR) 150 MG CP24 1 Capsule every morning. Active QUEtiapine (SEROQUEL) 300 MG Tablet Take 1 Tablet by mouth at bedtime. 30 Tab 5 016 Active Nitroglycerin 0.4 MG Sublingual Tablet Sublingual (Nitrostat)Indica tions:Acute uib-WH-wdxcsbxxn myocardial infarction (HCC) PLACE 1 TABLET UNDER THE TONGUE NEEDED FOR CHEST PAIN. MAY REPEAT 3 TIMES. IF CHEST PAIN CONTINUES CALL 911 25 Tablet 023 Active cycloSPORINE 0.05 % Ophthalmic Emulsion (Restasis) Instill into both eyes as needed for Dry eyes. 023 Active Azelastine HCl 0.1 % Nasal Solution (Astelin)Indicati ons:Chronic rhinitis use 1 spray in each nostril twice daily 30 mL 5 024 Active Albuterol Sulfate HFA 108 (90 Base) MCG/ACT Inhalation Aerosol SolutionIndicatio ns:Wheezing Inhale 2 Puffs by mouth every 4 hours as needed for Wheezing. 54 g 2 024 Active Gabapentin 100 MG Oral Capsule (Neurontin)Indica tions:DDD (degenerative disc disease), lumbar TAKE ONE CAPSULE BY MOUTH IN THE MORNING AND 2 CAPSULES AT BEDTIME 270 Capsule 3 024 Active Atorvastatin Calcium 20 MG Oral Tablet (Lipitor)Indicati ons:Dyslipidemia, goal LDL below 100 TAKE 1 TABLET BY MOUTH EVERY MORNING 90 Tablet 3 024 Active ZyrTEC Allergy 10 MG Oral Capsule (Cetirizine HCl) Take 1 Capsule by mouth in the morning. Active Famotidine 20 MG Oral Tablet (Pepcid)Indicatio ns:Gastroesophage al reflux disease without esophagitis TAKE 1 TABLET BY MOUTH TWICE DAILY EVERY MORNING AND BEFORE BEDTIME 180 Tablet 1 024 Active Denosumab 60 MG/ML Subcutaneous Solution Prefilled Syringe ([employer]) Inject 60 mg under the skin once. Active Benzonatate 100 MG Oral Capsule (Tessalon Perles) Take 1 Capsule by mouth 3 times a day as needed for Cough. Do not cut, crush, or chew. 30 Capsule 024 Active Additional Information Patient not taking.Reported on 04/07/2024 Levothyroxine Sodium 50 MCG Oral Tablet (Levoxyl) TAKE 1 TABLET BY MOUTH EVERY MORNING AT LEAST 30 MINUTES PRIOR TO BREAKFAST OR OTHER MEDICATIONS 90 Tablet 1 024 Active Ondansetron 4 MG Oral Tablet Disintegrating (Zofran) DISSOLVE 1 TABLET UNDER TONGUE EVERY 8 HOURS NEEDED FOR NAUSEA 20 Tablet 1 025 Active Docusate Sodium 100 MG Oral TabletIndications :Other constipation Take 1 Tablet by mouth 2 times a day as needed for Constipation. 180 Tablet 3 025 Active Pantoprazole Sodium 40 MG Oral Tablet Delayed Release (Protonix)Indicat ions:Gastroesopha geal reflux disease without esophagitis TAKE 1 TABLET BY MOUTH TWICE DAILY 30 to 60 minutes before breakfast and dinner 180 Tablet 3 025 Active Pantoprazole Sodium 40 MG Oral Tablet Delayed Release (Protonix)Indicat ions:Gastroesopha geal reflux disease without esophagitis TAKE 1 TABLET BY MOUTH TWICE DAILY 30 to 60 minutes before breakfast and dinner 180 Tablet 3 024 2024 Discontinued documented as of this encounter (statuses as of 05/27/2024) Active Problems Problem Noted Date Diagnosed Date [...] legs 11/14/2017 Coronary artery disease invo lving [place] coronary artery of [place] heart without angina pectoris 11/14/2017 Overview (11/14/2017): Mild 30% lesion mid LAD. NSTEMI at that time more attributted to tachyarrhythmia. Hospitalized [facility] History of supraventricular tachycardia 09/21/19 18 ACEI/ARB contraindicated 11/17/2015 Overview (11/17/2015): Hypotension Primary open angle glaucoma of both eyes, mild s tage 11/17/2015 Dyslipidemia, goal LDL below 100 10/01/2014 History of [place] (myocardial infarction) 09/20/2014 Acquired hypothyroidism 09/20/2014 Mcintyre's [...] as of this encounter (statuses as of 05/27/2024) Resolved Problems Problem Noted Date Diagnosed Date Resolved Date Encounter for examination fo r normal comparison and control in clinical research program 06/03/2018 10/05/2019 Overview (06/20/2020): DO NOT DELETE [facility] DETECT Study: Project # [id number], Popcorn Attendant: Kamar Conrad, PhD. SUMMARY: Goal: Establish test [...] contact study staff at ; after hours Popcorn Attendant via the [facility] computing machine operator . Please contact study team before resolving/deleting from patients problem list. Study phone number: [phone]. Diagnosis changed due to Research Module. Go to Snapshot for study details. Encounter for examination fo r normal comparison and control in clinical research program 06/03/2018 11/02/2021 Overview (06/20/2020): DO NOT DELETE - [facility] DETECT Study: Project # [id number], Popcorn Attendant: Pacheco Kaiser, MS, MPH. SUMMARY: Goal: Establish [...] contact study staff at ; after hours Popcorn Attendant via the [facility] computing machine operator . - Please contact study team before resolving/deleting from patients problem list. Study phone number: [phone]. Diagnosis changed due to Research Module. Go [...] Assessment & Plan (04/21/2021 1:29 PM EST): PABLO patch reviewed by Dr. Lao CONCLUSIONS: Patient [...] as of this encounter (statuses as of 05/27/2024) Immunizations Name Administration Dates Next Due COVID-19 [...] encounter Miscellaneous Notes * Telephone Encounter - Aishwarya Dover [facility] - 05/27/2024 8:11 AM EDTSigned Prescriptions: Disp Refills Pantoprazole Sodium 40 MG Oral Tablet Odalys*180 Ta*3 Sig: TAKE 1 TABLET BY MOUTH TWICE DAILY 30 to 60 minutes before breakfast and dinnerAuthorizing Provider: Dmitri PRIDE User: AISHWARYA DOVER documented in this encounter Plan of Treatment Upcoming Encounters Date Type Department Care Team (Late st Contact Info) Description 06/24/2024 2:00 PM EDT Office Visit Rheumatology [facility] [address] [place] [phone] Keyonna Rao CRNP [address] [place] [address] [place] [address] 09/14/2024 2:00 PM EDT Office Visit Otolaryngology [facility] [address] [place] [place] [address] Jerry Lopez PA-C [address] [place] [address] 10/12/2024 2:20 PM EDT Office Visit General Internal Medicine [facility] [place] [address] [place] [address] Yuko Pride MD [address] [facility] [address] Health Maintenance Due Date Last Done Comments Adult Wellness Visit 11/01/2022 11/01/2021 COVID-19 Vaccine ( season) 2024 12/16/2023, 12/07/2022, 01/18/2022, Additional history exists CKD HGB USE SMARTSET 72962 09/29/202409/29, 03/29/2023, 06/19/2022, Additional history exists CKD PHOS USE SMARTSET 02084 09/29/202409/02, 06/19/2022, 03/17/2021, Additional history exists GFR [...] Completed 07/28/2015, 10/19/2010 Zoster Vaccines Completed 08/15/2019, 0209/2019, 02/07/2012 Mcintyre's Esophagus Surveilance Discontinued 04/28/2020, 08/20/2018, 08/20/2018, Additional history exists VITAMIN D LEVEL ONCE IN A LIFETIME-USE SMARTSET# 08518 Completed 03/29/2023, 07/01/2018, 08/23/2017, Additional history exists [...] this encounter Medical Devices Implanted Type Area Counter Control Operator Device Identifier Shelf Expiration Date Model / Serial / Lot Alloderm 2x4 Sheet [id number] - [id number] Implanted:Qty : 1 on 04/11/2009 at [facility] Tissue - Human N/A: Esophagus LIFE [employer] JACQUI 10/02/2010 [id number] / / [id number] Lens Intraoc 21.0 - [id number] - [id number] Implanted:Qty : 1 on 01/23/2016 by Rambo Menendez MD at OR [facility] [employer] 08/01/2020 [id number] / [id number] / [id number] Istent Left Implanted:Qty : 1 on 01/23/2016 by Rambo Menendez MD at OR [facility] Left: Eye 08/31/2018 [id number] / [id number] / [id number] Lens Intraoc 20.5 - [id number] - [id number] Implanted:Qty : 1 on 02/09/2016 by Rambo Menendez MD at OR [facility] Right: Eye [employer] 08/31/2020 [id number] / [id number] / [id number] Istent Implanted:Qty : 1 on 02/09/2016 by Rambo Menendez MD at OR [facility] Right: Eye 08/31/2018 [id number] / [id number] / [id number] documented as of this encounter Visit Diagnoses Diagnosis Gastroesophageal reflux disease without esophagitis Esophageal reflux documented in this encounter Advance Directives * [...] and were consensually agreed upon. Care Teams Helicopter Officer Relationship Specialty Start Date End Date Yuko Pride MD [address] [place] [address] PCP - General 09/14/08 documented as of this encounter
--- OUTSIDE RECORDS SUMMARY | 2024-06-27 02:58 | External Medical Summary | Summary of Care ---
Author Name Unknown Organization [facility] Address [address] [place] [address] Phone [phone] Care Team Providers Care Shipmaster Name Role Phone Yuko Casas MD Primary Care Provider [phone] Reason for Referral * Precert (Diagnostic Medical) (Within 10 days (routine)) - Authorized Specialty Diagnoses / Procedures Referred By Contac t Referred To Contact Cardiac Studies Diagnoses Hypertensive kidney disease with stage 3a chronic kidney disease (HCC) Supraventricular tachycardia, unspecified (HCC) History of PR (myocardial infarction) Essential (primary) hypertension Procedures ECHO, COMPLETE (2D), TRANS-THORACIC Yuko Casas MD [address] [place], [place] [address] Phone: tel: fax: Referral ID Status Reason Start Date Expiration Date V isits Requested Visits Authorized [id number] Authorized Precert 04/07/2024 999 999 Reason for Visit * Reason Comments Follow Up Pt has sometimes has a pain in lower right abdomen. Abdominal Pain Encounter Details Date Type Department Care Team (Latest Contact Info) Description 04/07/2024 2:20 PM EST Office Visit General Internal Medicine [facility] [address] [place] [address] [place] [phone] Yuko Casas MD [address] [facility] [place] [address] Essential (primary) hypertension*; Dyslipidemia, goal LDL below 100; Bipolar I disorder, most recent episode manic (HCC); Major depressive disorder, recurrent, moderate (HCC); Hypertensive kidney disease with stage 3a chronic kidney disease (HCC); Supraventricular tachycardia, unspecified (HCC); Paranoid schizophrenia (HCC); Primary open angle glaucoma of both eyes, mild stage; History of PR (myocardial infarction); Generalized anxiety disorder; Acquired hypothyroidism; [...] 0.4 MG Sublingual Tablet Sublingual (Nitrostat)Indicat ions:Acute oeh-RI-teeyuujon myocardial infarction (HCC) PLACE 1 TABLET UNDER [...] Denosumab 60 MG/ML Subcutaneous Solution Prefilled Syringe ([employer]) Inject 60 mg under the skin once. [...] legs 11/14/2017 Coronary artery disease invo lving [place] coronary artery of [place] heart without angina pectoris 11/14/2017 Overview (11/14/2017): Mild 30% lesion mid LAD. NSTEMI at that time more attributted to tachyarrhythmia. Hospitalized [facility] History of supraventricular tachycardia 09/21/19 18 [...] 06/03/2018 10/05/2019 Overview (06/20/2020): DO NOT DELETE [facility] DETECT Study: Project # [id number], Laundry Aid: Kamar Conrad, PhD. SUMMARY: Goal: Establish test [...] contact study staff at ; after hours Laundry Aid via the [facility] ultimate hoops scoreboard operator . Please contact study team before resolving/deleting from patients problem list. Study phone number: [phone]. Diagnosis changed due to Research Module. Go to Snapshot for study details. Encounter for examination fo r normal comparison and control in clinical research program 06/03/2018 11/02/2021 Overview (06/20/2020): DO NOT DELETE - [facility] DETECT Study: Project # [id number], Laundry Aid: Pacheco Kaiser, MS, MPH. SUMMARY: Goal: Establish [...] contact study staff at ; after hours Laundry Aid via the [facility] ultimate hoops scoreboard operator . - Please contact study team before resolving/deleting from patients problem list. Study phone number: [phone]. Diagnosis changed due to Research Module. 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 History of PR (myocardial infarction) Acquired hypothyroidism Dyslipidemia, goal LDL below 100 ACEI/ARB contraindicated Primary open angle glaucoma of both eyes, mild stage History of supraventricular tachycardia Other atherosclerosis of [place] arteries of extremities, bilateral legs (HCC) Coronary artery disease involving [place] coronary artery of [place] heart without angina pectoris Anemia DDD (degenerative disc disease), lumbar Thrombocytopenia (HCC) Essential (primary) hypertension Chronic rhinitis Atopic dermatitis Hypertensive kidney disease with stage 3a chronic kidney disease (HCC) Paranoid schizophrenia (HCC) Orthostatic hypotension COPD, group B, by GOLD 2017 classification ([facility]) Objective Vitals: 04/07/24 1428 Temp: 98.3 °F [...] good. -Continue Atorvastatin. 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 -Order EKG in office. -Order [...] of both eyes, mild stage History of PR (myocardial infarction) - ECHO, COMPLETE (2D), TRANS-THORACIC; [...] 04/21/2024 12:30 PM EST Office Visit Gastroenterology, [facility] [address] [place] [address] Gina Mckeon CRNP [address] [facility] [place] [address] 04/27/2024 2:00 PM EST Cardiac Studies Cardiac Studies, [facility] [address] [place] [address] 06/24/2024 2:00 PM EDT Office Visit Rheumatology [facility] [address] [place] [phone] Keyonna Rao CRNP [address] [facility] [place] [address] 09/14/2024 2:00 PM EDT Office Visit Otolaryngology [facility] [address] [place] [address] Jerry Lopez PA-C [address] [place] [address] 10/12/2024 2:20 PM EDT Office Visit General Internal Medicine [facility] [address] [place], [place] [address] Yuko Casas MD [address] [place] [address] Scheduled Orders Name Type Priority Associated Diagnoses [...] (HCC) Supraventricular tachycardia, unspecified (HCC) History of PR (myocardial infarction) Essential (primary) hypertension Expected: 04/07/2024, Expires: 05/05/2026 EKG EKG Routine Supraventricular tachycardia, unspecified (HCC) History of PR (myocardial infarction) Expected: 04/07/2024 (Approximate), Expires: 05/05/2025 Health Maintenance Due Date Last Done Comments Adult Wellness Visit 11/01/2022 11/01/2021 COVID-19 Vaccine ( season) 2024 12/16/2023, 12/07/2022, 01/18/2022, Additional history exists CKD HGB USE SMARTSET 72679 09/29/202409/29, 03/29/2023, 06/19/2022, Additional history exists CKD PHOS USE SMARTSET 05824 09/29/202409/02, 06/19/2022, 03/17/2021, Additional history exists GFR [...] D LEVEL ONCE IN A LIFETIME-USE SMARTSET# 92499 Completed 03/29/2023, 07/01/2018, 08/23/2017, Additional history exists [...] this encounter Medical Devices Implanted Type Area Music Educator Device Identifier Shelf Expiration Date Model / Serial / Lot Alloderm 2x4 Sheet [id number] - [id number] Implanted:Qty : 1 on 04/11/2009 at [place] [facility] Tissue - Human N/A: Esophagus [employer]QUI 10/02/2010 [id number] / / [id number] Lens Intraoc 21.0 - [id number] - [id number] Implanted:Qty : 1 on 01/23/2016 by Rambo Menendez MD at OR [facility] [employer] 08/01/2020 [id number] / [id number] Istent Left Implanted:Qty : 1 on 01/23/2016 by Rambo Menendez MD at OR [facility] Left: Eye 08/31/2018 [id number] / [id number] / [id number] Lens Intraoc 20.5 - [id number] - [id number] Implanted:Qty : 1 on 02/09/2016 by Rambo Menendez MD at OR [facility] Right: Eye [employer] 08/31/2020 [id number] / [id number] Istent Implanted:Qty : 1 on 02/09/2016 by Rambo Menendez MD at OR [facility] Right: Eye 08/31/2018 [id number] / [id number] / [id number] documented as of this encounter Procedures Procedure Name Priority Date/Time Associated Diagnosis Comments ALBUMIN / CREATININE RATIO, URINE Routine 04/07/2024 3:30 PM EST Hypertensive kidney disease with stage 3a chronic kidney disease (HCC) documented in this encounter Results * ALBUMIN / CREATININE RATIO, URINE (04/07/2024 3:30 PM EST) Albumin, Random Urine 2.00 mg/dL 04/08/2024 12:08 AM EST [facility] Creatinine, Random Urine 215 mg/dL 04/08/2024 12:08 AM EST [facility] Albumin / Creatinine Ratio, Urine 9 <30 mg/g Creat 04/08/2024 12:08 AM EST [facility] Urine Urine specimen obtained by clean catch procedure / Unknown Non-blood Collection / Unknown 04/07/2024 3:30 PM EST 04/07/2024 3:33 PM EST Narrative [facility] - 04/08/2024 12:08 AM EST Normal: <30 mg/g creatinine High: 30-300 mg/g creatinine Very High: >300 mg/g creatinine Nephrotic: >2200 mg/g creatinine Yuko Casas MD LAB URINE ORDERABLES Final Res ult [facility] [address] [place] [address] documented in this encounter Visit Diagnoses Diagnosis [...] of both eyes, mild stage History of PR (myocardial infarction) Old myocardial infarction Generalized anxiety [...] and were consensually agreed upon. Care Teams Shipmaster Relationship Specialty Start Date End Date Yuko Casas MD [address] [place] [address] [place] [address] PCP - General 09/14/08 documented as of this encounter
--- OUTSIDE RECORDS SUMMARY | 2024-06-27 02:59 | External Medical Summary | Summary of Care ---
Author Name Unknown Organization [facility] Address [address] [place] [address] Phone [phone] Care Team Providers Care Bobbin Trucker Name Role Phone Yuko Casas MD Primary Care Provider [phone] Reason for Visit * Reason Onset Date Comments Advice 01/21/2024 Encounter Details Date Type Department Care Team (Late st Contact Info) Description 01/21/2024 Telephone General Internal Medicine [facility] [place] [address] [place] [address] Yuko Casas MD [address] [place] [facility] [place] [address] Advice Allergies Active Allergy Reactions Criticality Noted Date Comments Amoxicillin Rash 06/20/2015 Latex Rash 04/05/2009 irritation Other Allergy (See Comments) Rash Low 04/27/2021 1+) reactions to methyldibromo glutaronitrile Fragrance mix Propolis iodopropynyl butylcarbamate methylisothiazoline documented as of this encounter (statuses as of 01/24/2024) Medications venlafaxine XR (EFFEXOR XR) 150 MG [...] 0.4 MG Sublingual Tablet Sublingual (Nitrostat)Indicat ions:Acute lhp-DF-dtuvdcatf myocardial infarction (HCC) PLACE 1 TABLET UNDER [...] Constipation. 180 Tablet 3 11/29/19 23 Active Ondansetron 4 MG Oral Tablet Disintegrating (Zofran) dissolve 1 tablet on the tongue every 8 hours if needed for nausea 20 Tablet 1 12/12/19 23 Active Azelastine HCl 0.1 % Nasal Solution (Astelin)Indicatio ns:Chronic rhinitis use 1 spray in each nostril twice daily 30 mL 5 05/03/19 24 Active Levothyroxine Sodium 50 MCG Oral Tablet (Levoxyl) take 1 tablet bymouth every morning at least 30 minutes prior to breakfast or other medications 90 Tablet 2 05/03/19 24 Active Pantoprazole Sodium 40 MG [...] BEDTIME 180 Tablet 1 01/15/20 24 Active documented as of this encounter (statuses as of 01/24/2024) Active Problems Problem Noted Date Diagnosed Date [...] legs 11/14/2017 Coronary artery disease invo lving [place] coronary artery of [place] heart without angina pectoris 11/14/2017 Overview (11/14/2017): Mild 30% lesion mid LAD. NSTEMI at that time more attributted to tachyarrhythmia. Hospitalized [facility] History of supraventricular tachycardia 09/21/19 18 ACEI/ARB [...] as of this encounter (statuses as of 01/24/2024) Resolved Problems Problem Noted Date Diagnosed Date Resolved Date Encounter for examination fo r normal comparison and control in clinical research program 06/03/2018 10/05/2019 Overview (06/20/2020): DO NOT DELETE [facility] DETECT Study: Project # [id number], Ad Trafficker: Kamar Conrad, PhD. SUMMARY: Goal: Establish test [...] contact study staff at ; after hours Ad Trafficker via the [facility] stroke belt sander operator . Please contact study team before resolving/deleting from patients problem list. Study phone number: [phone]. Diagnosis changed due to Research Module. Go to Snapshot for study details. Encounter for examination fo r normal comparison and control in clinical research program 06/03/2018 11/02/2021 Overview (06/20/2020): DO NOT DELETE - [facility] DETECT Study: Project # [id number], Ad Trafficker: Pacheco Kaiser, MS, MPH. SUMMARY: Goal: Establish [...] contact study staff at ; after hours Ad Trafficker via the [facility] stroke belt sander operator . - Please contact study team before resolving/deleting from patients problem list. Study phone number: [phone]. Diagnosis changed due to Research Module. Go [...] as of this encounter (statuses as of 01/24/2024) Immunizations Name Administration Dates Next Due COVID-19 [...] encounter Miscellaneous Notes * Telephone Encounter - Sue Tolliver OSA - 01/24/2024 3:20 PM EST Pt calling in advised she still has the questions for her pcp. Advised pt of nurse message appt is needed. No acute appt today or Saturday, pt advised she needs an appt for Saturday the earliest to makesure she can get a ride there. Pt scheduled 01/28/24 @11am with Janell Palumbo PA-C. Thank you AGUILA pt can't do telehealth as she doesn't have a mobile phone or email. Only schedule in person appointments. * Telephone Encounter - Tennille Perez LPN - 01/21/2024 3:05 PM EST Patient needs an office or telemed visit with PCP. Please call to schedule. * Telephone Encounter - Karen Romano OSA - 01/21/2024 11:59 AM EST Pt looking to speak with PCP about a few things going on. Please advise. documented in this encounter Plan of Treatment Upcoming Encounters Date Type Department Care Team (Late st Contact Info) Description 01/28/2024 11:00 AM EST Office Visit General Internal Medicine [facility] [address] [place] [address] Janell Palumbo PA-C [address] [place] [address] 03/16/2024 1:30 PM EST Office Visit Otolaryngology [facility] [address] [address] Jerry Lopez PA-C [address] [address] 04/07/2024 2:20 PM EST Office Visit General Internal Medicine [facility] [address] [place] [address] [address] Yuko Casas MD [address] [facility] [place] [address] 06/24/2024 2:00 PM EDT Office Visit Rheumatology [facility] [address] [place] [address] Keyonna Rao CRNP [address] [facility] [place] [address] Health Maintenance Due Date Last Done Comments Adult Wellness Visit 11/01/2022 11/01/2021 Mcintyre's Esophagus Surveilance 04/28/2023 04/28/2020, 08/20/2018, 08/20/2018, Additional history exists COVID-19 Vaccine ( season) 2024 12/16/2023, 12/07/2022, 01/18/2022, Additional history exists GFR 04/01/2024 09/30/2023, 03/05, 06/19/2022, Additional history exists Albumin/Creatinine Ratio 04/03/2024 024, 06/19/2022, 03/22/2021, Additional history exists CKD HGB USE SMARTSET 07942 09/29/202409/29, 03/29/2023, 06/19/2022, Additional history exists CKD PHOS USE SMARTSET 61647 09/29/202409/02, 06/19/2022, 03/17/2021, Additional history exists TSH 09/29/2024 09/30/2023, 03/05, 06/19/2022, Additional history exists O2 ASSESSMENT COMPLETED IN PAST YEAR FOR COPD 10/03/2024 10/04/2023 DXA Scan 02/11/2025 02/11/2023, 02/01, 06/08/2020, Additional history exists DTap/Tdap Vaccines (3 - Td or Tdap) 06/19/2026 06/19/2016, 06/19/2016, 08/13/2006 Pneumococcal Vaccine: 65+ Years Completed 07/28/2015, 10/19/2010 Zoster Vaccines Completed 08/15/2019, 09/2019, 02/07/2012 VITAMIN D LEVEL ONCE IN A LIFETIME-USE SMARTSET# 73818 Completed 03/29/2023, 07/01/2018, 08/23/2017, Additional history exists [...] this encounter Medical Devices Implanted Type Area Bone Cooking Operator Device Identifier Shelf Expiration Date Model / Serial / Lot Alloderm 2x4 Sheet [id number] - [id number] Implanted:Qty : 1 on 04/11/2009 at [place] [facility] Tissue - Human N/A: Esophagus LIFE CELL JACQUI 10/02/2010 [id number] / / [id number] Lens Intraoc 21.0 - [id number] - [id number] Implanted:Qty : 1 on 01/23/2016 by Rambo Menendez MD at OR [facility] [employer] 08/01/2020 [id number] / [id number] / [id number] Istent Left Implanted:Qty : 1 on 01/23/2016 by Rambo Menendez MD at OR [facility] Left: Eye 08/31/2018 [id number] / [id number] / [id number] Lens Intraoc 20.5 - [id number] - [id number] Implanted:Qty : 1 on 02/09/2016 by Rambo Menendez MD at OR [facility] Right: Eye [employer] 08/31/2020 [id number] / [id number] / [id number] Istent Implanted:Qty : 1 on 02/09/2016 by Rambo Menendez MD at OR [facility] Right: Eye 08/31/2018 [id number] / [id number] / [id number] documented as of this encounter Advance Directives [...] and were consensually agreed upon. Care Teams Bobbin Trucker Relationship Specialty Start Date End Date Yuko Casas MD [address] [facility] [place] [address] PCP - General 09/14/08 documented as of this encounter
--- OUTSIDE RECORDS SUMMARY | 2024-06-27 02:59 | External Medical Summary | Summary of Care ---
Author Name Unknown Organization [facility] Address [address] [place] [address] Phone [phone] Care Team Providers Care Hydrogeologist Name Role Phone Yuko Casas MD Primary Care Provider [phone] Reason for Visit * Reason Onset Date Comments Test Results 01/28/2024 Encounter Details Date Type Department Care Team (Late st Contact Info) Description 01/28/2024 Telephone General Internal Medicine [facility] [place] [address] [place] [address] Janell Palumbo PA-C [address] [place] [address] Test Results Allergies Active Allergy Reactions Criticality Noted Date Comments Amoxicillin Rash 06/20/2015 Latex Rash 04/05/2009 irritation Other Allergy (See Comments) Rash Low 04/27/2021 1+) reactions to methyldibromo glutaronitrile Fragrance mix Propolis iodopropynyl butylcarbamate methylisothiazoline documented as of this encounter (statuses as of 03/06/2024) Medications venlafaxine XR (EFFEXOR XR) 150 MG [...] 0.4 MG Sublingual Tablet Sublingual (Nitrostat)Indicat ions:Acute nth-VJ-mqyubddjd myocardial infarction (HCC) PLACE 1 TABLET UNDER THE TONGUE NEEDED FOR CHEST PAIN. MAY REPEAT 3 TIMES. IF CHEST PAIN CONTINUES CALL 911 25 Tablet 05/09/19 23 Active Additional Information Patient not taking.Reported on 01/28/2024 cycloSPORINE 0.05 % Ophthalmic Emulsion (Restasis) Instill [...] nausea 20 Tablet 1 12/12/19 23 Active Additional Information Patient not taking.Reported on 01/28/2024 Azelastine HCl 0.1 % Nasal Solution (Astelin)Indicatio ns:Chronic rhinitis use 1 spray in each nostril twice daily 30 mL 5 05/03/19 24 Active Additional Information Patient not taking.Reported on 01/28/2024 Pantoprazole Sodium 40 MG Oral Tablet Delayed [...] or chew. 30 Capsule 01/28/20 24 Active documented as of this encounter (statuses as of 03/06/2024) Active Problems Problem Noted Date Diagnosed Date [...] legs 11/14/2017 Coronary artery disease invo lving [place] coronary artery of [place] heart without angina pectoris 11/14/2017 Overview (11/14/2017): Mild 30% lesion mid LAD. NSTEMI at that time more attributted to tachyarrhythmia. Hospitalized [facility] History of supraventricular tachycardia 09/21/19 18 ACEI/ARB contraindicated 11/17/2015 Overview (11/17/2015): Hypotension Primary open angle glaucoma of both eyes, mild s tage 11/17/2015 Dyslipidemia, goal LDL below 100 10/01/2014 History of IA (myocardial infarction) 09/20/2014 Acquired hypothyroidism 09/20/2014 Mcintyre's [...] as of this encounter (statuses as of 03/06/2024) Resolved Problems Problem Noted Date Diagnosed Date Resolved Date Encounter for examination fo r normal comparison and control in clinical research program 06/03/2018 10/05/2019 Overview (06/20/2020): DO NOT DELETE [facility] DETECT Study: Project # [id number], Tool Machine Set Up Operator: Kamar Conrad, PhD. SUMMARY: Goal: Establish test [...] contact study staff at ; after hours Tool Machine Set Up Operator via the [facility] hospital hide and skin fleshing machine operator . Please contact study team before resolving/deleting from patients problem list. Study phone number: [phone]. Diagnosis changed due to Research Module. Go to Snapshot for study details. Encounter for examination fo r normal comparison and control in clinical research program 06/03/2018 11/02/2021 Overview (06/20/2020): DO NOT DELETE - [employer] DETECT Study: Project # [id number], Tool Machine Set Up Operator: Pacheco Kaiser, MS, MPH. SUMMARY: Goal: Establish [...] contact study staff at ; after hours Tool Machine Set Up Operator via the [facility] hospital hide and skin fleshing machine operator . - Please contact study team before resolving/deleting from patients problem list. Study phone number: [phone]. Diagnosis changed due to Research Module. Go [...] as of this encounter (statuses as of 03/06/2024) Immunizations Name Administration Dates Next Due COVID-19 [...] encounter Miscellaneous Notes * Telephone Encounter - Margaret Benavides OSA - 01/31/2024 9:03 AM EST Has a appt 01/31/2024 * Telephone Encounter - Henny Ron RN - 01/28/2024 2:19 PM EST Please call pt to set up CT Provider to address: NA Reason for Call: Test Results Contact: Telephone Call Contact Type: Test Results Provider In-Basket: Yes Outcome: reviewed results and answered questions. Pt agreeable to CT scan Face to face time spent with Patient (minutes): 0 Total Time including non face to face (minutes): 10 * Telephone Encounter - Basilio Pappas RN - 01/28/2024 2:05 PM EST ----- Message from Janell Palumbo sent at 01/28/2024 1:07 PM EST ----- CXR showing a new possible cyst in the R lung. Minimal atelectasis of left lower lung, which means the lung is not fully inflating properly. Radiology is recommending a chest CT to f/up on the cyst in R lung. STAT CT scan of chest has been ordered. documented in this encounter Plan of Treatment Upcoming Encounters Date Type Department Care Team (Late st Contact Info) Description 03/16/2024 1:30 PM EST Office Visit Otolaryngology [facility] [address] [address] Jerry Lopez PA-C [address] [address] 04/07/2024 2:20 PM EST Office Visit General Internal Medicine [facility] [address] [place] [address] Yuko Casas MD [address] [facility] [place] [address] 04/21/2024 12:30 PM EST Office Visit Gastroenterology, [facility] [address] [address] Gina Mckeon CRNP [address] [address] 06/24/2024 2:00 PM EDT Office Visit Rheumatology [facility] [address] [place], [place] [address] Keyonna Rao CRNP [address] [place], [place] [address] Health Maintenance Due Date Last Done Comments Adult Wellness Visit 11/01/2022 11/01/2021 Mcintyre's Esophagus Surveilance 04/28/2023 04/28/2020, 08/20/2018, 08/20/2018, Additional history exists COVID-19 Vaccine ( season) 2024 12/16/2023, 12/07/2022, 01/18/2022, Additional history exists GFR 04/01/2024 09/30/2023, 03/05, 06/19/2022, Additional history exists Albumin/Creatinine Ratio 04/03/2024 024, 06/19/2022, 03/22/2021, Additional history exists CKD HGB USE SMARTSET 96718 09/29/202409/29, 03/29/2023, 06/19/2022, Additional history exists CKD PHOS USE SMARTSET 32849 09/29/202409/02, 06/19/2022, 03/17/2021, Additional history exists TSH [...] D LEVEL ONCE IN A LIFETIME-USE SMARTSET# 52323 Completed 03/29/2023, 07/01/2018, 08/23/2017, Additional history exists [...] this encounter Medical Devices Implanted Type Area Spray Rig Operator Device Identifier Shelf Expiration Date Model / Serial / Lot Alloderm 2x4 Sheet [id number] - [id number] Implanted:Qty : 1 on 04/11/2009 at OR [facility] Tissue - Human N/A: Esophagus LIFE CE[employer] JACQUI 10/02/2010 [id number] / / [id number] Lens Intraoc 21.0 - [id number] - [id number] Implanted:Qty : 1 on 01/23/2016 by Rambo Menendez MD at OR [facility] [employer] 08/01/2020 [id number] / [id number] / [id number] Istent Left Implanted:Qty : 1 on 01/23/2016 by Rambo Menendez MD at OR [facility] Left: Eye 08/31/2018 [id number] / [id number] / [id number] Lens Intraoc 20.5 - [id number] - [id number] Implanted:Qty : 1 on 02/09/2016 by Rambo Menendez MD at OR [facility] Right: Eye [employer] 08/31/2020 [id number] / [id number] / [id number] Istent Implanted:Qty : 1 on 02/09/2016 by Rambo Menendez MD at OR [facility] Right: Eye 08/31/2018 [id number] / [id number] / [id number] documented as of this encounter Advance Directives [...] and were consensually agreed upon. Care Teams Hydrogeologist Relationship Specialty Start Date End Date Yuko Casas MD [address] [place] [address] PCP - General 09/14/08 documented as of this encounter
--- OUTSIDE RECORDS SUMMARY | 2024-06-27 02:59 | External Medical Summary | Summary of Care ---
Author Name Unknown Organization [facility] Address [address] [place] [address] Phone [phone] Care Team Providers Care Assistant Corporation Counsel Name Role Phone Yuko Casas MD Primary Care Provider [phone] Reason for Visit * Reason Onset Date Comments Test Results 02/03/2024 Encounter Details Date Type Department Care Team (Late st Contact Info) Description 02/03/2024 Telephone General Internal Medicine [facility] [place] [address] [place] [address] Janell Palumbo PA-C [address] [place] [address] Test Results Allergies Active Allergy Reactions Criticality Noted Date Comments Amoxicillin Rash 06/20/2015 Latex Rash 04/05/2009 irritation Other Allergy (See Comments) Rash Low 04/27/2021 1+) reactions to methyldibromo glutaronitrile Fragrance mix Propolis iodopropynyl butylcarbamate methylisothiazoline documented as of this encounter (statuses as of 02/03/2024) Medications venlafaxine XR (EFFEXOR XR) 150 MG [...] 0.4 MG Sublingual Tablet Sublingual (Nitrostat)Indicat ions:Acute acx-HB-gwdlmfmho myocardial infarction (HCC) PLACE 1 TABLET UNDER [...] Additional Information Patient not taking.Reported on 01/28/2024 Levothyroxine Sodium 50 MCG Oral Tablet (Levoxyl) [...] as of this encounter (statuses as of 02/03/2024) Active Problems Problem Noted Date Diagnosed Date [...] legs 11/14/2017 Coronary artery disease invo lving [place] coronary artery of [place] heart without angina pectoris 11/14/2017 Overview (11/14/2017): Mild 30% lesion mid LAD. NSTEMI at that time more attributted to tachyarrhythmia. Hospitalized [facility] History of supraventricular tachycardia 09/21/19 [...] as of this encounter (statuses as of 02/03/2024) Resolved Problems Problem Noted Date Diagnosed Date Resolved Date Encounter for examination fo r normal comparison and control in clinical research program 06/03/2018 10/05/2019 Overview (06/20/2020): DO NOT DELETE [facility] DETECT Study: Project # [id number], Lead Fabricator: Kamar Conrad, PhD. SUMMARY: Goal: Establish test [...] contact study staff at ; after hours Lead Fabricator via the [facility] hospital auger press operator . Please contact study team before resolving/deleting from patients problem list. Study phone number: [phone]. Diagnosis changed due to Research Module. Go to Snapshot for study details. Encounter for examination fo r normal comparison and control in clinical research program 06/03/2018 11/02/2021 Overview (06/20/2020): DO NOT DELETE - [facility] DETECT Study: Project # [id number], Lead Fabricator: Pacheco Kaiser, MS, MPH. SUMMARY: Goal: Establish [...] contact study staff at ; after hours Lead Fabricator via the [facility] hospital auger press operator . - Please contact study team before resolving/deleting from patients problem list. Study phone number: [phone]. Diagnosis changed due to Research Module. Go [...] as of this encounter (statuses as of 02/03/2024) Immunizations Name Administration Dates Next Due COVID-19 [...] as of this encounter Miscellaneous Notes * Addendum Note - Sarina Pappas LPN - 02/03/2024 2:18 PM ESTAddended by: SARINA PAPPAS on: 02/03/2024 02:18 PM Modules accepted: Orders * Telephone Encounter - Sarina Pappas LPN - 02/03/2024 2:11 PM EST Patient(s) returned call. Informed of message. Verbalized understanding. She is willing to see GI Please place order * Telephone Encounter - Brandee Cruz RN - 02/03/2024 1:26 PM EST Provider to address: Attempted to reach patient regarding test results. Message left with reason for call and call back number. If patient returns call, please provide test results below. Reason for Call: Test Results Contact: Telephone Call Contact Type: Test Results Provider In-Basket: Yes Outcome: see above Face to face time spent with Patient (minutes): 0 Total Time including non face to face (minutes): 10 * Telephone Encounter - Basilio Pappas RN - 02/03/2024 12:18 PM EST ----- Message from Janell Palumbo sent at 02/03/2024 12:15 PM EST ----- CT scan of chest showing a moderate hiatal hernia and a diffusely dilated (enlarged) esophagus. Theesophagus corresponds to the area of concern on the CXR. No lung pathology noted. Has pt ever seen GI Re: the hiatal hernia and esophageal dilation? If not, I would recommend seeing them for evaluation. documented in this encounter Plan of Treatment Upcoming Encounters Date Type Department Care Team (Late st Contact Info) Description 03/16/2024 1:30 PM EST Office Visit Otolaryngology [facility] [address] [address] Jerry Lopez PA-C [address] [address] 04/07/2024 2:20 PM EST Office Visit General Internal Medicine [facility] [address] [facility] [place] [address] Yuko Casas MD [address] [facility] [place] [address] 06/24/2024 2:00 PM EDT Office Visit Rheumatology [facility] [address] [place] [address] Keyonna Rao CRNP [address] [place] [address] Health Maintenance Due Date Last Done Comments Adult Wellness Visit 11/01/2022 11/01/2021 Mcintyre's Esophagus Surveilance 04/28/2023 04/28/2020, 08/20/2018, 08/20/2018, Additional history exists COVID-19 Vaccine ( season) 2024 12/16/2023, 12/07/2022, 01/18/2022, Additional history exists GFR 04/01/2024 09/30/2023, 03/05, 06/19/2022, Additional history exists Albumin/Creatinine Ratio 04/03/2024 024, 06/19/2022, 03/22/2021, Additional history exists CKD HGB USE SMARTSET 69585 09/29/202409/29, 03/29/2023, 06/19/2022, Additional history exists CKD PHOS USE SMARTSET 47664 09/29/202409/02, 06/19/2022, 03/17/2021, Additional history exists TSH [...] D LEVEL ONCE IN A LIFETIME-USE SMARTSET# 51150 Completed 03/29/2023, 07/01/2018, 08/23/2017, Additional history exists [...] this encounter Medical Devices Implanted Type Area Physician/Internist Device Identifier Shelf Expiration Date Model / Serial / Lot Alloderm 2x4 Sheet [id number] - [id number] Implanted:Qty : 1 on 04/11/2009 at OR [facility] Tissue - Human N/A: Esophagus LIFE CELL JACQUI 10/02/2010 [id number] / / [id number] Lens Intraoc 21.0 - [id number] - [id number] Implanted:Qty : 1 on 01/23/2016 by Rambo Menendez MD at OR [facility] [employer] 08/01/2020 [id number] / [id number] Istent Left Implanted:Qty : 1 on 01/23/2016 by Rabmo Menendez MD at OR [facility] Left: Eye 08/31/2018 [id number] / [id number] 250 / [id number] Lens Intraoc 20.5 - [id number] - [id number] Implanted:Qty : 1 on 02/09/2016 by Rambo Menendez MD at OR [facility] Right: Eye [employer] 08/31/2020 [id number] / [id number] Istent Implanted:Qty : 1 on 02/09/2016 by Rambo Menendez MD at OR [facility] Right: Eye 08/31/2018 [id number] / [id number] / [id number] documented as of this encounter Visit Diagnoses Diagnosis Hiatal hernia- Primary Diaphragmatic hernia without mention of obstruction or gangrene Dilatation of esophagus Other specified disorder of the esophagus documented in this encounter Advance Directives * [...] and were consensually agreed upon. Care Teams Assistant Corporation Counsel Relationship Specialty Start Date End Date Yuko Casas MD [address] [place] [address], [place] [address] PCP - General 09/14/08 documented as of this encounter
--- OUTSIDE RECORDS SUMMARY | 2024-06-27 02:59 | External Medical Summary | Summary of Care ---
Author Name Unknown Organization [facility] Address [address] [place] [address] Phone [phone] Care Team Providers Care Teller Coordinator Name Role Phone Yuko Casas MD Primary Care Provider [phone] Reason for Referral * Evaluate & Treat - Unlimited Visits (Within 30 days (routine)) - Authorized Specialty Diagnoses / Procedures Referred By Mesha garcia Referred To Contact Gastroenterology Diagnoses Hiatal hernia Dilatation of esophagus Janell Palumbo PA-C [address] [facility] [place] [address] [address] Phone: tel: fax: Referral ID Status Reason Start Date Expiration Date Visits Requested Visits Authorized [id number] Authorized Specialty Services Required 02/03/2024 999 999 Question Answer Referral Priority Within 30 days (routine) Where should this appointment be scheduled? [facility] For what condition is the patient being referred? All Gastro Conditions Reason for Visit * Reason Onset Date Comments Test Results 02/03/2024 Encounter Details Date Type Department Care Team (Late st Contact Info) Description 02/03/2024 Telephone General Internal Medicine [place] Janel Pyle [address] [place] [address] Janell Palumbo PA-C 200 [facility] [place] [address] Test Results Allergies Active Allergy Reactions Criticality Noted Date Comments Amoxicillin Rash 06/20/2015 Latex Rash 04/05/2009 irritation Other Allergy (See Comments) Rash Low 04/27/2021 1+) reactions to methyldibromo glutaronitrile Fragrance mix Propolis iodopropynyl butylcarbamate methylisothiazoline documented as of this encounter (statuses as of 02/04/2024) Medications venlafaxine XR (EFFEXOR XR) 150 MG [...] 0.4 MG Sublingual Tablet Sublingual (Nitrostat)Indicat ions:Acute ggi-HR-ejqfciczn myocardial infarction (HCC) PLACE 1 TABLET UNDER [...] Denosumab 60 MG/ML Subcutaneous Solution Prefilled Syringe ([email or web address]) Inject 60 mg under the skin once. Active Benzonatate 100 MG Oral Capsule (Tessalon Perles) Take 1 Capsule by mouth 3 times a day as needed for Cough. Do not cut, crush, or chew. 30 Capsule 01/28/20 24 Active documented as of this encounter (statuses as of 02/04/2024) Active Problems Problem Noted Date Diagnosed Date [...] legs 11/14/2017 Coronary artery disease invo lving [place] coronary artery of [place] heart without angina pectoris 11/14/2017 Overview (11/14/2017): Mild 30% lesion mid LAD. NSTEMI at that time more attributted to tachyarrhythmia. Hospitalized [facility] History of supraventricular tachycardia 09/21/19 18 ACEI/ARB contraindicated 11/17/2015 Overview (11/17/2015): Hypotension Primary open angle glaucoma of both eyes, mild s tage 11/17/2015 Dyslipidemia, goal LDL below 100 10/01/2014 History of [place] (myocardial infarction) 09/20/2014 Acquired hypothyroidism 09/20/2014 Mcintyre's [...] as of this encounter (statuses as of 02/04/2024) Resolved Problems Problem Noted Date Diagnosed Date Resolved Date Encounter for examination fo r normal comparison and control in clinical research program 06/03/2018 10/05/2019 Overview (06/20/2020): DO NOT DELETE [facility] DETECT Study: Project # [id number], Machine Tool Operator: Kamar Conrad, PhD. SUMMARY: Goal: Establish [...] contact study staff at ; after hours Machine Tool Operator via the [facility] [place] drivematic machine operator . Please contact study team before resolving/deleting from patients problem list. Study phone number: [phone]. Diagnosis changed due to Research Module. Go to Snapshot for study details. Encounter for examination fo r normal comparison and control in clinical research program 06/03/2018 11/02/2021 Overview (06/20/2020): DO NOT DELETE - [facility] GREG Study: Project # [id number], Machine Tool Operator: Pacheco Kaiser, MS, MPH. SUMMARY: Goal: [...] contact study staff at ; after hours Machine Tool Operator via the [facility] [place] drivematic machine operator . - Please contact study team before resolving/deleting from patients problem list. Study phone number: [phone]. Diagnosis changed due to Research Module. Go [...] as of this encounter (statuses as of 02/04/2024) Immunizations Name Administration Dates Next Due COVID-19 [...] encounter Miscellaneous Notes * Telephone Encounter - Megan Stapleton OSA - 02/04/2024 3:12 PM EST Pt has appt for GI scheduled on 02/12/2024 * Addendum Note - Srikanth Salazar RN - 02/03/2024 2:21 PM ESTAddended by: SRIKANTH SALAZAR on: 02/03/2024 02:21 PM Modules accepted: Orders * Telephone Encounter - Srikanth Salazar RN - 02/03/2024 2:19 PM EST Provider to address: GI referral placed. Encounter to office to assist with scheduling. Reason for Call: Test Results Contact: My Jim Contact Type: Referral(s) Placed Provider In-Basket: Yes Outcome: see above Face to face time spent with Patient (minutes): 0 Total Time including non face to face (minutes): 10 * Addendum Note - Sarina Pappas LPN - 02/03/2024 2:18 PM ESTAddended by: SARINA PAPPAS on: 02/03/2024 02:18 PM Modules accepted: Orders * Telephone Encounter - Sarina Pappas LPN - 02/03/2024 2:11 PM EST Patient(s) returned call. Informed of message. Verbalized understanding. She is willing to see GI Please place order * Telephone Encounter - Srikanth Salazar RN - 02/03/2024 1:26 PM EST Provider [...] 12:18 PM EST ----- Message from Janell Palumob sent at 02/03/2024 12:15 PM EST ----- [...] Care Team (Late st Contact Info) Description 02/12/2024 1:00 PM EST Office Visit Gastroenterology, [facility] [address] [place] [address] Jael Law CRNP [address] [place] [address] 03/16/2024 1:30 PM EST Office Visit Otolaryngology [facility] [address] [place] [address] Jerry Lopez PA-C [address] [place] [address] 04/07/2024 2:20 PM EST Office Visit General Internal Medicine [facility] [address] [facility] [place] [address] Yuko Casas MD [address] [place] [address] 06/24/2024 2:00 PM EDT Office Visit Rheumatology [facility] [address] [place] [address] Keyonna Rao CRNP [address] [place] [address] Scheduled Referrals Name Type Priority Associated Diagnoses Order Schedule ADULT GASTROENTEROLOGY REFERRAL OP Referral Within 30 days (routine) Hiatal hernia Dilatation of esophagus Ordered: 02/03/2024 Health Maintenance Due Date Last Done Comments Adult Wellness Visit 11/01/2022 11/01/2021 Mcintyre's Esophagus Surveilance 04/28/2023 04/28/2020, 08/20/2018, 08/20/2018, Additional history exists COVID-19 Vaccine ( season) 2024 12/16/2023, 12/07/2022, 01/18/2022, Additional history exists GFR 04/01/2024 09/30/2023, 03/05, 06/19/2022, Additional history exists Albumin/Creatinine Ratio 04/03/2024 024, 06/19/2022, 03/22/2021, Additional history exists CKD HGB USE SMARTSET 44597 09/29/202409/29, 03/29/2023, 06/19/2022, Additional history exists CKD PHOS USE SMARTSET 94003 09/29/202409/02, 06/19/2022, 03/17/2021, Additional history exists TSH [...] D LEVEL ONCE IN A LIFETIME-USE SMARTSET# 36362 Completed 03/29/2023, 07/01/2018, 08/23/2017, Additional history exists [...] this encounter Medical Devices Implanted Type Area Tavern Keeper Device Identifier Shelf Expiration Date Model / Serial / Lot Alloderm 2x4 Sheet [id number] - [id number] Implanted:Qty : 1 on 04[place]11/2009 [place] [facility] [place] - Human N/A: Esophagus LIFE CELL JACQUI 10/02/2010 [id number] / / [id number] Lens Intraoc 21.0 - [id number] - [id number] Implanted:Qty : 1 on 01/23/2016 by Rambo Menendez MD at OR [facility] [employer]CH [employer]OM[employer] 08/01/2020 [id number] / [id number] / [id number] Istent Left Implanted:Qty : 1 on 01/23/2016 by Rambo Menendez MD at OR [facility] Left: Eye 08/31/2018 [id number] / [id number] / [id number] Lens Intraoc 20.5 - [id number] - [id number] Implanted:Qty : 1 on 02/09/2016 by Rambo Menendez MD at OR [facility] Right: Eye [employer]OM[employer] 08/31/2020 [id number] / [id number] Istent Implanted:Qty : 1 on 02/09/2016 by Rambo Menendez MD at OR [facility] Right: Eye 08/31/2018 [id number] / [id number] / [id number] documented as of this encounter Visit Diagnoses [...] and were consensually agreed upon. Care Teams Teller Coordinator Relationship Specialty Start Date End Date Yuko Casas MD [address] [place] [address] PCP - General 09/14/08 documented as of this encounter
--- OUTSIDE RECORDS SUMMARY | 2024-06-27 02:59 | External Medical Summary | Summary of Care ---
Author Name Unknown Organization [facility] Address [address] [place] [address] Phone [phone] Care Team Providers Care Visual Basic Developer Name Role Phone Yuko Casas MD Primary Care Provider [phone] Reason for Visit * Reason Onset Date Comments Test Results 02/03/2024 Encounter Details Date Type Department Care Team (Late st Contact Info) Description 02/03/2024 Telephone General Internal Medicine [facility] [place] [address] [place] [address] Janell Palumbo PA-C [address] [place] [address] Test Results Allergies Active Allergy Reactions Criticality [...] 0.4 MG Sublingual Tablet Sublingual (Nitrostat)Indicat ions:Acute hfn-WI-tzzbpeayo myocardial infarction (HCC) PLACE 1 TABLET UNDER [...] that time more attributted to tachyarrhythmia. Hospitalized [facility] History of supraventricular tachycardia 09/21/19 18 ACEI/ARB contraindicated 11/17/2015 Overview (11/17/2015): Hypotension Primary open angle glaucoma of both eyes, mild s tage 11/17/2015 Dyslipidemia, goal LDL below 100 10/01/2014 History of [place] (myocardial infarction) 09/20/2014 Acquired hypothyroidism 09/20/2014 Mcintyre's [...] [facility] DETECT Study: Project # [id number], Postdoctoral Research Fellow: Kamar Conrad, PhD. SUMMARY: Goal: Establish test [...] contact study staff at ; after hours Postdoctoral Research Fellow via the [facility] hospital stranding machine operator helper . Please contact study team before resolving/deleting from patients problem list. Study phone number: [phone]. Diagnosis changed due to Research Module. Go to Snapshot for study details. Encounter for examination fo r normal comparison and control in clinical research program 06/03/2018 11/02/2021 Overview (06/20/2020): DO NOT DELETE - [facility] DETECT Study: Project # [id number], Postdoctoral Research Fellow: Pacheco Kaiser, MS, MPH. SUMMARY: Goal: Establish [...] contact study staff at ; after hours Postdoctoral Research Fellow via the [facility] hospital stranding machine operator helper . - Please contact study team before resolving/deleting from patients problem list. Study phone number: [phone]. Diagnosis changed due to Research Module. Go [...] encounter Miscellaneous Notes * Telephone Encounter - Brandee Cruz RN [...] 03/16/2024 1:30 PM EST Office Visit Otolaryngology [facility] [address] [address] Jerry Lopez PA-C [address] [place] [place] [address] 04/07/2024 2:20 PM EST Office Visit General Internal Medicine [facility] [place] [address] [place] [address] Yuko Casas MD 200 [facility] [place] [address] 06/24/2024 2:00 PM EDT Office Visit Rheumatology [place] [address] [place] [address] Keyonna Rao CRNP [address] [place] [address] Health Maintenance Due Date Last Done Comments Adult Wellness Visit 11/01/2022 11/01/2021 Mcintyre's Esophagus Surveilance 04/28/2023 04/28/2020, 08/20/2018, 08/20/2018, Additional history exists COVID-19 Vaccine ( season) 2024 12/16/2023, 12/07/2022, 01/18/2022, Additional history exists GFR 04/01/2024 09/30/2023, 03/05, 06/19/2022, Additional history exists Albumin/Creatinine Ratio 04/03/2024 024, 06/19/2022, 03/22/2021, Additional history exists CKD HGB USE SMARTSET 03406 09/29/202409/29, 03/29/2023, 06/19/2022, Additional history exists CKD PHOS USE SMARTSET 65385 09/29/202409/02, 06/19/2022, 03/17/2021, Additional history exists TSH [...] D LEVEL ONCE IN A LIFETIME-USE SMARTSET# 24093 Completed 03/29/2023, 07/01/2018, 08/23/2017, Additional history exists [...] this encounter Medical Devices Implanted Type Area [place]ra [place]ta Setter Device Identifier Shelf Expiration Date Model / Serial / Lot Alloderyanci 2x4 Sheet [id number] - [id number] Implanted:Qty : 1 on 04/11/2009 at [place] [facility] Tissue - Human N/A: Esophagus LIFE CELL JACQUI 10/02/2010 [id number] / / [id number] Lens Intraoc 21.0 - [id number] - [id number] Implanted:Qty : 1 on 01/23/2016 by Rambo Menendez MD at OR [facility] [employer] 08/01/2020 [id number] / [id number] / [id number] Istent Left Implanted:Qty : 1 on 01/23/2016 by Rambo Menendez MD at OR [facility] Left: Eye 08/31/2018 [id number] / [id number] / [id number] Lens Intraoc 20.5 - [id number] - [id number] Implanted:Qty : 1 on 02/09/2016 by Rambo Menendez MD at OR [facility] Right: Eye [employer]OM[employer] 08/31/2020 [id number] / [id number] / [id number] Istent Implanted:Qty : 1 on 02/09/2016 by Rambo Menendez MD at OR [facility] Right: Eye 08/31/2018 [id number] / [id number] / [id number] documented as of this encounter Advance Directives [...] and were consensually agreed upon. Care Teams Visual Basic Developer Relationship Specialty Start Date End Date Yuko Casas MD [address] [facility], [place] [id number] PCP - General 09/14/08 documented as of this encounter
--- OUTSIDE RECORDS SUMMARY | 2024-06-27 02:59 | External Medical Summary | Summary of Care ---
Author Name Unknown Organization [facility] Address [address] [place] [address] Phone [phone] Care Team Providers Care Theater Manager Name Role Phone Yuko Pride MD Primary Care Provider [phone] Reason for Visit * Reason Comments eRx-Medication Refill Encounter Details Date Type Department Care Team (Late st Contact Info) Description 02/06/2024 Refill General Internal Medicine [facility] [place] [address] [place] [address] Yuko Pride MD 200 [facility] [place] [address] Allergies Active Allergy Reactions Criticality Noted Date Comments Amoxicillin Rash 06/20/2015 Latex Rash 04/05/2009 irritation Other Allergy (See Comments) Rash Low 04/27/2021 1+) reactions to methyldibromo glutaronitrile Fragrance mix Propolis iodopropynyl butylcarbamate methylisothiazoline documented as of this encounter (statuses as of 02/07/2024) Medications venlafaxine XR (EFFEXOR XR) 150 MG CP24 1 Capsule every morning. Active QUEtiapine (SEROQUEL) 300 MG Tablet Take 1 Tablet by mouth at bedtime. 30 Tab 5 016 Active Cholecalciferol (VITAMIN D-3) 5000 units Tablet Take 1 Tablet by mouth in the morning. Active Cyanocobalamin (B-12) 500 MCG TABS Take by mouth. 019 Active Nitroglycerin 0.4 MG Sublingual Tablet Sublingual (Nitrostat)Indica tions:Acute wbx-OW-ypfijocfr myocardial infarction (HCC) PLACE 1 TABLET UNDER THE TONGUE NEEDED FOR CHEST PAIN. MAY REPEAT 3 TIMES. IF CHEST PAIN CONTINUES CALL [phone] Tablet 023 Active Additional Information Patient not taking.Reported on 01/28/2024 cycloSPORINE 0.05 % Ophthalmic Emulsion (Restasis) Instill into both eyes as needed for Dry eyes. 023 Active Docusate Sodium 100 MG Oral TabletIndications :Other constipation Take 1 Tablet by mouth 2 times a day as needed for Constipation. 180 Tablet 3 023 Active Ondansetron 4 MG Oral Tablet Disintegrating (Zofran) dissolve 1 tablet on the tongue every 8 hours if needed for nausea 20 Tablet 1 023 Active Additional Information Patient not taking.Reported on 01/28/2024 Azelastine HCl 0.1 % Nasal Solution (Astelin)Indicati ons:Chronic rhinitis use 1 spray in each nostril twice daily 30 mL 5 024 Active Additional Information Patient not taking.Reported on 01/28/2024 Pantoprazole Sodium 40 MG Oral Tablet Delayed Release (Protonix)Indicat ions:Gastroesopha geal reflux disease without esophagitis TAKE 1 TABLET BY MOUTH TWICE DAILY 30 to 60 minutes before breakfast and dinner 180 Tablet 3 024 Active Albuterol Sulfate HFA 108 (90 [...] crush, or chew. 30 Capsule 024 Active Levothyroxine Sodium 50 MCG Oral Tablet (Levoxyl) TAKE 1 TABLET BY MOUTH EVERY MORNING AT LEAST 30 MINUTES PRIOR TO BREAKFAST OR OTHER MEDICATIONS 90 Tablet 1 024 Active Levothyroxine Sodium 50 MCG Oral Tablet (Levoxyl) take 1 tablet bymouth every morning at least 30 minutes prior to breakfast or other medications 90 Tablet 2 024 2023 Discontinued documented as of this encounter (statuses as of 02/07/2024) Active Problems Problem Noted Date Diagnosed Date [...] legs 11/14/2017 Coronary artery disease invo lving [place] coronary artery of [place] heart without angina pectoris 11/14/2017 Overview (11/14/2017): Mild 30% lesion mid LAD. NSTEMI at that time more attributted to tachyarrhythmia. Hospitalized [facility] History of supraventricular tachycardia 09/21/19 18 ACEI/ARB contraindicated 11/17/2015 Overview (11/17/2015): Hypotension Primary open angle glaucoma of both eyes, mild s tage 11/17/2015 Dyslipidemia, goal LDL below 100 10/01/2014 History of [place] (myocardial infarction) 09/20/2014 Acquired hypothyroidism 09/20/2014 Mcintyre's [...] as of this encounter (statuses as of 02/07/2024) Resolved Problems Problem Noted Date Diagnosed Date Resolved Date Encounter for examination fo r normal comparison and control in clinical research program 06/03/2018 10/05/2019 Overview (06/20/2020): DO NOT DELETE [facility] DETECT Study: Project # [id number], Director Of Field Coordination: Kamar Conrad, PhD. SUMMARY: Goal: Establish test [...] contact study staff at ; after hours Director Of Field Coordination via the [facility] bench press operator . Please contact study team before resolving/deleting from patients problem list. Study phone number: [phone]. Diagnosis changed due to Research Module. Go to Snapshot for study details. Encounter for examination fo r normal comparison and control in clinical research program 06/03/2018 11/02/2021 Overview (06/20/2020): DO NOT DELETE - [employer] DETECT Study: Project # [id number], Director Of Field Coordination: Pacheco Kaiser, MS, MPH. SUMMARY: Goal: Establish [...] contact study staff at ; after hours Director Of Field Coordination via the [facility] hospital bench press operator . - Please contact study team before resolving/deleting from patients problem list. Study phone number: [phone]. Diagnosis changed due to Research Module. Go [...] & Plan (04/21/2021 1:29 PM EST): PABLO menendez reviewed by Dr. Lao CONCLUSIONS: Patient had [...] as of this encounter (statuses as of 02/07/2024) Immunizations Name Administration Dates Next Due COVID-19 mRNA, LNP-s, No Pre serve, 2-Dose Series (Moderna) 05/18/2020,04/06/2020 COVID-19 mRNA, LNP-s, No Pre serve, 2-Dose Series ([employer]) 01/10/2021,05/18/2020,04/06/2020 COVID-19, MRNA-LNP, 24-25, P F, 50 [...] encounter Miscellaneous Notes * Telephone Encounter - Migdalia Rivera [facility] - 02/07/2024 10:19 AM EST * Telephone Encounter - Migdalia Rivera RPh - 02/07/2024 10:19 AM EST Signed Prescriptions: Disp Refills Levothyroxine Sodium 50 MCG Oral Tablet (L*90 Tab*1 Sig: TAKE 1 TABLET BY MOUTH EVERY MORNING AT LEAST 30 MINUTES PRIOR TO BREAKFAST OR OTHER MEDICATIONS Authorizing Provider: YUKO PRIDE Ordering User: MIGDALIA RIVERA documented in this encounter Plan of Treatment Upcoming Encounters Date Type Department Care Team (Late st Contact Info) Description 02/12/2024 1:00 PM EST Office Visit Gastroenterology, [facility] [address] [address] Jael Law CRNP [address] [place] [address] 03/16/2024 1:30 PM EST Office Visit Otolaryngology [facility] [address] [place] [address] [address] Jerry Lopez PA-C [address] [place] [address] 04/07/2024 2:20 PM EST Office Visit General Internal Medicine [facility] [place] [address] [place] [address] Yuko Pride MD [address] [facility] [place] [address] 06/24/2024 2:00 PM EDT Office Visit Rheumatology [address] [place] [address] Keyonna Rao CRNP [address] [place] [address] Health Maintenance Due Date Last Done Comments Adult Wellness Visit 11/01/2022 11/01/2021 Mcintyre's Esophagus Surveilance 04/28/2023 04/28/2020, 08/20/2018, 08/20/2018, Additional history exists COVID-19 Vaccine ( season) 2024 12/16/2023, 12/07/2022, 01/18/2022, Additional history exists GFR 04/01/2024 09/30/2023, 03/05, 06/19/2022, Additional history exists Albumin/Creatinine Ratio 04/03/2024 024, 06/19/2022, 03/22/2021, Additional history exists CKD HGB USE SMARTSET 36202 09/29/202409/29, 03/29/2023, 06/19/2022, Additional history exists CKD PHOS USE SMARTSET 29865 09/29/202409/02, 06/19/2022, 03/17/2021, Additional history exists TSH [...] D LEVEL ONCE IN A LIFETIME-USE SMARTSET# 54263 Completed 03/29/2023, 07/01/2018, 08/23/2017, Additional history exists [...] this encounter Medical Devices Implanted Type Area Research Scholar Device Identifier Shelf Expiration Date Model / Serial / Lot Alloderm 2x4 Sheet [id number] - [id number] Implanted:Qty : 1 on 04/11/2009 at [place] [facility] [place] Tissue - Human N/A: Esophagus LIFE CELL JACQUI 10/02/2010 [id number] / / [id number] Lens Intraoc 21.0 - [id number] - [id number] Implanted:Qty : 1 on 01/23/2016 by Rambo Menendez MD at OR [facility] [employer] 08/01/2020 [id number] / [id number] / [id number] Istent Left Implanted:Qty : 1 on 01/23/2016 by Rambo Menendez MD at OR [facility] Left: Eye 08/31/2018 [id number] / [id number] / [id number] Lens Intraoc 20.5 - [id number] - [id number] Implanted:Qty : 1 on 02/09/2016 by Rabmo Menendez MD at [place] [facility] Right: Eye [employer]OM[employer] 08/31/2020 [id number] / [id number] / [id number] Istent Implanted:Qty : 1 on 02/09/2016 by Rambo Menendez MD at [place] [facility] Right: Eye 08/31/2018 [id number] / [id number] / [id number] documented as of this encounter Advance Directives [...] and were consensually agreed upon. Care Teams Theater Manager Relationship Specialty Start Date End Date Yuko Pride MD [address] [place] [address] PCP - General 09/14/08 documented as of this encounter
--- OUTSIDE RECORDS SUMMARY | 2024-06-27 02:59 | External Medical Summary | Summary of Care ---
Author Name Unknown Organization [facility] Address [address] [place] [address] Phone [phone] Care Team Providers Care Mac Developer Name Role Phone Yuko Casas MD Primary Care Provider [phone] Reason for Referral * Evaluate & Treat - Unlimited Visits (Within 30 days (routine)) - Authorized Specialty Diagnoses / Procedures Referred By Mesha garcia Referred To Contact Gastroenterology Diagnoses Hiatal hernia Dilatation of esophagus Janell Palumbo PA-C [address] [facility] [place] [address] Phone: tel: fax: Referral ID Status Reason Start Date Expiration Date Visits Requested Visits Authorized [id number] Authorized Specialty Services Required 02/03/2024 999 999 [...] State Janel Pyle [address] [place] [address] Janell Palumbo PA-C 200 [facility] [address] [address] Test Results Allergies Active Allergy Reactions Criticality [...] 0.4 MG Sublingual Tablet Sublingual (Nitrostat)Indicat ions:Acute eux-GG-igmbemuoe myocardial infarction (HCC) PLACE 1 TABLET UNDER [...] Denosumab 60 MG/ML Subcutaneous Solution Prefilled Syringe (ProlCloudjutsu) Inject 60 mg under the skin once. [...] legs 11/14/2017 Coronary artery disease invo lving [place] coronary artery of [place] heart without angina pectoris 11/14/2017 Overview (11/14/2017): Mild 30% lesion mid LAD. NSTEMI at that time more attributted to tachyarrhythmia. Hospitalized [facility] History of supraventricular tachycardia 09/21/19 18 [...] 06/03/2018 10/05/2019 Overview (06/20/2020): DO NOT DELETE [facility] DETECT Study: Project # [id number], Web Applications Administrator: Kamar Conrad, PhD. SUMMARY: Goal: Establish test [...] contact study staff at ; after hours Web Applications Administrator via the [facility] tandem mill operator . Please contact study team before resolving/deleting from patients problem list. Study phone number: [phone]. Diagnosis changed due to Research Module. Go to Snapshot for study details. Encounter for examination fo r normal comparison and control in clinical research program 06/03/2018 11/02/2021 Overview (06/20/2020): DO NOT DELETE - [facility] GREG Study: Project # [id number], Web Applications Administrator: Pacheco Kaiser, MS, MPH. SUMMARY: Goal: Establish [...] contact study staff at ; after hours Web Applications Administrator via the [facility] tandem mill operator . - Please contact study team before resolving/deleting from patients problem list. Study phone number: [phone]. Diagnosis changed due to Research Module. Go [...] encounter Miscellaneous Notes * Addendum Note - Srikanth Salazar RN [...] (minutes): 10 * Telephone Encounter - Basilio Pappas, RN - 02/03/2024 12:18 PM EST ----- [...] 03/16/2024 1:30 PM EST Office Visit Otolaryngology [facility] [address] [place] [address] Jerry Lopez PA-C 132 [facility] [place] [address] [address] 04/07/2024 2:20 PM EST Office Visit General Internal Medicine Dave Giraldo [place] [address] [place] [address] Yuko Casas MD [address] [place] [address] 06/24/2024 2:00 PM EDT Office Visit Rheumatology [place] [id number] [facility] [place] [address] Keyonna Rao CRNP [address] [place] [address] Scheduled Referrals Name Type Priority Associated Diagnoses [...] Additional history exists CKD HGB USE SMARTSET 13819 09/29/202409/29, 03/29/2023, 06/19/2022, Additional history exists CKD PHOS USE SMARTSET 96491 09/29/202409/02, 06/19/2022, 03/17/2021, Additional history exists TSH [...] D LEVEL ONCE IN A LIFETIME-USE SMARTSET# 19432 Completed 03/29/2023, 07/01/2018, 08/23/2017, Additional history exists [...] this encounter Medical Devices Implanted Type Area Placement Interviewer Device Identifier Shelf Expiration Date Model / Serial / Lot Alloderm 2x4 Sheet [id number] - [id number] Implanted:Qty : 1 on 04/11/2009 at [place] [facility] Tissue - Human N/A: Esophagus LIFE CELL JACQUI 10/02/2010 [id number] / / [id number] Lens Intraoc 21.0 - [id number] - [id number] Implanted:Qty : 1 on 01/23/2016 by Rambo Menendez MD at OR [facility] [employer] 08/01/2020 [id number] / [id number] / [id number] Istent Left Implanted:Qty : 1 on 01/23/2016 by Rambo Menendez MD at OR [facility] Left: Eye 08/31/2018 [id number] / [id number] / [id number] Lens Intraoc 20.5 - [id number] - [id number] Implanted:Qty : 1 on 02/09/2016 by Rambo Menendez MD at OR [facility] Right: Eye [employer] 08/31/2020 [id number] / [id number] / [id number] Istent Implanted:Qty : 1 on 02/09/2016 by Rambo Menendez MD at OR [facility] Right: Eye 08/31/2018 [id number] / [id number] / [id number] documented as of this encounter Visit Diagnoses [...] and were consensually agreed upon. Care Teams Mac Developer Relationship Specialty Start Date End Date Yuko Casas MD [address] [place] [address] PCP - General 09/14/08 documented as of this encounter
--- OUTSIDE RECORDS SUMMARY | 2024-06-27 02:59 | External Medical Summary | Summary of Care ---
Author Name Unknown Organization [facility] Address [address] [place] [address] Phone [phone] Care Team Providers Care Flour Distributor Name Role Phone Yuko Casas MD Primary Care Provider Reason for Referral * Precert (Within 24 hrs (call dept; emergent)) - Authorized Specialty Diagnoses / Procedures Referred By Mesha garcia Referred To Contact Radiology Diagnoses Single cyst of lung Abnormal CXR Procedures CT CHEST WO CONTRAST Suzanna Palumbo PA-C [address] [place] [address] [address] Phone: tel: fax: Referral ID Status Reason Start Date Expiration Date V isits Requested Visits Authorized [id number] Authorized 01/28/2024 999 999 Reason for Visit * Reason Comments Cough Productive for yello w mucous - ongoing since Saturday01/20/2024 - patient denies chills or fever; denies any shortness of breath Ear Pain Once in a while, the n goes away Encounter Details Date Type Department Care Team (Late st Contact Info) Description 01/28/2024 11:00 AM EST Office Visit General Internal Medicine State Janel Pyle [address] [place] [address] [address] Suzanna Palumbo PA-C [address] [place] [address] [address] Acute respiratory infection*; COPD exacerbation (HCC); Single cyst of lung; Abnormal CXR Allergies Active Allergy Reactions Criticality Noted Date Comments Amoxicillin Rash 06/20/2015 Latex Rash 04/05/2009 irritation Other Allergy (See Comments) Rash Low 04/27/2021 1+) reactions to methyldibromo glutaronitrile Fragrance mix Propolis iodopropynyl butylcarbamate methylisothiazoline documented as of this encounter (statuses as of 01/28/2024) Medications venlafaxine XR (EFFEXOR XR) 150 MG [...] 0.4 MG Sublingual Tablet Sublingual (Nitrostat)Indicat ions:Acute xki-UF-cawehzmvb myocardial infarction (HCC) PLACE 1 TABLET UNDER [...] Denosumab 60 MG/ML Subcutaneous Solution Prefilled Syringe (ProlTaxiBeat) Inject 60 mg under the skin once. Active Azithromycin 250 MG Oral Tablet (Zithromax) Take 2 tabs by mouth on the first day, then 1 tab daily on days two through five 6 Tablet 01/28/20 24 Active predniSONE 20 MG Oral Tablet (Deltasone) Take 1 Tablet by mouth in the morning for 5 days. 5 Tablet 01/28/20 24 Active Benzonatate 100 MG Oral Capsule (Tessalon Perles) Take 1 Capsule by mouth 3 times a day as needed for Cough. Do not cut, crush, or chew. 30 Capsule 01/28/20 24 Active documented as of this encounter (statuses as of 01/28/2024) Active Problems Problem Noted Date Diagnosed Date [...] legs 11/14/2017 Coronary artery disease invo lving [place] coronary artery of [place] heart without angina pectoris 11/14/2017 Overview (11/14/2017): Mild 30% lesion mid LAD. NSTEMI at that time more attributted to tachyarrhythmia. Hospitalized [facility] History of supraventricular tachycardia 09/21/19 18 ACEI/ARB contraindicated 11/17/2015 Overview (11/17/2015): Hypotension Primary open angle glaucoma of both eyes, mild s tage 11/17/2015 Dyslipidemia, goal LDL below 100 10/01/2014 History of UT (myocardial infarction) 09/20/2014 Acquired hypothyroidism 09/20/2014 Mcintyre's [...] as of this encounter (statuses as of 01/28/2024) Resolved Problems Problem Noted Date Diagnosed Date Resolved Date Encounter for examination fo r normal comparison and control in clinical research program 06/03/2018 10/05/2019 Overview (06/20/2020): DO NOT DELETE [facility] DETECT Study: Project # [id number], Director Industrial Museum: Kamar Conrad, PhD. SUMMARY: Goal: Establish test [...] study staff at ; after hours Director Industrial Museum via the [facility] wood milling machine operator . Please contact study team before resolving/deleting from patients problem list. Study phone number: [phone]. Diagnosis changed due to Research Module. Go to Snapshot for study details. Encounter for examination fo r normal comparison and control in clinical research program 06/03/2018 11/02/2021 Overview (06/20/2020): DO NOT DELETE - [facility] Study: Project # [id number], Director Industrial Museum: Pacheco Kaiser, MS, MPH. SUMMARY: Goal: Establish [...] study staff at ; after hours Director Industrial Museum via the [facility] wood milling machine operator . - Please contact study team before resolving/deleting from patients problem list. Study phone number: [phone]. Diagnosis changed due to Research Module. Go [...] She will follow-up as scheduled. [facility]2009 03/22/2010 HTN, goal [...] as of this encounter (statuses as of 01/28/2024) Immunizations Name Administration Dates Next Due COVID-19 [...] Sign Reading Time Taken Comments Blood Pressure 98/62 01/28/2024 10:48 AM EST Pulse 95 01/28/2024 10:48 AM EST Temperature 36.4 °C (97.5 °F) 01/28/2024 10:[address] Respiratory Rate 12 01/28/2024 10:48 AM EST Oxygen Saturation 93% 01/28/2024 10:48 AM EST room air Inhaled Oxygen Concentration - - Weight 62 kg (136 lb 11.2 oz) 01/28/2024 10:48 A M EST Height - - Body Mass Index 26.7 09/02/2023 1:03 PM EDT documented in this encounter Progress Notes * Suzanna Palumbo PA-C - 01/28/2024 10:57 AM EST Images from the original note were not included. History of Present Illness Holli Barbosa is a 78 year old female that presents for Cough (Productive for yellow mucous - ongoingsince Saturday01/20/2024 - patient denies chills or fever; denies any shortness of breath) and Ear Pain (Once in a while, then goes away) Cough This is a new problem. The current episode started 1 to 4 weeks ago. The problem has been unchanged. The problem occurs every few minutes. The cough is Productive of purulent sputum. Associated symptoms include ear pain, headaches, rhinorrhea, a sore throat (initially--has resolved) and wheezing. Pertinent negatives include no chest pain, chills, fever, nasal congestion or shortness of breath. The symptoms are aggravated by lying down. She has tried OTC cough suppressant for the symptoms. Her past medical history is significant for COPD. There is no history of asthma. Review of Systems: See HPI for pertinent positives. All other review of systems is negative. Physical Exam Vitals: 01/28/24 1048 Temp: 97.5 °F (36.4 °C) Pulse: 95 Resp: 12 SpO2: 93% BP: 98/62 Physical Exam Constitutional: General: She is not in acute distress. Appearance: She is not diaphoretic. HENT: Right Ear: Tympanic membrane, ear canal and external ear normal. Left Ear: Tympanic membrane, ear canal and external ear normal. Mouth/Throat: Mouth: Mucous membranes are moist. Pharynx: Oropharynx is clear. Cardiovascular: Rate and Rhythm: Normal rate and regular rhythm. Pulmonary: Effort: Pulmonary effort is normal. Breath sounds: Examination of the left-middle field reveals rales. Examination of the left-lower field reveals rales. Rales present. Abdominal: General: Bowel sounds are normal. Palpations: Abdomen is soft. Musculoskeletal: Cervical back: Normal range of motion and neck supple. Skin: General: Skin is warm and dry. Neurological: General: No focal deficit present. Mental Status: She is alert. Mental status is at baseline. I have reviewed the following results: Assessment and Plan Acute respiratory infection CXR today. Will start Z-donato, short course of steroid, and PRN Tessalon. Will call with CXR result when available. Daily yogurt/probiotic encouraged while taking the antibiotic. - XR CHEST 2 VIEWS COPD exacerbation (HCC) - XR CHEST 2 VIEWS Wrap-Up Follow Up: Return if symptoms worsen or fail to improve. Time: I spent a total of 20-29 minutes (exact time 26 mins) on the date of service in preparation, delivery, and documentation of the care provided to Holli Barbosa excluding any time spent in the performance of separately billed services. documented in this encounter Nursing Notes * Basilio Pappas RN - 01/28/2024 10:52 AM EST Chief Complaint Patient presents with Cough Productive for yellow mucous - ongoing since Saturday01/20/2024 - patient denies chills or fever; denies any shortness of breath Ear Pain Once in a while, then goes away documented in this encounter Miscellaneous Notes * Addendum Note - Suzanna Palumbo PA-C - 01/28/2024 1:07 PM EST Addended by: SUZANNA PALUMBO on: 01/28/2024 01:07 PM Modules accepted: Orders * Result Encounter Note - Suzanna Palumbo PA-C - 01/28/2024 1:07 PM EST CXR showing a new possible cyst in [...] 03/16/2024 1:30 PM EST Office Visit Otolaryngology [facility] [address] [address] Jerry Lopez PA-C [address] [address] 04/07/2024 2:20 PM EST Office Visit General Internal Medicine [facility] [place] [place] [address] [place] [address] Yuko Casas MD [address] [place] [address] 06/24/2024 2:00 PM EDT Office Visit Rheumatology [facility] [place] [address] [facility] [place] [address] Keyonna Rao CRNP [address] [place] [address] Scheduled Orders Name Type Priority Associated Diagnoses Orde r Schedule CT CHEST WO CONTRAST Medical Imaging STAT Single cyst of lung Abnormal CXR Ordered: 01/28/2024 Health Maintenance Due Date Last Done Comments Adult Wellness Visit 11/01/2022 11/01/2021 Mcintyre's Esophagus Surveilance 04/28/2023 04/28/2020, 08/20/2018, 08/20/2018, Additional history exists COVID-19 Vaccine ( season) 2024 12/16/2023, 12/07/2022, 01/18/2022, Additional history exists GFR 04/01/2024 09/30/2023, 03/05, 06/19/2022, Additional history exists Albumin/Creatinine Ratio 04/03/2024 024, 06/19/2022, 03/22/2021, Additional history exists CKD HGB USE SMARTSET 70943 09/29/202409/29, 03/29/2023, 06/19/2022, Additional history exists CKD PHOS USE SMARTSET 97017 09/29/202409/02, 06/19/2022, 03/17/2021, Additional history exists TSH [...] D LEVEL ONCE IN A LIFETIME-USE SMARTSET# 63063 Completed 03/29/2023, 07/01/2018, 08/23/2017, Additional history exists [...] this encounter Medical Devices Implanted Type Area Mechanical Design Engineer Device Identifier Shelf Expiration Date Model / Serial / Lot Alloderm 2x4 Sheet [id number] - [id number] Implanted:Qty : 1 on 04/11/2009 at OR [facility] Tissue - Human N/A: Esophagus LIFE GRAVIDI 10/02/2010 [id number] / / [id number] Lens Intraoc 21.0 - [id number] - [id number] Implanted:Qty : 1 on 01/23/2016 by Rambo Menendez MD at OR [facility] [employer] 08/01/2020 [id number] / [id number] Istent Left Implanted:Qty : 1 on 01/23/2016 by Rambo Menendez MD at OR [facility] Left: Eye 08/31/2018 [id number] / [id number] / [id number] Lens Intraoc 20.5 - [id number] - [id number] Implanted:Qty : 1 on 02/09/2016 by Rambo Menendez MD at OR [facility] Right: Eye [employer] 08/31/2020 [id number] / [id number] / [id number] Istent Implanted:Qty : 1 on 02/09/2016 by Rambo Menendez MD at [facility] Right: Eye 08/31/2018 [id number] / [id number] / [id number] documented as of this encounter Procedures Procedure Name Priority Date/Time Associated Diagnosis Comments XR CHEST 2 VIEWS STAT 01/28/2024 11:3 3 AM EST Acute respiratory infection COPD exacerbation (HCC) documented in this encounter Results * XR CHEST 2 VIEWS (01/28/2024 11:33 AM EST) Anatomical Region Laterality Modality Chest Computed Radiogr aphy 01/28/2024 12:4 6 PM EST Impressions 01/28/2024 12:44 PM EST IMPRESSION 1. Minimal left lung base atelectasis. No pulmonary consolidations. 2. A new thick-walled cyst versus bulla in the right lung apex. Further evaluation with a chest CT is suggested. 3. New large hiatal/paraesophageal hernia. Narrative 01/28/2024 12:44 PM EST EXAM XR CHEST 2 VIEWS-01/28/2024 11:33 am HISTORY cough; rales of L lower lung COMPARISON Chest x-ray dated 12/06/2010 TECHNIQUE Chest x-ray two views FINDINGS The cardiomediastinal silhouette is normal in size. There is a new a thick walled cyst in the right lung apex. There is minimal linear left lung base atelectasis. There is a new large hiatal/paraesophageal hernia. There are no pulmonary consolidations, pleural effusions or pneumothorax. There is no acute bone abnormality. Postoperative changes of left shoulder arthroplasty are again noted. Moderate degenerative changes of the thoracic spine are noted. Procedure Note Ana M Hartman MD - 01/28/2024 EXAM XR CHEST 2 VIEWS-01/28/2024 11:33 am HISTORY cough; rales of L lower lung COMPARISON Chest x-ray dated 12/06/2010 TECHNIQUE Chest x-ray two views FINDINGS The cardiomediastinal silhouette is normal in size. There is a new athick walled cyst in the right lung apex. There is minimal linear leftlung base atelectasis. There is a new large hiatal/paraesophageal hernia.There are no pulmonary consolidations, pleural effusions or pneumothorax.There is no acute bone abnormality. Postoperative changes of leftshoulder arthroplasty are again noted. Moderate degenerative changes ofthe thoracic spine are noted. IMPRESSION IMPRESSION 1. Minimal left lung base atelectasis. No pulmonary consolidations. 2. A new thick-walled cyst versus bulla in the right lung apex. Furtherevaluation with a chest CT is suggested. 3. New large hiatal/paraesophageal hernia. Suzanna Palumbo PA-C RADIOLOGY (RAD [facility]) Final Result documented in this encounter Visit Diagnoses Diagnosis Acute respiratory infection- Primary Other diseases of respiratory system, not elsewhere classified COPD exacerbation (HCC) Obstructive chronic bronchitis with exacerbation Single cyst of lung Abnormal CXR Other nonspecific abnormal finding of lung field documented in this encounter Advance Directives * [...] and were consensually agreed upon. Care Teams Flour Distributor Relationship Specialty Start Date End Date Yuko Casas MD [address] [place] [address] [place] [address] PCP - General 09/14/08 documented as of this encounter
--- OUTSIDE RECORDS SUMMARY | 2024-06-27 02:59 | External Medical Summary | Summary of Care ---
Author Name Unknown Organization [facility] Address [address] [place] [address] Phone [phone] Care Team Providers Care Associate Professor Of Physics Name Role Phone Yuko Casas MD Primary Care Provider [phone] Reason for Visit * Reason Comments Cough Productive for yello w mucous - ongoing since Saturday01/20/2024 - patient denies chills or fever; denies any shortness of breath Ear Pain Once in a while, the n goes away Encounter Details Date Type Department Care Team (Late st Contact Info) Description 01/28/2024 11:00 AM EST Office Visit General Internal Medicine [facility] [place] [address] [facility] [place] [address] Janell Palumbo PA-C [address] [facility] [place] [address] Acute respiratory infection*; COPD exacerbation (HCC) Allergies Active Allergy Reactions Criticality Noted [...] 0.4 MG Sublingual Tablet Sublingual (Nitrostat)Indicat ions:Acute uls-YD-lnknlbbdo myocardial infarction (HCC) PLACE 1 TABLET UNDER [...] legs 11/14/2017 Coronary artery disease invo lving [place] coronary artery of [place] heart without angina pectoris 11/14/2017 Overview (11/14/2017): Mild 30% lesion mid LAD. NSTEMI at that time more attributted to tachyarrhythmia. Hospitalized [facility] History of supraventricular tachycardia 09/21/19 18 [...] 10/05/2019 Overview (06/20/2020): DO NOT DELETE [facility] DETECT Study: Project # [id number], Plate Drying Machine Tender: Kamar Conrad, PhD. SUMMARY: Goal: Establish test [...] contact study staff at ; after hours Plate Drying Machine Tender via the [facility] hospital glue clamp operator . Please contact study team before resolving/deleting from patients problem list. Study phone number: [phone]. Diagnosis changed due to Research Module. Go to FIMBex for study details. Encounter for examination fo r normal comparison and control in clinical research program 06/03/2018 11/02/2021 Overview (06/20/2020): DO NOT DELETE - [facility] GREG Study: Project # [id number], Plate Drying Machine Tender: Pacheco Kaiser, MS, MPH. SUMMARY: Goal: Establish [...] contact study staff at ; after hours Plate Drying Machine Tender via the [facility] hospital glue clamp operator . - Please contact study team before resolving/deleting from patients problem list. Study phone number: [phone]. Diagnosis changed due to Research Module. Go to FIMBex for study details. Recurrent falls 04/04/2018 07/19/2021 [...] mRNA, LNP-s, No Pre serve, 2-Dose Series (K[employer]ikafe) 01/10/2021,05/18/2020,04/06/2020 COVID-19, MRNA-LNP, 24-25, P F, 50 [...] documented in this encounter Progress Notes * Janell Palumbo PA-C - 01/28/2024 10:57 AM EST [...] then goes away documented in this encounter Plan of Treatment Upcoming Encounters Date Type Department Care Team (Late st Contact Info) Description 03/16/2024 1:30 PM EST Office Visit Otolaryngology [facility] [address] [place] [address] Jerry Lopez PA-C [address] [place] [address] 04/07/2024 2:20 PM EST Office Visit General Internal Medicine [facility] [place] [address] Yuko Casas MD 200 [facility] [place] [address] 06/24/2024 2:00 PM EDT Office Visit Rheumatology [facility] [address] [place] [address] Keyonna Rao CRNP [address] [place] [address] Pending Results Name Type Priority Associated Diagnoses Date /Time XR CHEST 2 VIEWS Medical Imaging STAT Acute respiratory infection COPD exacerbation (HCC) 01/28/2024 11:33 AM EST Health Maintenance Due Date Last Done Comments Adult Wellness Visit 11/01/2022 11/01/2021 Mcintyre's Esophagus Surveilance 04/28/2023 04/28/2020, 08/20/2018, 08/20/2018, Additional history exists COVID-19 Vaccine ( season) 2024 12/16/2023, 12/07/2022, 01/18/2022, Additional history exists GFR 04/01/2024 09/30/2023, 03/05, 06/19/2022, Additional history exists Albumin/Creatinine Ratio 04/03/2024 024, 06/19/2022, 03/22/2021, Additional history exists CKD HGB USE SMARTSET 22855 09/29/202409/29, 03/29/2023, 06/19/2022, Additional history exists CKD PHOS USE SMARTSET 31341 09/29/202409/02, 06/19/2022, 03/17/2021, Additional history exists TSH [...] D LEVEL ONCE IN A LIFETIME-USE SMARTSET# 98052 Completed 03/29/2023, 07/01/2018, 08/23/2017, Additional history exists [...] this encounter Medical Devices Implanted Type Area Brim Shaper Device Identifier Shelf Expiration Date Model / Serial / Lot Alloderm 2x4 Sheet [id number] - [id number] Implanted:Qty : 1 on 04/11/2009 at OR [facility] Tissue - Human N/A: Esophagus LIFE CELL JACQUI 10/02/2010 [id number] / / [id number] Lens Intraoc 21.0 - [id number] - [id number] Implanted:Qty : 1 on 01/23/2016 by Rambo Menendez MD at OR [facility] [employer] 08/01/2020 [id number] / [id number] / [id number] Istent Left Implanted:Qty : 1 on 01/23/2016 by Rambo Menendez MD at OR [facility] Left: Eye 08/31/2018 [id number] / [id number] / [id number] Lens Intraoc 20.5 - [id number] - [id number] Implanted:Qty : 1 on 02/09/2016 by Rambo Menendez MD at OR [facility] Right: Eye [employer] 08/31/2020 [id number] / [id number] / [id number] Istent Implanted:Qty : 1 on 02/09/2016 by Rambo Menendez MD at OR [facility] Right: Eye 08/31/2018 [id number] / [id number] / [id number] documented as of this encounter Visit Diagnoses Diagnosis Acute respiratory infection- Primary Other diseases of respiratory system, not elsewhere classified COPD exacerbation (HCC) Obstructive chronic bronchitis with exacerbation documented in this encounter Advance Directives * [...] and were consensually agreed upon. Care Teams Associate Professor Of Physics Relationship Specialty Start Date End Date Yuko Casas MD 200 [facility] [place] [address] PCP - General 09/14/08 documented as of this encounter
--- OUTSIDE RECORDS SUMMARY | 2024-06-27 02:59 | External Medical Summary | Summary of Care ---
Author Name Unknown Organization [facility] Address [address] [place] [address] Phone [phone] Care Team Providers Care Field Application Engineer Name Role Phone Yuko Pride MD Primary Care Provider Reason for Visit * Reason Comments eRx-Medication Refill Encounter Details Date Type Department Care Team (Late st Contact Info) Description 03/07/2024 [address]ill [address] Internal Medicine [facility] 200 [place] [address] Yuko Pride MD 200 [facility] [place] [address] Encounter for long-term (current) use of medications* Allergies Active Allergy Reactions Criticality Noted Date Comments Amoxicillin Rash 06/20/2015 Latex Rash 04/05/2009 irritation Other Allergy (See Comments) Rash Low 04/27/2021 1+) reactions to methyldibromo glutaronitrile Fragrance mix Propolis iodopropynyl butylcarbamate methylisothiazoline documented as of this encounter (statuses as of 03/09/2024) Medications venlafaxine XR (EFFEXOR XR) 150 MG CP24 1 Capsule every morning. Active QUEtiapine (SEROQUEL) 300 MG Tablet Take 1 Tablet by mouth at bedtime. 30 Tab 5 016 Active Cholecalciferol (VITAMIN D-3) 5000 units Tablet Take 1 Tablet by mouth in the morning. Active Cyanocobalamin (B-12) 500 MCG TABS Take by mouth. 019 Active Nitroglycerin 0.4 MG Sublingual Tablet Sublingual (Nitrostat)Indica tions:Acute vux-IL-cywzknjss myocardial infarction (HCC) PLACE 1 TABLET UNDER [...] for Constipation. 180 Tablet 3 023 Active Azelastine HCl 0.1 % Nasal [...] FOR NAUSEA 20 Tablet 1 025 Active Ondansetron 4 MG Oral Tablet Disintegrating (Zofran) dissolve 1 tablet on the tongue every 8 hours if needed for nausea 20 Tablet 1 023 2024 Discontinued documented as of this encounter (statuses as of 03/09/2024) Active Problems Problem Noted Date Diagnosed Date [...] legs 11/14/2017 Coronary artery disease invo lving [place] coronary artery of [place] heart without angina pectoris 11/14/2017 Overview (11/14/2017): Mild 30% lesion mid LAD. NSTEMI at that time more attributted to tachyarrhythmia. Hospitalized [facility] History of supraventricular tachycardia 09/21/19 18 ACEI/ARB contraindicated 11/17/2015 Overview (11/17/2015): Hypotension Primary open angle glaucoma of both eyes, mild s tage 11/17/2015 Dyslipidemia, goal LDL below 100 10/01/2014 History of DE (myocardial infarction) 09/20/2014 Acquired hypothyroidism 09/20/2014 Mcintyre's [...] as of this encounter (statuses as of 03/09/2024) Resolved Problems Problem Noted Date Diagnosed Date Resolved Date Encounter for examination fo r normal comparison and control in clinical research program 06/03/2018 10/05/2019 Overview (06/20/2020): DO NOT DELETE [facility] DETECT Study: Project # [id number], Transition Mgr Rn: Kamar Conrad, PhD. SUMMARY: Goal: Establish test [...] contact study staff at ; after hours Transition Mgr Rn via the [facility] hospital electrical prospecting operator . Please contact study team before resolving/deleting from patients problem list. Study phone number: [phone]. Diagnosis changed due to Research Module. Go to Snapshot for study details. Encounter for examination fo r normal comparison and control in clinical research program 06/03/2018 11/02/2021 Overview (06/20/2020): [facility] DETECT Study: Project # [id number], Transition Mgr Rn: Pacheco Kaiser, MS, MPH. SUMMARY: Goal: Establish [...] contact study staff at ; after hours Transition Mgr Rn via the [facility] hospital electrical prospecting operator . - Please contact study team before resolving/deleting from patients problem list. Study phone number: [phone]. Diagnosis changed due to Research Module. Go [...] as of this encounter (statuses as of 03/09/2024) Immunizations Name Administration Dates Next Due COVID-19 [...] the money to buy more. Never true 11/11/20 24 Within the past 12 months, t [...] encounter Miscellaneous Notes * Telephone Encounter - Robby Oliveira, [facility] - 03/09/2024 4:42 PM ESTSigned Prescriptions: Disp Refills Ondansetron 4 MG Oral Tablet Disintegratin*20 Tab*1 Sig: DISSOLVE 1 TABLET UNDER TONGUE EVERY 8 HOURS NEEDED FOR NAUSEAAuthorizing Provider: Dmitri PRIDE User: ROBBY FULLER documented in this encounter Plan of Treatment Upcoming Encounters Date Type Department Care Team (Late st Contact Info) Description 03/16/2024 1:30 PM EST Office Visit Otolaryngology [facility] [address] [place] [address] Jerry Lopez PA-C [address] [place] [address] 04/07/2024 2:20 PM EST Office Visit General Internal Medicine [facility] [address] [place] [address] Yuko Pride MD 200 [facility] [place] [address] 04/21/2024 12:30 PM EST Office Visit Gastroenterology, [facility] [address] [place] [address] Gina Mckeon CRNP 132 [facility] [place] [address] 06/24/2024 2:00 PM EDT Office Visit Rheumatology [address] [place] [address] Keyonna Rao CRNP [address] [place] [address] [place] [address] Scheduled Orders Name Type Priority Associated Diagnoses Orde r Schedule MAGNESIUM Lab Routine Encounter for long-term (current) use of medications Expected: 03/09/2024 (Approximate), Expires: 03/09/2025 Health Maintenance Due Date Last Done Comments Adult Wellness Visit 11/01/2022 11/01/2021 Mcintyre's Esophagus Surveilance 04/28/2023 04/28/2020, 08/20/2018, 08/20/2018, Additional history exists COVID-19 Vaccine ( season) 2024 12/16/2023, 12/07/2022, 01/18/2022, Additional history exists GFR 04/01/2024 09/30/2023, 03/05, 06/19/2022, Additional history exists Albumin/Creatinine Ratio 04/03/2024 024, 06/19/2022, 03/22/2021, Additional history exists CKD HGB USE SMARTSET 71116 09/29/202409/29, 03/29/2023, 06/19/2022, Additional history exists CKD PHOS USE SMARTSET 71551 09/29/202409/02, 06/19/2022, 03/17/2021, Additional history exists TSH [...] D LEVEL ONCE IN A LIFETIME-USE SMARTSET# 18926 Completed 03/29/2023, 07/01/2018, 08/23/2017, Additional history exists [...] this encounter Medical Devices Implanted Type Area Script Coordinator Device Identifier Shelf Expiration Date Model / Serial / Lot Alloderm 2x4 Sheet [id number] - [id number] Implanted:Qty : 1 on 04/11/2009 at OR [facility] Tissue - Human N/A: Esophagus LIFE CELL JACQUI 10/02/2010 [id number] / / [id number] Lens Intraoc 21.0 - [id number] - [id number] Implanted:Qty : 1 on 01/23/2016 by Rambo Menendez MD at OR [facility] [employer] 08/01/2020 [id number] / [id number] / [id number] Istent Left Implanted:Qty : 1 on 01/23/2016 by Rambo Menendez MD at OR [facility] Left: Eye 08/31/2018 [id number] / [id number] 250 / [id number] Lens Intraoc 20.5 - [id number] - [id number] Implanted:Qty : 1 on 02/09/2016 by Rambo Menendez MD at OR [facility] Right: Eye [employer] 08/31/2020 [id number] / [id number] / [id number] Istent Implanted:Qty : 1 on 02/09/2016 by Rambo Menendez MD at OR [facility] Right: Eye 08/31/2018 [id number] / [id number] / [id number] documented as of this encounter Visit Diagnoses Diagnosis Encounter for long-term (current) use of medications- Primary Encounter for long-term (current) use of other [...] and were consensually agreed upon. Care Teams Field Application Engineer Relationship Specialty Start Date End Date Yuko Pride MD [address] [place] [address], [place] [address] PCP - General 09/14/08 documented as of this encounter
--- OUTSIDE RECORDS SUMMARY | 2024-06-27 03:00 | External Medical Summary | Summary of Care ---
Author Name Unknown Organization [facility] Address [address] [place] [address] Phone [phone] Care Team Providers Care Cardiology Teacher Name Role Phone Yuko Casas MD Primary Care Provider [phone] Encounter Details Date Type Department Care Team (Late st Contact Info) Description 01/20/2024 3:00 PM EST Nurse Only Ancillary [facility] Janel Giraldo [address] [place] [address] Nurse, Int Med [address] [facility] [place] [address] Arrived Allergies Active Allergy Reactions Criticality Noted Date Comments Amoxicillin Rash 06/20/2015 Latex Rash 04/05/2009 irritation Other Allergy (See Comments) Rash Low 04/27/2021 1+) reactions to methyldibromo glutaronitrile Fragrance mix Propolis iodopropynyl butylcarbamate methylisothiazoline documented as of this encounter (statuses as of 01/20/2024) Medications venlafaxine XR (EFFEXOR XR) 150 MG [...] 0.4 MG Sublingual Tablet Sublingual (Nitrostat)Indicat ions:Acute hxj-KX-rcpvdpzpo myocardial infarction (HCC) PLACE 1 TABLET UNDER [...] as of this encounter (statuses as of 01/20/2024) Active Problems Problem Noted Date Diagnosed Date [...] legs 11/14/2017 Coronary artery disease invo lving [place] coronary artery of [place] heart without angina pectoris 11/14/2017 Overview (11/14/2017): [...] as of this encounter (statuses as of 01/20/2024) Resolved Problems Problem Noted Date Diagnosed Date Resolved Date Encounter for examination fo r normal comparison and control in clinical research program 06/03/2018 10/05/2019 Overview (06/20/2020): DO NOT DELETE [facility] Study: Project # [id number], Pharmacy Services Director: Kamar Conrad, PhD. SUMMARY: Goal: Establish test [...] contact study staff at ; after hours Pharmacy Services Director via the [facility] cream separator operator . Please contact study team before resolving/deleting from patients problem list. Study phone number: [phone]. Diagnosis changed due to Research Module. Go to Snapshot for study details. Encounter for examination fo r normal comparison and control in clinical research program 06/03/2018 11/02/2021 Overview (06/20/2020): DO NOT DELETE - [facility] DETECT Study: Project # [id number], Pharmacy Services Director: Pacheco aKiser, MS, MPH. SUMMARY: Goal: Establish test characteristics [...] contact study staff at ; after hours Pharmacy Services Director via the [facility] cream separator operator . - Please contact study team before resolving/deleting from patients problem list. Study phone number: [phone]. Diagnosis changed due to Research Module. Go [...] She will follow-up as scheduled. [facility] 06/28/2009 03/22/2010 HTN, goal [...] as of this encounter (statuses as of 01/20/2024) Immunizations Name Administration Dates Next Due COVID-19 [...] No 01/13/2024 Does the household have a [facility] source of income? (Household - for ages [...] PM EDT documented as of this encounter Progress Notes * Kiesha Oswald MED ASSIST - 01/20/2024 3:21 PM EST Patient was properly confirmed by name and date of . Patient presents for quad screen per provider orders due to symptoms. documented in this encounter Plan of Treatment Upcoming Encounters Date Type Department Care Team (Late st Contact Info) Description 03/16/2024 1:30 PM EST Office Visit Otol[facility]ology [facility] [address] [place] [address] Jerry Lopez PA-C [address] [place] [place] [address] 04/07/2024 2:20 PM EST Office Visit General Internal Medicine [facility] [address] [place] [address] Yuko Casas MD [address] [place] [address] 06/24/2024 2:00 PM EDT Office Visit Rheumatology [facility] [address] [place] [address] Keyonna Rao CRNP [address] [place], [place] [address] Pending Results Name Type Priority Associated Diagnoses Date /Time INFLUENZA A/B RSV SARS-COV2,PCR Lab Routine Cough 01/20/2024 3:26 PM EST Health Maintenance Due Date Last Done Comments Adult Wellness Visit 11/01/2022 11/01/2021 Mcintyre's Esophagus Surveilance 04/28/2023 04/28/2020, 08/20/2018, 08/20/2018, Additional history exists COVID-19 Vaccine ( season) 2024 12/16/2023, 12/07/2022, 01/18/2022, Additional history exists GFR 04/01/2024 09/30/2023, 03/05, 06/19/2022, Additional history exists Albumin/Creatinine Ratio 04/03/2024 024, 06/19/2022, 03/22/2021, Additional history exists CKD HGB USE SMARTSET 18301 09/29/202409/29, 03/29/2023, 06/19/2022, Additional history exists CKD PHOS USE SMARTSET 83690 09/29/202409/02, 06/19/2022, 03/17/2021, Additional history exists TSH [...] D LEVEL ONCE IN A LIFETIME-USE SMARTSET# 57961 Completed 03/29/2023, 07/01/2018, 08/23/2017, Additional history exists [...] this encounter Medical Devices Implanted Type Area Hose Sprayer Device Identifier Shelf Expiration Date Model / Serial / Lot Alloderm 2x4 Sheet [id number] - [id number] Implanted:Qty : 1 on 04/11/2009 at OR [facility] Tissue - Human N/A: Esophagus LIFE CELL JACQUI 10/02/2010 [id number] / / [id number] Lens Intraoc 21.0 - [id number] - [id number] Implanted:Qty : 1 on 01/23/2016 by Rambo Menendez MD at OR [facility] [employer] 08/01/2020 [id number] / [id number] Istent Left Implanted:Qty : 1 on 01/23/2016 by Rambo Menendez MD at OR [facility] Left: Eye 08/31/2018 [id number] / [id number] / [id number] Lens Intraoc 20.5 - [id number] - [id number] Implanted:Qty : 1 on 02/09/2016 by Rambo Menendez MD at OR [facility] Right: Eye [employer] 08/31/2020 [id number] / [id number] / [id number] Istent Implanted:Qty : 1 on 02/09/2016 by Rambo Menendez MD at OR [facility] Right: Eye 08/31/2018 [id number] / [id number] / [id number] documented as of this encounter Visit Diagnoses Diagnosis Cough- Primary documented in this encounter Advance Directives * [...] and were consensually agreed upon. Care Teams Cardiology Teacher Relationship Specialty Start Date End Date Yuko Casas MD [address] [place] [address], [place] [address] PCP - General 09/14/08 documented as of this encounter
--- OUTSIDE RECORDS SUMMARY | 2024-06-27 03:00 | External Medical Summary ---
Author Name Unknown Address Unknown Organization K01:[facility] [address] [facility] [address] Laboratory Report Ordering Provider Test Date Status BIGG GILMORE 01/20/2024 15:26:20 Final Observation Date Value Abnormality Reference (Units ) Status SARS Coronavirus 2 01/20/2024 15:26:20 Negative N egative Final No SARS-CoV2 Coronavirus RNA detected by PCR (amplified probe).
This automated test was developed and its performance characteristics determined by [facility]. It has not been cleared or approved by the U.S. Food and Drug Administration (FDA). FDA does not require this test to go thru premarket FDA review. This test is used for clinical purposes. It should not be regarded as investigational or for research. This laboratory is certified under the Clinical Laboratory Improvement Amendments (CLIA) as qualified to perform high complexity clinical laboratory testing.

This test is a nucleic acid amplification test (NAAT), a reverse transcriptase polymerase chain reaction (RT-PCR) test, or a Centers for Disease Control-acceptable equivalent. The test is performed in a high complexity Clinical Laboratory Improvement Amendments-(CLIA) certified laboratory. The test is acceptable for SARS-CoV-2 diagnosis, surveillance, and travel within the [place] and to most countries. Please check with local testing authorities about requirements before travel.

The validation of bronchial specimens, tracheal aspirates, and sputum for this assay was developed and performance characteristics determined by [facility]. The validation of alternate specimen types has not been cleared or approved by the U.S. Food and Drug Administration (FDA). It has been determined that such clearance or approval is not necessary. Influenza virus A RNA [Prese nce] in Specimen by ELSI with probe detection 01/20/2024 15:26:20 Negative Negative Final No Influenza A RNA detected by PCR (amplified probe) Influenza virus B RNA [Prese nce] in Specimen by ELSI with probe detection 01/20/2024 15:26:20 Negative Negative Final No Influenza B RNA detected by PCR (amplified probe) Respiratory syncytial virus RNA [Identifier] in Specimen by ELSI with probe detection 01/20/2024 15:26:20 Negative Negative Final No Respiratory Syncytial Vir us RNA detected by PCR (amplified probe) Performing Location LABORATORY [address] [place]. [facility] [address]
--- OUTSIDE RECORDS SUMMARY | 2024-06-27 03:00 | External Medical Summary | Summary of Care ---
Author Name Unknown Organization [facility] Address [address] [place] [address] Phone [phone] Care Team Providers Care Telehealth Director Name Role Phone Yuko Casas MD Primary Care Provider [phone] Encounter Details Date Type Department Care Team (Late st Contact Info) Description 01/20/2024 3:00 PM EST Nurse Only Ancillary [facility] Janel Giraldo [address] [place] [address] Nurse, Int Med [address] [facility] [place] [address] Arrived Allergies Active Allergy Reactions Criticality Noted [...] 0.4 MG Sublingual Tablet Sublingual (Nitrostat)Indicat ions:Acute dci-ON-vxsrantso myocardial infarction (HCC) PLACE 1 TABLET UNDER [...] that time more attributted to tachyarrhythmia. Hospitalized [facility] History of supraventricular tachycardia 09/21/19 18 [...] DELETE Myles Ortiz GREG Study: Project # [id number], Feed Mill Manager: Kamar Conrad, PhD. SUMMARY: Goal: Establish test [...] contact study staff at ; after hours Feed Mill Manager via the [facility] plastic cnc machine operator . Please contact study team before resolving/deleting from patients problem list. Study phone number: [phone]. Diagnosis changed due to Research Module. Go to Snapshot for study details. Encounter for examination fo r normal comparison and control in clinical research program 06/03/2018 11/02/2021 Overview (06/20/2020): DO NOT DELETE - Myles Ortiz DETECT Study: Project # [id number], Feed Mill Manager: Pacheco Kaiser, MS, MPH. SUMMARY: Goal: Establish [...] contact study staff at ; after hours Feed Mill Manager via the [facility] plastic cnc machine operator . - Please contact study team before resolving/deleting from patients problem list. Study phone number: [phone]. Diagnosis changed due to Research Module. Go [...] She will follow-up as scheduled. [facility] 06/28/2009 03/22/2010 HTN, goal [...] No 01/13/2024 Does the household have a [facility] source of income? (Household - for ages [...] 03/16/2024 1:30 PM EST Office Visit Otolaryngology [facility] [address] [place] [address] Jerry Lopez PA-C [address] [place] [address] 04/07/2024 2:20 PM EST Office Visit General Internal Medicine [facility] [address] [place] [address] Yuko Casas MD [address] [place] [address] 06/24/2024 2:00 PM EDT Office Visit Rheumatology [facility] [address] [place], [place] [address] Keyonna Rao CRNP [address] [place], [place] [address] Health Maintenance Due Date Last Done Comments Adult Wellness Visit 11/01/2022 11/01/2021 Mcintyre's Esophagus Surveilance 04/28/2023 04/28/2020, 08/20/2018, 08/20/2018, Additional history exists COVID-19 Vaccine ( season) 2024 12/16/2023, 12/07/2022, 01/18/2022, Additional history exists GFR 04/01/2024 09/30/2023, 03/05, 06/19/2022, Additional history exists Albumin/Creatinine Ratio 04/03/2024 024, 06/19/2022, 03/22/2021, Additional history exists CKD HGB USE SMARTSET 07665 09/29/202409/29, 03/29/2023, 06/19/2022, Additional history exists CKD PHOS USE SMARTSET 92942 09/29/202409/02, 06/19/2022, 03/17/2021, Additional history exists TSH [...] D LEVEL ONCE IN A LIFETIME-USE SMARTSET# 55004 Completed 03/29/2023, 07/01/2018, 08/23/2017, Additional history exists [...] this encounter Medical Devices Implanted Type Area R&D Engineer Device Identifier Shelf Expiration Date Model / Serial / Lot Alloderm 2x4 Sheet [id number] - [id number] Implanted:Qty : 1 on 04/11/2009 at [place] [facility] [place] [facility] [place] Tissue - Human N/A: Esophagus LIFE CELL JACQUI 10/02/2010 [id number] / / [id number] Lens Intraoc 21.0 - [id number] - [id number] Implanted:Qty : 1 on 01/23/2016 by Rambo Menendez MD at OR [facility] [employer] 08/01/2020 [id number] / [id number] Istent Left Implanted:Qty : 1 on 01/23/2016 by Rambo Menendez MD at OR [facility] Left: Eye 08/31/2018 [id number] / [id number] / [id number] Lens Intraoc 20.5 - [id number] - [id number] Implanted:Qty : 1 on 02/09/2016 by Rambo Menendez MD at OR [facility] Right: Eye [employer] 08/31/2020 [id number] / [id number] / [id number] Istent Implanted:Qty : 1 on 02/09/2016 by Rambo Menendez MD at OR [facility] Right: Eye 08/31/2018 [id number] / [id number] / [id number] documented as of this encounter Visit Diagnoses [...] and were consensually agreed upon. Care Teams Telehealth Director Relationship Specialty Start Date End Date Yuko Casas MD [address] [facility] [place] [address] PCP - General 09/14/08 documented as of this encounter
--- OUTSIDE RECORDS SUMMARY | 2024-06-27 03:00 | External Medical Summary | Summary of Care ---
Author Name Unknown Organization [facility] Address [address] [place] [address] Phone [phone] Care Team Providers Care Crew Mess Attendant Name Role Phone Yuko Casas MD Primary Care Provider [phone] Reason for Visit * Reason Comments eRx-Medication Refill Encounter Details Date Type Department Care Team (Late st Contact Info) Description 01/14/2024 Refill General Internal Medicine [facility] [address] [facility] [place] [address] Yuko Casas MD [address] [place] [facility] [place] [address] Gastroesophageal reflux disease without esophagitis Allergies Active Allergy Reactions Criticality Noted Date Comments Amoxicillin Rash 06/20/2015 Latex Rash 04/05/2009 irritation Other Allergy (See Comments) Rash Low 04/27/2021 1+) reactions to methyldibromo glutaronitrile Fragrance mix Propolis iodopropynyl butylcarbamate methylisothiazoline documented as of this encounter (statuses as of 01/15/2024) Medications venlafaxine XR (EFFEXOR XR) 150 MG CP24 1 Capsule every morning. Active QUEtiapine (SEROQUEL) 300 MG Tablet Take 1 Tablet by mouth at bedtime. 30 Tab 5 016 Active Cholecalciferol (VITAMIN D-3) 5000 units Tablet Take 1 Tablet by mouth in the morning. Active Cyanocobalamin (B-12) 500 MCG TABS Take by mouth. 019 Active Nitroglycerin 0.4 MG Sublingual Tablet Sublingual (Nitrostat)Indica tions:Acute pjz-AC-ciqmkbuyh myocardial infarction (HCC) PLACE 1 TABLET UNDER [...] for nausea 20 Tablet 1 023 Active Azelastine HCl 0.1 % Nasal Solution (Astelin)Indicati ons:Chronic rhinitis use 1 spray in each nostril twice daily 30 mL 5 024 Active Levothyroxine Sodium 50 MCG Oral Tablet (Levoxyl) take 1 tablet bymouth every morning at least 30 minutes prior to breakfast or other medications 90 Tablet 2 024 Active Pantoprazole Sodium 40 MG Oral Tablet [...] BEFORE BEDTIME 180 Tablet 1 024 Active Famotidine 20 MG Oral Tablet (Pepcid)Indicatio ns:Gastroesophage al reflux disease without esophagitis TAKE 1 TABLET BY MOUTH TWICE DAILY EVERY MORNING AND BEFORE BEDTIME 180 Tablet 1 024 2023 Discontinued documented as of this encounter (statuses as of 01/15/2024) Active Problems Problem Noted Date Diagnosed Date [...] legs 11/14/2017 Coronary artery disease invo lving [place] coronary artery of [place] heart without angina pectoris 11/14/2017 Overview (11/14/2017): Mild 30% lesion mid LAD. NSTEMI at that time more attributted to tachyarrhythmia. Hospitalized [facility] History of supraventricular tachycardia 09/21/19 18 ACEI/ARB contraindicated 11/17/2015 Overview (11/17/2015): Hypotension Primary open angle glaucoma of both eyes, mild s tage 11/17/2015 Dyslipidemia, goal LDL below 100 10/01/2014 History of [place] (myocardial infarction) 09/20/2014 Acquired hypothyroidism 09/20/2014 Mcintyre's [...] as of this encounter (statuses as of 01/15/2024) Resolved Problems Problem Noted Date Diagnosed Date Resolved Date Encounter for examination fo r normal comparison and control in clinical research program 06/03/2018 10/05/2019 Overview (06/20/2020): DO NOT DELETE 5o9 DETECT Study: Project # [id number], Planetarium Technician: Kamar Conrad, PhD. SUMMARY: Goal: Establish [...] contact study staff at ; after hours Planetarium Technician via the [facility] hospital computer numerical control operator . Please contact study team before resolving/deleting from patients problem list. Study phone number: [phone]. Diagnosis changed due to Research Module. Go to Snapshot for study details. Encounter for examination fo r normal comparison and control in clinical research program 06/03/2018 11/02/2021 Overview (06/20/2020): DO NOT DELETE - 5o9 DETECT Study: Project # [id number], Planetarium Technician: Pacheco Kaiser, MS, MPH. SUMMARY: Goal: [...] contact study staff at ; after hours Planetarium Technician via the [facility] hospital computer numerical control operator . - Please contact study team before resolving/deleting from patients problem list. Study phone number: [phone]. Diagnosis changed due to Research Module. Go [...] She will follow-up as scheduled. Follow-up examination, [facility] wing other surgery 06/28/2009 03/22/2010 HTN, goal [...] as of this encounter (statuses as of 01/15/2024) Immunizations Name Administration Dates Next Due COVID-19 [...] No 01/13/2024 Does the household have a [facility] source of income? (Household - for ages [...] encounter Miscellaneous Notes * Telephone Encounter - Mine Tran [facility] - 01/15/2024 2:28 PM ESTSigned Prescriptions: Disp Refills Famotidine 20 MG Oral Tablet (Pepcid) 180 Ta*1 Sig: TAKE 1 TABLET BY MOUTH TWICE DAILY EVERY MORNING AND BEFORE BEDTIMEAuthorizing Provider: Dmitri CASASUser: MINE TRAN documented in this encounter Plan of Treatment Upcoming Encounters Date Type Department Care Team (Late st Contact Info) Description 03/16/2024 1:30 PM EST Office Visit Otolaryngology [facility] [address] [place] [address] Jerry Lopez PA-C [address] [place] [place] [address] 04/07/2024 2:20 PM EST Office Visit General Internal Medicine [facility] [address] [facility] [place] [address] Yuko Casas MD [address] [facility] [place] [address] 06/24/2024 2:00 PM EDT Office Visit Rheumatology [facility] [address] [place] [address] Keyonna Rao CRNP [address] [place], [place] [address] Health Maintenance Due Date Last Done Comments Adult Wellness Visit 11/01/2022 11/01/2021 Mcintyre's Esophagus Surveilance 04/28/2023 04/28/2020, 08/20/2018, 08/20/2018, Additional history exists COVID-19 Vaccine ( season) 2024 12/16/2023, 12/07/2022, 01/18/2022, Additional history exists GFR 04/01/2024 09/30/2023, 03/05, 06/19/2022, Additional history exists Albumin/Creatinine Ratio 04/03/2024 024, 06/19/2022, 03/22/2021, Additional history exists CKD HGB USE SMARTSET 97853 09/29/202409/29, 03/29/2023, 06/19/2022, Additional history exists CKD PHOS USE SMARTSET 37986 09/29/202409/02, 06/19/2022, 03/17/2021, Additional history exists TSH [...] D LEVEL ONCE IN A LIFETIME-USE SMARTSET# 84527 Completed 03/29/2023, 07/01/2018, 08/23/2017, Additional history exists [...] this encounter Medical Devices Implanted Type Area Snuff Drier Device Identifier Shelf Expiration Date Model / Serial / Lot Alloderm 2x4 Sheet [id number] - [id number] Implanted:Qty : 1 on 04/11/2009 at OR [facility] Tissue - Human N/A: Esophagus LIFE CELL JACQUI 10/02/2010 [id number] / / [id number] Lens Intraoc 21.0 - [id number] - [id number] Implanted:Qty : 1 on 01/23/2016 by Rambo Menendez MD at OR [facility] [employer] 08/01/2020 [id number] / [id number] Istent Left Implanted:Qty : 1 on 01/23/2016 by Rambo Menendez MD at OR [facility] Left: Eye 08/31/2018 [id number] / [id number] / [id number] Lens Intraoc 20.5 - [id number] - [id number] Implanted:Qty : 1 on 02/09/2016 by Rambo Menendez MD at OR [facility] Right: Eye [employer] 08/31/2020 [id number] / [id number] Istent Implanted:Qty : 1 on 02/09/2016 by Rambo Menendez MD at OR [facility] Right: Eye 08/31/2018 [id number] / [id number] / [id number] documented as of this encounter Visit Diagnoses [...] and were consensually agreed upon. Care Teams Crew Mess Attendant Relationship Specialty Start Date End Date Yuko Casas MD [address] [place] [address], [place] [address] PCP - General 09/14/08 documented as of this encounter
--- OUTSIDE RECORDS SUMMARY | 2024-06-27 03:14 | External Medical Summary | Summary of Care ---
Author Name Unknown Organization [facility] Address [address] [place] [address] Phone [phone] Care Team Providers Care Rn Radiation Name Role Phone Yuko Casas MD Primary Care Provider [phone] Reason for Visit * Reason Onset Date Comments After Hours Call 06/26/2024 Encounter Details Date Type Department Care Team (Late st Contact Info) Description 06/26/2024 Telephone Family Practice [facility] [address] [facility] [place] [address] Monique Desai MD [address] [facility] [address] After Hours Call Allergies Active Allergy Reactions Criticality Noted Date Comments Amoxicillin Rash 06/20/2015 Latex Rash 04/05/2009 irritation Other Allergy (See Comments) Rash Low 04/27/2021 1+) reactions to methyldibromo glutaronitrile Fragrance mix Propolis iodopropynyl butylcarbamate methylisothiazoline documented as of this encounter (statuses as of 06/27/2024) Medications venlafaxine XR (EFFEXOR XR) 150 MG [...] Tablet Sublingual (Nitrostat)Indicat ions:Coronary artery disease involving [place] coronary artery of [place] heart without angina pectoris Place 1 Tablet under the tongue every 5 minutes as needed for Pain, Chest. 25 Tablet 06/23/19 25 Active documented as of this encounter (statuses as of 06/27/2024) Active Problems Problem Noted Date Diagnosed Date [...] time more attributted to tachyarrhythmia. Hospitalized [facility] History of supraventricular tachycardia 09/21/19 18 ACEI/ARB contraindicated 11/17/2015 Overview (11/17/2015): Hypotension Primary open angle glaucoma of both eyes, mild s tage 11/17/2015 Dyslipidemia, goal LDL below 100 10/01/2014 History of [place] (myocardial infarction) 09/20/2014 Acquired hypothyroidism 09/20/2014 Mcintyre's [...] as of this encounter (statuses as of 06/27/2024) Resolved Problems Problem Noted Date Diagnosed Date Resolved Date Encounter for examination fo r normal comparison and control in clinical research program 06/03/2018 10/05/2019 Overview (06/20/2020): DO NOT DELETE Myles Ortiz GREG Study: Project # [id number], Parachute Mender: Kamar Conrad, PhD. SUMMARY: Goal: Establish test [...] contact study staff at ; after hours Parachute Mender via the [facility] hospital tier lift operator . Please contact study team before resolving/deleting from patients problem list. Study phone number: [phone]. Diagnosis changed due to Research Module. Go to Snapshot for study details. Encounter for examination fo r normal comparison and control in clinical research program 06/03/2018 11/02/2021 Overview (06/20/2020): DO NOT DELETE - Myles [facility] GREG Study: Project # [id number], Parachute Mender: Pacheco Kaiser, MS, MPH. SUMMARY: Goal: Establish [...] contact study staff at ; after hours Parachute Mender via the [facility] hospital tier lift operator . - Please contact study team before resolving/deleting from patients problem list. Study phone number: [phone]. Diagnosis changed due to Research Module. Go [...] as of this encounter (statuses as of 06/27/2024) Immunizations Name Administration Dates Next Due COVID-19 [...] encounter Miscellaneous Notes * Telephone Encounter - Monique Desai MD - 06/26/2024 7:11 PM EDT Received after-hours call from patient. She states she has been having chest pain on and off for a few weeks. She states about an hour ago she was moving groceries and had onset of severe pain that lasted for 15-20 minutes. States she has some pain in her chest right now when breathing. Also feels a little short of breath. She was seen in the clinic on 06/22/24 for similar complaints but she states the pain has worsened. She had a stress test ordered but it is not scheduled for a few more weeks. Advised patient to go to the ER via ambulance. She was agreeable to going to the ER but insistent on calling a friend to take her. She was agreeable to calling ambulance if friend unable to help or to come in the next 30 minutes. FYI to PCP. documented in this encounter Plan of Treatment Upcoming Encounters Date Type Department Care Team (Late st Contact Info) Description 06/30/2024 3:30 PM EDT Office Visit Rheumatology [facility] [address] [id number] Keyonna Rao CRNP [address] [phone] 07/22/2024 11:45 AM EDT Imaging [facility] 2nd Floor Cardiology, [place] [address] [phone] Gw, Excess Time Radiology [address] [address] 09/14/2024 2:00 PM EDT Office Visit Otolaryngology [facility] [address] [address] Jerry Lopez PA-C [address] [address] 10/12/2024 2:20 PM EDT Office Visit General Internal Medicine [facility] [place] [address] [facility] [place] [address] Yuko Casas MD [address] [facility] [place] [address] 12/29/2024 2:00 PM EDT Office Visit Dermatology, [address] [place] [address] Adwoa Hernandez PA-C [address] [place] [address] [place] [address] Health Maintenance Due Date Last Done Comments Adult Wellness Visit 11/01/2022 11/01/2021 COVID-19 Vaccine ( season) 2024 12/16/2023, 12/07/2022, 01/18/2022, Additional history exists CKD HGB USE SMARTSET 93384 09/29/202409/29, 03/29/2023, 06/19/2022, Additional history exists CKD PHOS USE SMARTSET 40056 09/29/202409/02, 06/19/2022, 03/17/2021, Additional history exists GFR [...] Completed 07/28/2015, 10/19/2010 Zoster Vaccines Completed 08/15/2019, 02/09/2019, 02/07/2012 Mcintyre's Esophagus Surveilance Discontinued 04/28/2020, 08/20/2018, 08/20/2018, Additional history exists VITAMIN D LEVEL ONCE IN A LIFETIME-USE SMARTSET# 61314 Completed 03/29/2023, 07/01/2018, 08/23/2017, Additional history exists [...] this encounter Medical Devices Implanted Type Area Utility Tractor Operator Device Identifier Shelf Expiration Date Model / Serial / Lot Alloderm 2x4 Sheet [id number] - [id number] Implanted:Qty : 1 on 04/11/2009 at [place] [facility] [place] Tissue - Human N/A: Esophagus LIFE CELL JACQUI 10/02/2010 [id number] / / [id number] Lens Intraoc 21.0 - [id number] - [id number] Implanted:Qty : 1 on 01/23/2016 by Rambo Menendez MD at OR [facility] 08/01/2020 [id number] / [id number] Istent Left Implanted:Qty : 1 on 01/23/2016 by Rambo Menendez MD at OR [facility] Left: Eye 08/31/2018 [id number] / [id number] / [id number] Lens Intraoc 20.5 - [id number] - [id number] Implanted:Qty : 1 on 02/09/2016 by Rambo Menendez MD at OR [facility] Right: Eye [facility] 08/31/2020 [id number] / [id number] / [id number] Istent Implanted:Qty : 1 on 02/09/2016 by Rambo Menendez MD at [facility] Right: Eye 08/31/2018 [id number] / [id number] / [id number] documented as of this encounter Advance Directives [...] and were consensually agreed upon. Care Teams Rn Radiation Relationship Specialty Start Date End Date Yuko Casas MD [address] [facility] [place] [address] PCP - General 09/14/08 documented as of this encounter
[2024-06-27 06:06] LABS: Basophils # (auto) 0.04 K/uL (0.00-0.20); Basophils % (auto) 0.7 %; Eosinophils # (auto) 0.27 K/uL (0.00-0.50); Eosinophils % (auto) 4.5 %; Hematocrit (blood only) 39.7 % (37.0-47.0); Immature Granulocytes # (auto) 0.02 K/uL (0.01-0.20); Immature Granulocytes % (auto) 0.3 %; Lymphocytes # (auto) 1.87 K/uL (1.20-3.40); Lymphocytes % (auto) 31.4 %; Mean Corpuscular Hgb Conc 32.7 g/dL (32.0-36.0); Mean Corpuscular Volume 85.6 fL (80.0-100.0); Mean Platelet Volume 12.8 fL (9.4-12.4); Monocytes # (auto) 0.65 K/uL (0.11-0.59); Monocytes % (auto) 10.9 %; Neutrophils # (auto) 3.11 K/uL (1.40-6.50); Neutrophils % (auto) 52.2 %; Platelet Count 137 K/uL (130-400); RDW Standard Deviation 43.2 fL (36.4-46.3); Red Blood Count 4.64 M/uL (4.20-5.40); White Blood Count 5.96 K/ul (4.8-10.8)
[2024-06-27] MEDS: LEVOTHYROXINE SODIUM 50 MCG TABLET PO SCH (06:08)
[2024-06-27 06:25] LABS: BUN Creatinine Ratio 14.3 (10-20); Calcium 9.4 mg/dl (8.6-10.3); Creatinine Clr Calc Pharmacy 34.5 ml/min; Magnesium 2.1 mg/dl (1.7-2.4); Potassium 4.2 mmol/L (3.5-5.1)
[2024-06-27 06:32] LABS: Troponin I High Sensitivity 5.2 pg/ml (0-14)
[2024-06-27 08:14] VITALS: RESP 18
[2024-06-27] MEDS: VENLAFAXINE HCL XR 150 MG CAPXR PO SCH (08:55)
[2024-06-27] MEDS: PANTOprazole 40 MG TAB PO SCH (08:55)
[2024-06-27] MEDS: GABAPENTIN 100 MG CAP PO SCH (08:55)
[2024-06-27] MEDS: ATORVASTATIN 20 MG TAB PO SCH (08:55)
[2024-06-27] MEDS: AZELASTINE HCL 0.1% NASAL 200 SPRAYS/27,400 MCG BTL SCH (08:55)
[2024-06-27] MEDS: FAMOTIDINE 20 MG TAB PO SCH (08:56)
--- NOTE | 2024-06-27 09:06 | Cardiology Consultation ---
Date of Consultation June 27, 2024 Assessment & Plan (1) Chest pain: Plan Assessment: 78 year old female presents with several weeks of intermittent chest pain. Cardiology requested for further assessment/recommends. Plan: 1. Chest pain -Patient with multiple episodes of intermittent chest pain, typically with rest, not with exertion lasting seconds to a minute. -Recently seen by her PCP with EKG (no acute abnormalities), echo with preserved LVEF and no significant valvular disease, and currently scheduled for an outpatient Nuclear stress test on 07/22/2024. -chest pain free at this time -High sensitivity troponin negative x3 -No acute findings on telemetry -Euvolemic on exam. -Ok to allow patient to eat. Start heart healthy diet -VS stable. - History of cardiac catheterization 2014 with non-obstructive coronary disease. No further cardiac testing needed in the inpatient setting. Advised patient that she needs to keep her appointment for her nuclear stress test. We will contact office to determine if a sooner testing spot may be available. -continue Atorvastatin Case has been discussed with Dr. Quinteros. Further recommendations regarding plan of care as per his assessment. I spent a total of 40 minutes on the date of service in preparation, delivery, documentation of the care provided to the patient excluding any time spent in the performance of separately billed services. JULIO CESAR Wahl [facility] Cardiology [facility] Supervising Physician Co-Signing Physician Notes I have personally performed a history and physical examination on the patient. I have reviewed the advance practitioner's documentation, and I agree with, and take responsibility for the plan of care. 78-year-old female presents for evaluation of atypical chest discomfort. No evidence of acute coronary syndrome with normal ECG and negative cardiac enzymes. Resting 2D transthoracic echocardiogram demonstrates normal wall motion without significant valvular pathology. No pericardial effusion. No further inpatient cardiac testing recommended at this time. Add low-dose aspirin 81 mg daily. Continue statin therapy as ordered. Proceed with outpatient Lexiscan nuclear stress test for further risk stratification. Thank you for allow me to participate in the care of your patient. I spent a total of 40 minutes on the date of service in preparation, delivery, and documentation of the care provided to this patient, excluding any time spent in the performance of separately billed services. 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 Of note, patient had been seen in her PCP office on 06/22/24 and reported intermittent episodes of chest pain. EKG was obtained demonstrates NSR rate 86bpm. Patient had already had a recent echocardiogram which demonstrates preserved LVEF, no wall motion abnormalities and no significant valvular disease (05/14/24). A nuclear stress test was ordered which is scheduled for 07/22/24. Patient called the director of field coordination PCP last night endorses worsening episodes of chest pain which she was told to call EMS and go to the ER. patient was agreeable to go to the ER, but declined EMS EKG upon arrival ST rate 103bpm No acute ST-T wave changes chest xray negative CTA chest negative for pulmonary embolus, +Emphysema, +large hiatal hernia Troponin negative x2 Upon seeing patient today she is resting comfortably in bed. Denies any chest pain, pressure or palpitations at this time. States that her episodes are intermittent, not with exertion. She describes the pain as both sharp in nature and occasional a dull ache. No associated symptoms. Pain sometimes worse when she rolls on to her left side. Episodes last a few seconds to minutes. Telemetry shows SR rates 70-80's, with no acute events overnight. Allergies Allergy/AdvReac Type Severity Reaction Status Date / Time amoxicillin Allergy Severe HIVES Verified 06/26/24 22:26 latex Allergy Mild RASH Verified 06/26/24 22:26 Home Medications Medication Instructions Recorded Confirmed Type atorvastatin 20 mg tablet (Lipitor) 20 mg PO QAM 03/19/18 06/26/24 History nitroglycerin 0.4 mg sublingual 0.4 mg sublingual DIRECTED PRN 03/19/18 06/26/24 History tablet Chest Pain pantoprazole 40 mg tablet,delayed 40 mg PO BIDM 03/19/18 06/26/24 History release quetiapine 300 mg tablet 300 mg PO HS 03/19/18 06/26/24 History venlafaxine 150 mg tablet,extended 150 mg PO QAM 03/19/18 06/26/24 History release 24 hr gabapentin 100 mg capsule See Rx Instructions .Route .COMPLEX 06/30/19 06/26/24 History azelastine 137 mcg (0.1 %) nasal 1 spray intranasal BID 11/06/19 06/26/24 History spray famotidine 20 mg tablet 20 mg PO BID Acid Reflux 11/06/19 06/26/24 History ondansetron HCl 4 mg tablet 4 mg PO Q8H PRN Nausea 06/28/21 06/26/24 History docusate sodium 100 mg capsule 100 mg PO BID PRN Constipation 05/20/23 06/26/24 History levothyroxine 50 mcg tablet 50 mcg PO DAILYBB 05/20/23 06/26/24 History albuterol sulfate 90 mcg/actuation 2 puff inhalation Q4H PRN Wheezing 06/26/24 06/26/24 History aerosol inhaler cetirizine 10 mg tablet (Zyrtec) 10 mg PO HS 06/26/24 06/26/24 History cyclosporine 0.05 % eye drops in a 1 drp OPB DIRECTED PRN Dry Eyes 06/26/24 06/26/24 History dropperette (Restasis) Patient History Medical History Encounter for pre-operative examination Esophageal dilatation Dizziness Acute dehydration SVT (supraventricular tachycardia) Hypotension Mcintyre esophagus Atypical chest pain Family History Other Cancer Diabetes Heart disease Hypertension Lung disease Social History Smoking Status: Never smoker Tobacco Type: Cigarettes Second Hand Exposure: No; Do You Dip or Chew Tobacco: No; Hx Alcohol Use: No Hx Substance Use: No Preferred Language: Mohawk Communication Ability: Effective Patents Examiner Required: No Beliefs That Will Affect Care: None Current Living Situation: Alone current occupational status: retired Other Information That Helps Us Care for You: No Feels Safe at Home: Yes Safety Concerns: Feels Safe At This Time Assistive Devices: Glasses and Walker Assistive Devices Comment: Only uses walker when leaves home. Review of Systems Review of Systems: All systems reviewed & are unremarkable except as noted in HPI & below Physical Exam Constitutional: well developed and well nourished; no acute distress and not ill appearing Neck: normal visual inspection and trachea midline Respiratory: normal respiratory effort, lungs clear to auscultation Cardiovascular: Rate/Rhythm: regular rate and regular rhythm Heart Sounds: normal S1 and normal S2; no murmur Vessels: dorsalis pedis pulses present; no JVD Extremities: no edema Skin: no rashes, warm and dry Psychiatric: A+Ox3, euthymic affect Results & Data Vital Signs (Past 12 Hours) Vital Signs Temp Pulse Pulse Resp BP BP Pulse Ox 06/27/24 08:10 36.6 C 68 18 147/80 H 94 06/27/24 05:47 75 06/27/24 04:02 36.6 C 72 22 132/79 95 06/27/24 02:47 36.7 C 87 18 136/102 H 98 06/27/24 02:35 87 18 136/102 H 98 06/27/24 02:34 06/27/24 02:01 79 06/26/24 22:09 93 H 06/26/24 22:07 98 H 16 97 06/26/24 21:55 98 H 16 97 06/26/24 21:55 98 H 16 118/92 97 06/26/24 21:55 06/26/24 21:46 36.5 C 104 H 18 134/95 93 Pulse Ox O2 Del Method O2 Del Method 06/27/24 08:10 Room Air 06/27/24 05:47 06/27/24 04:02 Room Air 06/27/24 02:47 Room Air 06/27/24 02:35 Room Air 06/27/24 02:34 98 Room Air 06/27/24 02:01 06/26/24 22:09 06/26/24 22:07 Room Air 06/26/24 21:55 Room Air 06/26/24 21:55 Room Air 06/26/24 21:55 Room Air 06/26/24 21:46 Room Air Laboratory Results Cardiac Enzymes 06/26/24 06/27/24 Range/Units 21:56 05:30 AST 23 (13-39) U/L Troponin I High Sens 4.7 5.2 (0-14) pg/ml CBC 06/26/24 06/27/24 Range/Units 21:56 05:30 WBC 6.43 5.96 (4.8-10.8) K/ul RBC 4.70 4.64 (4.20-5.40) M/uL Hgb 13.3 13.0 (12.0-16.0) g/dl Hct 39.9 39.7 (37.0-47.0) % Plt Count 155 137 (130-400) K/uL Neut # (Auto) 3.58 3.11 (1.40-6.50) K/uL Lymph # (Auto) 1.83 1.87 (1.20-3.40) K/uL [place] # (Auto) 0.72 H 0.65 H (0.11-0.59) K/uL Eos # (Auto) 0.24 0.27 (0.00-0.50) K/uL Baso # (Auto) 0.04 0.04 (0.00-0.20) K/uL Comprehensive Metabolic Panel 06/26/24 06/27/24 Range/Units 21:56 05:30 Sodium 137 137 (136-145) mmol/L Potassium 3.9 4.2 (3.5-5.1) mmol/L Chloride 103 102 (98-107) mmol/L Carbon Dioxide 32 33 H (21-32) mmol/L BUN 15 16 (6-23) mg/dl Creatinine 1.13 1.12 (0.6-1.2) mg/dl Glucose 88 89 (70-99(Fasting)) mg/dl Calcium 9.7 9.4 (8.6-10.3) mg/dl AST 23 (13-39) U/L ALT 14 (7-52) U/L Alkaline Phosphatase 40 (34-104) U/L Total Protein 7.3 (6.0-8.3) gm/dl Albumin 4.4 (3.4-5.0) gm/dl Intake and Output 06/26/24 06/27/24 06/27/24 22:59 06:59 14:59 Intake Total 100 / 100 Balance 100 / 100 Intake: IV 100 / 100 Acetaminophen 1,000 mg In 100 100 / 100 ml @ 400 mls/hr IV NOW STA Rx#: [id number] Other: Other Intake Source NPO Weight 64.4 kg 63.8 kg Weight Measurement Method Standing Scale Diagnostic Findings Echocardiogram 05/14/2024 ([facility]) Interpretation Summary The examination is adequate to evaluate the referral indication. The LV wall thickness is mildly increased (concentric). The qualitative LV ejection fraction is 55-59% (normal). The right ventricular systolic function is qualitatively normal. The left atrium is normal sized. The right atrial size is normal. The left ventricular diastolic function is mildly abnormal (grade I). No significant valvular disease is present. (1) Chest pain Chest pain type: unspecified Qualified Code(s): R07.9 - Chest pain, unspecified
[2024-06-27 12:47] VITALS: BP 132/78; TEMP 98.2; O2SAT 95
--- NOTE | 2024-06-27 15:57 | Discharge Summary ---
Date of Service June 27, 2024 Admission HPI Per Admitting Provider 78-year-old female with past medical history significant for hypothyroidism, dyslipidemia, COPD, diaphragmatic hernia without obstruction, chronic rhinitis, history of arthrosclerosis of bilateral legs, history of CAD, hypertension, orthostatic hypotension, SVT, GERD, Mcintyre's esophagus, CKD stage III, female stress incontinence, senile osteoporosis, degenerative disc disease, primary open-angle glaucoma both eyes mild stage, anemia, history of thrombocytopenia, history of herpes simplex type II infection, bipolar 1 disorder, obsessive- compulsive disorder, Schizoaffective schizophrenia, paranoid schizophrenia, depression, GERD and generalized anxiety disorder who lives alone at home and ambulates with a walker comes because of chest pain. Patient having chest pain on and off for last few days. Saw PCP on June 22 and because some EKG changes there is a plan for nuclear stress test. But patient again today called PCP office as chest pain recurred and was advised to come to the ER. Patient says the pain comes on and off on its own. Initially the pain was on right side and then moved to the left side and now all over chest. Mild to moderate in severity. Currently pain resolved. Was having some sweating during the episodes. Denies shortness of breath. Denies dizziness. No nausea. No runny nose or sore throat. Feels congested. No fevers. Appetite is okay. Has some abdominal discomfort. Has constipation and uses stool softeners. Micturates okay. Currently resting comfortably and hemodynamically stable. Grandson is in the room. Past medical history. As mentioned above Past surgical history. Colonoscopy. Dilatation curettage. EGD. EGD with biopsy. Laparoscopic esophagogastric fundoplasty Amber. Esophagoscopy. Ligation of oviducts. Bilateral cataracts. Repair of paraesophageal hernia. Shoulder surgery. Total abdominal hysterectomy with removal of tubes. Social history. Quit smoking 1983. Smoked 3 packs a day for 20 years. No alcohol use. No drug use. Family history. Mother had breast cancer. Thyroid disorder. Father had blood cancer. CHF. Stroke. Hypertension. Emphysema. Sister had breast cancer. History of diabetes. Hypertension. History of depression. Brother had depression. Admission Exam Per Admitting Provider General- Not in distress Head- atraumatic Eyes- PERRL. ENT- oropharynx clear Neck- supple, no JVD. Lungs- clear to auscultation no wheezing or crackles Heart- regular rate and rhythm; no murmur, no gallop. Abdomen- normal bowel sounds, soft, nontender, no distension Extremities- no pretibial edema, no erythema seen Neuro- alert, oriented PERRL, no facial palsy; no dysarthria; moves extremities Principal Diagnosis Chest pain Discharge Exam General- slim elderly F in NAD Head- atraumatic Eyes- PERRL. Neck- supple, no JVD. Lungs- clear to auscultation no wheezing or crackles Heart- regular rate and rhythm; no murmur Abdomen- normal bowel sounds, soft, nontender, no distension Extremities- no pretibial edema, no erythema seen Neuro- alert, oriented PERRL, no facial palsy; no dysarthria; moves extremities Discharge Data Allergies Allergy/AdvReac Type Severity Reaction Status Date / Time amoxicillin Allergy Severe HIVES Verified 06/26/24 22:26 latex Allergy Mild RASH Verified 06/26/24 22:26 Consultations 06/26/24 23:42 ED Decision to Admit Stat 06/27/24 08:00 Consult Cardiology Routine Ordered Studies 06/26/24 21:59 CT angio chest PE protocol Stat FINDINGS: Pulmonary arteries: Unremarkable. No pulmonary embolus. Aorta: Mild atherosclerosis. No aneurysm. Lungs: Emphysema is noted. Interseptal thickening could relate to atelectasis and/or pulmonary edema. No mass. Pleural space: Unremarkable. No significant effusion. No pneumothorax. Heart: Unremarkable. No cardiomegaly. No significant pericardial effusion. No evidence of RV dysfunction. Mediastinum: Large hiatal hernia. Bones/joints: There are degenerative changes of the spine. No acute fracture. Soft tissues: Unremarkable. Lymph nodes: Unremarkable. No enlarged lymph nodes. IMPRESSION: 1. No pulmonary embolus. 2. Emphysema is noted. Emphysema is an independent risk factor for lung cancer. Recommend evaluation for low dose lung cancer screening protocol. 2. Interseptal thickening could relate to atelectasis and/or pulmonary edema. 4. Large hiatal hernia. Hospital Course (1) Chest pain: 78-year-old female with past medical history significant for hypothyroidism, dyslipidemia, COPD, diaphragmatic hernia without obstruction, chronic rhinitis, history of arthrosclerosis of bilateral legs, history of CAD, hypertension, orthostatic hypotension, SVT, GERD, Mcintyre's esophagus, CKD stage III, female stress incontinence, senile osteoporosis, degenerative disc disease, primary open-angle glaucoma both eyes mild stage, anemia, history of thrombocytopenia, history of herpes simplex type II infection, bipolar 1 disorder, obsessive- compulsive disorder, Schizoaffective schizophrenia, paranoid schizophrenia, depression, GERD and generalized anxiety disorder who lives alone at home and ambulates with a walker comes because of chest pain. Patient having chest pain on and off for last few days. Saw PCP on June 22 and because some EKG changes there is a plan for nuclear stress test. But patient again today called PCP office as chest pain recurred and was advised to come to the ER. Patient says the pain comes on and off on its own. Initially the pain was on right side and then moved to the left side and now all over chest. Mild to moderate in severity. Currently pain resolved. Was having some sweating during the episodes. Denies shortness of breath. Denies dizziness. No nausea. No runny nose or sore throat. Feels congested. No fevers. Appetite is okay. Has some abdominal discomfort. Has constipation and uses stool softeners. Micturates okay. Currently resting comfortably and hemodynamically stable. Grandson is in the room. Chest pain, atypical On and off Initial EKG and troponin unremarkable CTA chest no PE Mild nonobstructive CAD on left heart catheterization 09/2014 There is a plan for nuclear stress test as outpatient monitored in the hospital Serial enzymes and repeat EKG and echo Echo - LV EF 60-65%. Mild concentric LVH. Grade I diastolic dysfunction. Mild tricuspid regurg. Doppler findings do not suggest pulm. htn. There is no pericardial effusion. Cardiology consulted - 78-year-old female presents for evaluation of atypical chest discomfort. No evidence of acute coronary syndrome with normal ECG and negative cardiac enzymes. Resting 2D transthoracic echocardiogram demonstrates normal wall motion without significant valvular pathology. No pericardial effusion. No further inpatient cardiac testing recommended at this time. Add low-dose aspirin 81 mg daily. Continue statin therapy as ordered. Proceed with outpatient Lexiscan nuclear stress test for further risk stratification. Thank you for allow me to participate in the care of your patient. History of nonobstructive CAD On Lipitor Hypothyroidism On Synthyroid CKD stage III Creatinine 1.1 GERD Mcintyre's esophagus On famotidine and Protonix History of SVT Status post ablation History of bipolar 1 disorder History of obsessive-compulsive disorder History of schizoaffective schizophrenia History of paranoid schizophrenia Continue home medications Total Time Total Time Spent Total Time Spent (In Minutes): 40 Discharge Plan Discharge Items Patient Disposition: Home - Self-Care Reason For Visit: CHEST PAIN Discharge Diagnosis: Chest pain, atypical Condition on Discharge: Good Activity: Per Instructions section Non-emergency contact: Primary Care Provider and Senior Loan Processor Call non-emergency contact if: you have any medication questions and your symptoms worsen Follow-up/Referrals: Yuko Casas MD [Primary Care Provider] - Diet: Heart Healthy Addtl Attending Provider Instructions: Follow up with your primary care doctor and clinical massage therapist. You will be contacted about your stress test appointment. Take aspirin 81 mg daily and continue taking atorvastatin 20 mg daily. Pending Studies at Discharge: No Stand-Alone Forms: My [employer], Smoking Cessation Medications and DC Order Prescriptions: New aspirin 81 mg tablet,delayed release (DR/EC) 81 mg PO DAILY Qty: 30 0RF Continued atorvastatin [Lipitor] 20 mg Tablet 20 mg PO QAM quetiapine 300 mg Tablet 300 mg PO HS pantoprazole 40 mg Tablet,Delayed Release (Dr/Ec) 40 mg PO BIDM nitroglycerin 0.4 mg Tablet, Sublingual 0.4 mg Sublingual DIRECTED PRN (Reason: Chest Pain) Rx Instructions: PLACE ONE TABLET UNDER THE TONGUE EVERY 5 MINUTES FOR UP TO 3 DOSES OVER 15 M INUTES IF NEEDED FOR CHEST PAIN venlafaxine 150 mg Tablet Extended Release 24hr 150 mg PO QAM gabapentin 100 mg capsule See Rx Instructions .ROUTE .COMPLEX Rx Instructions: TAKES 100 MG QAM, THEN 200 MG QHS. famotidine 20 mg Tablet 20 mg PO BID azelastine 137 mcg (0.1 %) aerosol,spray 1 spray INTRANASAL BID ondansetron HCl 4 mg Tablet 4 mg PO Q8H PRN (Reason: Nausea) levothyroxine 50 mcg tablet 50 mcg PO DAILYBB docusate sodium 100 mg Capsule 100 mg PO BID PRN (Reason: Constipation) cetirizine [Zyrtec] 10 mg Tablet 10 mg PO HS albuterol sulfate 90 mcg/actuation HFA aerosol inhaler 2 puff INHALATION Q4H PRN (Reason: Wheezing) cyclosporine [Restasis] 0.05 % Dropperette 1 drp OPB DIRECTED PRN (Reason: Dry Eyes) Discharge Orders: Discharge Order (Routine); Ordered 06/27/24 Ordered By: Rj Wilkins Admission Data Admit Date/Time: 06/27/24 00:54 Attending Provider: Rj Wilkins Admit Provider: Chandrakant Nichols Primary Care Provider: Yuko Casas Other Providers: Chandrakant Nichosl; Thanh Quinteros
[2024-06-27 16:54] VITALS: PULSE 88
[2024-06-27] MEDS ORDERED: CETIRIZINE HCL 10 MG TABLET PO SCH (21:00)
[2024-06-27] MEDS ORDERED: GABAPENTIN 100 MG CAP PO SCH (21:00)
[2024-06-27] MEDS ORDERED: QUEtiapine FUMARATE 300 MG TABLET PO SCH (21:00)
--- NOTE | 2024-06-28 12:59 | Electrocardiogram Report ---
Test Reason : Blood Pressure : */* mmHG Vent. Rate : 103 BPM Atrial Rate : 103 BPM P-R Int : 184 ms QRS Dur : 82 ms QT Int : 326 ms P-R-T Axes : 41 -19 73 degrees QTcB Int : 427 ms Sinus tachycardia Otherwise normal ECG When compared with ECG of 20-May-2023 00:44, No significant change was found Confirmed by Juanjo Leiva ([id number]) on 06/28/2024 12:58:56 PM Referred By: REFERRED SELF Confirmed By: Juanjo Leiva
== END 2024-06-27 16:54 | disposition home or self-care (01) ==
LOC: EDINP 21:45 → ED 21:45 → 4W 06-27 02:10

== ENCOUNTER 2024-10-06 22:10 | Inpatient (IN) ==
[2024-10-06] MEDS: ASPIRIN CHEW 324 MG PO STA (22:35)
[2024-10-06 22:38] LABS: Hematocrit (blood only) 38.0 % (37.0-47.0); Hemoglobin 12.7 g/dl (12.0-16.0); Mean Corpuscular Hemoglobin 28.5 pg (25.0-34.0); Mean Corpuscular Volume 85.4 fL (80.0-100.0); Platelet Count 145 K/uL (130-400); RDW Standard Deviation 42.2 fL (36.4-46.3); Red Blood Count 4.45 M/uL (4.20-5.40); White Blood Count 6.14 K/ul (4.8-10.8)
[2024-10-06 22:52] LABS: Alanine Aminotransferase 11.0 U/L (7-52); Albumin Globulin Ratio 1.6 (0.9-2); Alkaline Phosphatase 39.0 U/L (34-104); Anion Gap 7.0 (3-11); Bilirubin,Total 0.7 mg/dl (0.2-1.0); Blood Urea Nitrogen 18.0 mg/dl (6-23); Calcium 9.4 mg/dl (8.6-10.3); Carbon Dioxide 27.0 mmol/L (21-32); Chloride 105.0 mmol/L (98-107); Creatinine Clr Calc Pharmacy 34.0 ml/min; Globulin 2.8 gm/dl (2.5-4.0); Glucose 89.0 mg/dl (70-99(Fasting)); Immature Granulocytes # (auto) 0.01 K/uL (0.01-0.20); Immature Granulocytes % (auto) 0.2 %; Lipase 30.0 U/L (11-82); Potassium 4.1 mmol/L (3.5-5.1); Sodium 139.0 mmol/L (136-145); Total Protein 7.2 gm/dl (6.0-8.3)
[2024-10-06 23:48] LABS: Partial Thromboplastin Time 28 Seconds (21-31)
[2024-10-06 23:54] LABS: Magnesium 2.2 mg/dl (1.7-2.4)
--- NOTE | 2024-10-06 23:55 | History & Physical Report ---
Date of Service October 06, 2024 Assessment & Plan (1) Acute hypoxemic respiratory failure: Plan: Assessment and plan below following discussion of case with ED provider and reviewing patient history/pertinent normal/abnormal diagnostic test results. Transient hypoxemia Occasional wheezing on exam which is usual for her as per patient Underlying COPD atypical chest pain hx nonocclusive CAD as per records PSVT mood disorder/schizoaffective disorder as per records, at baseline hypothyroidism, euthyroid as of recent outpatient TSH chronic anemia, hemoglobin better than baseline past tobacco abuse Admit to med/tele Baseline VBG Stat nebs Follow troponin Cardiology consult in a.m. re: atypical chest pain, history of CAD N.p.o. in anticipation of ischemic workup DVT prophylaxis. Lovenox subcu Full code Text document was generated using [employer] voice recognition software. It may contain grammatical or spelling errors. Kindly contact undersigned for clarification of any documentation item in question. History of Present Illness Chief Complaint: Chest pain Primary Care Provider: Yuko Casas MD History obtained from patient and records. Medical history significant for nonocclusive CAD, PSVT, COPD as per records, hx GERD/Mcintyre's esophagus as per records, mood disorder/schizoaffective disorder as per records, hypothyroidism, chronic anemia (baseline hemoglobin of 11), past tobacco abuse Last confinement June 2024 for atypical chest pain. Outpatient nuclear stress test recommended by cardiology. Patient with achy central chest pain going to the right side this morning. Some SOB, no unusual cough symptoms. Similar to episode from a few months ago. Compliant with home medications. Denies abdominal pain. Usual constipation symptoms relieved by home laxatives. Patient currently comfortable. Transient hypoxemia O2 sats 80s noted during encounter at the ER. 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 Allergies Allergy/AdvReac Type Severity Reaction Status Date / Time amoxicillin Allergy Severe HIVES Verified 06/26/24 22:26 latex Allergy Mild RASH Verified 06/26/24 22:26 Home Medications Medication Instructions Recorded Confirmed Type atorvastatin 20 mg tablet (Lipitor) 20 mg PO QAM 03/19/18 10/06/24 History nitroglycerin 0.4 mg sublingual 0.4 mg sublingual DIRECTED PRN 03/19/18 10/06/24 History tablet Chest Pain pantoprazole 40 mg tablet,delayed 40 mg PO BIDM 03/19/18 10/06/24 History release quetiapine 300 mg tablet 300 mg PO HS 03/19/18 10/06/24 History venlafaxine 150 mg tablet,extended 150 mg PO QAM 03/19/18 10/06/24 History release 24 hr gabapentin 100 mg capsule See Rx Instructions .Route .COMPLEX 06/30/19 10/06/24 History azelastine 137 mcg (0.1 %) nasal 1 spray intranasal BID PRN 11/06/19 10/06/24 History spray DESIRED famotidine 20 mg tablet 20 mg PO BID Acid Reflux 11/06/19 10/06/24 History ondansetron HCl 4 mg tablet 4 mg PO Q8H PRN Nausea 06/28/21 10/06/24 History docusate sodium 100 mg capsule 100 mg PO BID PRN Constipation 05/20/23 10/06/24 History levothyroxine 50 mcg tablet 50 mcg PO DAILYBB 05/20/23 10/06/24 History albuterol sulfate 90 mcg/actuation 2 puff inhalation Q4H PRN Wheezing 06/26/24 10/06/24 History aerosol inhaler cetirizine 10 mg tablet (Zyrtec) 10 mg PO HS 06/26/24 10/06/24 History cyclosporine 0.05 % eye drops in a 1 drp OPB DIRECTED PRN Dry Eyes 06/26/24 0 10/06/24 History dropperette (Restasis) aspirin 81 mg tablet,delayed 81 mg PO DAILY #30 tabs 06/27/24 10/06/24 Rx release triamcinolone acetonide 0.5 % 1 applic topical UD 10/06/24 10/06/24 History topical cream Past Med/Surg History Problem List (Updated 07/28/24 @ 00:05 by Background Daemon) Acute hypoxemic respiratory failure Chest pain (Acute) SVT (supraventricular tachycardia) (Acute) Dysphagia GERD (gastroesophageal reflux disease) Bronchitis PSVT (paroxysmal supraventricular tachycardia) Acute chest pain (Acute) Leukopenia (Acute) Anemia (Acute) GERD (gastroesophageal reflux disease) (Chronic) COPD (chronic obstructive pulmonary disease) (Chronic) Cholelithiasis (Chronic) CKD (chronic kidney disease), stage III (Chronic) Anxiety (Chronic) Depression (Chronic) History of paroxysmal supraventricular tachycardia (Chronic) Constipation Ileus Abdominal pain History of repair of hiatal hernia (Chronic) Status post hysterectomy (Chronic) Status post cardiac catheterization (Chronic) "mild disease - 30% mid LAD" Medical History Encounter for pre-operative examination Esophageal dilatation Dizziness Acute dehydration SVT (supraventricular tachycardia) Hypotension Mcintyre esophagus Atypical chest pain Family History Other Cancer Diabetes Heart disease Hypertension Lung disease Social History Smoking Status: Former smoker Tobacco Type: Cigarettes Second Hand Exposure: No; Do You Dip or Chew Tobacco: No; Hx Alcohol Use: No Hx Substance Use: No Preferred Language: Greenlandic Communication Ability: Effective Drupal Php Developer Required: No Beliefs That Will Affect Care: None Current Living Situation: Alone current occupational status: retired Feels Safe at Home: Yes Assistive Devices: Denture - Upper, Denture - Lower, Glasses and Walker Review of Systems Review of Systems: As per HPI, all other systems reviewed and negative Physical Exam Physical Exam: GENERAL: Slightly uncomfortable, slightly hard of hearing, no respiratory distress SKIN: Normal color, warm HEENT: Rulo palpebral conjunctivae, no ptosis, dry buccal mucosa NECK : Supple, no tenderness CHEST : Decreased breath sounds, occasional expiratory wheezes, no tenderness HEART : RRR, no obvious murmurs ABDOMEN: Distention, nontender EXTREMITIES : No LE swelling/tenderness, no other conspicuous deformities noted NEUROLOGIC : Coherent, no facial asymmetry, slightly hard of hearing, no other gross focality Results & Data Results & Data Vital Signs (Past 12 Hours) Vital Signs Temp Pulse Resp BP Pulse Ox O2 Del Method 10/06/24 22:21 85 10/06/24 22:05 36.7 C 85 18 111/77 95 Room Air Laboratory Results Laboratory Results WBC 6.14 K/ul (4.8-10.8) 10/06/24 22:20 RBC 4.45 M/uL (4.20-5.40) 10/06/24 22:20 Hgb 12.7 g/dl (12.0-16.0) 10/06/24 22:20 POC Hgb 12.6 g/dl (12.0-16.0) 10/06/24 22:26 Hct 38.0 % (37.0-47.0) 10/06/24 22:20 POC Hct 37 % (37-47) 10/06/24 22: MCV 85.4 fL (80.0-100.0) 10/06/24 22: MCH 28.5 pg (25.0-34.0) 10/06/24 22: MCHC 33.4 g/dL (32.0-36.0) 10/06/24: RDW Std Deviation 42.2 fL (36.4-46.3) 10/06/24 22: RDW Coeff of Ximena 13.4 % (11.5-14.5) 10/06/24 22:20 Plt Count 145 K/uL (130-400) 10/06/24 22:20 MPV 12.8 fL (9.4-12.4) H 10/06/24 22:20 Immature Gran % (Auto) 0.2 % 10/06/24 22:20 Neut % (Auto) 57.6 % 10/06/24 22:20 Lymph % (Auto) 27.0 % 10/06/24 22:20 [place] % (Auto) 11.6 % 10/06/24 22:20 Eos % (Auto) 2.9 % 10/06/24 22:20 Baso % (Auto) 0.7 % 10/06/24 22:20 Neut # (Auto) 3.54 K/uL (1.40-6.50) 10/06/24 22:20 Lymph # (Auto) 1.66 K/uL (1.20-3.40) 10/06/24 22:20 [place] # (Auto) 0.71 K/uL (0.11-0.59) H 10/06/24 22:20 Eos # (Auto) 0.18 K/uL (0.00-0.50) 10/06/24 22:20 Baso # (Auto) 0.04 K/uL (0.00-0.20) 10/06/24 22:20 Immature Gran # (Auto) 0.01 K/uL (0.01-0.20) 10/06/24 22:20 APTT 28 Seconds (21-31) 10/06/24 22:20 PTT Ratio 1.0 10/06/24 22:20 POC Sodium 139 mmol/L (135-144) 10/06/24 22:26 Sodium 139 mmol/L (136-145) 10/06/24 22:20 POC Potassium 4.0 mmol/L (3.3-5.0) 10/06/24 22:26 Potassium 4.1 mmol/L (3.5-5.1) 10/06/24 22:20 POC Chloride 104 mmol/L (101-112) 10/06/24 22: Chloride 105 mmol/L (98-107) 10/06/24 22:20 Carbon Dioxide 27 mmol/L (21-32) 10/06/24 22:20 POC Total CO2 24 mmol/L (24-31) 10/06/24 22:26 Anion Gap 7 (3-11) 10/06/24 22:20 POC Anion Gap 16.0 mmol/L (16-25) 10/06/24 22:26 POC BUN 18 mg/dl (7-18) 10/06/24 22: BUN 18 mg/dl (6-23) 10/06/24 22:20 Creatinine 1.15 mg/dl (0.6-1.2) 10/06/24 22:20 POC Creatinine 1.1 mg/dl (0.6-1.3) 10/06/24: Est Cr Clr Drug Dosing 34.0 ml/min 10/06/24 22:20 eGFR 48.46 10/06/24 22:20 BUN/Creatinine Ratio 15.7 (10-20) 10/06/24 22:20 Glucose 89 mg/dl (70-99(Fasting)) 10/06/24 22: POC Glucose (other) 88 mg/dl (70-99) 10/06/24: Calcium 9.4 mg/dl (8.6-10.3) 10/06/24 22:20 POC Ioniz Calcium Gloria 1.21 mmol/l (1.12-1.32) 10/06/24:26 Magnesium 2.2 mg/dl (1.7-2.4) 10/06/24 22:20 Total Bilirubin 0.7 mg/dl (0.2-1.0) 10/06/24 22:20 AST 22 U/L (13-39) 10/06/24 22:20 ALT 11 U/L (7-52) 10/06/24 22:20 Alkaline Phosphatase 39 U/L (34-104) 10/06/24 22:20 Troponin I High Sens 5.3 pg/ml (0-14) 10/06/24 22:20 Total Protein 7.2 gm/dl (6.0-8.3) 10/06/24 22:20 Albumin 4.4 gm/dl (3.4-5.0) 10/06/24 22:20 Globulin 2.8 gm/dl (2.5-4.0) 10/06/24 22:20 Albumin/Globulin Ratio 1.6 (0.9-2) 10/06/24 22:20 Lipase 30 U/L (11-82) 10/06/24 22:20 CTA chest: 1. No evidence of pulmonary embolism 2. Large rolling hiatus hernia grossly dilated esophagus is seen- diameter measures up to 5 cm. 3. Multiple scattered thin walled pulmonary cysts are noted in both lungs. 4. Focal atelectasis involving lingula. CT abdomen pelvis: 1. Uncomplicated cholelithiasis. 2. Large rolling hiatus hernia 3. Dilated colon and shows gaseous and fecal distension Diagnostic Findings EKG as per my interpretation :Rate 80, NSR, LAD, LAFB, no ischemia
--- NOTE | 2024-10-07 00:31 | XRay Report ---
Exam(s): XR CXR 1 VIEW EXAM: XR Chest, 1 View CLINICAL HISTORY: Reason for exam: cp. TECHNIQUE: Frontal view of the chest. COMPARISON: Prior chest x-ray from November 25, 2022. FINDINGS: Lungs: Mild to moderate peribronchial thickening of the central bronchi. No consolidation. Pleural space: Unremarkable. No pneumothorax. Heart: Unremarkable. No cardiomegaly. Mediastinum: Unremarkable. Normal mediastinal contour. Bones/joints: Left shoulder arthroplasty. Diffuse osteopenia throughout the visualized bones. No acute fracture. IMPRESSION: Bronchitis, which may be of infectious or inflammatory etiologies. No consolidation or pleural effusion. Electronically signed by: Savannah Najera MD 10/07/24 00:30 AM
[2024-10-07] MEDS: OPTIRAY 320 125ml IV ONE (00:32)
--- NOTE | 2024-10-07 01:09 | Emergency Department Note ---
Impression & Plan Acute chest pain ED Provider Note NAME: MATIAS MORELOS AGE: 79 SEX: F : 1945 ARRIVES VIA: Ambulance INFORMANT: Patient ED PROVIDER(S): Herbert Garcia DO CHIEF COMPLAINT: chest pain HPI: Patient is a 79-year-old female with a past medical history of SVT, GERD, COPD, CKD, CAD who presents to the ER for chest pain. She had this about 4 months ago and was discharged and never obtain the Lexiscan as recommended. She presents to the ER for recurrence of the chest pain which is middle of the chest and towards the right under her right breast. It has come and gone several times today. Last for about 15 to 30 minutes. It will resolve shortly after that. She denies any arm pain. No belly pain. No nausea, vomiting, or diarrhea. No dysuria, urgency or frequency. No other exacerbating or remitting factors. ADDITIONAL HISTORY OBTAINED: Per HPI Chronic Medical/Social Conditions Affecting Care: Per HPI PAST MEDICAL HISTORY:See Below PAST SURGICAL HISTORY:See Below FAMILY HISTORY:See Below SOCIAL HISTORY:See Below HOME MEDICATIONS:See Below ALLERGIES:See Below VITALS:See Below PHYSICAL EXAMINATION: GENERAL: Sitting up in bed, alert, well appearing, well nourished, no distress, non-toxic EYE EXAM: normal conjunctiva. OROPHARYNX: mucous membranes are moist LUNGS: Clear to auscultation. Normal chest wall mechanics HEART: no murmurs, S1 normal and S2 normal ABDOMEN: abdomen soft, non-tender, normo-active bowel sounds, no masses, no rebound or guarding. UPPER EXTREMITIES: upper extremities are grossly normal. Radial pulses are equal bilaterally LOWER EXTREMITIES: No pitting edema. Calves are equal bilaterally NEURO EXAM: Normal sensorium, cranial nerves II-XII intact, normal speech, no [gross] weakness of arms, no [gross] weakness of legs. [No drift. Finger to nose intact. Gross sensation intact.] MEDICAL DECISION MAKING: Patient is a 79-year-old female who presents ER for above-stated complaint. IV was established and blood work is obtained. Labs show no significant leukocytosis or anemia. BMP with LFTs bilirubin was unremarkable. Troponin was negative. Lipase is normal. Chest x-ray was unremarkable. EKG nondiagnostic. Patient was given aspirin. She was updated at bedside. Discussed the case with the hospitalist for further evaluation management and treatment. Consults/Care Managements Discussions: Per MDM Triage Nursing notes reviewed. Limited review of prior medical records performed Vital Signs: reviewed and remarkable for no significant abnormalities Differential diagnosis: Cardiac ischemia, aortic dissection, pulmonary embolism, pneumothorax, pneumonia, pericarditis, myocarditis, esophageal rupture, GERD, cholecystitis, pancreatitis, musculoskeletal, as well as other pathologies. ER treatment provided: See below Diagnostics interpreted by me include EKG and cardiac monitoring as listed below: -Cardiac Monitoring: An order was placed for continuous cardiac monitoring. The monitor shows a rate of 80 with sinus rhythm. -ECG: Sinus rhythm rate of 78 Normal axis No PVCs QTc 412 -Laboratory studies:Interpreted by me as stated above in MDM and shown below. Imaging studies: Xrays: As interpreted by me: Portable AP upright 1 view of the chest shows no focal infiltrate CTs show: none Procedures:none Critical Care: None Past Med/Surg History Problem List (Updated 07/28/24 @ 00:05 by Upheaval Arts Osorio) Chest pain (Acute) SVT (supraventricular tachycardia) (Acute) Dysphagia GERD (gastroesophageal reflux disease) Bronchitis PSVT (paroxysmal supraventricular tachycardia) Acute chest pain (Acute) Leukopenia (Acute) Anemia (Acute) GERD (gastroesophageal reflux disease) (Chronic) COPD (chronic obstructive pulmonary disease) (Chronic) Cholelithiasis (Chronic) CKD (chronic kidney disease), stage III (Chronic) Anxiety (Chronic) Depression (Chronic) History of paroxysmal supraventricular tachycardia (Chronic) Constipation Ileus Abdominal pain History of repair of hiatal hernia (Chronic) Status post hysterectomy (Chronic) Status post cardiac catheterization (Chronic) "mild disease - 30% mid LAD" Medical History Encounter for pre-operative examination Esophageal dilatation Dizziness Acute dehydration SVT (supraventricular tachycardia) Hypotension Mcintyre esophagus Atypical chest pain Family History Other Cancer Diabetes Heart disease Hypertension Lung disease Social History Smoking Status: Former smoker Tobacco Type: Cigarettes Second Hand Exposure: No; Do You Dip or Chew Tobacco: No; Hx Alcohol Use: No Hx Substance Use: No Preferred Language: Jamaican Communication Ability: Effective Back Line Cook Required: No Beliefs That Will Affect Care: None Current Living Situation: Alone current occupational status: retired Feels Safe at Home: Yes Assistive Devices: Glasses and Walker Allergies Allergies Allergy/AdvReac Type Severity Reaction Status Date / Time amoxicillin Allergy Severe HIVES Verified 06/26/24 22:26 latex Allergy Mild RASH Verified 06/26/24 22:26 Home Meds Home Medications Medication Instructions Recorded Confirmed atorvastatin 20 mg tablet (Lipitor) 20 mg PO QAM 03/19/18 10/06/24 nitroglycerin 0.4 mg sublingual 0.4 mg sublingual DIRECTED PRN 03/19/18 10/06/24 tablet Chest Pain pantoprazole 40 mg tablet,delayed 40 mg PO BIDM 03/19/18 10/06/24 release quetiapine 300 mg tablet 300 mg PO HS 03/19/18 10/06/24 venlafaxine 150 mg tablet,extended 150 mg PO QAM 03/19/18 10/06/24 release 24 hr gabapentin 100 mg capsule See Rx Instructions .Route .COMPLEX 06/30/19 10/06/24 azelastine 137 mcg (0.1 %) nasal 1 spray intranasal BID PRN 11/06/19 10/06/24 spray DESIRED famotidine 20 mg tablet 20 mg PO BID Acid Reflux 11/06/19 10/06/24 ondansetron HCl 4 mg tablet 4 mg PO Q8H PRN Nausea 06/28/21 10/06/24 docusate sodium 100 mg capsule 100 mg PO BID PRN Constipation 05/20/23 10/06/24 levothyroxine 50 mcg tablet 50 mcg PO DAILYBB 05/20/23 10/06/24 albuterol sulfate 90 mcg/actuation 2 puff inhalation Q4H PRN Wheezing 06/26/24 10/06/24 aerosol inhaler cetirizine 10 mg tablet (Zyrtec) 10 mg PO HS 06/26/24 10/06/24 cyclosporine 0.05 % eye drops in a 1 drp OPB DIRECTED PRN Dry Eyes 06/26/24 10/06/24 dropperette (Restasis) triamcinolone acetonide 0.5 % 1 applic topical UD 10/06/24 10/06/24 topical cream Previous Rx's Medication Instructions Recorded aspirin 81 mg tablet,delayed 81 mg PO DAILY #30 tabs 06/27/24 release Results & Data (ED) Vital Signs Vital Signs - 24 hr 10/06/24 22:05 10/06/24 22:21 Temperature 36.7 C Temperature Source Oral Pulse Rate 85 85 Pulse Rhythm Regular Pulse Strength Normal Respiratory Rate 18 Respiratory Effort / Characteristics Non-Labored Spontaneous Respiratory Depth Normal Respiratory Pattern Regular Blood Pressure 111/77 Blood Pressure Mean 88 Pulse Oximetry 95 Oxygen Delivery Method Room Air Sepsis Recent Fever Within 48 Hours No Sepsis New/Unexplained Change in Mental Status N/A Sepsis Action Taken by Nursing No Action Required Laboratory Data 10/06/24 22:20 10/06/24 22:20 Lab Results 10/06/24 10/06/24 Range/Units 22:20 22:26 WBC 6.14 (4.8-10.8) K/ul RBC 4.45 (4.20-5.40) M/uL Hgb 12.7 (12.0-16.0) g/dl POC Hgb 12.6 (12.0-16.0) g/dl Hct 38.0 (37.0-47.0) % POC Hct 37 (37-47) % MCV 85.4 (80.0-100.0) fL MCH 28.5 (25.0-34.0) pg MCHC 33.4 (32.0-36.0) g/dL RDW Std Deviation 42.2 (36.4-46.3) fL RDW Coeff of Ximena 13.4 (11.5-14.5) % Plt Count 145 (130-400) K/uL MPV 12.8 H (9.4-12.4) fL Immature Gran % (Auto) 0.2 % Neut % (Auto) 57.6 % Lymph % (Auto) 27.0 % [place] % (Auto) 11.6 % Eos % (Auto) 2.9 % Baso % (Auto) 0.7 % Neut # (Auto) 3.54 (1.40-6.50) K/uL Lymph # (Auto) 1.66 (1.20-3.40) K/uL [place] # (Auto) 0.71 H (0.11-0.59) K/uL Eos # (Auto) 0.18 (0.00-0.50) K/uL Baso # (Auto) 0.04 (0.00-0.20) K/uL Immature Gran # (Auto) 0.01 (0.01-0.20) K/uL APTT 28 (21-31) Seconds PTT Ratio 1.0 POC Sodium 139 (135-144) mmol/L Sodium 139 (136-145) mmol/L POC Potassium 4.0 (3.3-5.0) mmol/L Potassium 4.1 (3.5-5.1) mmol/L POC Chloride 104 (101-112) mmol/L Chloride 105 (98-107) mmol/L Carbon Dioxide 27 (21-32) mmol/L POC Total CO2 24 (24-31) mmol/L Anion Gap 7 (3-11) POC Anion Gap 16.0 (16-25) mmol/L POC BUN 18 (7-18) mg/dl BUN 18 (6-23) mg/dl Creatinine 1.15 (0.6-1.2) mg/dl POC Creatinine 1.1 (0.6-1.3) mg/dl Est Cr Clr Drug Dosing 34.0 ml/min eGFR 48.46 BUN/Creatinine Ratio 15.7 (10-20) Glucose 89 (70-99(Fasting)) mg/dl POC Glucose (other) 88 (70-99) mg/dl Calcium 9.4 (8.6-10.3) mg/dl POC Ioniz Calcium Gloria 1.21 (1.12-1.32) mmol/l Magnesium 2.2 (1.7-2.4) mg/dl Total Bilirubin 0.7 (0.2-1.0) mg/dl AST 22 (13-39) U/L ALT 11 (7-52) U/L Alkaline Phosphatase 39 (34-104) U/L Troponin I High Sens 5.3 (0-14) pg/ml Total Protein 7.2 (6.0-8.3) gm/dl Albumin 4.4 (3.4-5.0) gm/dl Globulin 2.8 (2.5-4.0) gm/dl Albumin/Globulin Ratio 1.6 (0.9-2) Lipase 30 (11-82) U/L Administered Medications Discontinued Medications Aspirin (Aspirin Chew 324 Mg) 324 mg PO NOW STA Stop: 10/06/24 22:26 Last Admin: 10/06/24 22:35 Dose: 324 mg Documented By: RIDGE Ioversol (Optiray 320 125ml) 125 ml IV ONCE ONE Stop: 10/07/24 00:24 Last Admin: 10/07/24 00:32 Dose: 118 ml Documented By: GAUTAM Imaging Data Radiologist's Impression: Chest X-Ray 10/06/24 22:24 Exam(s): XR CXR 1 VIEW EXAM: XR Chest, 1 View CLINICAL HISTORY: Reason for exam: cp. TECHNIQUE: Frontal view of the chest. COMPARISON: Prior chest x-ray from November 25, 2022. FINDINGS: Lungs: Mild to moderate peribronchial thickening of the central bronchi. No consolidation. Pleural space: Unremarkable. No pneumothorax. Heart: Unremarkable. No cardiomegaly. Mediastinum: Unremarkable. Normal mediastinal contour. Bones/joints: Left shoulder arthroplasty. Diffuse osteopenia throughout the visualized bones. No acute fracture. IMPRESSION: Bronchitis, which may be of infectious or inflammatory etiologies. No consolidation or pleural effusion. Electronically signed by: Savannah Najera MD 10/07/24 00:30 AM Discharge Plan Visit Data Chief Complaint: Cardiac Assessment Stated Complaint: CHEST PAIN "NOT CARDIAC" PER EMS ED Provider: Herbert Garcia Discharge Problem: Acute chest pain Condition: Fair Forms Stand Alone Forms: My [facility] [place] Prescriptions Prescriptions: No Action atorvastatin [Lipitor] 20 mg Tablet 20 mg PO QAM quetiapine 300 mg Tablet 300 mg PO HS pantoprazole 40 mg Tablet,Delayed Release (Dr/Ec) 40 mg PO BIDM nitroglycerin 0.4 mg Tablet, Sublingual 0.4 mg Sublingual DIRECTED PRN (Reason: Chest Pain) Rx Instructions: PLACE ONE TABLET UNDER THE TONGUE EVERY 5 MINUTES FOR UP TO 3 DOSES OVER 15 MINUTES IF NEEDED FOR CHEST PAIN venlafaxine 150 mg Tablet Extended Release 24hr 150 mg PO QAM gabapentin 100 mg capsule See Rx Instructions .ROUTE .COMPLEX Rx Instructions: TAKES 100 MG QAM, THEN 200 MG QHS. famotidine 20 mg Tablet 20 mg PO BID azelastine 137 mcg (0.1 %) aerosol,spray 1 spray INTRANASAL BID PRN (Reason: DESIRED) ondansetron HCl 4 mg Tablet 4 mg PO Q8H PRN (Reason: Nausea) triamcinolone acetonide 0.5 % cream 1 applic TOPICAL UD levothyroxine 50 mcg tablet 50 mcg PO DAILYBB docusate sodium 100 mg Capsule 100 mg PO BID PRN (Reason: Constipation) cetirizine [Zyrtec] 10 mg Tablet 10 mg PO HS albuterol sulfate 90 mcg/actuation HFA aerosol inhaler 2 puff INHALATION Q4H PRN (Reason: Wheezing) cyclosporine [Restasis] 0.05 % Dropperette 1 drp OPB DIRECTED PRN (Reason: Dry Eyes) aspirin 81 mg tablet,delayed release (DR/EC) 81 mg PO DAILY Qty: 30 0RF Referrals Referrals: Yuko Casas MD [Primary Care Provider] -
--- NOTE | 2024-10-07 01:32 | CT Scan Report ---
EXAM: CT abd pelvis IV con only CLINICAL HISTORY: poss megacolon on ct chest TECHNIQUE: Contiguous axial images were obtained from the level of the diaphragm to the pubic symphysis with intravenous contrast. Coronal and sagittal reconstructions were likewise performed and indicated to increase the sensitivity for detecting clinically relevant pathology. If IV contrast material had not been administered, the likelihood of detecting abnormalities relevant to the patient's condition would have been substantially decreased. CT scan was performed according to ALARA (as low as reasonable achievable). COMPARISON: None. FINDINGS: Large rolling hiatus hernia. The liver is normal in size and attenuation. No focal liver lesions are seen. There is no intra or extrahepatic biliary ductal dilatation. Hepatic vasculature is patent. The gallbladder is distended and shows a calculus of size 5 mm without cholecystitis.. The spleen, pancreas, and adrenal glands are unremarkable. The kidneys are normal in size and attenuation. There is no hydronephrosis or perinephric fat stranding. No renal calculi or renal masses are identified. The ureters are normal in caliber and no ureteral calculi are seen. The bladder is normal in contour. Pelvic viscera are unremarkable. No focal or diffuse bowel wall thickening or evidence of bowel obstruction is identified. The appendix is visualized in the right lower quadrant and appears within normal limits. Abdominal and pelvic vasculature is patent. No adenopathy or fluid collections are seen. No aggressive appearing osseous lesions are identified. Dilated colon and shows gaseous and fecal distension IMPRESSION: 1. Uncomplicated cholelithiasis. 2. Large rolling hiatus hernia 3. Dilated colon and shows gaseous and fecal distension 4. No other abnormality seen. Electronically signed by Suleman Parks 10-07-2024 01:32 AM
--- NOTE | 2024-10-07 01:39 | CT Scan Report ---
EXAM: CT angio chest PE protocol CLINICAL HISTORY: sob TECHNIQUE: Contiguous axial images were obtained from the neck base through the upper abdomen following intravenous administration of iodinated contrast material. Angiographic images were processed, 3D MIP images were acquired for interpretation. If IV contrast material had not been administered, the likelihood of detecting abnormalities relevant to the patient's condition would have been substantially decreased. Coronal and sagittal 3-D MIPs were likewise performed and indicated to increase the sensitivity of detectin diffuse clinically relevant pathology. CT scan was performed according to ALARA (as low as reasonable achievable). COMPARISON: None. FINDINGS: Large rolling hiatus hernia grossly dilated esophagus is seen- diameter measures up to 5 cm. Multiple scattered thin walled pulmonary cysts are noted in both lungs. Focal atelectasis is noted involving lingula. Adequate contrast bolus without evidence of pulmonary embolism. The central airways are patent. Rest of lungs are clear. No pleural effusion. The heart, aorta, and pulmonary arteries are of normal size and configuration. There are coronary artery and aortic atherosclerotic calcifications. No pericardial effusion is identified. The thyroid is unremarkable. No mediastinal, hilar, or axillary lymphadenopathy is noted. No suspicious lytic or sclerotic osseous lesions are identified. IMPRESSION: 1. No evidence of pulmonary embolism 2. Large rolling hiatus hernia grossly dilated esophagus is seen- diameter measures up to 5 cm. 3. Multiple scattered thin walled pulmonary cysts are noted in both lungs. 4. Focal atelectasis involving lingula. Electronically signed by Suleman Parks 10-07-2024 01:39 AM
[2024-10-07] MEDS ORDERED: AZELASTINE HCL 0.1% NASAL 200 SPRAYS/27,400 MCG BTL PRN (02:13)
[2024-10-07] MEDS ORDERED: DOCUSATE SODIUM 100 MG CAP PO PRN (02:13)
[2024-10-07] MEDS ORDERED: PROMETHAZINE 6.25 MG/50.25 ML BAG IV PRN (02:15)
[2024-10-07] MEDS ORDERED: ACETAMINOPHEN 325 MG TAB PO PRN (02:15)
[2024-10-07] MEDS ORDERED: ARTIFICIAL TEARS OP PRN (02:16)
[2024-10-07] MEDS: SODIUM CHLORIDE 0.9% 1,000 ML IV ONE (03:15)
[2024-10-07 03:26] LABS: Base Excess VBG 3.9 mEq/L; HCO3 VBG 30 mmol/L; Oxygen Saturation VBG < 60.0 %; PCO2 VBG 51 mmHg (38-50); PO2 VBG 22 mmHg; pH VBG 7.38 (7.36-7.41)
[2024-10-07] MEDS ORDERED: MICONAZOLE NITRATE POWDER 85 GM EXT PRN (05:43)
[2024-10-07] MEDS: LEVOTHYROXINE SODIUM 50 MCG TABLET PO SCH (05:51)
[2024-10-07] MEDS: ALBUT/IPRATROP 3MG/0.5MG NEB 3 ML VIAL NEB STA (06:05)
[2024-10-07] MEDS: VENLAFAXINE HCL XR 150 MG CAPXR PO SCH (08:47)
[2024-10-07] MEDS: ATORVASTATIN 20 MG TAB PO SCH (08:48)
[2024-10-07] MEDS: ASPIRIN 81 MG ECTAB PO SCH (08:48)
[2024-10-07] MEDS: GABAPENTIN 100 MG CAP PO SCH (08:48)
[2024-10-07] MEDS: ENOXAPARIN INJ 40 MG/0.4 ML SYR SQ SCH (08:49)
[2024-10-07] MEDS: FAMOTIDINE 20 MG TAB PO SCH (08:50)
--- NOTE | 2024-10-07 10:59 | Electrocardiogram Report ---
Test Reason : Blood Pressure : */* mmHG Vent. Rate : 78 BPM Atrial Rate : 78 BPM P-R Int : 188 ms QRS Dur : 84 ms QT Int : 362 ms P-R-T Axes : 30 -9 58 degrees QTcB Int : 412 ms Normal sinus rhythm Normal ECG When compared with ECG of 26-Jun-2024 21:55, No significant change was found Confirmed by Shayne Echevarria ([id number]) on 10/07/2024 10:59:27 AM Referred By: REFERRED SELF Confirmed By: Shayne Echevarria
--- NOTE | 2024-10-07 12:46 | Cardiology Consultation ---
Date of Consultation October 07, 2024 Assessment & Plan (1) Chest pain: Troponin negative x 2. EKG normal. Proceed with pharm. nuclear stress test today. History of Present Illness Attending Physician: Clovis Almonte MD History of Present Illness Holli Barbosa is a 79 year old female seen in cardiology consultation per the request of Dr Yao for the evaluation of chest pain. Patient presents with chest discomfort under her right breast that has not necessarily associated with aerobic exertion and has occurred at rest. At present she is feeling well. Her past cardiac history is notable for AV benito reentrant tachycardia for which she underwent slow pathway modification performed by Dr. Cardona of our practice in June,. Nonobstructive coronary heart disease was noted at the time of cardiac catheterization in 2014. Patient is also treated for dyslipidemia. Allergies Allergy/AdvReac Type Severity Reaction Status Date / Time amoxicillin Allergy Severe HIVES Verified 06/26/24 22:26 latex Allergy Mild RASH Verified 06/26/24 22:26 Home Medications Medication Instructions Recorded Confirmed Type atorvastatin 20 mg tablet (Lipitor) 20 mg PO QAM 03/19/18 10/06/24 History nitroglycerin 0.4 mg sublingual 0.4 mg sublingual DIRECTED PRN 03/19/18 10/06/24 History tablet Chest Pain pantoprazole 40 mg tablet,delayed 40 mg PO BIDM 03/19/18 10/06/24 History release quetiapine 300 mg tablet 300 mg PO HS 03/19/18 10/06/24 History venlafaxine 150 mg tablet,extended 150 mg PO QAM 03/19/18 10/06/24 History release 24 hr gabapentin 100 mg capsule See Rx Instructions .Route .COMPLEX 06/30/19 10/06/24 History azelastine 137 mcg (0.1 %) nasal 1 spray intranasal BID PRN 11/06/19 10/06/24 History spray DESIRED famotidine 20 mg tablet 20 mg PO BID Acid Reflux 11/06/19 10/06/24 History ondansetron HCl 4 mg tablet 4 mg PO Q8H PRN Nausea 06/28/21 10/06/24 History docusate sodium 100 mg capsule 100 mg PO BID PRN Constipation 05/20/23 10/06/24 History levothyroxine 50 mcg tablet 50 mcg PO DAILYBB 05/20/23 10/06/24 History albuterol sulfate 90 mcg/actuation 2 puff inhalation Q4H PRN Wheezing 06/26/24 10/06/24 History aerosol inhaler cetirizine 10 mg tablet (Zyrtec) 10 mg PO HS 06/26/24 10/06/24 History cyclosporine 0.05 % eye drops in a 1 drp OPB DIRECTED PRN Dry Eyes 06/26/24 10/06/24 History dropperette (Restasis) aspirin 81 mg tablet,delayed 81 mg PO DAILY #30 tabs 06/27/24 10/06/24 Rx release triamcinolone acetonide 0.5 % 1 applic topical UD 10/06/24 10/06/24 History topical cream Patient History Medical History Encounter for pre-operative examination Esophageal dilatation Dizziness Acute dehydration SVT (supraventricular tachycardia) (1) PSVT (paroxysmal supraventricular tachycardia): Patient with recurrent paroxysmal supraventricular tachycardia, this time presenting with profound dizziness, hypotension. As previously described, she was first diagnosed with supraventricular tachycardia in 2010. In 2014, she presented with a very similar presentation as this admission with very elevated heart rates noted at time of presentation to EMS, that improved by the time she arrived to the emergency department, and mild troponin elevation. Cardiac catheterization revealed minimal nonobstructive coronary heart disease at that time, 30% mid LAD stenosis for which medical management was recommended. She was treated with adenosine in February,, and again last evening, 04/26/2020. Hypotension Mcintyre esophagus Atypical chest pain Family History Other Cancer Diabetes Heart disease Hypertension Lung disease Social History Smoking Status: Former smoker Tobacco Type: Cigarettes Second Hand Exposure: No; Do You Dip or Chew Tobacco: No; Hx Alcohol Use: No Hx Substance Use: No Preferred Language: Malian Communication Ability: Effective Metal Or Wood Blocker Required: No Beliefs That Will Affect Care: None Current Living Situation: Alone current occupational status: retired Feels Safe at Home: Yes Assistive Devices: Denture - Upper, Denture - Lower, Glasses and Walker Review of Systems Review of Systems: All systems reviewed & are unremarkable except as noted in HPI & below Physical Exam Physical Exam: General: no acute distress and stated age Eyes: conjunctiva are pink and non-injected, sclera clear Neck: normal jugular venous pulse, no hepatojugular reflux Chest: normal shape and normal respiratory effort Lungs: clear to auscultation and percussion Cardiac Exam: - regular heart sounds, no murmurs, rubs, or gallops, no jugular venous distention Abdomen: abdomen soft, non-tender, no abnormal masses and no hepatosplenomegaly Extremities: no edema and no cyanosis Neuro:awake, conversant, follows commands, no focal motor deficits Psych: appropriate affect and insight. Results & Data Vital Signs (Past 12 Hours) Vital Signs Temp Pulse Pulse Resp BP BP BP 10/07/24 11:34 36.7 C 89 20 122/79 10/07/24 07:53 36.7 C 73 16 117/70 10/07/24 07:44 69 10/07/24 03:21 36.4 C L 67 16 109/62 10/07/24 03:01 68 10/07/24 02:55 36.4 C L 71 18 143/78 H 10/07/24 02:30 70 18 136/73 10/07/24 02:00 76 Pulse Ox O2 Del Method 10/07/24 11:34 94 Room Air 10/07/24 07:53 96 Room Air 10/07/24 07:44 10/07/24 03:21 92 Room Air 10/07/24 03:01 10/07/24 02:55 95 Room Air 10/07/24 02:30 98 Room Air 10/07/24 02:00 Laboratory Results Cardiac Enzymes 10/06/24 10/07/24 Range/Units 22:20 03:09 AST 22 (13-39) U/L Troponin I High Sens 5.3 4.4 (0-14) pg/ml Coagulation 10/06/24 Range/Units 22:20 APTT 28 (21-31) Seconds CBC 10/06/24 Range/Units 22:20 WBC 6.14 (4.8-10.8) K/ul RBC 4.45 (4.20-5.40) M/uL Hgb 12.7 (12.0-16.0) g/dl Hct 38.0 (37.0-47.0) % Plt Count 145 (130-400) K/uL Neut # (Auto) 3.54 (1.40-6.50) K/uL Lymph # (Auto) 1.66 (1.20-3.40) K/uL Hill # (Auto) 0.71 H (0.11-0.59) K/uL Eos # (Auto) 0.18 (0.00-0.50) K/uL Baso # (Auto) 0.04 (0.00-0.20) K/uL Comprehensive Metabolic Panel 10/06/24 Range/Units 22:20 Sodium 139 (136-145) mmol/L Potassium 4.1 (3.5-5.1) mmol/L Chloride 105 (98-107) mmol/L Carbon Dioxide 27 (21-32) mmol/L BUN 18 (6-23) mg/dl Creatinine 1.15 (0.6-1.2) mg/dl Glucose 89 (70-99(Fasting)) mg/dl Calcium 9.4 (8.6-10.3) mg/dl AST 22 (13-39) U/L ALT 11 (7-52) U/L Alkaline Phosphatase 39 (34-104) U/L Total Protein 7.2 (6.0-8.3) gm/dl Albumin 4.4 (3.4-5.0) gm/dl Intake and Output 10/06/24 10/07/24 10/07/24 22:59 06:59 14:59 Other: Weight 64.2 kg 64.7 kg Weight Measurement Method Built in [facility] Built in [facility] Diagnostic Findings EKG performed 10/06/2024 at 2216 and interpreted independently: Normal sinus rhythm at 70 bpm, normal EKG. Echocardiogram performed 06/27/2024: Mild concentric left ventricular hypertrophy Normal LV wall motion LVEF normal in the range of 60 to 65% Mild tricuspid regurgitation No pericardial effusion CT of the abdomen pelvis performed today 10/07/2024: Cholelithiasis Large rolling hiatus hernia Dilated colon with fecal distention PG Care Time/CCT Total # of Minutes Spent Total Time Spent with Patient: Total time spent is greater than 50% in coordination of care (as documented) at patient's floor/unit and/or counseling patient: Coding Level of Care Code 11715 IN/OBS CONSULT LVL 4,60M Diagnoses Chest pain R07.9 Chest pain type: unspecified (1) Chest pain Chest pain type: unspecified Qualified Code(s): R07.9 - Chest pain, unspecified
--- NOTE | 2024-10-07 16:17 | Hospitalist Progress Note ---
Date of Service October 07, 2024 Assessment & Plan (1) Acute hypoxemic respiratory failure: Plan: Atypical chest pain H/O CAD, PSVT Troponin negative EKG showed no signs of acute ischemia Echo pending Appreciate cardiology input Plan for stress test per cardiology Continue aspirin, statin Update lipid panel Transient hypoxemia Pulmonary cysts Focal atelectasis H/O COPD --Chest CTA:No evidence of pulmonary embolism. Multiple scattered thin walled pulmonary cysts are noted in both lungs. Focal atelectasis involving lingula. --VBG showed no significant hypercarbia Saturating well on room air Currently not on any maintenance inhalers Monitor Hiatal hernia S/P surgery per patient Continue PPI, Pepcid Advised to follow-up with surgery/GI as outpatient Hypothyroidism Recent outpatient TSH normal Continue levothyroxine Cholelithiasis Incidental finding on CT Follow-up as outpatient Other chronic conditions Mood disorder/schizoaffective disorder Chronic anemia, hemoglobin better than baseline Past tobacco abuse Continue home medication DVT Px: Lovenox SQ Code Status Full code Admission and Anticipated Discharge Date Admission Date: October 06, 2024 Subjective Patient is seen and examined at bedside States feeling anxious today Chest pain resolved Offers no other complaints today Denies any dyspnea, nausea, vomiting, abdominal pain, dizziness Review of Systems Review of Systems: All systems reviewed & are unremarkable except as noted in Subjective Physical Exam Physical Exam: Physical Exam: Vitals signs as noted above General Appearance:Moderately built and nourished, no apparent distress Head: normocephalic, Atraumatic Eyes: normal inspection, EOMI Neck: supple, Trachea midline Respiratory/Chest: Normal breath sounds, CTA, No accessory muscle use Cardiovascular: S1, S2, No murmur Abdomen/GI:Soft, Non tender, Bowel sounds present Extremities/Musculoskeletal:normal inspection, no edema Neurologic/Psych:AAOX3, grossly no focal neurological deficits, anxious Skin: normal color, warm Results & Data Results & Data Vital Signs (Past 12 Hours) Vital Signs Temp Pulse Pulse Resp BP Pulse Ox O2 Del Method 10/07/24 16:04 85 10/07/24 11:34 36.7 C 89 20 122/79 94 Room Air 10/07/24 07:53 36.7 C 73 16 117/70 96 Room Air 10/07/24 07:44 69 Laboratory Results Short CBC 10/06/24 Range/Units 22:20 WBC 6.14 (4.8-10.8) K/ul Hgb 12.7 (12.0-16.0) g/dl Hct 38.0 (37.0-47.0) % Plt Count 145 (130-400) K/uL BMP 10/06/24 22:20 Sodium 139 Potassium 4.1 Chloride 105 Carbon Dioxide 27 BUN 18 Creatinine 1.15 Glucose 89 Calcium 9.4 Liver Function 10/06/24 Range/Units 22:20 Total Bilirubin 0.7 (0.2-1.0) mg/dl AST 22 (13-39) U/L ALT 11 (7-52) U/L Alkaline Phosphatase 39 (34-104) U/L Albumin 4.4 (3.4-5.0) gm/dl
[2024-10-07 16:23] VITALS: PULSE 98; RESP 18; TEMP 97.7; O2SAT 95
--- NOTE | 2024-10-07 17:32 | Myocardial Perfusion Study ---
Date of Service October 07, 2024 Myocardial Perfusion Study [facility] Myocardial Perfusion Study Report Procedure: 1. Myocardial perfusion study performed in multiple views/images 2. Lexiscan pharmacologic stress ECG Indication: chest pain Ordering physician: Otis Collins DO Procedural details: For the stress portion of the study, Lexiscan 0.4 mg was intravenously administered followed by a saline flush. This was followed by 31.5 mCi of technetium 99m Cardiolite, injected at 1350 on the 10/07/2024. 30 minutes following the injection, imaging of the heart was performed in multiple projections. For the rest portion of the study, 11.29 mCi technetium 99m Cardiolite was injected intravenously at 12:05 PM on 10/07/2024. 1 hour following the injection, imaging of the heart was performed in the same projections. Lexiscan stress ECG: Resting ECG demonstrated: Sinus rhythm in the 80s. The ST segments were normal on the resting ECG. Maximum heart rate: 103 bpm Maximal, age-predicted heart rate: 73% Resting blood pressure: 144/85 mmHg Maximum blood pressure: 144/[address] changes: No significant ST segment depression observed on the stress ECG. Arrhythmia: None Symptoms: None Patient received diet: In the post-rest recovery interval. Findings: Rotating raw imaging demonstrated no significant lung uptake. There is no significant motion artifact. Heart size appeared normal. Myocardial perfusion demonstrated normal stress and resting perfusion. Ejection fraction: > 70% Wall motion: Normal No significant transient ischemic dilation. Impression: 1. Normal pharmacologic myocardial perfusion imaging study without evidence of scar or inducible ischemia. 2. Left ventricular ejection fraction is normal, 3. No symptoms suggestive angina were reported. Otis Collins DO.
[2024-10-07] MEDS: REGADENOSON 0.4 MG/5 ML SYR IV ONE (19:18)
--- NOTE | 2024-10-07 19:37 | Discharge Summary ---
Date of Service October 07, 2024 Admission HPI Per Admitting Provider History obtained from patient and records. Medical history significant for nonocclusive CAD, PSVT, COPD as per records, hx GERD/Mcintyre's esophagus as per records, mood disorder/schizoaffective disorder as per records, hypothyroidism, chronic anemia (baseline hemoglobin of 11), past tobacco abuse Last confinement June 2024 for atypical chest pain. Outpatient nuclear stress test recommended by cardiology. Patient with achy central chest pain going to the right side this morning. Some SOB, no unusual cough symptoms. Similar to episode from a few months ago. Compliant with home medications. Denies abdominal pain. Usual constipation symptoms relieved by home laxatives. Patient currently comfortable. Transient hypoxemia O2 sats 80s noted during encounter at the ER. 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 Admission Exam Per Admitting Provider GENERAL: Slightly uncomfortable, slightly hard of hearing, no respiratory distress SKIN: Normal color, warm HEENT: [place] palpebral conjunctivae, no ptosis, dry buccal mucosa NECK : Supple, no tenderness CHEST : Decreased breath sounds, occasional expiratory wheezes, no tenderness HEART : RRR, no obvious murmurs ABDOMEN: Distention, nontender EXTREMITIES : No LE swelling/tenderness, no other conspicuous deformities noted NEUROLOGIC : Coherent, no facial asymmetry, slightly hard of hearing, no other gross focality Principal Diagnosis Atypical Chest Pain Pulmonary Cysts Hypoxia--Resolved Cholelithiasis Discharge Data Allergies Allergy/AdvReac Type Severity Reaction Status Date / Time amoxicillin Allergy Severe HIVES Verified 06/26/24 22:26 latex Allergy Mild RASH Verified 06/26/24 22:26 Consultations 10/06/24 23:28 ED Decision to Admit Stat 10/07/24 04:28 Consult Cardiology Routine Procedures Performed Laboratory Results WBC 6.14 K/ul (4.8-10.8) 10/06/24 22:20 RBC 4.45 M/uL (4.20-5.40) 10/06/24 22:20 Hgb 12.7 g/dl (12.0-16.0) 10/06/24 22:20 POC Hgb 12.6 g/dl (12.0-16.0) 10/06/24 22:26 Hct 38.0 % (37.0-47.0) 10/06/24 22: POC Hct 37 % (37-47) 10/06/24 22: MCV 85.4 fL (80.0-100.0) 10/06/24 22: MCH 28.5 pg (25.0-34.0) 10/06/24 22: MCHC 33.4 g/dL (32.0-36.0) 10/06/24 22: RDW Std Deviation 42.2 fL (36.4-46.3) 10/06/24: RDW Coeff of Ximena 13.4 % (11.5-14.5) 10/06/24 22: Plt Count 145 K/uL (130-400) 10/06/24 22: MPV 12.8 fL (9.4-12.4) H 10/06/24 22:20 Immature Gran % (Auto) 0.2 % 10/06/24 22:20 Neut % (Auto) 57.6 % 10/06/24 22:20 Lymph % (Auto) 27.0 % 10/06/24 22:20 Menard % (Auto) 11.6 % 10/06/24 22:20 Eos % (Auto) 2.9 % 10/06/24 22:20 Baso % (Auto) 0.7 % 10/06/24 22:20 Neut # (Auto) 3.54 K/uL (1.40-6.50) 10/06/24 22:20 Lymph # (Auto) 1.66 K/uL (1.20-3.40) 10/06/24 22:20 Menard # (Auto) 0.71 K/uL (0.11-0.59) H 10/06/24 22:20 Eos # (Auto) 0.18 K/uL (0.00-0.50) 10/06/24 22:20 Baso # (Auto) 0.04 K/uL (0.00-0.20) 10/06/24 22:20 Immature Gran # (Auto) 0.01 K/uL (0.01-0.20) 10/06/24 22:20 APTT 28 Seconds (21-31) 10/06/24 22:20 PTT Ratio 1.0 10/06/24 22:20 VBG pH 7.38 (7.36-7.41) 10/07/24 03:09 VBG pCO2 51 mmHg (38-50) H 10/07/24 03:09 VBG pO2 22 mmHg 10/07/24 03:09 VBG HCO3 30 mmol/L 10/07/24 03:09 VBG O2 Saturation < 60.0 % 10/07/24 03:09 VBG Base Excess 3.9 mEq/L 10/07/24 03:09 POC Sodium 139 mmol/L (135-144) 10/06/24 22:26 Sodium 139 mmol/L (136-145) 10/06/24 22:20 POC Potassium 4.0 mmol/L (3.3-5.0) 10/06/24 22:26 Potassium 4.1 mmol/L (3.5-5.1) 10/06/24 22:20 POC Chloride 104 mmol/L (101-112) 10/06/24 22:26 Chloride 105 mmol/L (98-107) 10/06/24 22:20 Carbon Dioxide 27 mmol/L (21-32) 10/06/24 22:20 POC Total CO2 24 mmol/L (24-31) 10/06/24 22:26 Anion Gap 7 (3-11) 10/06/24 22:20 POC Anion Gap 16.0 mmol/L (16-25) 10/06/24 22:26 POC BUN 18 mg/dl (7-18) 10/06/24 22:26 BUN 18 mg/dl (6-23) 10/06/24 22:20 Creatinine 1.15 mg/dl (0.6-1.2) 10/06/24 22:20 POC Creatinine 1.1 mg/dl (0.6-1.3) 10/06/24 22:26 Est Cr Clr Drug Dosing 34.0 ml/min 10/06/24 22:20 eGFR 48.46 10/06/24 22:20 BUN/Creatinine Ratio 15.7 (10-20) 10/06/24 22:20 Glucose 89 mg/dl (70-99(Fasting)) 10/06/24 22:20 POC Glucose (other) 88 mg/dl (70-99) 10/06/24 22:26 Calcium 9.4 mg/dl (8.6-10.3) 10/06/24 22:20 POC Ioniz Calcium Gloria 1.21 mmol/l (1.12-1.32) 10/06/24 22:26 Magnesium 2.2 mg/dl (1.7-2.4) 10/06/24 22:20 Total Bilirubin 0.7 mg/dl (0.2-1.0) 10/06/24 22:20 AST 22 U/L (13-39) 10/06/24 22:20 ALT 11 U/L (7-52) 10/06/24 22:20 Alkaline Phosphatase 39 U/L (34-104) 10/06/24 22:20 Troponin I High Sens 4.4 pg/ml (0-14) 10/07/24 03:09 Total Protein 7.2 gm/dl (6.0-8.3) 10/06/24 22:20 Albumin 4.4 gm/dl (3.4-5.0) 10/06/24 22:20 Globulin 2.8 gm/dl (2.5-4.0) 10/06/24 22:20 Albumin/Globulin Ratio 1.6 (0.9-2) 10/06/24 22:20 Lipase 30 U/L (11-82) 10/06/24 22:20 Impressions Chest X-Ray 10/06/24 22:24 Exam(s): XR CXR 1 VIEW EXAM: XR Chest, 1 View CLINICAL HISTORY: Reason for exam: cp. TECHNIQUE: Frontal view of the chest. COMPARISON: Prior chest x-ray from November 25, 2022. FINDINGS: Lungs: Mild to moderate peribronchial thickening of the central bronchi. No consolidation. Pleural space: Unremarkable. No pneumothorax. Heart: Unremarkable. No cardiomegaly. Mediastinum: Unremarkable. Normal mediastinal contour. Bones/joints: Left shoulder arthroplasty. Diffuse osteopenia throughout the visualized bones. No acute fracture. IMPRESSION: Bronchitis, which may be of infectious or inflammatory etiologies. No consolidation or pleural effusion. Electronically signed by: Savannah Najera MD 10/07/24 00:30 AM Chest CTA 10/06/24 23:57 EXAM: CT angio chest PE protocol CLINICAL HISTORY: sob TECHNIQUE: Contiguous axial images were obtained from the neck base through the upper abdomen following intravenous administration of iodinated contrast material. Angiographic images were processed, 3D MIP images were acquired for interpretation. If IV contrast material had not been administered, the likelihood of detecting abnormalities relevant to the patient's condition would have been substantially decreased. Coronal and sagittal 3-D MIPs were likewise performed and indicated to increase the sensitivity of detectin diffuse clinically relevant pathology. CT scan was performed according to ALARA (as low as reasonable achievable). COMPARISON: None. FINDINGS: Large rolling hiatus hernia grossly dilated esophagus is seen- diameter measures up to 5 cm. Multiple scattered thin walled pulmonary cysts are noted in both lungs. Focal atelectasis is noted involving lingula. Adequate contrast bolus without evidence of pulmonary embolism. The central airways are patent. Rest of lungs are clear. No pleural effusion. The heart, aorta, and pulmonary arteries are of normal size and configuration. There are coronary artery and aortic atherosclerotic calcifications. No pericardial effusion is identified. The thyroid is unremarkable. No mediastinal, hilar, or axillary lymphadenopathy is noted. No suspicious lytic or sclerotic osseous lesions are identified. IMPRESSION: 1. No evidence of pulmonary embolism 2. Large rolling hiatus hernia grossly dilated esophagus is seen- diameter measures up to 5 cm. 3. Multiple scattered thin walled pulmonary cysts are noted in both lungs. 4. Focal atelectasis involving lingula. Electronically signed by Suleman Parks 10-07-2024 01:39 AM Abdomen/Pelvis CT 10/07/24 00:25 EXAM: CT abd pelvis IV con only CLINICAL HISTORY: poss megacolon on ct chest TECHNIQUE: Contiguous axial images were obtained from the level of the diaphragm to the pubic symphysis with intravenous contrast. Coronal and sagittal reconstructions were likewise performed and indicated to increase the sensitivity for detecting clinically relevant pathology. If IV contrast material had not been administered, the likelihood of detecting abnormalities relevant to the patient's condition would have been substantially decreased. CT scan was performed according to ALARA (as low as reasonable achievable). COMPARISON: None. FINDINGS: Large rolling hiatus hernia. The liver is normal in size and attenuation. No focal liver lesions are seen. There is no intra or extrahepatic biliary ductal dilatation. Hepatic vasculature is patent. The gallbladder is distended and shows a calculus of size 5 mm without cholecystitis.. The spleen, pancreas, and adrenal glands are unremarkable. The kidneys are normal in size and attenuation. There is no hydronephrosis or perinephric fat stranding. No renal calculi or renal masses are identified. The ureters are normal in caliber and no ureteral calculi are seen. The bladder is normal in contour. Pelvic viscera are unremarkable. No focal or diffuse bowel wall thickening or evidence of bowel obstruction is identified. The appendix is visualized in the right lower quadrant and appears within normal limits. Abdominal and pelvic vasculature is patent. No adenopathy or fluid collections are seen. No aggressive appearing osseous lesions are identified. Dilated colon and shows gaseous and fecal distension IMPRESSION: 1. Uncomplicated cholelithiasis. 2. Large rolling hiatus hernia 3. Dilated colon and shows gaseous and fecal distension 4. No other abnormality seen. Electronically signed by Suleman Parks 10-07-2024 01:32 AM Ordered Studies 10/06/24 23:57 CT angio chest PE protocol Stat 10/07/24 00:25 CT Abd and Pelvis [CT abd pelvis IV con only] Stat Hospital Course (1) Acute hypoxemic respiratory failure: Atypical chest pain H/O CAD, PSVT Troponin negative EKG showed no signs of acute ischemia Pharmacological Stress Test:Normal pharmacologic myocardial perfusion imaging study without evidence of scar or inducible ischemia. Left ventricular ejection fraction is normal. No symptoms suggestive angina were reported. Echo:Ejection fraction: > 70%. Wall motion: Normal. No significant transient ischemic dilation. Appreciate cardiology input Plan for stress test per cardiology Continue aspirin, statin Plan to be discharged home today Transient hypoxemia Pulmonary cysts Focal atelectasis H/O COPD --Chest CTA:No evidence of pulmonary embolism. Multiple scattered thin walled pulmonary cysts are noted in both lungs. Focal atelectasis involving lingula. --VBG showed no significant hypercarbia Saturating well on room air Currently not on any maintenance inhalers Monitor Advised to follow up with Pulmonology as outpatient Hiatal hernia S/P surgery per patient Continue PPI, Pepcid Advised to follow-up with surgery/GI as outpatient Hypothyroidism Recent outpatient TSH normal Continue levothyroxine Cholelithiasis Incidental finding on CT Follow-up as outpatient Other chronic conditions Mood disorder/schizoaffective disorder Chronic anemia, hemoglobin better than baseline Past tobacco abuse Continue home medication DVT Px: Lovenox SQ Code Status Full code Disposition Home Total Time Total Time Spent Total Time Spent (In Minutes): 45 minutes Discharge Plan Discharge Items Patient Disposition: Home - Self-Care Reason For Visit: RESP FAILURE, ATYP CP Discharge Diagnosis: Atypical Chest Pain Pulmonary Cysts Hypoxia--Resolved Cholelithiasis Condition on Discharge: Fair Activity: Per Instructions section Exercise/Sports: Gradually increase as tolerated Non-emergency contact: Primary Care Provider, Cycle Director and Animal Behaviorist Call non-emergency contact if: you have any medication questions, your symptoms worsen, your pain is concerning for you and you have a fever Follow-up/Referrals: Yuko Casas MD [Primary Care Provider] - Diet: Heart Healthy Addtl Attending Provider Instructions: --Follow up with your Primary care physician in 1 week --Follow up with your contract consultant for further evaluation of cysts in your lung --Follow up with your GI/Surgery for GERD/Hiatal Hernia as recommended Seek immediate medical attention if your symptoms reoccur or worsen Please review medication list provided on discharge for any medication changes as instructed. Please call if you have any questions or problems. You can reach a [facility] hospitalist on duty at [facility] 24 hours a day by calling [phone] Pending Studies at Discharge: No Stand-Alone Forms: My [facility] [employer], Smoking Cessation Medications and DC Order Prescriptions: Continued atorvastatin [Lipitor] 20 mg Tablet 20 mg PO QAM quetiapine 300 mg Tablet 300 mg PO HS pantoprazole 40 mg Tablet,Delayed Release (Dr/Ec) 40 mg PO BIDM nitroglycerin 0.4 mg Tablet, Sublingual 0.4 mg Sublingual DIRECTED PRN (Reason: Chest Pain) Rx Instructions: PLACE ONE TABLET UNDER THE TONGUE EVERY 5 MINUTES FOR UP TO 3 DOSES OVER 15 MINUTES IF NEEDED FOR CHEST PAIN venlafaxine 150 mg Tablet Extended Release 24hr 150 mg PO QAM gabapentin 100 mg capsule See Rx Instructions .ROUTE .COMPLEX Rx Instructions: TAKES 100 MG QAM, THEN 200 MG QHS. famotidine 20 mg Tablet 20 mg PO BID azelastine 137 mcg (0.1 %) aerosol,spray 1 spray INTRANASAL BID PRN (Reason: DESIRED) ondansetron HCl 4 mg Tablet 4 mg PO Q8H PRN (Reason: Nausea) triamcinolone acetonide 0.5 % cream 1 applic TOPICAL UD levothyroxine 50 mcg tablet 50 mcg PO DAILYBB docusate sodium 100 mg Capsule 100 mg PO BID PRN (Reason: Constipation) cetirizine [Zyrtec] 10 mg Tablet 10 mg PO HS albuterol sulfate 90 mcg/actuation HFA aerosol inhaler 2 puff INHALATION Q4H PRN (Reason: Wheezing) cyclosporine [Restasis] 0.05 % Dropperette 1 drp OPB DIRECTED PRN (Reason: Dry Eyes) aspirin 81 mg tablet,delayed release (DR/EC) 81 mg PO DAILY Qty: 30 0RF Discharge Orders: Discharge Order (Routine); Ordered 10/07/24 Ordered By: Clovis Almonte Admission Data Admit Date/Time: 10/06/24 23:56 Attending Provider: Clovis Almonte Admit Provider: Bertram Yao Primary Care Provider: Yuko Casas Other Providers: Bertram Yao; Gina Abbott; Otis Collins; Jonatan Guillaume; Thanh Quinteros; Victor Manuel Ohara; Srinivasan Pedraza; Crystal Green; Suzan Du; Flavia Momin; Iesha Mesa Ashley M.; Alex Hodge; Wally Perez; Brianne Stover; Amy Hernandez; Briana Zarate; Winter Brown; Memo Anderson; Sheyla Coelho; Sveta Gaxiola; Shayne Barnes
[2024-10-07 19:39] VITALS: BP 109/62
[2024-10-07] MEDS ORDERED: GABAPENTIN 100 MG CAP PO SCH (21:00)
[2024-10-07] MEDS ORDERED: CETIRIZINE HCL 10 MG TABLET PO SCH (21:00)
== END 2024-10-07 20:28 | disposition home or self-care (01) | DRG 313 ==
LOC: ED 22:10 → 2N 23:56